=== PATIENT | male | born 1940 | race Caucasian/White ===

== ENCOUNTER 2022-05-06 12:38 | Outpatient (CLI) | payer MEDICARE, BC, SELFPAY | END 2022-05-06 12:39 | disposition home or self-care (01) | LOC: RAD 12:40 | PROVIDERS: PCP Internal Medicine; Visit Provider Internal Medicine | DX: I10 Essential (primary) hypertension (principal); I51.7 Cardiomegaly; I67.9 Cerebrovascular disease, unspecified | CPT/HCPCS: 93306 ==

== ENCOUNTER 2022-11-04 08:28 | Outpatient (CLI) | payer MEDICARE, BC, SELFPAY ==
[2022-11-04 15:27] LABS: Chloride* 106 mmol/L (96-114); Potassium* 4.7 mmol/L (3.6-5.1); Sodium* 137 mmol/L (135-149)
[2022-11-04 15:30] LABS: Blood Urea Nitrogen* 14 mg/dL (7-30); Carbon Dioxide* 24 mmol/L (20-32); Cholesterol* 199 mg/dL (90-199); Estimated Glomerular Filt Rate 75 ml/min; Glucose* 91 mg/dL (60-115)
[2022-11-04 15:31] LABS: Calcium* 9.3 mg/dL (8.4-10.6); HDL Cholesterol* 62 mg/dL (>=40); LDL Cholesterol Calculated 110 mg/dL (<100); Triglycerides* 133 mg/dL (40-149)
== END 2022-11-04 08:29 | disposition home or self-care (01) ==
PROVIDERS: PCP Internal Medicine; Visit Provider Internal Medicine
DX: Z00.00 Encounter for general adult medical examination without abnormal findings (principal); E03.9 Hypothyroidism, unspecified; I10 Essential (primary) hypertension; I25.10 Atherosclerotic heart disease of native coronary artery without angina pectoris; E53.8 Deficiency of other specified B group vitamins
CPT/HCPCS: 80048; 80061; 84443

== ENCOUNTER 2023-02-08 09:23 | Emergency (ER) | payer MEDICARE, BC, SELFPAY ==
[2023-02-08] VITALS (13 sets, daily range): BP systolic 121–181; BP diastolic 73–98; PULSE 58–66; RESP 16–18; TEMP 36.2; O2SAT 95–99; BMI 28.7
--- NOTE | 2023-02-08 09:34 | CRLHL7_ITS ---
For Patients: As a result of the Cures Act, medical imaging exams and procedure reports are released immediately into your electronic medical record. You may view this report before your referring provider. If you have questions, please contact your health care provider. INDICATION: Syncope. COMPARISON: None. TECHNIQUE: PA and lateral views of the chest. FINDINGS: The cardiomediastinal silhouette and pulmonary vasculature are within normal limits. The lungs are clear. No pleural effusion or pneumothorax is identified. No acute bone or joint abnormality is seen. IMPRESSION: No acute abnormality. Dictated by Oscar Garcia MD @ 02/08/2023 10:08:14 AM (Electronically Signed)
[2023-02-08 09:49] LABS: Basophils Absolute Auto 0.03 K/uL (0.00-0.30); Basophils Percent Auto 0.4 % (0.0-3.0); Eosinophils Percent Auto 12.8 % (0.0-7.0); Hematocrit 39.4 % (37.0-53.0); Hemoglobin* 13.1 gm/dL (13.5-17.5); Immature Granulocytes Abs Auto 0.01 K/uL (0.00-0.30); Immature Granulocytes Pct Auto 0.1 %; Lymphocytes Percent Auto 8.1 % (20-44); Mean Corpuscular HGB Conc 33 gm/dL (32-36); Mean Corpuscular Hemoglobin 36 pg (26-34); Mean Corpuscular Volume 108 fL (80-100); Monocytes Percent Auto 9.7 % (0.0-11.0); Neutrophils Percent Auto 68.9 % (42.0-72.0); Platelet Count* 259 K/uL (140-440); RDW Coefficient of Variation % 11.8 % (11.5-15.5); Red Blood Count 3.64 m/uL (4.30-5.90); White Blood Count* 8.27 K/uL (4.50-11.00)
[2023-02-08 09:55] LABS: Slide Review Reflex No; Troponin, Point-of-Care* 0.01 ng/ml (0.01-0.04)
--- NOTE | 2023-02-08 09:55 | ED.SYNCOPE ---
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 The symptoms lasted for approximately 2-3 minutes, improved once he laid down. [place] a similar episode today again when he was standing up. Although was not nearly as bad. He did not feel any feeling of the heart was racing, he was eating yesterday and drinking food when this occurred. Denies a history of numbness tingling weakness. But does tell me that he was hospitalized [facility] for what he describes as a mini-stroke in the past. 1.? Essential Hypertension. Blood pressures are checked once a week at home, running 122-135 systolic.? He has no concerns and no trouble on his atenolol and his benazepril. At his visit with me last year May through July 2020 he was having some dyspnea exertion and elevated blood pressure but did not tolerate long-acting nitrates, and he decided to decrease his beer intake and increased exercise, and his dyspnea exertion and blood pressure improved. His shortness of breath is better.? 2.? Hypothyroidism. He takes is daily levothyroxine without any problems.? He has no signs or symptoms of hyperthyroidism or hypothyroidism. 3.? Coronary artery disease. 4.? Statin intolerance. 5.? Dyspnea on exertion. He had a LAD stent placed 06/10.? He has a history of dyspnea on exertion with lifting in the past, and 05/2019 was evaluated with a negative exercise echocardiogram due to those symptoms.? He admits to fairly severe deconditioning at this point, sitting around at his home due to the pandemic, and does have shortness of breath when he goes up a flight of stairs, which is completely unchanged.? ? Please see my notes of 05/22/19, 05/27/20, and 07/08/20 that describes his past dyspnea on exertion.? There is no chest pain.? He is statin intolerant.? He did not tolerate Imdur last year 06/2020, and he increased his exercise, and reported things were better by the time of his 07/2020 visit with me. When he rides the recumbent bike at the [facility] for 20 minutes, there is no dyspnea on exertion.? He hasn't had to use any of the nitroglycerin SL. 6. Cerebrovascular disease. He was admitted to [facility], overnight from 04/09 to 04/10 for TIA symptoms and had an MRI showing nothing acute, but a small chronic right basal ganglia infarct.? He was placed on aspirin, Plavix, rosuvastatin (previous history of statin intolerance), and he stopped the rosuvastatin due to leg pains 2 weeks after I saw him last.? 7.? B12 deficiency. 8.? Macrocytosis without anemia In [place], he had macrocytosis without anemia(MCV 107) with B12 176, 04/16, s he was advised to start oral B12, which he is taking. PAST MEDICAL/SURGICAL HISTORY:? Please see problem list. FAMILY HISTORY:? Father of old age at 83.? Brother had diabetes and coronary artery disease and of multiple myeloma at 71.? SOCIAL HISTORY:? He was June 2018.? He is not sexually active.? He has 3 children and multiple grandchildren.? 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 He is a former smoker, quitting more than 30 years ago.? Alcohol use is a glass of 6 glasses of alcohol weekly.? Exercise is going to the [facility] 3x weekly, riding the recumbent bike for 30 minutes and some sit ups on a machine (M,W,F at the [facility] and some walking in his hallways).? MD complaint: felt faint and almost passed out Onset (ago): day(s) Prodromal symptoms: lightheaded Witnessed: Yes - by Bystander Context: at rest and standing up Injuries sustained associated with event: none Current symptoms: none History: history of CAD Treatments prior to arrival: none Related Data Home Medications Medication Instructions Recorded Confirmed aspirin 81 mg capsule 81 mg PO QDAY 04/15/22 11/08/22 cetirizine 10 mg tablet 10 mg PO QDAY PRN 04/15/22 11/08/22 diphenhydramine HCl 25 mg tablet 25 mg PO TID PRN 04/15/22 11/08/22 (Benadryl Allergy) mecobalamin (vitamin B12) 1,000 1,000 mcg PO QDAY 11/08/22 11/08/22 mcg chewable tablet Previous Rx's Medication Instructions Recorded atenolol 50 mg tablet 50 mg PO QDAY #90 tabs 11/08/22 benazepril 40 mg tablet 60 mg (1.5 x 40 mg) PO QDAY #135 11/08/22 tabs levothyroxine 100 mcg tablet 100 mcg PO ONCE #90 tabs 11/08/22 Allergies Allergy/AdvReac Type Severity Reaction Status Date / Time simvastatin [From Zocor] Allergy Intermediate Weakness Verified 11/08/22 14:52 Base Metals Allergy Intermediate rash Uncoded 11/08/22 14:52 Review of Systems Status of ROS: Reports: 10 or more systems reviewed and unremarkable except as noted in History and below [facility] Medical History (Updated 02/08/23 @ 13:28 by Noah Shaw MD) TIA (transient ischemic attack) ?G45.9 - Transient cerebral ischemic attack, unspecified (ICD-10) Surgical History (Updated 04/12/22 @ 14:19 by Rc Caldera) S/P cataract extraction and insertion of intraocular lens ?Z98.49 - Cataract extraction status, unspecified eye (ICD-10) ?Z96.1 - Presence of intraocular lens (ICD-10) History of tonsillectomy ?Z90.89 - Acquired absence of other organs (ICD-10) History of prostate biopsy ?Z98.890 - Other specified postprocedural states (ICD-10) History of appendectomy ?Z90.49 - Acquired absence of other specified parts of digestive tract (ICD-10) Social History (Updated 04/12/22 @ 14:20 by Rc Caldera) Narrative: health care directive on file- health care directive completed on 05/26/2020 reviewed and scanned on 05/27/2020 Smoking Status: Former smoker How often do you have a drink containing alcohol: 4 or more times a week AUDIT-C Alcohol total score: 4 Non-prescribed substance use: denies use Little interest or pleasure in doing things: not at all Feeling down, depressed, or hopeless: not at all Exam Narrative: Exam Narrative: I find him alert talkative in room 6, he appears to be in no distress, with normal vital signs. Pupils are equal round reactive to light, cranial nerves 3-12 are normal, TMs are normal, carotid upstrokes are equal bilaterally with no bruits, JVP is flat, there is no meningismus, he is able to whistle, alert oriented x3 with a GCS of 15/15. Chest is clear bilaterally with no wheezing crackles noted easy respirations no signs of respiratory distress heart sounds no clicks murmurs or gallops, S1-S2 are normal. Abdomen is soft and obese there is no guarding, no organomegaly, no tenderness to palpation, he moves all extremities independently and well. He is a right-hand dominant, fingers nose testing is normal, fine motor movements are normal, strength is equal bilaterally and symmetrical both proximal distal. Sensations normal. There is no edema of his lower extremities and negative Homans sign. There is no rashes. Const: Vital Signs, click to edit/add: Vital Signs - 24 hr 02/08/23 09:26 02/08/23 09:30 02/08/23 10:05 Temperature 97.2 F L Pulse Rate Pulse Rate [Right Pulse Oximeter] 61 61 Pulse Rate [orthos tatic lying Left P ulse Oximeter] 58 L Pulse Rate [orthos tatic sitting Left Pulse Oximeter] 60 Pulse Rate [orthos tatic standing Lef t Pulse Oximeter] 65 Respiratory Rate 18 18 Blood Pressure Blood Pressure [Ri ght Upper Arm] 135/90 H 157/84 H Blood Pressure [or thostatic lying Le ft Arm] 155/78 H Blood Pressure [or thostatic sitting Left Arm] 167/81 H Blood Pressure [or thostatic standing Left Arm] 121/73 Pulse Oximetry 99 99 Oxygen Delivery Me thod Room Air Room Air 02/08/23 10:30 02/08/23 10:52 02/08/23 11:00 Temperature Pulse Rate 60 60 Pulse Rate [Right Pulse Oximeter] 58 L Pulse Rate [orthos tatic lying Left P ulse Oximeter] Pulse Rate [orthos tatic sitting Left Pulse Oximeter] Pulse Rate [orthos tatic standing Lef t Pulse Oximeter] Respiratory Rate 16 Blood Pressure Blood Pressure [Ri ght Upper Arm] 169/83 H Blood Pressure [or thostatic lying Le ft Arm] Blood Pressure [or thostatic sitting Left Arm] Blood Pressure [or thostatic standing Left Arm] Pulse Oximetry 98 95 99 Oxygen Delivery Me thod Room Air Room Air Room Air 02/08/23 11:02 02/08/23 11:30 02/08/23 11:33 Temperature Pulse Rate 60 62 66 Pulse Rate [Right Pulse Oximeter] Pulse Rate [orthos tatic lying Left P ulse Oximeter] Pulse Rate [orthos tatic sitting Left Pulse Oximeter] Pulse Rate [orthos tatic standing Lef t Pulse Oximeter] Respiratory Rate Blood Pressure 176/85 H 181/91 H Blood Pressure [Ri ght Upper Arm] Blood Pressure [or thostatic lying Le ft Arm] Blood Pressure [or thostatic sitting Left Arm] Blood Pressure [or thostatic standing Left Arm] Pulse Oximetry 98 99 97 Oxygen Delivery Me thod Room Air 02/08/23 12:02 02/08/23 12:33 02/08/23 13:02 Temperature Pulse Rate Pulse Rate [Right Pulse Oximeter] Pulse Rate [orthos tatic lying Left P ulse Oximeter] Pulse Rate [orthos tatic sitting Left Pulse Oximeter] Pulse Rate [orthos tatic standing Lef t Pulse Oximeter] Respiratory Rate Blood Pressure 173/79 H 155/80 H 165/89 H Blood Pressure [Ri ght Upper Arm] Blood Pressure [or thostatic lying Le ft Arm] Blood Pressure [or thostatic sitting Left Arm] Blood Pressure [or thostatic standing Left Arm] Pulse Oximetry Oxygen Delivery Me thod 02/08/23 13:32 Temperature Pulse Rate Pulse Rate [Right Pulse Oximeter] Pulse Rate [orthos tatic lying Left P ulse Oximeter] Pulse Rate [orthos tatic sitting Left Pulse Oximeter] Pulse Rate [orthos tatic standing Lef t Pulse Oximeter] Respiratory Rate Blood Pressure 170/98 H Blood Pressure [Ri ght Upper Arm] Blood Pressure [or thostatic lying Le ft Arm] Blood Pressure [or thostatic sitting Left Arm] Blood Pressure [or thostatic standing Left Arm] Pulse Oximetry Oxygen Delivery Me thod Documenting provider has reviewed patient's vital signs: yes Course Course Hospital Course: Discussed with this patient is lab tests are negative, his ultrasounds of his legs and chest CT showed do not show pulmonary embolism, review of the previous echo was done, and this was done recently. I think it would be reasonable to discharge him at this point, there may be an element of low fluid intake, along with his hypertension as his pressures remained elevated here. He will continue take his medications as directed follow-up with primary care is appoint with his regular physician next week Tuesday. We will get a Holter monitor further quantify that he is not running a dysrhythmia. He will return with signs symptoms of worsening which we discussed. There was probably a small element of orthostatic hypotension with this, as his orthostatics did show this. Although he did not have a huge rise in his pulse. His blood pressure did drop however 30 points systolic. Vital Signs Vital signs: Initial Vital Signs Temperature 97.2 F L 02/08/23 09:26 Temperature Source Temporal Artery Scan 02/08/23 09:26 Pulse Rate 61 02/08/23 09:26 Respiratory Rate 18 02/08/23 09:26 Blood Pressure 135/90 H 02/08/23 09:26 Blood Pressure Mean 105 02/08/23 09:26 Blood Pressure Position Sitting 02/08/23 09:26 Pulse Oximetry 99 02/08/23 09:26 Oxygen Delivery Method Room Air 02/08/23 09:26 Vital Signs Temperature 97.2 F L 02/08/23 09:26 Pulse Rate 61 02/08/23 09:26 Respiratory Rate 18 02/08/23 09:26 Blood Pressure 135/90 H 02/08/23 09:26 Pulse Oximetry 99 02/08/23 09:26 Oxygen Delivery Method Room Air 02/08/23 09:26 Temperature 97.2 F L 02/08/23 09:26 Pulse Rate 66 02/08/23 11:33 Respiratory Rate 16 02/08/23 10:30 Blood Pressure 170/98 H 02/08/23 13:32 Pulse Oximetry 97 02/08/23 11:33 Oxygen Delivery Method Room Air 02/08/23 11:02 MDM - Syncope MDM Narrative Medical decision making narrative: Life-threatening differential diagnosis considered include: Cardiac arrhythmia, acute blood loss, and intracranial bleed. Other differential diagnosis include but are not limited to vasovagal syncope, orthostatic syncope, seizure, as well as other etiologies Medical Records Attestation: I reviewed the patient's medical records. Lab Data Attestation: I reviewed the patient's lab results. Labs: Lab Results 02/08/23 02/08/23 02/08/23 Range/Units 09:40 09:42 12:00 WBC 8.27 (4.50-11.00) K/uL RBC 3.64 L (4.30-5.90) m/uL Hgb 13.1 L (13.5-17.5) gm/dL Hct 39.4 (37.0-53.0) % MCV 108 H (80-100) fL MCH 36 H (26-34) pg MCHC 33 (32-36) gm/dL RDW Coeff of Dina 11.8 (11.5-15.5) % Plt Count 259 (140-440) K/uL Neut % (Auto) 68.9 (42.0-72.0) % Lymph % (Auto) 8.1 L (20-44) % [place] % (Auto) 9.7 (0.0-11.0) % Eos % (Auto) 12.8 H (0.0-7.0) % Baso % (Auto) 0.4 (0.0-3.0) % Neut # (Auto) 5.70 (1.7-7.0) K/uL Lymph # (Auto) 0.70 L (0.90-2.90) K/uL [place] # (Auto) 0.80 (0.00-0.90) K/UL Eos # (Auto) 1.10 H (0.00-0.50) K/uL Baso # (Auto) 0.03 (0.00-0.30) K/uL INR 1.01 (0.91-1.10) APTT 26 (23-33) Seconds D-Dimer Quant (PE/DVT) 1.99 H (0.00-0.50) ug/ml Sodium 134 L (135-149) mmol/L Potassium 4.2 (3.6-5.1) mmol/L Chloride 101 (96-114) mmol/L Carbon Dioxide 25 (20-32) mmol/L BUN 23 (7-30) mg/dL Creatinine 1.1 (0.5-1.5) mg/dL Estimated Creat Clear 52.54 Estimated GFR 67 ml/min Glucose 137 H (60-115) mg/dL Calcium 9.2 (8.4-10.6) mg/dL Ethyl Alcohol < 0.01 L (0.01-0.03) % SARS-CoV-2 (PCR) Negative SARS-CoV-2 (Negative) Influenza Type A (PCR) Negative PCR FLU A (Negative) Influenza Type B (PCR) Negative PCR FLU B (Negative) RSV (PCR) Negative PCR RSV (Negative) POC Troponin I 0.01 0.01 (0.01-0.04) ng/ml Imaging Data CT scan - chest: Attestation: I have reviewed the pertinent imaging results. My impression: Negative CT scan of the chest, negative chest x-ray, and negative bilateral ultrasounds of the legs by my review Radiologist's impression: atient: FAIZAN TEE Facility:?[facility] Patient ID:?[id number] Site Patient ID:?[id number]. Site :?[id number] Study:?US Extremity Bilateral VENOUS-02/08/2023 12:44:28 PM Ordering Physician:Tobias Zamora Final Report: INDICATION: Elevated D-dimer COMPARISON: none TECHNIQUE: A compression venous ultrasound exam was performed of both lower extremities using polanco scale imaging, color Doppler and spectral Doppler analysis. FINDINGS: Sonographic imaging of the lower extremities demonstrates normal compressibility and color Doppler venous blood flow within the common femoral, deep femoral, and proximal greater saphenous veins. Within the thighs the femoral veins are patent and compressible. At a lower level the popliteal and posterior tibial veins also show normal compressibility and color Doppler venous blood flow. IMPRESSION: Normal venous ultrasound exam. No evidence of deep vein thrombosis within either the left or right lower extremity. Dictated by Siddhartha Franco MD @ 02/08/2023 1:03:54 PM (Electronic Signature) Patient: FAIZAN TEE Facility:?[facility] Patient ID:?[id number] Site Patient ID:?[id number]. Site :?[id number] Study:?CT Chest Angio ISOVUE 370 PE STUDY-02/08/2023 11:30:53 AM Ordering Physician:Tobias Zamora Final Report: INDICATION: Syncope, elevated D-dimer. TECHNIQUE: CT chest PE was acquired with 95 cc Isovue 370 IV contrast. COMPARISON: Chest x-ray 02/08/2023. FINDINGS: Heart and vasculature: Contrast opacification of the pulmonary arterial tree is adequate. No sign of pulmonary embolism. Heart size is normal. Thoracic aorta and pulmonary artery are normal in caliber. Coronary artery calcifications and probable coronary artery stent are noted. Lungs and pleura: No suspicious nodules or infiltrates. There are minimal dependent opacities within the lung bases, likely atelectasis. Next Lymph nodes/mediastinum: No mediastinal, hilar, or axillary adenopathy. Chest wall: No masses. Upper abdomen: 5 centimeter cyst in the right hepatic lobe. No acute abnormality identified within the upper abdomen. Bones: Unremarkable for age. IMPRESSION: 1. No pulmonary arterial embolism identified. 2. No other acute abnormality. Please note that all CT scans at this facility use dose modulation, iterative reconstruction, and/or weight-based dosing when appropriate to reduce radiation dose to as low as reasonably achievable. Dictated by Oscar Garcia MD @ 02/08/2023 12:13:07 PM (Electronic Signature) ECG Data Attestation: I personally reviewed and interpreted this ECG as follows: ECG interpretation date: 02/08/23 Interpretation: EKG shows a mild sinus bradycardia with a ventricular rate of 58, no acute ST wave changes are noted. Discharge Plan Discharge Clinical Impression: Syncope Patient Disposition: Home w/ Parent or Adult Condition: Stable Instructions: Syncope (ED), Near Syncope (ED), Syncope in Older Adults (ED) Additional Instructions: We are going to send you home, your going to continue on medications, your going to follow up with your primary care within the next week or 2. I would recommend we do the Holter monitor, lots of fluids, rest, slow rise to the next position. If this recurs again, or you notice it with fast or slow heart rate, you need to come back and be seen. Activity Level: Light activity Discharge Diet: Regular Prescriptions: No Action aspirin 81 mg capsule 81 mg PO QDAY cetirizine 10 mg tablet 10 mg PO QDAY PRN diphenhydramine HCl [Benadryl Allergy] 25 mg tablet 25 mg PO TID PRN benazepril 40 mg tablet 60 mg PO QDAY Qty: 135 3RF Rx Instructions: Pt is to take one and a half tablets by mouth daily atenolol 50 mg tablet 50 mg PO QDAY Qty: 90 3RF levothyroxine 100 mcg tablet 100 mcg PO ONCE Qty: 90 3RF mecobalamin (vitamin B12) 1,000 mcg tablet,chewable 1,000 mcg PO QDAY Follow Up/Referrals: Alejandra Mclean MD [Primary Care Provider] - Stand Alone Forms: [employer] Info Instructions
[2023-02-08 10:02] LABS: Chloride* 101 mmol/L (96-114); Potassium* 4.2 mmol/L (3.6-5.1); Sodium* 134 mmol/L (135-149)
[2023-02-08 10:04] LABS: Creatinine* 1.1 mg/dL (0.5-1.5); Est. Creatinine Clearance* 52.54; Estimated Glomerular Filt Rate 67 ml/min
[2023-02-08 10:05] LABS: Blood Urea Nitrogen* 23 mg/dL (7-30); Carbon Dioxide* 25 mmol/L (20-32); Glucose* 137 mg/dL (60-115); INR 1.01 (0.91-1.10); Prothrombin Time 13.9 Seconds
[2023-02-08 10:06] LABS: Calcium* 9.2 mg/dL (8.4-10.6); Partial Thromboplastin Time* 26 Seconds (23-33)
[2023-02-08 10:08] LABS: D Dimer Quantitative* 1.99 ug/ml (0.00-0.50); Ethanol* < 0.01 % (0.01-0.03)
--- NOTE | 2023-02-08 10:19 | CRLHL7_ITS ---
For Patients: As a result of the Century Cures Act, medical imaging exams and procedure reports are released immediately into your electronic medical record. You may view this report before your referring provider. If you have questions, please contact your health care provider. INDICATION: Syncope, elevated D-dimer. TECHNIQUE: CT chest PE was acquired with 95 cc Isovue 370 IV contrast. COMPARISON: Chest x-ray 02/08/2023. FINDINGS: Heart and vasculature: Contrast opacification of the pulmonary arterial tree is adequate. No sign of pulmonary embolism. Heart size is normal. Thoracic aorta and pulmonary artery are normal in caliber. Coronary artery calcifications and probable coronary artery stent are noted. Lungs and pleura: No suspicious nodules or infiltrates. There are minimal dependent opacities within the lung bases, likely atelectasis. Next Lymph nodes/mediastinum: No mediastinal, hilar, or axillary adenopathy. Chest wall: No masses. Upper abdomen: 5 centimeter cyst in the right hepatic lobe. No acute abnormality identified within the upper abdomen. Bones: Unremarkable for age. IMPRESSION: 1. No pulmonary arterial embolism identified. 2. No other acute abnormality. Please note that all CT scans at this facility use dose modulation, iterative reconstruction, and/or weight-based dosing when appropriate to reduce radiation dose to as low as reasonably achievable. Dictated by Oscar Garcia MD @ 02/08/2023 12:13:07 PM (Electronically Signed)
[2023-02-08 10:38] LABS: PCR FLU A Negative PCR FLU A (Negative); PCR FLU B Negative PCR FLU B (Negative); PCR RSV Negative PCR RSV (Negative)
[2023-02-08 11:10] LABS: SARS PCR* Negative SARS-CoV-2 (Negative)
--- NOTE | 2023-02-08 11:42 | CRLHL7_ITS ---
For Patients: As a result of the Century Cures Act, medical imaging exams and procedure reports are released immediately into your electronic medical record. You may view this report before your referring provider. If you have questions, please contact your health care provider. INDICATION: Elevated D-dimer COMPARISON: none TECHNIQUE: A compression venous ultrasound exam was performed of both lower extremities using polanco scale imaging, color Doppler and spectral Doppler analysis. FINDINGS: Sonographic imaging of the lower extremities demonstrates normal compressibility and color Doppler venous blood flow within the common femoral, deep femoral, and proximal greater saphenous veins. Within the thighs the femoral veins are patent and compressible. At a lower level the popliteal and posterior tibial veins also show normal compressibility and color Doppler venous blood flow. IMPRESSION: Normal venous ultrasound exam. No evidence of deep vein thrombosis within either the left or right lower extremity. Dictated by Siddhartha Franco MD @ 02/08/2023 1:03:54 PM (Electronically Signed)
[2023-02-08 12:16] LABS: Troponin, Point-of-Care* 0.01 ng/ml (0.01-0.04)
[2023-02-09 16:32] LABS: NT Pro B Type NatriureticPept* 504 pg/mL
== END 2023-02-08 14:12 | disposition home or self-care (01) ==
PROVIDERS: Emergency Provider Family Medicine; PCP Internal Medicine
DX: R55 Syncope and collapse (principal); R79.1 Abnormal coagulation profile
CPT/HCPCS: 36415; 71046; 71260; 80048; 82077; 83880; 84484; 85025; 85379; 85610; 85730; 87631; 93005; 93225; 93226; 93970; 99284; 99285; Q9967

== ENCOUNTER 2023-11-22 08:25 | Outpatient (CLI) | payer MEDICARE, BC, SELFPAY | END 2023-11-22 08:26 | disposition home or self-care (01) | LOC: NFLDREF 11-30 12:45 | PROVIDERS: PCP Internal Medicine; Referring Provider Internal Medicine; Visit Provider Internal Medicine | DX: D75.89 Other specified diseases of blood and blood-forming organs (principal); I25.10 Atherosclerotic heart disease of native coronary artery without angina pectoris; E03.9 Hypothyroidism, unspecified; E53.8 Deficiency of other specified B group vitamins | CPT/HCPCS: 80048; 80061; 82607; 84443 ==

== ENCOUNTER 2024-06-15 07:35 | Outpatient (CLI) | payer MEDICARE, BC, SELFPAY ==
--- OUTSIDE RECORDS SUMMARY | 2024-06-17 07:48 | XMS_ITS | Encounter Summary ---
Author Organization [facility] Address [address] [place] [id number] Phone Care Team Providers Care Safety Person Name Role Phone Alejandra Mclean MD Primary Care Provider Encounter Details Date Type Department Care Team (Late st Contact Info) Description 06/16/2024 Orders Only Unspecified Department [place] Unknown, Provider Social History Tobacco Use Types Packs/Day Years Used Date Smoking Tobacco: Never Assessed Sex and Gender Information Value Date Recorded Sex Assigned at Not on file Gender Identity Not on file Sexual Orientation Not on file documented as of this encounter Plan of Treatment Not on file documented as of this encounter Procedures Procedure Name Priority Date/Time Associated Diagnosis Comments TELEMETRY STRIPS 06/16/2024 6:31 PM CDT documented in this encounter Results * TELEMETRY STRIPS (06/16/2024 6:31 PM CDT) Narrative 06/16/2024 6:31 PM CDT Ordered by an unspecified provider. Provider Unknown RAD ECHO documented in this encounter Visit Diagnoses Not on filedocumented in this encounter Care Teams Safety Person Relationship Specialty Start Date End Date Alejandra Mclean MD [address] [id number] PCP - General Internal Medicine 06/15/24 documented as of this encounter
--- OUTSIDE RECORDS SUMMARY | 2024-06-17 07:48 | XMS_ITS | Referral Summary ---
Author Organization [facility] Address [address] [place] [address] Phone Care Team Providers Care [place] Consultant Name Role Phone Alejandra Mclean MD Primary Care Provider Source Comments [employer] is fully rolled out on [email or web address]. Last update 02/28/09.[facility] Encounters Date Type Department Care Team Description 06/17/2024 Orders Only Unspecified Department [place] Unknown, Provider 06/16/2024 Orders Only Unspecified Department [place] Unknown, Provider 06/16/2024 Orders Only Unspecified Department [place] Unknown, Provider 06/16/2024 Orders Only Unspecified Department [place] Unknown, Provider 06/16/2024 Orders Only Unspecified Department [place] Unknown, Provider 06/15/2024 Orders Only [facility] Film Room [facility] Radiology Department [facility] [address] [place] [address] Provider, Outside Referral of patient (Primary Dx) 06/15/2024 11:06 AM CDT - Present Hospital Encounter [facility] Surgery/Trauma/Brigido ro [address] [place] [address] Desi Joel MD Payne, Rachel E, MD Closed fracture of multiple ribs of left side, initial encounter from Last 3 Months Allergies No known active allergies Medications * Be aware that medications may not be up to date as of this document. Always verify current medications with patient. Medication Sig Dispensed Refills Start Date End Date Status benazepril (LOTENSIN) 40 mg oral TABS Take 1.5 tablets (60 mg) by mouth daily. Suspended levothyroxine (SYNTHROID) 100 mcg oral tablet Take 1 tablet (100 mcg) by mouth daily before morning meal. Suspended atenolol (TENORMIN) 50 mg oral TABS Take 1 tablet (50 mg) by mouth daily. Suspended isosorbide mononitrate (IMDUR) 30 mg oral tablet 24 HR Take 1 tablet (30 mg) by mouth daily. Suspended Active Problems Problem Noted Date Diagnosed Date Closed fracture of multiple ribs of left side, initial encounter 06/15/2024 Social History Tobacco Use Types Packs/Day Years Used Date Smoking Tobacco: Never Assessed Sex and Gender Information Value Date Recorded Sex Assigned at Not on file Gender Identity Not on file Sexual Orientation Not on file Last Filed Vital Signs Vital Sign Reading Time Taken Comments Blood Pressure 160/87 06/17/2024 7:14 AM CDT let rn know Pulse 72 06/17/2024 6:00 AM CDT Temperature 37.1 ??C (98.7 ??F) 06/17/2024 7:14 AM CD T Respiratory Rate 20 06/17/2024 7:14 AM CDT Oxygen Saturation 93% 06/17/2024 7:14 AM CDT Inhaled Oxygen Concentration - - Weight - - Height - - Body Mass Index - - Plan of Treatment Not on file Procedures The patient is currently admitted. The information in this section might not be complete until the patient is discharged. Procedure Name Priority Date/Time Associated Diagnosis Comments TELEMETRY STRIPS 06/17/2024 1:52 AM CDT FOLATE SERUM Routine 06/16/2024 9:08 PM CDT VITAMIN B12 Routine 06/16/2024 9:08 PM CDT TELEMETRY STRIPS 06/16/2024 6:31 PM CDT TELEMETRY STRIPS 06/16/2024 8:52 AM CDT TELEMETRY STRIPS 06/16/2024 8:52 AM CDT PHOSPHORUS Routine 06/16/2024 6:52 AM CDT MAGNESIUM Routine 06/16/2024 6:52 AM CDT PANEL BASIC METABOLIC (BMP) Routine 06/16/2024 6:52 AM CDT TC LAB BLOOD DRAW BY VENIPUNCTURE Routine 06/16/2024 6:52 AM CDT TELEMETRY STRIPS 06/16/2024 12:2 2 AM CDT PC TROPONIN QUANTITATIVE Timed 06/15/2024 3:50 PM CDT XR SCAPULA LEFT AP & LAT Routine 06/15/2024 2:[address] SPINE LUMBAR NO IV CON Routine 06/15/2024 2:[address] SPINE THORACIC NO IV CON Routine 06/15/2024 2:52 PM CDT NERVE BLOCK Routine 06/15/2024 2:00 PM CDT TC LAB ER STAT URINALYSIS STAT 06/15/2024 1:12 PM CDT CK, TOTAL STAT 06/15/2024 12:28 PM CDT PROTHROMBIN (PT) & INR STAT 06/15/2024 12:28 PM CDT PC TROPONIN QUANTITATIVE STAT 06/15/2024 12:28 PM CDT PC LAB CBC W/DIFF & PLT STAT 06/15/2024 12:28 PM CDT PC ELECTROLYTES PANEL STAT 06/15/2024 12:28 PM CDT PC CARBON MONOXIDE,(CARBOXYHEMO GLOBIN);QUANTITATIVE Routine 06/15/2024 12:28 PM CDT TC LAB BLOOD DRAW BY VENIPUNCTURE Routine 06/15/2024 12:28 PM CDT ED US GUIDED NERVE BLOCK STAT 06/15/2024 12:01 PM CDT ED EKG (12-LEAD) Routine 06/15/2024 11:[address] OUTSIDE READ CHEST/ABD/PELV Routine 06/15/2024 11:[address] OUTSIDE READ SPINE CERVICAL/NECK Routine 06/15/2024 11:[address] OUTSIDE READ HEAD/FACIAL BONES Routine 06/15/2024 11:26 AM CDT from Last 3 Months Results * TELEMETRY STRIPS (06/17/2024 1:52 AM CDT) Only the most recent of5 resultswithin the time period is included. Narrative 06/17/2024 1:52 AM CDT Ordered by an unspecified provider. Provider Unknown RAD ECHO * FOLATE SERUM (06/16/2024 9:08 PM CDT) Folate 4.1 >=4.0 ng/mL [facility] Blood 06/16/2024 9:08 PM CDT 06/16/2024 9:22 PM CDT Zeina Arias MD LABORATORY Performing Organization Address City/[facility] Co de Phone Number [facility] [address] [address] * VITAMIN B12 (06/16/2024 9:08 PM CDT) B12 447 211 - 946 pg/mL [facility] Blood 06/16/2024 9:08 PM CDT 06/16/2024 9:22 PM CDT Zeina Arias MD LABORATORY [facility] [address] [address] * PHOSPHORUS (06/16/2024 6:52 AM CDT) Phosphorus 2.9 2.5 - 4.5 mg/dL [facility] Blood 06/16/2024 6:52 AM CDT 06/16/2024 7:25 AM CDT Desi Joel MD LABORATORY Performing Organization Address City/[facility]/ZIP Co de Phone Number [facility] [address] [address] * (ABNORMAL) PANEL BASIC METABOLIC (BMP) (06/16/2024 6:52 AM CDT) Sodium 135 135 - 148 mmol/L [facility] Potassium 4.4 3.5 - 5.3 mmol/L [facility] Chloride 104 92 - 108 mmol/L [facility] CO2 23 22 - 30 mmol/L [facility] AnGap 8 8 - 16 mmol/L [facility] Glucose 106(H) 70 - 100 mg/dL [facility] BUN 16 8 - 23 mg/dL [facility] Creatinine 1.02 0.70 - 1.25 mg/dL [facility] Calcium 8.6(L) 8.8 - 10.2 mg/dL [facility] eGFR (2020 CKD-EPI) 72 >=60 ml/min/1.7 3m2 [facility] Comment: The estimated glomerular filtration rate (eGFR) was calculated using the CKD-EPI 2020 creatinine equation, which does not include race as a factor. This equation is validated in individuals 18 years of age and older, and eGFR is normalized to a body surface area of 1.73m^2. Blood 06/16/2024 6:52 AM CDT 06/16/2024 7:25 AM CDT Desi Joel MD LABORATORY Performing Organization Address City/[facility]/ZIP Co de Phone Number [facility] [address] [address] * MAGNESIUM (06/16/2024 6:52 AM CDT) Magnesium 2.1 1.6 - 2.4 mg/dL [facility] Blood 06/16/2024 6:52 AM CDT 06/16/2024 7:25 AM CDT Desi Joel MD LABORATORY Performing Organization Address [facility] Co de Phone Number [facility] [address] [address] * (ABNORMAL) CBC WITH PLATELET (06/16/2024 6:52 AM CDT) WBC 7.85 4.00 - 10.00 k/cmm [facility] RBC 3.40(L) 4.60 - 6.00 m/cmm [facility] Hgb 12.2(L) 13.1 - 17.5 g/dL [facility] Hematocrit 36.6(L) 40.0 - 51.0 % [facility] MCV 107.6(H) 80.0 - 100.0 fL [facility] MCH 35.9(H) 25.0 - 32.0 pg [facility] MCHC 33.3 31.0 - 36.0 g/dL [facility] RDW 12.1 11.5 - 14.5 % [facility] Plt 172 150 - 400 k/cmm [facility] MPV 9.4 6.5 - 12.5 fL [facility] Blood 06/16/2024 6:52 AM CDT 06/16/2024 7:41 AM CDT Desi Joel MD LABORATORY Performing Organization Address [facility] Co de Phone Number [facility] [address] [address] * TROP 4H (06/15/2024 3:50 PM CDT) 4H Trop 7 <=35 ng/L [facility] 4H Delta na Not Significant [facility] Comment:Unable to calculate delta. Blood 06/15/2024 3:50 PM CDT 06/15/2024 3:54 PM CDT Desi Joel MD LABORATORY [facility] [address] [address] * XR SCAPULA LEFT AP + LAT (06/15/2024 2:56 PM CDT) Anatomical Region Laterality Modality Upper Arm Computed Radiogr aphy 06/15/2024 2:59 PM CDT Impressions 06/15/2024 3:05 PM CDT Impression: Posterior rib fractures. No visible scapular fracture Reading Radiologist: Siddhartha Hernández Narrative 06/15/2024 3:05 PM CDT EXAMINATION: XR SCAPULA LEFT AP + LAT 06/15/2024 2:57 PM Indication: ??left scapular fracture ??. Comparison: Previous CT same day Findings: The clavicle is intact. The AC joint width is normal. Posterior rib fractures better seen on the previous CT. The scapula itself shows degenerative changes of the glenohumeral joint with joint space narrowing but no apparent fracture. Procedure Note Siddhartha Hernández MD - 06/15/2024 EXAMINATION: XR SCAPULA LEFT AP + LAT 06/15/2024 2:57 PM Indication: left scapular fracture . Comparison: Previous CT same day Findings: The clavicle is intact. The AC joint width is normal. Posteriorrib fractures better seen on the previous CT. The scapula itself showsdegenerative changes of the glenohumeral joint with joint space narrowingbut no apparent fracture. IMPRESSION Impression: Posterior rib fractures. No visible scapular fracture Reading Radiologist: Siddhartha Hernández Desi Joel MD RAD XRAY * CT SPINE LUMBAR NO IV CON (06/15/2024 2:52 PM CDT) Anatomical Region Laterality Modality Lumbar Spine Computed Tomogra phy 06/15/2024 2:46 PM CDT Impressions 06/15/2024 11:06 PM CDT Impression: 1. No evidence for fracture/dislocation of the thoracic spine. Significant multilevel facet hypertrophy, most prominent at T10-11 with severe bilateral neural foraminal narrowing. Multiple left-sided rib fractures. 2. No evidence for fracture/dislocation of the lumbar spine. Multilevel lumbar spondylosis with multilevel severe facet hypertrophy, multilevel moderate spinal canal narrowing and multilevel bilateral moderate/severe neural foraminal stenoses. I have personally reviewed the image(s) and initial interpretation, and I agree with the findings as documented by the resident/fellow. Reading Radiologist: Dontae Gunn Reading Resident: Davie Chavarria 06/15/2024 11:06 PM CDT Exam: Thoracic and lumbar spine CT without contrast06/15/2024 2:49 PM Indication: 83 years Male trauma ??. Comparison: None. Technique: Using multidetector thin collimation helical acquisition technique, axial, coronal and sagittal reconstructed CT ??images were obtained through the thoracic and lumbar spine without intravenous contrast. Images were reviewed in bone, lung, and soft tissue windows. Dose: Total DLP = 1485.2 mGy.cm mGy*cm. ?? Findings: Thoracic spine: No fracture or dislocation of the thoracic vertebrae. Intact vertebral body alignment. No spinal canal or neural foraminal stenosis. The visualized prevertebral and paravertebral soft tissues are unremarkable. Significant multilevel facet hypertrophy throughout the thoracic spine, most prominent at T1-T2, T2-3, and T9-10 resulting in moderate bilateral neural foraminal narrowing. There is at least severe bilateral neural foraminal narrowing at T10-11. Posterior disc osteophyte complex at T8-9 and T10-11 resulting in mild spinal canal stenosis. Multiple acute and chronic left-sided rib fractures. Better described on same day CT CAP. Partially visualized large hepatic cyst within the right lobe. Small left pleural effusion. Lumbar spine: No fracture or dislocation of the lumbar vertebrae. Mild retrolisthesis of L2 on L3, L3 on L4, and L5 on S1. Grade 1 anterolisthesis of L4-5. There is multilevel disc height narrowing, most prominent at L1-2 and L5-S1. Findings on a level by level basis are as follows: T12-L1: Bilateral facet hypertrophy with no significant neural foraminal or spinal canal stenosis. L1-L2: Severe facet hypertrophy resulting in mild left neural foraminal narrowing and at least moderate right neural foraminal narrowing. Mild spinal canal narrowing. L2-3: Severe facet hypertrophy with a posterior disc osteophyte complex resulting in moderate spinal canal stenosis and moderate bilateral neural foraminal narrowing. L3-4: Severe facet hypertrophy resulting in severe left neural foraminal narrowing. Moderate right neural foraminal narrowing. Mild spinal canal narrowing. L4-5: Severe facet hypertrophy with a posterior disc osteophyte complex resulting in moderate spinal canal stenosis. Severe bilateral neural foraminal narrowing. L5-S1: Severe facet hypertrophy resulting in severe right neural foraminal stenosis. Moderate left neural foraminal narrowing. No significant spinal canal narrowing Procedure Note Dontae Gunn MD - 06/15/2024 Exam: Thoracic and lumbar spine CT without contrast06/15/2024 2:49 PM Indication: 83 years Male trauma . Comparison: None. Technique: Using multidetector thin collimation helical acquisitiontechnique, axial, coronal and sagittal reconstructed CT images wereobtained through the thoracic and lumbar spine without intravenouscontrast. Images were reviewed in bone, lung, and soft tissue windows. Dose: Total DLP = 1485.2 mGy.cm mGy*cm. Findings: Thoracic spine: No fracture or dislocation of the thoracic vertebrae.Intact vertebral body alignment. No spinal canal or neural foraminalstenosis. The visualized prevertebral and paravertebral soft tissues areunremarkable. Significant multilevel facet hypertrophy throughout thethoracic spine, most prominent at T1-T2, T2-3, and T9-10 resulting inmoderate bilateral neural foraminal narrowing. There is at least severebilateral neural foraminal narrowing at T10-11. Posterior disc osteophytecomplex at T8-9 and T10-11 resulting in mild spinal canal stenosis. Multiple acute and chronic left-sided rib fractures. Better described ons day CT CAP. Partially visualized large hepatic cyst within the rightlobe. Small left pleural effusion. Lumbar spine: No fracture or dislocation of the lumbar vertebrae. Mildretrolisthesis of L2 on L3, L3 on L4, and L5 on S1. Grade 1anterolisthesis of L4-5. There is multilevel disc height narrowing, mostprominent at L1-2 and L5-S1. Findings on a level by level basis are as follows: T12-L1: Bilateral facet hypertrophy with no significant neural foraminalor spinal canal stenosis. L1-L2: Severe facet hypertrophy resulting in mild left neural foraminalnarrowing and at least moderate right neural foraminal narrowing. Mildspinal canal narrowing. L2-3: Severe facet hypertrophy with a posterior disc osteophyte complexresulting in moderate spinal canal stenosis and moderate bilateral neuralforaminal narrowing. L3-4: Severe facet hypertrophy resulting in severe left neural foraminalnarrowing. Moderate right neural foraminal narrowing. Mild spinal canalnarrowing. L4-5: Severe facet hypertrophy with a posterior disc osteophyte complexresulting in moderate spinal canal stenosis. Severe bilateral neuralforaminal narrowing. L5-S1: Severe facet hypertrophy resulting in severe right neural foraminalstenosis. Moderate left neural foraminal narrowing. No significant spinalcanal narrowing IMPRESSION Impression: 1. No evidence for fracture/dislocation of the thoracic spine. Significantmultilevel facet hypertrophy, most prominent at T10-11 with severebilateral neural foraminal narrowing. Multiple left-sided rib fractures. 2. No evidence for fracture/dislocation of the lumbar spine. Multilevellumbar spondylosis with multilevel severe facet hypertrophy, multilevelmoderate spinal canal narrowing and multilevel bilateral moderate/severeneural foraminal stenoses. I have personally reviewed the image(s) and initial interpretation, and Iagree with the findings as documented by the resident/fellow. Reading Radiologist: Dontae Gunn Resident: Davie Chavarria Desi Joel MD RAD CT NEURO * CT SPINE THORACIC NO IV CON (06/15/2024 2:52 PM CDT) Anatomical Region Laterality Modality Thoracic Spine Computed Tomogra phy 06/15/2024 2:46 PM CDT Impressions 06/15/2024 11:06 PM CDT Impression: 1. No evidence for fracture/dislocation of the thoracic spine. Significant multilevel facet hypertrophy, most prominent at T10-11 with severe bilateral neural foraminal narrowing. Multiple left-sided rib fractures. 2. No evidence for fracture/dislocation of the lumbar spine. Multilevel lumbar spondylosis with multilevel severe facet hypertrophy, multilevel moderate spinal canal narrowing and multilevel bilateral moderate/severe neural foraminal stenoses. I have personally reviewed the image(s) and initial interpretation, and I agree with the findings as documented by the resident/fellow. Reading Radiologist: Dontae Gunn Resident: Davie Chavarria Narrative 06/15/2024 11:06 PM CDT Exam: Thoracic and lumbar spine CT without contrast06/15/2024 2:49 PM Indication: 83 years Male trauma ??. Comparison: None. Technique: Using multidetector thin collimation helical acquisition technique, axial, coronal and sagittal reconstructed CT ??images were obtained through the thoracic and lumbar spine without intravenous contrast. Images were reviewed in bone, lung, and soft tissue windows. Dose: Total DLP = 1485.2 mGy.cm mGy*cm. ?? Findings: Thoracic spine: No fracture or dislocation of the thoracic vertebrae. Intact vertebral body alignment. No spinal canal or neural foraminal stenosis. The visualized prevertebral and paravertebral soft tissues are unremarkable. Significant multilevel facet hypertrophy throughout the thoracic spine, most prominent at T1-T2, T2-3, and T9-10 resulting in moderate bilateral neural foraminal narrowing. There is at least severe bilateral neural foraminal narrowing at T10-11. Posterior disc osteophyte complex at T8-9 and T10-11 resulting in mild spinal canal stenosis. Multiple acute and chronic left-sided rib fractures. Better described on same day CT CAP. Partially visualized large hepatic cyst within the right lobe. Small left pleural effusion. Lumbar spine: No fracture or dislocation of the lumbar vertebrae. Mild retrolisthesis of L2 on L3, L3 on L4, and L5 on S1. Grade 1 anterolisthesis of L4-5. There is multilevel disc height narrowing, most prominent at L1-2 and L5-S1. Findings on a level by level basis are as follows: T12-L1: Bilateral facet hypertrophy with no significant neural foraminal or spinal canal stenosis. L1-L2: Severe facet hypertrophy resulting in mild left neural foraminal narrowing and at least moderate right neural foraminal narrowing. Mild spinal canal narrowing. L2-3: Severe facet hypertrophy with a posterior disc osteophyte complex resulting in moderate spinal canal stenosis and moderate bilateral neural foraminal narrowing. L3-4: Severe facet hypertrophy resulting in severe left neural foraminal narrowing. Moderate right neural foraminal narrowing. Mild spinal canal narrowing. L4-5: Severe facet hypertrophy with a posterior disc osteophyte complex resulting in moderate spinal canal stenosis. Severe bilateral neural foraminal narrowing. L5-S1: Severe facet hypertrophy resulting in severe right neural foraminal stenosis. Moderate left neural foraminal narrowing. No significant spinal canal narrowing Procedure Note Dontae Gunn MD - 06/15/2024 Exam: Thoracic and lumbar spine CT without contrast06/15/2024 2:49 PM Indication: 83 years Male trauma . Comparison: None. Technique: Using multidetector thin collimation helical acquisitiontechnique, axial, coronal and sagittal reconstructed CT images wereobtained through the thoracic and lumbar spine without intravenouscontrast. Images were reviewed in bone, lung, and soft tissue windows. Dose: Total DLP = 1485.2 mGy.cm mGy*cm. Findings: Thoracic spine: No fracture or dislocation of the thoracic vertebrae.Intact vertebral body alignment. No spinal canal or neural foraminalstenosis. The visualized prevertebral and paravertebral soft tissues areunremarkable. Significant multilevel facet hypertrophy throughout thethoracic spine, most prominent at T1-T2, T2-3, and T9-10 resulting inmoderate bilateral neural foraminal narrowing. There is at least severebilateral neural foraminal narrowing at T10-11. Posterior disc osteophytecomplex at T8-9 and T10-11 resulting in mild spinal canal stenosis. Multiple acute and chronic left-sided rib fractures. Better described onsame day CT CAP. Partially visualized large hepatic cyst within the rightlobe. Small left pleural effusion. Lumbar spine: No fracture or dislocation of the lumbar vertebrae. Mildretrolisthesis of L2 on L3, L3 on L4, and L5 on S1. Grade 1anterolisthesis of L4-5. There is multilevel disc height narrowing, mostprominent at L1-2 and L5-S1. Findings on a level by level basis are as follows: T12-L1: Bilateral facet hypertrophy with no significant neural foraminalor spinal canal stenosis. L1-L2: Severe facet hypertrophy resulting in mild left neural foraminalnarrowing and at least moderate right neural foraminal narrowing. Mildspinal canal narrowing. L2-3: Severe facet hypertrophy with a posterior disc osteophyte complexresulting in moderate spinal canal stenosis and moderate bilateral neuralforaminal narrowing. L3-4: Severe facet hypertrophy resulting in severe left neural foraminalnarrowing. Moderate right neural foraminal narrowing. Mild spinal canalnarrowing. L4-5: Severe facet hypertrophy with a posterior disc osteophyte complexresulting in moderate spinal canal stenosis. Severe bilateral neuralforaminal narrowing. L5-S1: Severe facet hypertrophy resulting in severe right neural foraminalstenosis. Moderate left neural foraminal narrowing. No significant spinalcanal narrowing IMPRESSION Impression: 1. No evidence for fracture/dislocation of the thoracic spine. Significantmultilevel facet hypertrophy, most prominent at T10-11 with severebilateral neural foraminal narrowing. Multiple left-sided rib fractures. 2. No evidence for fracture/dislocation of the lumbar spine. Multilevellumbar spondylosis with multilevel severe facet hypertrophy, multilevelmoderate spinal canal narrowing and multilevel bilateral moderate/severeneural foraminal stenoses. I have personally reviewed the image(s) and initial interpretation, and Iagree with the findings as documented by the resident/fellow. Reading Radiologist: Dontae Gunn Reading Resident: Davie Chavarria Desi Joel MD RAD CT NEURO * Nerve Block (06/15/2024 2:00 PM CDT) Narrative Desi Joel MD - 06/15/2024 2:00 PM CDT Faye Tong PA-C ? 06/15/2024 ??2:08 PM Nerve Block Performed by: Faye Tong PA-C Authorized by: Desi Joel MD ?? Consent: ??Consent obtained: ??Verbal and written ??Consent given by: ??Patient and guardian ??Risks, benefits, and alternatives were discussed: yes ?Risks discussed: ??Allergic reaction, bleeding, infection, intravenous injection, nerve damage, pain, swelling and unsuccessful block ??Alternatives discussed: ??No treatment, delayed treatment and alternative treatment [place] protocol: ??Procedure explained and questions answered to patient or proxy's satisfaction: yes ?Patient identity confirmed: ??Verbally with patient Indications: ??Indications: ??Pain relief Location: ??Body area: ??Trunk ??Laterality: ??Left Pre-procedure details: ??Skin preparation: ??Chlorhexidine ??Preparation: Patient was prepped and draped in usual sterile fashion ?? Skin anesthesia: ??Skin anesthesia method: ??None Procedure details: ??Block needle gauge: ??22 G ??Guidance: ultrasound ?Anesthesia technique comment: ??Erector spinae plane block ??Block anesthetic: Ropivicaine 0.5% 30cc. ??Steroid injected: ??None ??Additive injected: ??None ??Injection procedure: ??Anatomic landmarks identified, anatomic landmarks palpated, incremental injection, introduced needle and negative aspiration for blood ??Paresthesia: ??None Post-procedure details: ??Dressing: bandaid. ??Outcome: ??Pain relieved ??Procedure completion: ??Tolerated well, no immediate complications Desi Joel MD PROCEDURES * (ABNORMAL) URINALYSIS,TOTAL (06/15/2024 1:12 PM CDT) Pathologist [facility] Color ORANGE YELLOW [facility] Appearance CLOUDY(A) CLEAR [facility] Urine Glucose NEGATIVE NEGATIVE mg/dL [facility] Bili UA NEGATIVE NEGATIVE [facility] Ketones TRACE(A) NEGATIVE [facility] Specific [place] 1.018 1.003 - 1.030 [facility] Blood Ur LARGE(A) Neg-Trace [facility] PH Urine 6.5 5.0 - 7.0 [facility] Protein Ur 30(A) Neg-Trace [facility] Urobilinogen NORMAL NORMAL EU/dL [facility] Nitrite Ur NEGATIVE NEGATIVE [facility] Leuk Est TRACE Neg-Trace [facility] WBC Ur 0-5 0 - 5 perHPF [facility] RBC Ur >20(A) 0 - 3 perHPF [facility] Urinalysis Performed at: [facility] Urine 06/15/2024 1:12 PM CDT 06/15/2024 1:16 PM CDT Desi Joel MD LABORATORY [facility] [address] [address] * HS TROPONIN (06/15/2024 12:28 PM CDT) Pathologist [facility] HS Troponin I 6 <=35 ng/L [facility] Blood 06/15/2024 12:2 8 PM CDT 06/15/2024 12:31 PM CDT Narrative [facility] - 06/15/2024 12:57 PM CDT If ordering as an add-on lab, you must call the lab. Desi Joel MD LABORATORY Performing Organization Address [facility]/ZIP Co de Phone Number [facility] [address] [address] * (ABNORMAL) ED CHEMISTRY LABS(NA,K,CL,CO2,GLU,CREAT,CA-IONIZED,ANION GAP) (06/15/2024 12:28 PM CDT) Sodium 132(L) 135 - 148 mmol/L [facility] Chloride 103 92 - 108 mmol/L [facility] AnGap 9 8 - 16 mmol/L [facility] Glucose 96 70 - 100 mg/dL [facility] ICA, Actual 4.45 4.40 - 5.20 mg/dL [facility] ICA, pH Corrected 4.48 4.40 - 5.20 mg/dL [facility] Creatinine 1.03 0.70 - 1.25 mg/dL [facility] BICARB 21(L) 22 - 26 mEq/L [facility] eGFR (2020 CKD-EPI) 72 >=60 ml/min/1.7 3m2 [facility] Comment: The estimated glomerular filtration rate (eGFR) was calculated using the CKD-EPI 2020 creatinine equation, which does not include race as a factor. This equation is validated in individuals 18 years of age and older, and eGFR is normalized to a body surface area of 1.73m^2. Potassium 4.5 3.5 - 5.3 mmol/L [facility] Blood 06/15/2024 12:2 8 PM CDT 06/15/2024 12:37 PM CDT Desi Joel MD LABORATORY Performing Organization Address City/[facility]/ZIP Co de Phone Number [facility] [address] [address] * (ABNORMAL) CBC WITH PLTS/AUTO DIFF (06/15/2024 12:28 PM CDT) WBC 10.53(H) 4.00 - 10.00 k/cmm [facility] RBC 3.59(L) 4.60 - 6.00 m/cmm [facility] Hgb 13.2 13.1 - 17.5 g/dL [facility] Hematocrit 38.5(L) 40.0 - 51.0 % [facility] MCV 107.2(H) 80.0 - 100.0 fL [facility] MCH 36.8(H) 25.0 - 32.0 pg [facility] MCHC 34.3 31.0 - 36.0 g/dL [facility] RDW 11.9 11.5 - 14.5 % [facility] Plt 185 150 - 400 k/cmm [facility] MPV 9.3 6.5 - 12.5 fL [facility] Automated Abs Neutrophil 8.59(H) 1.70 - 6.50 k/cmm [facility] Comment:Preliminary ANC, Fin al Result to Follow Abs Immature Granulocyte 0.02 0.00 - 0.09 k/cmm [facility] Comment:The Immature Granulo cyte Absolute count contains metamyelocytes and myelocytes. Abs Neutrophil 8.59(H) 1.70 - 6.50 k/cmm [facility] Abs Lymphocyte 0.71(L) 0.80 - 4.00 k/cmm [facility] Abs Monocyte 1.08(H) 0.20 - 1.00 k/cmm [facility] Abs Eosinophil 0.07 0.00 - 0.60 k/cmm [facility] Abs Basophil 0.06 0.00 - 0.20 k/cmm [facility] Blood 06/15/2024 12:2 8 PM CDT 06/15/2024 12:44 PM CDT Desi Joel MD LABORATORY [facility] [address] [place] [id number] * PROTHROMBIN (PT) & INR (06/15/2024 12:28 PM CDT) PT 11.2 9.0 - 12.5 sec [facility] INR 1.0 0.8 - 1.1 [facility] Comment: Warfarin Therapeutic Range: Standard Intensity: 2.0 - 3.0 High Intensity: 2.5 - 3.5 Blood 06/15/2024 12:2 8 PM CDT 06/15/2024 12:44 PM CDT Desi Joel MD LABORATORY Performing Organization Address City/[facility] Co de Phone Number [facility] [address] [address] * CK, TOTAL (06/15/2024 12:28 PM CDT) CK 258 39 - 308 IU/L [facility] Blood 06/15/2024 12:2 8 PM CDT 06/15/2024 12:44 PM CDT Desi Joel MD LABORATORY Performing Organization Address [facility] Co de Phone Number [facility] [address] [address] * EXTRA TUBE - SST (06/15/2024 12:28 PM CDT) SST TUBE Stored [facility] Comment:SST tubes (Serum Sep arator) are stored in the lab for 3 days from the collection date. Blood 06/15/2024 12:2 8 PM CDT 06/15/2024 12:32 PM CDT Desi Joel MD LABORATORY Performing Organization Address [facility] Co de Phone Number [facility] [address] [address] * (ABNORMAL) CARBON MONOXIDE (CO) (06/15/2024 12:28 PM CDT) Carbon Monox 3(H) 0 - 2 % [facility] Comment:Normal range for smo kers: up to 13%. Blood 06/15/2024 12:2 8 PM CDT 06/15/2024 4:16 PM CDT Desi Joel MD LABORATORY Performing Organization Address City/[facility] Co de Phone Number [facility] [address] [address] * ED US GUIDED NERVE BLOCK (06/15/2024 12:01 PM CDT) Anatomical Region Laterality Modality Ultrasound Narrative 06/15/2024 1:59 PM CDT ED / Hyperbaric Ultrasound Guided Procedure Procedure: Nerve Block Indications: Pain, rib fractures Window: Body Location left ALFONSO, Longitudinal Findings: Transverse process identified with fluid appropriately collecting just superficial to the TP during injection Impression: Successful ultrasound guided procedure Desi Joel MD, 06/15/2024 1:58 PM Desi Joel MD RAD ED ULT * ED EKG (12-LEAD) (06/15/2024 11:59 AM CDT) 06/15/2024 11:5 9 AM CDT Impressions [facility] EKG ORDERS - 06/15/2024 11:59 AM CDT SINUS RHYTHM WITH FIRST DEGREE AV BLOCK ABNORMAL ECG No Previous ECGs Available. P-R Interval 212 ms QRS Interval 95 ms QT Interval 377 ms QTC Interval 400 ms P Friendship 64 QRS Friendship -7 T Wave Friendship 25 Narrative Procedure Note Desi Joel MD - 06/15/2024 IMPRESSION SINUS RHYTHM WITH FIRST DEGREE AV BLOCK ABNORMAL ECG No Previous ECGs Available. P-R Interval 212 ms QRS Interval 95 ms QT Interval 377 ms QTC Interval 400 ms P Friendship 64 QRS Friendship -7 T Wave Friendship 25 [facility] * CT OUTSIDE READ CHEST/ABD/PELV (06/15/2024 11:29 AM CDT) Anatomical Region Laterality Modality Chest, Pelvis, Abdomen Computed Tomography 06/15/2024 11:3 1 AM CDT Impressions 06/15/2024 2:35 PM CDT Impression: 1. Acute left fourth through ninth, possibly also 11th, rib fractures. The fourth through seventh ribs are fractured in more than one place and raise the possibility for flail chest physiology. 2. Possible small hemothorax. Mild atelectasis, less likely contusion, of the left lower lobe. 3. No acute sequela of trauma in the abdomen or pelvis. 4. Mildly atrophic kidneys. Intermediate density left renal cyst in the interpolar region measuring 2.3 cm. Recommend follow-up with nonemergent outpatient renal ultrasound when patient condition permits. 5. Bilateral common iliac artery ectasia. I have personally reviewed the image(s) and initial interpretation, and I agree with the findings as documented by the resident/fellow. Reading Radiologist: Epi Lorenzana Resident: Octavio Gilman 06/15/2024 2:35 PM CDT Indication: ??Patient transferred from [facility] due to Trauma. Dr. DESI JOEL requested an interpretation by me. Comparison: CT of the chest from 02/08/2023. Technique: ??CT scan of the chest/abdomen/pelvis done with IV contrast. Axial, coronal, and sagittal reconstructions reviewed in soft tissue and bone windows, per the local institution's scanning protocols, which may differ from the [facility] trauma protocols. Findings: Chest: Mediastinum: Atrophic thyroid gland. ??Unremarkable esophagus. ??Normal heart size. ??Small volume of pericardial fluid, possibly physiologic. ??Scattered coronary and thoracic aortic calcifications. ??LAD stent. Normal caliber of the thoracic and abdominal aorta. No acute vascular injury. ??No suspicious thoracic lymph nodes. Lungs, airway, and pleura: No pneumothorax. Dependent atelectasis in the lower lungs with potential superimposed atelectasis and/or consolidation in the posterior left lung base, although a tiny basilar component of hemothorax is difficult to exclude. 10 x 7 mm right middle lobe nodule has not convincingly changed as compared to 02/08/2023 (coronal image 63 of series 6). Abdomen/Pelvis: ?? Liver: No focal masses. Simple fluid density cyst in the right hepatic lobe measures 6.0 x 4.1 cm on axial image 74 series 4; this appears similar to perhaps minimally increased on size as compared to a CT from 02/08/2023. Gallbladder and biliary tree: No calcified gallstones. No intra- or extrahepatic biliary ductal dilation. Pancreas: Atrophic appearing. No focal mass on this noncontrast enhanced exam. Spleen: Unremarkable. Adrenals: Unremarkable. Kidneys, ureters and bladder: Atrophic appearance of the kidneys. Bilateral perinephric fat stranding, possibly senescent. Scattered bilateral presumed renal cysts, some of which are too small to definitively characterize; this includes bilateral exophytic cysts and probable parapelvic cysts. Additional bilateral renal cysts are too small to characterize. Intermediate density cyst in the interpolar region of the left kidney measures 1.9 x 2.3 cm. A small amount of contrast is excreted within the renal collecting systems. No hydronephrosis. Unremarkable bladder. Pelvis: Prostatomegaly. Bowel: The small and large bowel are normal in caliber without focal wall thickening. Scattered colonic diverticula without CT evidence of acute diverticulitis. The mild fat infiltration of the submucosa of the stomach. The appendix is not definitely seen. Vessels: No abdominal aortic aneurysm. Scattered atherosclerotic calcifications, which do not appear to affect the origins of the celiac axis or superior mesenteric artery. Dilated bilateral common iliac artery, measuring greater than 2 cm bilaterally. Lymph nodes: No enlarged lymph nodes. Peritoneum: No free air or free fluid. Bones and soft tissues: Bones: Acute left fourth through ninth rib fractures, involving the fourth through seventh ribs being fractured in more than one place. Additional old fractures of the posterior left 10th and 11th ribs and anterior left fifth rib; a superimposed acute fracture of the left 11th rib could be present. There is no definite scapula fracture there; there is mild angulation of the bilateral scapular body (for example on image 27 of series 4) without a definite fracture line. Degenerative changes of the spine, sacroiliac joints, and hips. Soft tissues: Mild bilateral gynecomastia. Procedure Note Epi Lorenzana, DO - 06/15/2024 Indication: Patient transferred from [facility] due to Trauma.Dr. DESI JOEL requested an interpretation by me. Comparison: CT of the chest from 02/08/2023. Technique: CT scan of the chest/abdomen/pelvis done with IV contrast.Axial, coronal, and sagittal reconstructions reviewed in soft tissue andbone windows, per the local institution's scanning protocols, which maydiffer from the [facility] trauma protocols. Findings: Chest: Mediastinum: Atrophic thyroid gland. Unremarkable esophagus. Normalheart size. Small volume of pericardial fluid, possibly physiologic.Scattered coronary and thoracic aortic calcifications. LAD stent. Normalcaliber of the thoracic and abdominal aorta. No acute vascular injury. Nosuspicious thoracic lymph nodes. Lungs, airway, and pleura: No pneumothorax. Dependent atelectasis in thelower lungs with potential superimposed atelectasis and/or consolidationin the posterior left lung base, although a tiny basilar component ofhemothorax is difficult to exclude. 10 x 7 mm right middle lobe nodule hasnot convincingly changed as compared to 02/08/2023 (coronal image 63 ofseries 6). Abdomen/Pelvis: Liver: No focal masses. Simple fluid density cyst in the right hepaticlobe measures 6.0 x 4.1 cm on axial image 74 series 4; this appearssimilar to perhaps minimally increased on size as compared to a CT from02/08/2023. Gallbladder and biliary tree: No calcified gallstones. No intra- orextrahepatic biliary ductal dilation. Pancreas: Atrophic appearing. No focal mass on this noncontrast enhancedexam. Spleen: Unremarkable. Adrenals: Unremarkable. Kidneys, ureters and bladder: Atrophic appearance of the kidneys.Bilateral perinephric fat stranding, possibly senescent. Scatteredbilateral presumed renal cysts, some of which are too small todefinitively characterize; this includes bilateral exophytic cysts andprobable parapelvic cysts. Additional bilateral renal cysts are too smallto characterize. Intermediate density cyst in the interpolar region of theleft kidney measures 1.9 x 2.3 cm. A small amount of contrast is excretedwithin the renal collecting systems. No hydronephrosis. Unremarkablebladder. Pelvis: Prostatomegaly. Bowel: The small and large bowel are normal in caliber without focal wallthickening. Scattered colonic diverticula without CT evidence of acutediverticulitis. The mild fat infiltration of the submucosa of the stomach.The appendix is not definitely seen. Vessels: No abdominal aortic aneurysm. Scattered atheroscleroticcalcifications, which do not appear to affect the origins of the celiacaxis or superior mesenteric artery. Dilated bilateral common iliac artery,measuring greater than 2 cm bilaterally. Lymph nodes: No enlarged lymph nodes. Peritoneum: No free air or free fluid. Bones and soft tissues: Bones: Acute left fourth through ninth rib fractures, involving the fourththrough seventh ribs being fractured in more than one place. Additionalold fractures of the posterior left 10th and 11th ribs and anterior leftfifth rib; a superimposed acute fracture of the left 11th rib could bepresent. There is no definite scapula fracture there; there is mildangulation of the bilateral scapular body (for example on image 27 ofseries 4) without a definite fracture line. Degenerative changes of the spine, sacroiliac joints, and hips. Soft tissues: Mild bilateral gynecomastia. IMPRESSION Impression: 1. Acute left fourth through ninth, possibly also 11th, rib fractures. Thefourth through seventh ribs are fractured in more than one place and raisethe possibility for flail chest physiology. 2. Possible small hemothorax. Mild atelectasis, less likely contusion, ofthe left lower lobe. 3. No acute sequela of trauma in the abdomen or pelvis. 4. Mildly atrophic kidneys. Intermediate density left renal cyst in theinterpolar region measuring 2.3 cm. Recommend follow-up with nonemergentoutpatient renal ultrasound when patient condition permits. 5. Bilateral common iliac artery ectasia. I have personally reviewed the image(s) and initial interpretation, and Iagree with the findings as documented by the resident/fellow. Reading Radiologist: Epi Lorenzana Resident: Octavio Gilman Desi Joel MD RAD CT BODY * CT OUTSIDE READ SPINE CERVICAL/NECK (06/15/2024 11:26 AM CDT) Anatomical Region Laterality Modality Cervical Spine Computed Tomogra phy 06/15/2024 11:4 5 AM CDT Impressions 06/15/2024 12:08 PM CDT Impression: ?? No acute fracture or dislocation of the cervical spine. Multilevel spondylosis and/or spondyloarthropathy results in at least moderate spinal canal narrowing at C5-6 and C6-7 and multilevel potentially high-grade neural foraminal narrowing. Reading Radiologist: Epi Lorenzana Narrative 06/15/2024 12:08 PM CDT Indication: ??Patient transferred from [facility] due to Trauma. Dr. DESI JOEL requested an interpretation by me. Technique: ??CT scan of the cervical spine done on 06/15/2024 without IV contrast. Axial, coronal, and sagittal reconstructions reviewed in soft tissue and bone windows, per the local institution's scanning protocols, which may differ from the [facility] trauma protocols. Findings: ??No suspected acute fracture, traumatic malalignment, or abnormal prevertebral soft tissue swelling. Multilevel disc space narrowing, intradiscal mineralization, vertebral body and facet joint ankylosis, and endplate spurring, uncovertebral spurring, and degenerative changes of the facet joints. Atlantodental spurring. Suspect at least moderate spinal canal narrowing at C5-6 and C6-7. Multilevel high-grade neural foraminal narrowing. Mild scattered calcific atherosclerosis. Procedure Note Epi Lorenzana, DO - 06/15/2024 Indication: Patient transferred from [facility] due to Trauma.Dr. DESI JOEL requested an interpretation by me. Technique: CT scan of the cervical spine done on 06/15/2024 without IVcontrast. Axial, coronal, and sagittal reconstructions reviewed in softtissue and bone windows, per the local institution's scanning protocols,which may differ from the [facility] trauma protocols. Findings: No suspected acute fracture, traumatic malalignment, orabnormal prevertebral soft tissue swelling. Multilevel disc spacenarrowing, intradiscal mineralization, vertebral body and facet jointankylosis, and endplate spurring, uncovertebral spurring, and degenerativechanges of the facet joints. Atlantodental spurring. Suspect at least moderate spinal canal narrowing at C5-6 and C6-7.Multilevel high-grade neural foraminal narrowing. Mild scattered calcific atherosclerosis. IMPRESSION Impression: No acute fracture or dislocation of the cervical spine. Multilevel spondylosis and/or spondyloarthropathy results in at leastmoderate spinal canal narrowing at C5-6 and C6-7 and multilevelpotentially high-grade neural foraminal narrowing. Reading Radiologist: Epi Lorenzana Desi Joel MD RAD CT NEURO * CT OUTSIDE READ HEAD/FACIAL BONES (06/15/2024 11:26 AM CDT) Anatomical Region Laterality Modality Skull Computed Tomogra phy 06/15/2024 11:5 8 AM CDT Impressions 06/15/2024 12:05 PM CDT Impression: ??No acute intracranial pathology. Da Traumatic Brain Injury Scale: Diffuse Injury 1 DA DIAGNOSTIC CATEGORIES OF ABNORMALITIES VISUALIZED ON CT SCANNING FOR TRAUMATIC BRAIN INJURY: Diffuse Injury 1: No visible intracranial pathology seen on CT scan. Diffuse Injury 2: Cisterns are present with shift 0-5 mm and/or lesion densities present. No high or mixed density lesion >25ml. May include bone fragments and foreign bodies. Diffuse Injury 3 (swelling): Cisterns compressed or absent with shift 0-5mm. No high or mixed density lesion > 25ml. ? Diffuse Injury 4 (shift): Shift > 5mm. No high or mixed density lesion > 25ml. Evacuated mass lesion: Any surgically evacuated lesion. ?? Non evacuated mass lesion: High or mixed-density lesion > 25ml. Not surgically evacuated. Reading Radiologist: Epi Lorenzana 06/15/2024 12:05 PM CDT Indication: ??Patient transferred from [facility] due to Trauma. Dr. DESI JOEL requested an interpretation by me. Technique: ??CT scan of the head done on 06/15/2024 without IV contrast. Axial, coronal, and sagittal reconstructions are reviewed in soft tissue and bone windows, per the local institution's scanning protocols, which may differ from the [facility] trauma protocols. Findings: No acute intracranial hemorrhage, mass effect, or abnormal extraaxial fluid collection. The parenchymal volume may be appropriate for age; the ventricles and sulci are proportional. No acute appearing loss of the polanco-white matter differentiation. Patchy foci of hypoattenuation in the cerebral white matter, including about the deep polanco nuclei. 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 No substantial external soft tissue swelling. The bones of the calvaria and skull base are without acute or suspicious abnormality. Partially visualized mild mucosal thickening of the maxillary sinuses; additional scattered mucosal thickening of the paranasal sinuses, including polypoid component in the left sphenoid locule. Wall thickening of the left maxillary sinus. The mastoid air cells appear clear. Mild chronic angulation of the distal septum and nasal bones. Calcific atherosclerosis of the carotid siphons. Changes of bilateral pseudophakia. Procedure Note Epi Lorenzana DO - 06/15/2024 Indication: Patient transferred from [facility] due to Trauma.Dr. DESI JOEL requested an interpretation by me. Technique: CT scan of the head done on 06/15/2024 without IV contrast.Axial, coronal, and sagittal reconstructions are reviewed in soft tissueand bone windows, per the local institution's scanning protocols, whichmay differ from the [facility] trauma protocols. Findings: No acute intracranial hemorrhage, mass effect, or abnormalextraaxial fluid collection. The parenchymal volume may be appropriate forage; the ventricles and sulci are proportional. No acute appearing loss ofthe polanco-white matter differentiation. Patchy foci of hypoattenuation inthe cerebral white matter, including about the deep polanco nuclei. Presumedchronic insult of the right anterior striatum with mild associated exvacuo dilation of the right lateral ventricle. No substantial external soft tissue swelling. The bones of the calvariaand skull base are without acute or suspicious abnormality. Partiallyvisualized mild mucosal thickening of the maxillary sinuses; additionalscattered mucosal thickening of the paranasal sinuses, including polypoidcomponent in the left sphenoid locule. Wall thickening of the leftmaxillary sinus. The mastoid air cells appear clear. Mild chronicangulation of the distal septum and nasal bones. Calcific atherosclerosisof the carotid siphons. Changes of bilateral pseudophakia. IMPRESSION Impression: No acute intracranial pathology. Da Traumatic Brain Injury Scale: Diffuse Injury 1 DA DIAGNOSTIC CATEGORIES OF ABNORMALITIES VISUALIZED ON CT SCANNINGFOR TRAUMATIC BRAIN INJURY: Diffuse Injury 1: No visible intracranial pathology seen on CT scan. Diffuse Injury 2: Cisterns are present with shift 0-5 mm and/or lesiondensities present. No high or mixed density lesion >25ml. May include bonefragments and foreign bodies. Diffuse Injury 3 (swelling): Cisterns compressed or absent with shift0-5mm. No high or mixed density lesion > 25ml. Diffuse Injury 4 (shift): Shift > 5mm. No high or mixed density lesion >25ml. Evacuated mass lesion: Any surgically evacuated lesion. Non evacuated mass lesion: High or mixed-density lesion > 25ml. Notsurgically evacuated. Reading Radiologist: Epi Lorenzana Desi Joel MD RAD CT [facility] from Last 3 Months Advance Directives For more information, please contact: [phone] * Full Code (Latest Code Status on File) Date Activated Date Inactivated Comments 06/15/2024 11:07 PM Question Answer Comments Does the Patient have prefer ences regarding life sustaining measures (these options only apply when the patient has a pulse): No Discussed Code Status With Whom? Not discussed Care Teams [employer] Consultant Relationship Specialty Start Date End Date Alejandra Mclean MD [address] [facility] [place] [id number] PCP - General Internal Medicine 06/15/24
--- OUTSIDE RECORDS SUMMARY | 2024-06-17 07:48 | XMS_ITS | Encounter Summary ---
Author Organization [facility] Address [address] [place] [address] Phone Care Team Providers Care Exhibit Carpenter Name Role Phone Alejandra Mclean MD Primary Care Provider Encounter Details Date Type Department Care Team (Late st Contact Info) Description 06/15/2024 Orders Only [facility] Film Room [facility] Radiology Department [facility] [address] [place] [id number] Provider, [place] [address] Referral of patient (Primary Dx) Social History Tobacco Use Types Packs/Day Years Used Date Smoking Tobacco: Never Assessed Sex and Gender Information Value Date Recorded Sex Assigned at Not on file Gender Identity Not on file Sexual Orientation Not on file documented as of this encounter Plan of Treatment Not on file documented as of this encounter Results * CT CHEST OUTSIDE FILMS (02/08/2023 11:21 AM CDT) Narrative User, [id number] - 06/15/2024 10:37 AM CDT Outside Film Only Outside Provider RAD OUTSIDE FILMS documented in this encounter Visit Diagnoses Diagnosis Referral of patient- Primary Referral of patient without examination or treatment documented in this encounter Care Teams Exhibit Carpenter Relationship Specialty Start Date End Date Alejandra Mclean MD [address] [place] [id number] PCP - General Internal Medicine 06/15/24 documented as of this encounter
--- OUTSIDE RECORDS SUMMARY | 2024-06-17 07:48 | XMS_ITS | Encounter Summary ---
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 on room air. Abdominal: Soft, non-distended. No tenderness to palpation. No guarding or rebound. No CVA tenderness. Musculoskeletal: Tenderness to palpation over left chest wall, Active ROM to RUE and bilateral LE intact. Passive ROM to LUE intact. Back: Atraumatic. No C/T/L midline TTP. No spinous process tenderness. No step-offs palpated. No contractures, deformities or cyanosis. Paraspinous tenderness to palpation of left thoracic and lumbar spine. Pelvis: Stable Neurological: Alert and oriented to person, place, and time. Answers all questions appropriately. PERRLA. CNII-XII intact. Pronator drift negative. Coordination intact. Motor and sensory function to bilateral upper and lower extremities intact. Face symmetric and without drooping. Speech clear. Psychiatric: Appropriate behavior and thought patterns. Procedures ALFONSO block (left) - see procedure note Consultations Trauma surgery Orthopaedic surgery ASSESSMENT AND PLAN MEDICAL DECISION MAKING Jennifer Shaikh is a 83 y.o. male with a history of HTN, TIA, vertigo and hypothyroidism who BIBA to the ED as transfer from OSH for evaluation of fall with multiple rib fractures. Initial ddx includes, but is not limited to fractures, flail chest, rhabdomyolysis, ICH, concussion, contusion, hypovolemia, hemorrhage, vasovagal, ACS, PE, arrhythmias, syncope, cardiogenic syncope,orthostatic hypotension, pneumothorax, among others. In the ED, the patient was afebrile and hemodynamically stable. Nontoxic appearing. Physical exam (as above). Workup included over reads of outside imaging, chemistry, cbc, troponin, PT/INR, urinalysis, CO level. On initial assessment, the patient noted that his pain was well-controlled if he was not moving, otherwise the pain was very intense with deep breaths or coughing. Orthopedics was consulted regardingleft scapular fracture noted on outside read of CT. X-ray of the left scapula was ordered and this was negative for fracture. Ortho is signing off. Trauma surgery was consulted and recommended additional imaging of CT lumbar and thoracic spine. They will plan to admit the patient as primary to intermediate care. No further recommendations at this time. In ultrasound-guided ALFONSO block was performedto alleviate pain from left- sided rib fractures and this was noted to have significant improvement in patient's pain following the procedure. He stated that he was able to take deeper breaths and move his left side of his body more without intense pain. He was given ibuprofen and tylenol and offered stronger pain medications if needed, declined at this time. Workup notable for CT Over read with left 4th through 9th rib fractures, possibly 11th. Additionally noted a possible small left-sided hemothorax. Also noted that the 4th through 7th ribs are fractured and more than [address] and raise concern for flail chest physiology. The patient is demonstrating no signs of flail chest at this time, no paradoxical movement he is well-perfused and there is no ecchymosis or shallow breathing noted. Breathing comfortably on room air. Urinalysis noted for hematuria. While patient was in the emergency department, urinary output becoming more clear and less bloody. The patient continues to deny urinary symptoms or flank pain. ED Course as of 06/16/24 1014 Fri Jun 15, 2024 1156 Paged trauma surgery 1158 Paged ortho 1205 Ortho has no recommendations at this time 1209 CT OUTSIDE READ HEAD Impression: ??No acute intracranial pathology. 1209 CT OUTSIDE READ SPINE CERVICAL Impression: No acute fracture or dislocation of the cervical spine. 1305 Sodium(!): 132 1306 HS Troponin I: 6 1509 Blood Ur(!): LARGE 1509 RBC Ur(!): >20 1509 CK: 258 1509 XR SCAPULA LEFT AP/LAT * Impression: Posterior rib fractures. No visible scapular fracture 1545 CT SPINE LUMBAR WITHOUT IV CONTRAST Prelim impression: No evidence for fracture/dislocation of the lumbar spine. Multilevel lumbar spondylosis with multilevel severe facet hypertrophy resulting in multilevel moderate spinal canal narrowing and severe neural foraminal narrowing. There is likely impingement of the right L5 nerve root. 1545 CT SPINE THORACIC WITHOUT IV CONTRAST Prelim impression: No evidence for fracture/dislocation of the thoracic spine. Significant multilevel facet hypertrophy, most prominent at T10-11 with severe bilateral neural foraminal narrowing. 1546 CT OUTSIDE READ CHEST/ABD/PELV Impression: 1. Acute left fourth through ninth, [...] left renal cyst in the interpolar region measuring2.3 cm. Recommend follow-up with nonemergent outpatient renal ultrasound when patient condition permits. 5. Bilateral common iliac artery ectasia. 1546 Pain significantly improved following ALFONSO block The patient remained in the emergency department through the end of my shift. Their care was signedout [id number] with the oncoming provider, Ronnie Giraldo MD Dx, DDx, Assessment and Plan was discussed with Attending Emergency Medicine Physician. Problems Addressed 1 acute or chronic illness or injury that poses a threat to life or bodily function Data considered External notes reviewed and summarized, Tests Ordered, Additional history obtained from Guardian(s), Independent interpretation of studies, and Consultation obtained Risk of patient management Prescription drug management, Decision regarding surgery or procedure, and Decision regarding hospitalization Final Clinical Impression Closed fracture of multiple ribs of left side, initial encounter Fall, initial encounter Traumatic brain injury, with unknown loss of consciousness status, initial encounter Hematuria, unspecified type Disposition and Plan Admit with trauma surgery as primary; patient has been signed out to admitting team Faye Tong PA-C, 06/15/2024 11:07 AM Physician Gatekeeper [employer] Program Dictation Disclaimer: Some notes are completed with voice-recognition dictation software. As a result, there may be errors in the script that have gone undetected. Errors are generally corrected in real time. Please contact me via [employer] staff message if you note any errors requiring clarification. * Tabitha Birmingham RN - 06/15/2024 10:18 AM CDT Report called from Ivelisse HUNTLEY at [place] [facility]. Patient fell on way to bathroom, around 2300 last night and lives alone. Does not recall the fall. Was able to finally call 911 this morning. On Right scapular fracture and 5 rib fractures on left side. Head/neck CT negative. NSR. Pain controlled after one dose of Dilaudid 0.5mg. Alert and oriented X4. Moves all extremities normally. [id number]. Blood noted in urine this morning. Also noted on urinalysis at [place] [facility]. 22g in left hand. Abrasion to left side of forehead. documented in this encounter Miscellaneous Notes * Nursing Assessment - Laura Miller RN - 06/16/2024 11:47 PM CDT Nursing Assessment Head to Toe Head to Toe Assessment Shift Summary Pt able to make needs known, c/o pain in ribs that has been managed with prns. Pt using call light appropriately. 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 Respiratory Assessment Within Defined Limits except for: Cough: Present Type: Nonproductive and congested Neurovascular Assessment Within Defined Limits except for: Neurovascular LUE Sensation: Sensation decreased Neurovascular RUE Sensation: Sensation decreased Neurovascular LLE Sensation: Sensation decreased Neurovascular RLE Sensation: Sensation decreased Edema Present: Yes Generalized: 1+ Gastrointestinal Within Defined Limits Genitourinary Within Defined Limits Musculoskeletal Assessment Within Defined Limits except for: Musculoskeletal Assessment: General Mobility: Generalized weakness and moderately impaired Integumentary Within Defined Limits Patient Lines/Drains/Airways Status Active LDAs Name Placement date Placement time Site Days Peripheral IV 06/16/24 20 gauge Left;Posterior Forearm 06/16/24 7373 -- less than 1 Psychosocial Within Defined Limits * Nursing Assessment - Clair Grissom RN - 06/16/2024 5:54 PM CDT Nursing Assessment Head to Toe Head to Toe Assessment Shift Summary Shift Summary Neurologic/Cognitive Within Defined Limits HEENT Within Defined Limits Cardiac Assessment Within Defined Limits except for: Tool Hardener - remote telemetry Respiratory Assessment Within Defined Limits except for: Breath Sounds Normal: Breath sounds normal: No Breath Sounds Assessment: Diminished AMI and LLL Cough: Present Frequency: Intermittent Type: Nonproductive Neurovascular Assessment Within Defined Limits except for: Neurovascular LUE Sensation: Sensation decreased Neurovascular RUE Sensation: Sensation decreased Neurovascular LLE Sensation: Chronic and sensation decreased Neurovascular RLE Sensation: Chronic and sensation decreased Gastrointestinal Within Defined Limits Genitourinary Within Defined Limits Musculoskeletal Assessment Within Defined Limits except for: Musculoskeletal Assessment: Joint Tenderness left - shoulder Range of Motion: LUE - mildly impaired Integumentary Assessment Within Defined Limits except for: Skin Assessment Integrity - see Avatar LDA documentation Patient Lines/Drains/Airways Status Active LDAs Name Placement date Placement time Site Days Peripheral IV 06/15/24 20 gauge Anterior;Right Forearm 06/15/24 1227 -- 1 Peripheral IV 06/15/24 22 gauge Anterior;Left Hand 06/15/24 1130 -- 1 Psychosocial Within Defined Limits * Utilization Management - Siddhartha Simon MD - 06/16/2024 4:16 PM CDT 83 yo man transferred after a fall - found to have 5 rib fractures and possible small hemothorax onthe left. positive LOC. It seems he was down for several hours. Trauma tertiary exam completed today. Palliative care consulted to discuss goals of care. Optimizing pain control. Surgery note mentions plan for PT and OT, but haven't seen pt yet. Medicare FFS. Will be here at least one more day. Continue inpatient status Siddhartha Simon MD, 06/16/2024 4:23 PM * Utilization Management - Nuris Kim RN - 06/16/2024 3:06 PM CDT 83 yo BIBA from OSH after fall. Down for 6-7 hours L sided rib fractures 4-9, possibly 11th - Possible small hemothorax - Scapula fracture LOCC-spine cleared CK WNL IVF PO pain Q2 neuro checks * Nursing Assessment - Clair Grissom RN - 06/16/2024 8:31 AM CDT Nursing Assessment Head to Toe Head to Toe Assessment Shift Summary Shift Summary Neurologic/Cognitive Within Defined Limits HEENT Within Defined Limits Cardiac Assessment Within Defined Limits except for: Tool Hardener - remote telemetry Respiratory Assessment Within Defined Limits except for: Breath Sounds Normal: Breath sounds normal: No Breath Sounds Assessment: Diminished AMI and LLL Cough: Present Frequency: Intermittent Type: Nonproductive Neurovascular Assessment Within Defined Limits except for: Neurovascular LUE Sensation: Sensation decreased Neurovascular RUE Sensation: Sensation decreased Neurovascular LLE Sensation: Chronic and sensation decreased Neurovascular RLE Sensation: Chronic and sensation decreased Gastrointestinal Within Defined Limits Genitourinary Within Defined Limits Musculoskeletal Assessment Within Defined Limits except for: Musculoskeletal Assessment: Joint Tenderness left - shoulder Range of Motion: LUE - mildly impaired Integumentary Assessment Within Defined Limits except for: Skin Assessment Integrity - see Avatar LDA documentation Patient Lines/Drains/Airways Status Active LDAs Name Placement date Placement time Site Days Peripheral IV 06/15/24 20 gauge Anterior;Right Forearm 06/15/24 1227 -- less than 1 Peripheral IV 06/15/24 22 gauge Anterior;Left Hand 06/15/24 1130 -- less than 1 Psychosocial Within Defined Limits * Nursing Assessment - Laura Miller RN - 06/16/2024 12:20 AM CDT Nursing Assessment Head to Toe Head to Toe Assessment Shift Summary Pt able to make needs known. Using call light appropriately. Laura Miller RN, 06/16/2024 5:06 AM Neurologic/Cognitive Within Defined Limits Frequent Neuro Assessments have been documented in the flowsheets HEENT Within Defined Limits Cardiac Within Defined Limits Tool Hardener - remote telemetry Respiratory Within defined limits Neurovascular Within Defined Limits Gastrointestinal Within Defined Limits Genitourinary Within Defined Limits Comments: Bedside urinal Musculoskeletal Assessment Within Defined Limits except for: Musculoskeletal Assessment: General Mobility: Generalized weakness and moderately impaired Range of Motion: LUE - mildly impaired Comments: LUE WBAT Integumentary Full Skin Assessment Not Completed Full Assessment Not Completed Reason - Patient Refused Patient Lines/Drains/Airways Status Active LDAs Name Placement date Placement time Site Days Peripheral IV 06/15/24 20 gauge Anterior;Right Forearm 06/15/24 1227 -- less than 1 Peripheral IV 06/15/24 22 gauge Anterior;Left Hand 06/15/24 1130 -- less than 1 Psychosocial Within Defined Limits * Utilization Management - Divya Zafar RN - 06/15/2024 3:39 PM CDT Admit order present- no Initial review completed. * ED Faculty Note - Amanda Joel MD - 06/15/2024 12:39 PM CDT Images from the original note were not included. ED Faculty Attestation and Note Jennifer Shaikh : 1940 Sex: male Patient Arrival Date and Time: 06/15/2024 11:06 AM FACULTY ATTESTATION I, Amanda Joel MD, personally saw the patient, performed critical or marie portions of the service, and discussed the care with the Advanced Practice Provider. HPI / PERTINENT EXAM Jennifer Shaikh presented to the emergency department for evaluation of left sided rib and scapula pain after fall. BIBA trauma tx from [place], Fell at 1130pm last night, 5 rib fx and L scapula, hit head LOC+ ct at [place] c-spine cleared. From indep living side of ID. On floor 6-7 hrs. 2mg morphine on transfer from [place]. Sats ok on RA VSS ex HTN sbp 208 before pain meds then sbp 168. Here in the ED, he notes left rib and scapula pain, denies other focal pain. He is not sure how he fell, thinks that he fell out of the bed but not entirely sure. Not on anticoagulation. The patient denies any other physical concerns at this time. Pertinent exam findings: BP 167/81 (Cuff Location: Right Arm, Patient Position: Lying Down) Pulse 73 Temp 36.8 ??C (98.3??F) (Oral) Resp 15 SpO2 94% Airway: Patent, protecting Breathing: Non-labored, symmetric chest rise Circulation: Skin warm. Radial pulses strong. Disability: GCS 15 (4 - Opens eyes spontaneously; 5 - Oriented, converses normally; 6 - Obeys commands) Exposure: Clothing removed. Pertinent secondary exam findings: TTP posterior left ribs and scapula. ED COURSE / MDM Current labs and images reviewed and interpreted: ED Course as of 06/15/24 1714 TueJun 15, [address] OUTSIDE READ HEAD No acute intracranial pathology. 1221 CT OUTSIDE READ SPINE CERVICAL No acute fracture or dislocation of the cervical spine. Multilevel spondylosis and/or spondyloarthropathy results in at least moderate spinal canal narrowing at C5-6 and C6-7 and multilevel potentially high-grade neural foraminal narrowing. 1225 ED EKG (12-LEAD) NSR with 1st degree AV block, without acute ST elevation or depression. No previous EKG available for comparison. 1238 Sodium(!): 132 1238 Glucose: 96 1238 Creatinine: 1.03 1247 Potassium: 4.5 1253 WBC(!): 10.53 1253 Hgb: 13.2 1253 Plt: 185 1258 HS Troponin I: 6 1319 CK: 258 1353 INR: 1.0 1353 PT: 11.2 1353 UA, Total(!): Color ORANGE Appearance CLOUDY(!) Urine Glucose NEGATIVE Bili UA NEGATIVE Ketones TRACE(!) Specific [place] 1.018 Blood Ur LARGE(!) PH Urine 6.5 Protein Ur 30(!) Urobilinogen NORMAL Nitrite Ur NEGATIVE Leuk Est TRACE WBC Ur 0-5 RBC Ur >20(!) Urinalysis Performed at: [facility] [address] CT OUTSIDE READ CHEST/ABD/PELV 1. Acute left fourth through ninth, possibly [...] permits. 5. Bilateral common iliac artery ectasia. Current EKG reviewed and interpreted: as above. Summary of patient's ED course: Trauma and Ortho consulted. Patient and son consented for ALFONSO block, which was performed for pain control. Discussed with trauma and they are okay with intermediate bed vs SICU given rib fractures. Intermediate order bed placed, admission pending inpatient room availability. In regard to his fall that he does not remember, EKG and hsTrop without acute findings. He denies any chest pain or shortness of breath, and low suspicion for PE or aortic pathology. The patient presented with a problem that is 1 acute or chronic illness or injury that poses a threat to life or bodily function. The patient's evaluation involved: ordering and review of 3+ test(s) (see separate area of note for details) and discussion of management or test interpretation with another health professional (see separate area of note for details). The patient's management involved decision regarding hospitalization or escalation of hospital level care. IMPRESSION / DISPOSITION 1. Closed fracture of multiple ribs of left side, initial encounter 2. Fall, initial encounter 3. Hematuria, unspecified type 4. Closed fracture of left scapula, unspecified part of scapula, initial encounter The patient's care was signed out to Dr. River at the end of my shift. Plan is admission. Amanda Joel MD Physician, Emergency Department 06/15/2024 12:39 documented in this encounter Plan of Treatment Pending Results Name Type Priority Associated Diagnoses Date /Time CBC WITH PLATELET Lab Routine 024 7:24 AM CDT PANEL BASIC METABOLIC (BMP) Lab Routine 06/17/2024 7:24 AM CDT MAGNESIUM Lab Routine 06/17/2024 7:2 4 AM CDT PHOSPHORUS Lab Routine 06/17/2024 7:2 4 AM CDT Scheduled Orders Name Type Priority Associated Diagnoses Orde r Schedule MRSA SURVEILLANCE SCREEN Microbiology Routine one time for 1 Occurrences starting 06/17/2024 until 06/17/2024 MRSA SURVEILLANCE SCREEN Microbiology Routine EVERY TUESDAY un til discontinued starting 06/19/2024 OXIMETRY-CONTINUOUS (NON-ICU) Resp Therapy Routine continuous until discontinued starting 06/15/2024 LUNG AIRWAY CLEARANCE EXPANSION PROTOCOL Resp Therapy Routine one time for 1 Occurrences starting 06/16/2024 until 06/16/2024 CBC WITH PLATELET Lab Routine AM draw for 3 Days starting 06/17/2024 until 06/19/2024 PANEL BASIC METABOLIC (BMP) Lab Routine AM draw for 3 Da ys starting 06/17/2024 until 06/19/2024 MAGNESIUM Lab Routine AM draw for 3 Days starting 06/17/2024 until 06/19/2024 PHOSPHORUS Lab Routine AM draw for 3 Days starting 06/17/2024 until 06/19/2024 Scheduled Referrals Name Type Priority Associated Diagnoses Orde r Schedule REFERRAL TO TRAUMATIC BRAIN INJURY Referral Routine Traumatic brain injury, with unknown loss of consciousness status, initial encounter (CMS) Ordered: 06/16/2024 documented as of this encounter Procedures The patient is currently admitted. The information in this section might not be complete until the patient is discharged. Procedure Name Priority Date/Time Associated Diagnosis Comments FOLATE SERUM Routine 06/16/2024 9:08 PM CDT VITAMIN B12 Routine 06/16/2024 9:08 PM CDT PHOSPHORUS Routine 06/16/2024 6:52 AM CDT PANEL BASIC METABOLIC (BMP) Routine 06/16/2024 6:52 AM CDT MAGNESIUM Routine 06/16/2024 6:52 AM CDT TC LAB BLOOD DRAW BY VENIPUNCTURE Routine 06/16/2024 6:52 AM CDT PC TROPONIN QUANTITATIVE Timed 06/15/2024 3:50 PM CDT XR SCAPULA LEFT AP & LAT Routine 06/15/2024 2:[address] SPINE LUMBAR NO IV CON Routine 06/15/2024 2:[address] SPINE THORACIC NO IV CON Routine 06/15/2024 2:52 PM CDT NERVE BLOCK Routine 06/15/2024 2:00 PM CDT TC LAB ER STAT URINALYSIS STAT 06/15/2024 1:12 PM CDT PC TROPONIN QUANTITATIVE STAT 06/15/2024 12:28 PM CDT PC ELECTROLYTES PANEL STAT 06/15/2024 12:28 PM CDT PC LAB CBC W/DIFF & PLT STAT 06/15/2024 12:28 PM CDT PROTHROMBIN (PT) & INR STAT 06/15/2024 12:28 PM CDT CK, TOTAL STAT 06/15/2024 12:28 PM CDT TC LAB BLOOD DRAW BY VENIPUNCTURE Routine 06/15/2024 12:28 PM CDT PC CARBON MONOXIDE,(CARBOXYHEMO GLOBIN);QUANTITATIVE Routine 06/15/2024 12:28 PM CDT ED US GUIDED NERVE BLOCK STAT 06/15/2024 12:01 PM CDT ED EKG (12-LEAD) Routine 06/15/2024 11:[address] OUTSIDE READ CHEST/ABD/PELV Routine 06/15/2024 11:[address] OUTSIDE READ SPINE CERVICAL/NECK Routine 06/15/2024 11:[address] OUTSIDE READ HEAD/FACIAL BONES Routine 06/15/2024 11:26 AM CDT documented in this encounter Results * FOLATE SERUM (06/16/2024 9:08 PM CDT) Folate 4.1 >=4.0 ng/mL [facility] Blood 06/16/2024 9:08 PM CDT 06/16/2024 9:22 PM CDT Zeina Arias MD LABORATORY [facility] [address] [address] * VITAMIN B12 (06/16/2024 9:08 PM CDT) B12 447 211 - 946 pg/mL [facility] Blood 06/16/2024 9:08 PM CDT 06/16/2024 9:22 PM CDT Zeina Arias MD LABORATORY Performing Organization Address [facility] Co de Phone Number [facility] [address] [address] * PHOSPHORUS (06/16/2024 6:52 AM CDT) Phosphorus 2.9 2.5 - 4.5 mg/dL [facility] Blood 06/16/2024 6:52 AM CDT 06/16/2024 7:25 AM CDT Amanda Joel MD LABORATORY Performing Organization Address [facility] Co de Phone Number [facility] [address] [address] * MAGNESIUM (06/16/2024 6:52 AM CDT) Pathologist [facility] Magnesium 2.1 1.6 - 2.4 mg/dL [facility] Blood 06/16/2024 6:52 AM CDT 06/16/2024 7:25 AM CDT Amanda Joel MD LABORATORY Performing Organization Address [facility] Co de Phone Number [facility] [address] [address] * (ABNORMAL) PANEL BASIC METABOLIC (BMP) (06/16/2024 6:52 AM CDT) Sodium 135 135 - 148 mmol/L [facility] Potassium 4.4 3.5 - 5.3 mmol/L [facility] Chloride 104 92 - 108 mmol/L [facility] CO2 23 22 - 30 mmol/L [facility] AnGap 8 8 - 16 mmol/L [facility] Glucose 106(H) 70 - 100 mg/dL [facility] BUN 16 8 - 23 mg/dL [facility] Creatinine 1.02 0.70 - 1.25 mg/dL [facility] Calcium 8.6(L) 8.8 - 10.2 mg/dL [facility] eGFR (2021 CKD-EPI) 72 >=60 ml/min/1.7 3m2 [facility] Comment: The estimated glomerular filtration rate (eGFR) was calculated using the CKD-EPI 2020 creatinine equation, which does not include race as a factor. This equation is validated in individuals 18 years of age and older, and eGFR is normalized to a body surface area of 1.73m^2. Blood 06/16/2024 6:52 AM CDT 06/16/2024 7:25 AM CDT Amanda Joel MD LABORATORY Performing Organization Address City/[facility] Co de Phone Number [facility] [address] [address] * (ABNORMAL) CBC WITH PLATELET (06/16/2024 6:52 AM CDT) WBC 7.85 4.00 - 10.00 k/cmm [facility] RBC 3.40(L) 4.60 - 6.00 m/cmm [facility] Hgb 12.2(L) 13.1 - 17.5 g/dL [facility] Hematocrit 36.6(L) 40.0 - 51.0 % [facility] MCV 107.6(H) 80.0 - 100.0 fL [facility] MCH 35.9(H) 25.0 - 32.0 pg [facility] MCHC 33.3 31.0 - 36.0 g/dL [facility] RDW 12.1 11.5 - 14.5 % [facility] Plt 172 150 - 400 k/cmm [facility] MPV 9.4 6.5 - 12.5 fL [facility] Blood 06/16/2024 6:52 AM CDT 06/16/2024 7:41 AM CDT Amanda Joel MD LABORATORY Performing Organization Address [facility] Co de Phone Number [facility] [address] [address] * TROP 4H (06/15/2024 3:50 PM CDT) 4H Trop 7 <=35 ng/L [facility] 4H Delta na Not Significant [facility] Comment:Unable to calculate delta. Blood 06/15/2024 3:50 PM CDT 06/15/2024 3:54 PM CDT Amanda Joel MD LABORATORY [facility] [address] [address] * XR SCAPULA LEFT AP + LAT [...] visible scapular fracture Reading Radiologist: Siddhartha Hernández Amanda Joel MD RAD XRAY * CT SPINE [...] Radiologist: Dontae Gunn Reading Resident: Davie Chavarria Amanda Joel MD RAD CT NEURO * CT [...] Radiologist: Dontae Gunn Reading Resident: Davie Chavarria Amanda Joel MD RAD CT NEURO * Nerve Block (06/15/2024 2:00 PM CDT) Narrative Amanda Joel MD - 06/15/2024 2:00 PM CDT Faye Tong PA-C ? 06/15/2024 ??2:08 PM Nerve Block Performed by: Faye Tong PA-C Authorized by: Amanda Joel MD ?? Consent: ??Consent obtained: ??Verbal and written ??Consent given by: ??Patient and guardian ??Risks, benefits, and alternatives were discussed: yes ?Risks discussed: ??Allergic reaction, bleeding, infection, intravenous injection, nerve damage, pain, swelling and unsuccessful block ??Alternatives discussed: ??No treatment, delayed treatment and alternative treatment [place] protocol: ??Procedure explained and questions answered to [...] ??Procedure completion: ??Tolerated well, no immediate complications Amanda Joel MD PROCEDURES * (ABNORMAL) URINALYSIS,TOTAL (06/15/2024 1:12 PM CDT) [facility] Color ORANGE YELLOW [facility] Appearance CLOUDY(A) CLEAR [facility] Urine Glucose NEGATIVE NEGATIVE mg/dL [facility] Bili UA NEGATIVE NEGATIVE [facility] Ketones TRACE(A) NEGATIVE [facility] Specific [place] 1.018 1.003 - 1.030 [facility] Blood Ur LARGE(A) Neg-Trace [facility] PH Urine 6.5 5.0 - 7.0 [facility] Protein Ur 30(A) Neg-Trace [facility] Urobilinogen NORMAL NORMAL EU/dL [facility] Nitrite Ur NEGATIVE NEGATIVE [facility] Leuk Est TRACE Neg-Trace [facility] WBC Ur 0-5 0 - 5 perHPF [facility] RBC Ur >20(A) 0 - 3 perHPF [facility] Urinalysis Performed at: [facility] Urine 06/15/2024 1:12 PM CDT 06/15/2024 1:16 PM CDT Amanda Joel MD LABORATORY [facility] [address] [address] * CK, TOTAL (06/15/2024 12:28 PM CDT) CK 258 39 - 308 IU/L [facility] Blood 06/15/2024 12:2 8 PM CDT 06/15/2024 12:44 PM CDT Amanda Joel MD LABORATORY Performing Organization Address City/[facility]/ZIP Co de Phone Number [facility] [address] [address] * PROTHROMBIN (PT) & INR (06/15/2024 12:28 PM CDT) Pathologist [facility] PT 11.2 9.0 - 12.5 sec [facility] INR 1.0 0.8 - 1.1 [facility] Comment: Warfarin Therapeutic Range: Standard Intensity: 2.0 - 3.0 High Intensity: 2.5 - 3.5 Blood 06/15/2024 12:2 8 PM CDT 06/15/2024 12:44 PM CDT Amanda Joel MD LABORATORY Performing Organization Address [facility]/ZIP Co de Phone Number [facility] [address] [address] * HS TROPONIN (06/15/2024 12:28 PM CDT) Pathologist [facility] HS Troponin I 6 <=35 ng/L [facility] Blood 06/15/2024 12:2 8 PM CDT 06/15/2024 12:31 PM CDT Narrative [facility] - 06/15/2024 12:57 PM CDT If ordering as an add-on lab, you must call the lab. Amanda Joel MD LABORATORY Performing Organization Address City/[facility]/ZIP Co de Phone Number [facility] [address] [address] * (ABNORMAL) CBC WITH PLTS/AUTO DIFF (06/15/2024 12:28 PM CDT) Pathologist [facility] WBC 10.53(H) 4.00 - 10.00 k/cmm [facility] RBC 3.59(L) 4.60 - 6.00 m/cmm [facility] Hgb 13.2 13.1 - 17.5 g/dL [facility] Hematocrit 38.5(L) 40.0 - 51.0 % [facility] MCV 107.2(H) 80.0 - 100.0 fL [facility] MCH 36.8(H) 25.0 - 32.0 pg [facility] MCHC 34.3 31.0 - 36.0 g/dL [facility] RDW 11.9 11.5 - 14.5 % [facility] Plt 185 150 - 400 k/cmm [facility] MPV 9.3 6.5 - 12.5 fL [facility] Automated Abs Neutrophil 8.59(H) 1.70 - 6.50 k/cmm [facility] Comment:Preliminary ANC, Fin al Result to Follow Abs Immature Granulocyte 0.02 0.00 - 0.09 k/cmm [facility] Comment:The Immature Granulo cyte Absolute count contains metamyelocytes and myelocytes. Abs Neutrophil 8.59(H) 1.70 - 6.50 k/cmm [facility] Abs Lymphocyte 0.71(L) 0.80 - 4.00 k/cmm [facility] Abs Monocyte 1.08(H) 0.20 - 1.00 k/cmm [facility] Abs Eosinophil 0.07 0.00 - 0.60 k/cmm [facility] Abs Basophil 0.06 0.00 - 0.20 k/cmm [facility] Blood 06/15/2024 12:2 8 PM CDT 06/15/2024 12:44 PM CDT Amanda Joel MD LABORATORY [facility] [address] [address] * (ABNORMAL) ED CHEMISTRY LABS(NA,K,CL,CO2,GLU,CREAT,CA-IONIZED,ANION GAP) (06/15/2024 12:28 PM CDT) Sodium 132(L) 135 - 148 mmol/L [facility] Chloride 103 92 - 108 mmol/L [facility] AnGap 9 8 - 16 mmol/L [facility] Glucose 96 70 - 100 mg/dL [facility] ICA, Actual 4.45 4.40 - 5.20 mg/dL [facility] ICA, pH Corrected 4.48 4.40 - 5.20 mg/dL [facility] Creatinine 1.03 0.70 - 1.25 mg/dL [facility] BICARB 21(L) 22 - 26 mEq/L [facility] eGFR (2020 CKD-EPI) 72 >=60 ml/min/1.7 3m2 [facility] Comment: The estimated glomerular filtration rate (eGFR) was calculated using the CKD-EPI 2020 creatinine equation, which does not include race as a factor. This equation is validated in individuals 18 years of age and older, and eGFR is normalized to a body surface area of 1.73m^2. Potassium 4.5 3.5 - 5.3 mmol/L [facility] Blood 06/15/2024 12:2 8 PM CDT 06/15/2024 12:37 PM CDT Amanda Joel MD LABORATORY Performing Organization Address City/[facility]/ZIP Co de Phone Number [facility] [address] [address] * (ABNORMAL) CARBON MONOXIDE (CO) (06/15/2024 12:28 PM CDT) Carbon Monox 3(H) 0 - 2 % [facility] Comment:Normal range for smo kers: up to 13%. Blood 06/15/2024 12:2 8 PM CDT 06/15/2024 4:16 PM CDT Amanda Joel MD LABORATORY Performing Organization Address City/[facility]/ZIP Co de Phone Number [facility] [address] [address] * EXTRA TUBE - SST (06/15/2024 12:28 PM CDT) SST TUBE Stored [facility] Comment:SST tubes (Serum Sep arator) are stored in the lab for 3 days from the collection date. Blood 06/15/2024 12:2 8 PM CDT 06/15/2024 12:32 PM CDT Amanda Joel MD LABORATORY [facility] [address] [place] [address] * ED US GUIDED NERVE BLOCK (06/15/2024 12:01 PM CDT) Anatomical Region Laterality Modality Ultrasound Narrative 06/15/2024 1:59 PM CDT ED / Hyperbaric Ultrasound Guided Procedure Procedure: Nerve Block Indications: Pain, rib fractures Window: Body Location left ALFONSO, Longitudinal Findings: Transverse process identified with fluid appropriately collecting just superficial to the TP during injection Impression: Successful ultrasound guided procedure Amanda Joel MD, 06/15/2024 1:58 PM Amanda Joel MD RAD ED ULT * ED EKG (12-LEAD) (06/15/2024 11:59 AM CDT) 06/15/2024 11:5 9 AM CDT Impressions [facility] CVIS EKG ORDERS - 06/15/2024 11:59 AM CDT SINUS RHYTHM WITH FIRST DEGREE AV BLOCK ABNORMAL ECG No Previous ECGs Available. P-R Interval 212 ms QRS Interval 95 ms QT Interval 377 ms QTC Interval 400 ms P [place] 64 QRS Orinda -7 T Wave [place] 25 Narrative Procedure Note Amnada Joel MD - 06/15/2024 IMPRESSION SINUS RHYTHM WITH FIRST DEGREE AV BLOCK ABNORMAL ECG No Previous ECGs Available. P-R Interval 212 ms QRS Interval 95 ms QT Interval 377 ms QTC Interval 400 ms P Or[place] 64 QRS [place] -7 T Wave [place] 25 Amanda Joel MD EKG [facility]IS EKG ORDERS * CT OUTSIDE READ CHEST/ABD/PELV [...] 2:35 PM CDT Indication: ??Patient transferred from [place] due to Trauma. Dr. AMANDA JOEL requested an interpretation by me. Comparison: CT of the chest from 02/08/2023. Technique: ??CT scan of the chest/abdomen/pelvis done with IV contrast. Axial, coronal, and sagittal reconstructions reviewed in soft tissue and bone windows, per the local institution's scanning protocols, which may differ from the [facility] trauma protocols. Findings: Chest: Mediastinum: Atrophic thyroid [...] DO - 06/15/2024 Indication: Patient transferred from [facility] due to Trauma.Dr. AMANDA JOEL requested an interpretation by me. Comparison: CT of the chest from 02/08/2023. Technique: CT scan of the chest/abdomen/pelvis done with IV contrast.Axial, coronal, and sagittal reconstructions reviewed in soft tissue andbone windows, per the local institution's scanning protocols, which maydiffer from the [facility] trauma protocols. Findings: Chest: Mediastinum: Atrophic thyroid [...] Reading Radiologist: Epi Lorenzana Resident: Octavio Gilman Amanda Joel MD RAD CT BODY * CT [...] 12:08 PM CDT Indication: ??Patient transferred from [facility] due to Trauma. Dr. AMANDA JOEL requested an interpretation by me. Technique: ??CT scan of the cervical spine done on 06/15/2024 without IV contrast. Axial, coronal, and sagittal reconstructions reviewed in soft tissue and bone windows, per the local institution's scanning protocols, which may differ from the [facility] trauma protocols. Findings: ??No suspected acute fracture, [...] DO - 06/15/2024 Indication: Patient transferred from [facility] due to Trauma.Dr. AMANDA JOEL requested an interpretation by me. Technique: CT scan of the cervical spine done on 06/15/2024 without IVcontrast. Axial, coronal, and sagittal reconstructions reviewed in softtissue and bone windows, per the local institution's scanning protocols,which may differ from the [facility] trauma protocols. Findings: No suspected acute fracture, [...] neural foraminal narrowing. Reading Radiologist: Epi Lorenzana Amanda Joel MD RAD CT NEURO * CT [...] 12:05 PM CDT Indication: ??Patient transferred from [facility] due to Trauma. Dr. AMANDA JOEL requested an interpretation by me. Technique: ??CT scan of the head done on 06/15/2024 without IV contrast. Axial, coronal, and sagittal reconstructions are reviewed in soft tissue and bone windows, per the local institution's scanning protocols, which may differ from the [facility] trauma protocols. Findings: No acute intracranial hemorrhage, [...] pseudophakia. Procedure Note Epi Lorenzana DO - 09/20/2024 Indication: Patient transferred from [facility] due to Trauma.Dr. AMANDA JOEL requested an interpretation by me. Technique: CT scan of the head done on 06/15/2024 without IV contrast.Axial, coronal, and sagittal reconstructions are reviewed in soft tissueand bone windows, per the local institution's scanning protocols, whichmay differ from the [facility] trauma protocols. Findings: No acute intracranial hemorrhage, [...] 25ml. Notsurgically evacuated. Reading Radiologist: Epi Lorenzana Amanda Joel MD RAD CT NEURO documented in this encounter Visit Diagnoses Diagnosis Closed fracture of multiple ribs of left side, initial encounter- Primary Closed fracture of multiple ribs of left side, initial encounter Fall, initial encounter Hematuria, unspecified type Closed fracture of left scapula, unspecified part of scapula, initial encounter Traumatic brain injury, with unknown loss of consciousness status, initial encounter ([facility]) documented in this encounter Admitting Diagnoses Diagnosis Closed fracture of multiple ribs of left side, initial encounter documented in this encounter Administered Medications Active Administered Medications - up to 3 most recent administrations Medication Order MAR Action Action Date Dose Rate Site acetaminophen (TYLENOL) tablet 975 mg 975 mg, Oral, TID, First dose (after last modification) on 06/16/24 at 1400, Until Discontinued Given 06/16/2024 8:19 PM CDT 975 mg Given 06/16/2024 2:20 PM CDT 975 mg albuterol-ipratropium (DUONEB) 2.5-0.5 mg/3 mL solution 3 mL 3 mL, Nebulization, Q4H PRN, Starting on 06/16/24 at 1845, Until Discontinued, Shortness of Breath Given 06/16/2024 7:01 PM CDT 3 mL cyclobenzaprine (FLEXERIL) tablet 5 mg 5 mg, Oral, TID, First dose on 06/16/24 at 0800, Until Discontinued Given 06/16/2024 8:18 PM CDT 5 mg Given 06/16/2024 2:20 PM CDT 5 mg Given 06/16/2024 7:41 AM CDT 5 mg GABApentin (NEURONTIN) capsule 100 mg 100 mg, Oral, TID, First dose on 06/16/24 at 0800, Until Discontinued Given 06/16/2024 8:19 PM CDT 100 mg Given 06/16/2024 2:20 PM CDT 100 mg Given 06/16/2024 7:41 AM CDT 100 mg HYDROmorphone PF (DILAUDID) 1 mg/mL injection 0.2 mg 0.2 mg, IV Push, Q4H PRN, Starting on 06/16/24 at 1845, Until Discontinued, Severe Pain (Use First), Specifically for rib pain that interferes with breathing Given 06/17/2024 12:13 AM CDT 0.2 mg Given 06/16/2024 8:19 PM CDT 0.2 mg levothyroxine (SYNTHROID) tablet 100 mcg 100 mcg, Oral, DAILY BEFORE AM MEAL, First dose on 06/16/24 at 0730, Until Discontinued Given 06/16/2024 8:20 AM CDT 100 mcg lidocaine (LIDODERM) 5% patch 2 patch 2 patch, Transdermal, Q24H, First dose (after last modification) on Tue06/16/24 at 1105, Until Discontinued Patch applied 06/16/2024 12:20 PM CDT 2 patches Other (comment) oxyCODONE (ROXICODONE) tablet 5-10 mg 5-10 mg, Oral, Q4H PRN, Starting on Tue06/15/24 at 2307, Until Discontinued, Moderate Pain (Use First) Given 06/17/2024 12:14 AM CDT 10 mg Given 06/16/2024 8:19 PM CDT 10 mg Given 06/16/2024 12:20 PM CDT 10 mg polyethylene glycol 3350 (MIRALAX;GLYCOLAX) packet 17 g 17 g, Oral, DAILY, First dose on Tue06/16/24 at 0800, Until Discontinued Given 06/16/2024 7:41 AM CDT 17 g sennosides (SENOKOT) tablet 17.2 mg 17.2 mg, Oral, BID, First dose (after last modification) on 06/16/24 at 2000, Until Discontinued Given 06/16/2024 8:19 PM CDT 17.2 mg VTE prophylaxis contraindicated Contraindication Reason: Other, Other Reason: Other (Specify in Comments), Does not apply, PROTOCOL, Starting on Tue06/15/24 at 2307, Until Discontinued Inactive Administered Medications - up to 3 most recent administrations Medication Order MAR Action Action Date Dose Rate Site acetaminophen (TYLENOL) tablet 650 mg 650 mg, Oral, Q4H, First dose on Tue06/15/24 at 2315, Until Discontinued Given 06/16/2024 7:41 AM CDT 650 mg Given 06/16/2024 4:12 AM CDT 650 mg acetaminophen (TYLENOL) tablet 975 mg 975 mg, Oral, Q6H, First dose on Tue06/15/24 at 1230, Until Discontinued Given 06/15/2024 2:22 PM CDT 975 mg ibuprofen (MOTRIN;ADVIL) tablet 800 mg 800 mg, Oral, ONE TIME, 1 dose, On Tue06/15/24 at 1155 Given 06/15/2024 12:03 PM CDT 800 mg lidocaine (LIDODERM) 5% patch 1 patch 1 patch, Transdermal, ONE TIME, 1 dose, On Tue06/15/24 at 1440 Patch applied 06/15/2024 3:42 PM CDT 1 patch Left Chest lidocaine (LIDODERM) 5% patch 1 patch 1 patch, Transdermal, Q24H, First dose on 06/16/24 at 0645, Until Discontinued Patch applied 06/16/2024 7:42 AM CDT 1 patch Other (comment) NaCl 0.9% infusion at 100 mL/hr, Intravenous, CONTINUOUS, Starting on Tue06/15/24 at 2310, Until 06/16/24 at 1829 New Bag 06/16/2024 9:48 AM CDT 100 mL/hr New Bag 06/15/2024 11:56 PM CDT 100 mL/hr sennosides (SENOKOT) tablet 8.6 mg 8.6 mg, Oral, BID, First dose on Tue06/15/24 at 2310, Until Discontinued Given 06/16/2024 7:41 AM CDT 8.6 mg documented in this encounter Active and Recently Administered Medications Times are shown in CDT. Scheduled Medication Order 06/15/2024 06/16/2024 06/17/2024 acetaminophen (TYLENOL) tablet 650 mg (CANCELED) 650 mg, Oral, Q4H, First dose on Tue06/15/24 at 2315, Until Discontinued 2318 (Not Given (removes Due time) - Provider: Laura Miller RN - Reason: Other (must enter a comment) - Comment: next dose at 0400) 0412 (Given - Provider: Laura Miller RN)0741 (Given - Provider: Clair Grissom RN) acetaminophen (TYLENOL) tablet 975 mg (CANCELED) 975 mg, Oral, Q6H, First dose on Tue06/15/24 at 1230, Until Discontinued 1422 (Given - Provider: Pete Rodriguez RN)1800 (Not Given (removes Due time) - Provider: Laura Miller RN - Reason: Other (must enter a comment) - Comment: prior to admission) acetaminophen (TYLENOL) tablet 975 mg 975 mg, Oral, TID, First dose (after last modification) on 06/16/24 at 1400, Until Discontinued 1420 (Given - Provider: Clair Grissom RN)2018 (Given - Provider: Laura Miller RN) 0800 (Due)1400 (Due)1999 (Due) cyclobenzaprine (FLEXERIL) tablet 5 mg 5 mg, Oral, TID, First dose on 06/16/24 at 0800, Until Discontinued 0741 (Given - Provider: Clair Grissom RN)1420 (Given - Provider: Clair Grissom RN)2018 (Given - Provider: Laura Miller RN) 0800 (Due)1400 (Due)1999 (Due) GABApentin (NEURONTIN) capsule 100 mg 100 mg, Oral, TID, First dose on 06/16/24 at 0800, Until Discontinued 0741 (Given - Provider: Clair Grissom RN)1420 (Given - Provider: Clair Grissom RN)2018 (Given - Provider: Laura Miller RN) 0800 (Due)1400 (Due)1999 (Due) ibuprofen (MOTRIN;ADVIL) tablet 800 mg (COMPLETED) 800 mg, Oral, ONE TIME, 1 dose, On Tue06/15/24 at 1155 1203 (Given - Provider: Pete Rodriguez RN) levothyroxine (SYNTHROID) tablet 100 mcg 100 mcg, Oral, DAILY BEFORE AM MEAL, First dose on 06/16/24 at 0730, Until Discontinued 0820 (Given - Provider: Clair Grissom RN) 0730 (Due) lidocaine (LIDODERM) 5% patch 1 patch (COMPLETED) 1 patch, Transdermal, ONE TIME, 1 dose, On Tue06/15/24 at 1440 1542 (Patch applied - Provider: María Buenrostro RN) 0345 (Patch removed - Provider: Laura Miller RN) lidocaine (LIDODERM) 5% patch 1 patch (CANCELED) 1 patch, Transdermal, Q24H, First dose on 06/16/24 at 0645, Until Discontinued 0742 (Patch applied - Provider: Clair Grissom RN - Comment: left shoulder)1111 (Patch removed - Provider: Clair Grissom RN - Comment: Time automatically adjusted from order being discontinued) lidocaine (LIDODERM) 5% patch 2 patch 2 patch, Transdermal, Q24H, First dose (after last modification) on Tue06/16/24 at 1105, Until Discontinued 1220 (Patch applied - Provider: Clair Grissom RN - Comment: left flank) 0014 (Patch removed - Provider: Laura Miller RN)1105 (Due) polyethylene glycol 3350 (MIRALAX;GLYCOLAX) packet 17 g 17 g, Oral, DAILY, First dose on Tue06/16/24 at 0800, Until Discontinued 0741 (Given - Provider: Clair Grissom RN) 0800 (Due) sennosides (SENOKOT) tablet 17.2 mg 17.2 mg, Oral, BID, First dose (after last modification) on Tue06/16/24 at 2000, Until Discontinued 2019 (Given - Provider: Laura Miller RN) 0800 (Due)2000 (Due) sennosides (SENOKOT) tablet 8.6 mg (CANCELED) 8.6 mg, Oral, BID, First dose on Tue06/15/24 at 2310, Until Discontinued 232 (Not Given (removes Due time) - Provider: Laura Miller RN - Reason: Patient refused) 0741 (Given - Provider: Clair Grissom RN) VTE Anti Xa Monitoring Does not apply, PROTOCOL, Starting on Tue06/15/24 at 2307, Until Discontinued VTE prophylaxis contraindicated(Linked Group 1) Contraindication Reason: Other, Other Reason: Other (Specify in Comments), Does not apply, PROTOCOL, Starting on Tue06/15/24 at 2307, Until Discontinued Continuous Medication Order 06/15/2024 06/16/2024 06/17/2024 NaCl 0.9% infusion (CANCELED) at 100 mL/hr, Intravenous, CONTINUOUS, Starting on Tue06/15/24 at 2310, Until Tue06/16/24 at 1829 2356 (New Bag - Provider: Laura Miller RN) 0948 (New Bag - Provider: Emilio eRyes RN) PRN Medication Order 06/15/2024 06/16/2024 06/17/2024 albuterol-ipratropium (DUONEB) 2.5-0.5 mg/3 mL solution 3 mL 3 mL, Nebulization, Q4H PRN, Starting on 06/16/24 at 1845, Until Discontinued, Shortness of Breath 190 (Given - Provider: Clair Grissom RN) HYDROmorphone PF (DILAUDID) 1 mg/mL injection 0.2 mg 0.2 mg, IV Push, Q4H PRN, Starting on 06/16/24 at 1845, Until Discontinued, Severe Pain (Use First), Specifically for rib pain that interferes with breathing 2018 (Given - Provider: Laura Miller RN) 12 (Given - Provider: Laura Miller RN) ondansetron (ZOFRAN) tablet 4 mg 4 mg, Oral, Q6H PRN, Starting on Tue06/15/24 at 2307, Until Discontinued, Nausea/Vomiting (Use First), Use if patient able to tolerate oral tablet oxyCODONE (ROXICODONE) tablet 5-10 mg 5-10 mg, Oral, Q4H PRN, Starting on Tue06/15/24 at 2307, Until Discontinued, Moderate Pain (Use First) 0413 (Given - Provider: Laura Miller RN)0820 (Given - Provider: Clair Grissom, YUKO)1220 (Given - Provider: Clair Grissom RN)2018 (Given - Provider: Laura Miller RN) 001 (Given - Provider: Laura Miller RN) Linked Groups Order Group 1: VTE prophylaxis contraindicatedJump to med Contraindication Reason: Other, Other Reason: Other (Specify in Comments), Does not apply, PROTOCOL, Starting on Tue06/15/24 at 2307, Until Discontinued And VTE - Prophylaxis Contraindication Communication (COMPLETED) Contraindication Reason: Other, Other Reason: Other (Specify in Comments) documented in this encounter Care Teams Film Cutter Relationship Specialty Start Date End Date Alejandra Mclean MD [address] [place] [address] PCP - General Internal Medicine 06/15/24 documented as of this encounter
--- OUTSIDE RECORDS SUMMARY | 2024-06-17 07:48 | XMS_ITS | Encounter Summary ---
Author Organization [facility] [place] Address [address] [place] [id number] Phone Care Team Providers Care Hims Clerk Name Role Phone Alejandra Mclean MD Primary [...] Date/Time Associated Diagnosis Comments TELEMETRY STRIPS 06/16/2024 8:52 AM CDT documented in this encounter Results * TELEMETRY STRIPS (06/16/2024 8:52 AM CDT) Narrative 06/16/2024 8:52 AM CDT Ordered by an unspecified provider. Provider Unknown RAD ECHO documented in this encounter Visit Diagnoses Not on filedocumented in this encounter Care Teams Hims Clerk Relationship Specialty Start Date End Date Alejandra Mclean MD [address] [phone] PCP - General Internal Medicine 06/15/24 documented as of this encounter
--- OUTSIDE RECORDS SUMMARY | 2024-06-17 07:48 | XMS_ITS | Encounter Summary ---
Author Organization [facility] Address [address] [place] [address] Phone Care Team Providers Care Painter And Decorator Apprentice Name Role Phone Alejandra Mclean MD Primary [...] on filedocumented in this encounter Care Teams Painter And Decorator Apprentice Relationship Specialty Start Date End Date Alejandra Mclean MD [address] [phone] PCP - General Internal Medicine 06/15/24 documented as of this encounter
--- OUTSIDE RECORDS SUMMARY | 2024-06-17 07:48 | XMS_ITS | Encounter Summary ---
Author Organization [facility] Address [address] [place] [address] Phone Care Team Providers Care Tool Worker Name Role Phone Alejandra Mclean MD Primary [...] Date/Time Associated Diagnosis Comments TELEMETRY STRIPS 06/16/2024 12:2 2 AM CDT documented in this encounter Results * TELEMETRY STRIPS (06/16/2024 12:22 AM CDT) Narrative 06/16/2024 12:22 AM CDT Ordered by an unspecified provider. Provider Unknown RAD ECHO documented in this encounter Visit Diagnoses Not on filedocumented in this encounter Care Teams Tool Worker Relationship Specialty Start Date End Date Alejandra Mclean MD [address] [phone] PCP - General Internal Medicine 06/15/24 documented as of this encounter
--- OUTSIDE RECORDS SUMMARY | 2024-06-17 07:48 | XMS_ITS | Encounter Summary ---
Author Organization [facility] Address [address] [place] [address] Phone Care Team Providers Care Java Lead Architect Name Role Phone Alejandra Mclean MD Primary Care Provider Encounter Details Date Type Department Care Team (Late st Contact Info) Description 06/17/2024 Orders Only Unspecified Department [place] [...] Comments TELEMETRY STRIPS 06/17/2024 1:52 AM CDT documented in this encounter Results * TELEMETRY STRIPS (06/17/2024 1:52 AM CDT) Narrative 06/17/2024 1:52 AM CDT Ordered by an unspecified provider. Provider Unknown RAD ECHO documented in this encounter Visit Diagnoses Not on filedocumented in this encounter Care Teams Java Lead Architect Relationship Specialty Start Date End Date Alejandra Mclean MD [address] [phone] PCP - General Internal Medicine 06/15/24 documented as of this encounter
--- OUTSIDE RECORDS SUMMARY | 2024-06-17 07:48 | XMS_ITS | Clinical Summary ---
Author Organization [facility] Address [address] [place] [address] Phone Care Team Providers Care Social Science Professor Name Role Phone Alejandra Mclean MD Primary Care Provider [phone] Source Comments [employer] is fully rolled out on [employer]. Last update 02/28/09.[facility] Allergies No known active allergies Medications * [...] ribs of left side, initial encounter 06/15/2024 Encounters Date Type Department Care Team Description 06/17/2024 Orders Only Unspecified Department [place] Unknown, Provider 06/16/2024 Orders Only Unspecified Department [place] Unknown, Provider 06/16/2024 Orders Only Unspecified Department [place] Unknown, Provider 06/16/2024 Orders Only Unspecified Department [place] Unknown, Provider 06/16/2024 Orders Only Unspecified Department [place] Unknown, Provider 06/15/2024 11:06 AM CDT - Present Hospital Encounter [facility] [address] [place] [address] Desi Joel MD Payne, Rachel E, MD Closed fracture of multiple ribs of left side, initial encounter 06/15/2024 Orders Only [facility] Radiology Department [facility] [address] [place] [address] [place] [address] Provider, Outside Referral of patient (Primary Dx) from Last 3 Months Social History Tobacco Use Types Packs/Day Years [...] Mass Index - - Plan of Treatment Health Maintenance Due Date Last Done Comments Dental Oral Exam 1939 Dental Prophylaxis 1939 Dental X-Ray: Bitewings 1939 Periodontal Maintenance 1953 Medicare Annual Wellness 1957 PREVENTATIVE VISIT 1957 HEALTH MAINTENANCE PROTOCOL 1958 Imm: Zoster (1 of 2) 1989 Osteoporosis Screening (Dexa Scan) 2004 Imm: Pneumonia greater than 65 years (2 of 2 - PCV) 08/12/2009 08/12/2008 Imm: DTaP/Tdap (2 - Td or Tdap) 06/05/2015 05/08/2015 Imm: COVID-19 ( season) 2024 11/01/2023, 03/10/2023, 07/09/2022, Additional history exists Imm: Flu (#1) 05/27/2024 07/19/2023, 06/26, 07/20/2021, Additional history exists Imm: HPV Aged Out No longer eligi ble based on patient's age to complete this topic Imm: HepA Aged Out No longer eligi ble based on patient's age to complete this topic Imm: HepB Aged Out No longer eligi ble based on patient's age to complete this topic Imm: Hib Aged Out No longer eligi ble based on patient's age to complete this topic Imm: Meningitis Aged Out No longer el igible based on patient's age to complete this topic Procedures The patient is currently admitted. The [...] 9:08 PM CDT) Folate 4.1 >=4.0 ng/mL [facility] Blood 06/16/2024 9:08 PM CDT 06/16/2024 9:22 PM CDT Zeina Arias MD LABORATORY [facility] [address] [address] * VITAMIN B12 (06/16/2024 9:08 PM CDT) Pathologist [facility] B12 447 211 - 946 pg/mL [facility] Blood 06/16/2024 9:08 PM CDT 06/16/2024 9:22 PM CDT Zeina Arias MD LABORATORY Performing Organization Address City/[facility]/ZIP Co de Phone Number [facility] [address] [address] * PHOSPHORUS (06/16/2024 6:52 AM CDT) Pathologist [facility] Phosphorus 2.9 2.5 - 4.5 mg/dL [facility] Blood 06/16/2024 6:52 AM CDT 06/16/2024 7:25 AM CDT Desi Joel MD LABORATORY [facility] [address] [address] * (ABNORMAL) PANEL BASIC METABOLIC (BMP) (06/16/2024 6:52 AM CDT) Pathologist [facility] Sodium 135 135 - 148 mmol/L [facility] Potassium 4.4 3.5 - 5.3 mmol/L [facility] Chloride 104 92 - 108 mmol/L [facility] CO2 23 22 - 30 mmol/L [facility] AnGap 8 8 - 16 mmol/L [facility] Glucose 106(H) 70 - 100 mg/dL [facility] BUN 16 8 - 23 mg/dL [facility] Creatinine 1.02 0.70 - 1.25 mg/dL [facility] Calcium 8.6(L) 8.8 - 10.2 mg/dL [facility] eGFR (2020 CKD-EPI) 72 >=60 ml/min/1.7 3m2 [facility] Comment: The estimated glomerular filtration rate (eGFR) was calculated using the CKD-EPI 2020 creatinine equation, which does not include race as a factor. This equation is validated in individuals 18 years of age and older, and eGFR is normalized to a body surface area of 1.73m^2. Blood 06/16/2024 6:52 AM CDT 06/16/2024 7:25 AM CDT Desi Joel MD LABORATORY [facility] [place] [id number] * MAGNESIUM (06/16/2024 6:52 AM CDT) [facility] Magnesium 2.1 1.6 - 2.4 mg/dL [facility] Blood 06/16/2024 6:52 AM CDT 06/16/2024 7:25 AM CDT Desi Joel MD LABORATORY [facility] [address] [address] * (ABNORMAL) CBC WITH PLATELET (06/16/2024 6:52 AM CDT) [facility] WBC 7.85 4.00 - 10.00 k/cmm [facility] RBC 3.40(L) 4.60 - 6.00 m/cmm [facility] Hgb 12.2(L) 13.1 - 17.5 g/dL [facility] Hematocrit 36.6(L) 40.0 - 51.0 % [facility] MCV 107.6(H) 80.0 - 100.0 fL [facility] MCH 35.9(H) 25.0 - 32.0 pg [facility] MCHC 33.3 31.0 - 36.0 g/dL [facility] RDW 12.1 11.5 - 14.5 % [facility] Plt 172 150 - 400 k/cmm [facility] MPV 9.4 6.5 - 12.5 fL [facility] Blood 06/16/2024 6:52 AM CDT 06/16/2024 7:41 AM CDT Desi Joel MD LABORATORY Performing Organization Address [facility]/ZIP Co de Phone Number [facility] [address] [address] * TROP 4H (06/15/2024 3:50 PM CDT) 4H Trop 7 <=35 ng/L [facility] 4H Delta na Not Significant [facility] Comment:Unable to calculate delta. Blood 06/15/2024 3:50 PM CDT 06/15/2024 3:54 PM CDT Desi Joel MD LABORATORY Performing Organization Address [facility] Co de Phone Number [facility] [address] [address] * XR SCAPULA LEFT AP + LAT (06/15/2024 2:56 PM CDT) Anatomical Region Laterality Modality Upper Arm Computed Radiogr aphy 06/15/2024 2:59 PM CDT Impressions 06/15/2024 3:05 PM CDT Impression: Posterior rib fractures. No visible scapular fracture Reading Radiologist: Siddhartha Hernández 06/15/2024 3:05 PM CDT EXAMINATION: XR SCAPULA [...] ??No treatment, delayed treatment and alternative treatment [place] protocol: ??Procedure explained and questions answered to [...] * (ABNORMAL) URINALYSIS,TOTAL (06/15/2024 1:12 PM CDT) Color ORANGE YELLOW [facility] Appearance CLOUDY(A) CLEAR [facility] Urine Glucose NEGATIVE NEGATIVE mg/dL [facility] Bili UA NEGATIVE NEGATIVE [facility] Ketones TRACE(A) NEGATIVE [facility] Specific [place] 1.018 1.003 - 1.030 [facility] Blood Ur LARGE(A) Neg-Trace [facility] PH Urine 6.5 5.0 - 7.0 [facility] Protein Ur 30(A) Neg-Trace [facility] Urobilinogen NORMAL NORMAL EU/dL [facility] Nitrite Ur NEGATIVE NEGATIVE [facility] Leuk Est TRACE Neg-Trace [facility] WBC Ur 0-5 0 - 5 perHPF [facility] RBC Ur >20(A) 0 - 3 perHPF [facility] Urinalysis Performed at: [facility] Urine 06/15/2024 1:12 PM CDT 06/15/2024 1:16 PM CDT Desi Joel MD LABORATORY Performing Organization Address [facility]/ZIP Co de Phone Number [facility] [address] [address] * HS TROPONIN (06/15/2024 12:28 PM CDT) HS Troponin I 6 <=35 ng/L [facility] Blood 06/15/2024 12:2 8 PM CDT 06/15/2024 12:31 PM CDT Narrative [facility] - 06/15/2024 12:57 PM CDT If ordering as an add-on lab, you must call the lab. Desi Joel MD LABORATORY Performing Organization Address City/[facility]/ZIP Co de Phone Number [facility] [address] [address] * (ABNORMAL) ED CHEMISTRY LABS(NA,K,CL,CO2,GLU,CREAT,CA-IONIZED,ANION GAP) (06/15/2024 12:28 PM CDT) Sodium 132(L) 135 - 148 mmol/L [facility] Chloride 103 92 - 108 mmol/L [facility] AnGap 9 8 - 16 mmol/L [facility] Glucose 96 70 - 100 mg/dL [facility] ICA, Actual 4.45 4.40 - 5.20 mg/dL [facility] ICA, pH Corrected 4.48 4.40 - 5.20 mg/dL [facility] Creatinine 1.03 0.70 - 1.25 mg/dL [facility] BICARB 21(L) 22 - 26 mEq/L [facility] eGFR (2020 CKD-EPI) 72 >=60 ml/min/1.7 3m2 [facility] Comment: The estimated glomerular filtration rate (eGFR) was calculated using the CKD-EPI 2020 creatinine equation, which does not include race as a factor. This equation is validated in individuals 18 years of age and older, and eGFR is normalized to a body surface area of 1.73m^2. Potassium 4.5 3.5 - 5.3 mmol/L [facility] Blood 06/15/2024 12:2 8 PM CDT 06/15/2024 12:37 PM CDT Desi Joel MD LABORATORY [facility] [address] [address] * (ABNORMAL) CBC WITH PLTS/AUTO DIFF (06/15/2024 12:28 PM CDT) WBC 10.53(H) 4.00 - 10.00 k/cmm [facility] RBC 3.59(L) 4.60 - 6.00 m/cmm [facility] Hgb 13.2 13.1 - 17.5 g/dL [facility] Hematocrit 38.5(L) 40.0 - 51.0 % [facility] MCV 107.2(H) 80.0 - 100.0 fL [facility] MCH 36.8(H) 25.0 - 32.0 pg [facility] MCHC 34.3 31.0 - 36.0 g/dL [facility] RDW 11.9 11.5 - 14.5 % [facility] Plt 185 150 - 400 k/cmm [facility] MPV 9.3 6.5 - 12.5 fL [facility] Automated Abs Neutrophil 8.59(H) 1.70 - 6.50 k/cmm [facility] Comment:Preliminary ANC, Fin al Result to Follow Abs Immature Granulocyte 0.02 0.00 - 0.09 k/cmm [facility] Comment:The Immature Granulo cyte Absolute count contains metamyelocytes and myelocytes. Abs Neutrophil 8.59(H) 1.70 - 6.50 k/cmm [facility] Abs Lymphocyte 0.71(L) 0.80 - 4.00 k/cmm [facility] Abs Monocyte 1.08(H) 0.20 - 1.00 k/cmm [facility] Abs Eosinophil 0.07 0.00 - 0.60 k/cmm [facility] Abs Basophil 0.06 0.00 - 0.20 k/cmm [facility] Blood 06/15/2024 12:2 8 PM CDT 06/15/2024 12:44 PM CDT Desi Joel MD LABORATORY Performing Organization Address [facility] Co de Phone Number [facility] [address] [phone] * PROTHROMBIN (PT) & INR (06/15/2024 12:28 PM CDT) PT 11.2 9.0 - 12.5 sec [facility] INR 1.0 0.8 - 1.1 [facility] Comment: Warfarin Therapeutic Range: Standard Intensity: 2.0 - 3.0 High Intensity: 2.5 - 3.5 Blood 06/15/2024 12:2 8 PM CDT 06/15/2024 12:44 PM CDT Desi Joel MD LABORATORY Performing Organization Address City/[facility]/ZIP Co de Phone Number [facility] [address] [address] * CK, TOTAL (06/15/2024 12:28 PM CDT) CK 258 39 - 308 IU/L [facility] Blood 06/15/2024 12:2 8 PM CDT 06/15/2024 12:44 PM CDT Desi Joel MD LABORATORY Performing Organization Address City/State/[facility] Co de Phone Number [facility] [address] [address] * EXTRA TUBE - SST (06/15/2024 12:28 PM CDT) SST TUBE Stored [facility] Comment:SST tubes (Serum Sep arator) are stored in the lab for 3 days from the collection date. Blood 06/15/2024 12:2 8 PM CDT 06/15/2024 12:32 PM CDT Desi Joel MD LABORATORY Performing Organization Address [facility] Co de Phone Number [address] [address] * (ABNORMAL) CARBON MONOXIDE (CO) (06/15/2024 12:28 PM CDT) Carbon Monox 3(H) 0 - 2 % [facility] Comment:Normal range for smo kers: up to 13%. Blood 06/15/2024 12:2 8 PM CDT 06/15/2024 4:16 PM CDT Desi Joel MD LABORATORY Performing Organization Address [facility] Co de Phone Number [address] [address] * ED US GUIDED NERVE BLOCK (06/15/2024 [...] CDT) 06/15/2024 11:5 9 AM CDT Impressions [facility] EKG ORDERS - 06/15/2024 11:59 AM CDT SINUS RHYTHM WITH FIRST DEGREE AV BLOCK ABNORMAL ECG No Previous ECGs Available. P-R Interval 212 ms QRS Interval 95 ms QT Interval 377 ms QTC Interval 400 ms P [place] 64 QRS [place] -7 T Wave [place] 25 Narrative Procedure Note Desi Joel MD - 06/15/2024 IMPRESSION SINUS RHYTHM WITH FIRST DEGREE AV BLOCK ABNORMAL ECG No Previous ECGs Available. P-R Interval 212 ms QRS Interval 95 ms QT Interval 377 ms QTC Interval 400 ms P [place] 64 QRS [place] -7 T Wave [place] 25 Desi Joel MD EKG [facility] EKG ORDERS * CT OUTSIDE READ [...] Reading Radiologist: Epi Lorenzana Resident: Octavio Gilman Narrative 06/15/2024 2:35 PM CDT Indication: ??Patient transferred from [place] [facility] due to Trauma. Dr. DESI JOEL requested an interpretation by me. Comparison: CT of the chest from 02/08/2023. Technique: ??CT scan of the chest/abdomen/pelvis done with IV contrast. Axial, coronal, and sagittal reconstructions reviewed in soft tissue and bone windows, per the local institution's scanning protocols, which may differ from the [facility] trauma protocols. Findings: Chest: Mediastinum: Atrophic thyroid [...] DO - 06/15/2024 Indication: Patient transferred from [facility] due to Trauma.Dr. DESI JOEL requested an interpretation by me. Comparison: CT of the chest from 02/08/2023. Technique: CT scan of the chest/abdomen/pelvis done with IV contrast.Axial, coronal, and sagittal reconstructions reviewed in soft tissue andbone windows, per the local institution's scanning protocols, which maydiffer from the [facility] trauma protocols. Findings: Chest: Mediastinum: Atrophic thyroid [...] neural foraminal narrowing. Reading Radiologist: Epi Lorenzana 06/15/2024 12:08 PM CDT Indication: ??Patient transferred from [facility] due to Trauma. Dr. DESI JOEL requested an interpretation by me. Technique: ??CT scan of the cervical spine done on 06/15/2024 without IV contrast. Axial, coronal, and sagittal reconstructions reviewed in soft tissue and bone windows, per the local institution's scanning protocols, which may differ from the [facility] trauma protocols. Findings: ??No suspected acute fracture, [...] scattered calcific atherosclerosis. Procedure Note Epi Lorenzana, - 06/15/2024 Indication: Patient transferred from [facility] due to Trauma.Dr. DESI JOEL requested an interpretation by me. Technique: CT scan of the cervical spine done on 06/15/2024 without IVcontrast. Axial, coronal, and sagittal reconstructions reviewed in softtissue and bone windows, per the local institution's scanning protocols,which may differ from the [facility] trauma protocols. Findings: No suspected acute fracture, [...] Not surgically evacuated. Reading Radiologist: Epi Lorenzana Narrative 06/15/2024 12:05 PM CDT Indication: ??Patient transferred from [facility] due to Trauma. Dr. DESI JOEL requested an interpretation by me. Technique: ??CT scan of the head done on 06/15/2024 without IV contrast. Axial, coronal, and sagittal reconstructions are reviewed in soft tissue and bone windows, per the local institution's scanning protocols, which may differ from the [facility] trauma protocols. Findings: No acute intracranial hemorrhage, [...] Changes of bilateral pseudophakia. Procedure Note Epi Lorenzana, DO - 06/15/2024 Indication: Patient transferred from [facility] due to Trauma.Dr. DESI JOEL requested an interpretation by me. Technique: CT scan of the head done on 06/15/2024 without IV contrast.Axial, coronal, and sagittal reconstructions are reviewed in soft tissueand bone windows, per the local institution's scanning protocols, whichmay differ from the [facility] trauma protocols. Findings: No acute intracranial hemorrhage, [...] Advance Directives For more information, please contact: [phone] * Full Code (Latest Code Status on File) Date Activated Date Inactivated Comments 06/15/2024 11:07 PM Question Answer Comments Does the Patient have prefer ences regarding life sustaining measures (these options only apply when the patient has a pulse): No Discussed Code Status With Whom? Not discussed Care Teams Social Science Professor Relationship Specialty Start Date End Date Alejandra Mclean MD [address] [place] [address] PCP - General Internal Medicine 06/15/24
== END 2024-06-15 07:36 | disposition home or self-care (01) ==
LOC: AMB 06-17 07:46
PROVIDERS: PCP Internal Medicine; Visit Provider Internal Medicine
DX: S29.9XXA Unspecified injury of thorax, initial encounter (principal); W01.0XXA Fall on same level from slipping, tripping and stumbling without subsequent striking against object, initial encounter; Y92.038 Other place in apartment as the place of occurrence of the external cause
CPT/HCPCS: A0425; A0427

== ENCOUNTER 2024-06-15 08:08 | Emergency (ER) | payer MEDICARE, BC, SELFPAY ==
[2024-06-15] VITALS (10 sets, daily range): BP systolic 169–196; BP diastolic 94–114; PULSE 75–81; RESP 12–18; TEMP 36.6; O2SAT 94–97; BMI 30.1
--- NOTE | 2024-06-15 08:10 | CRLHL7_ITS ---
For Patients: As a result of the Cures Act, medical imaging exams and procedure reports are released immediately into your electronic medical record. You may view this report before your referring provider. If you have questions, please contact your health care provider. INDICATION: Injury COMPARISON: None TECHNIQUE: CT examination of the cervical spine is performed without contrast using spiral technique. Thin axial, sagittal and coronal reconstructions were made. Please note that all CT scans at this facility use dose modulation, iterative reconstruction, and/or weight-based dosing when appropriate to reduce radiation dose to as low as reasonably achievable. FINDINGS: : There is straightening which is probably due to muscle spasm, positioning or due to an immobilization device. There is no garrett malalignment. Bone mineral density is decreased. There are moderate to severe degenerative changes diffusely. There is no visible acute fracture, dislocation or destructive process. Atherosclerotic vascular calcifications are noted. IMPRESSION: Straightening. Demineralization. Severe degenerative change. No visible acute fracture, dislocation or destructive process. Please note that all CT scans at this facility use dose modulation, iterative reconstruction, and/or weight-based dosing when appropriate to reduce radiation dose to as low as reasonably achievable. Dictated by Navi Blanc MD @ 06/15/2024 8:38:11 AM (Electronically Signed)
--- NOTE | 2024-06-15 08:10 | CRLHL7_ITS ---
For Patients: As a result of the Century Cures Act, medical imaging exams and procedure reports are released immediately into your electronic medical record. You may view this report before your referring provider. If you have questions, please contact your health care provider. INDICATION: Injury COMPARISON: None TECHNIQUE: CT examination of the head was performed as axial sections without intravenous contrast. Images were obtained from the vertex of the skull through the skull base. Please note that all CT scans at this facility use dose modulation, iterative reconstruction, and/or weight-based dosing when appropriate to reduce radiation dose to as low as reasonably achievable. FINDINGS: The brain shows no sign of mass lesion, mass effect, hemorrhage, or edema. Nonacute appearing bilateral subcortical lacunar infarcts are noted There are involutional changes. There is moderate cortical atrophy and there is moderate white matter disease. There is no hydrocephalus. The visualized portions of the orbits are normal in appearance. The osseous structures are normal in appearance with no sign of abnormality in the skull base or calvarium. IMPRESSION: Involutional changes. Nonacute appearing bilateral subcortical lacunar infarcts. No acute intracranial posttraumatic findings. Please note that all CT scans at this facility use dose modulation, iterative reconstruction, and/or weight-based dosing when appropriate to reduce radiation dose to as low as reasonably achievable. Dictated by Navi Blanc MD @ 06/15/2024 8:35:06 AM (Electronically Signed)
--- NOTE | 2024-06-15 08:10 | CRLHL7_ITS ---
For Patients: As a result of the Century Cures Act, medical imaging exams and procedure reports are released immediately into your electronic medical record. You may view this report before your referring provider. If you have questions, please contact your health care provider. INDICATION: Trauma COMPARISON: A chest CT dated February 09, 2020 TECHNIQUE: CT examination of the chest, abdomen and pelvis was performed following the uneventful intravenous administration of 108 cc of Isovue 370. Thin section axial images were obtained from the thoracic inlet through the pubic symphysis. Oral contrast was not administered. Sagittal and coronal reformatted imaging was performed. TECHNICAL NOTE: Due to an IV leak, not all of the contrast entered the patient`s body. There is very little contrast enhancement on this study Please note that all CT scans at this facility use dose modulation, iterative reconstruction, and/or weight-based dosing when appropriate to reduce radiation dose to as low as reasonably achievable. FINDINGS: CHEST: The heart size is normal. There is no mediastinal or hilar adenopathy or mass. There are atherosclerotic vascular calcifications. No pericardial effusion. No indication of mediastinal vascular injury. Right basilar opacities probably due to atelectasis and scarring. No right effusion. No pneumothorax. ABDOMEN AND PELVIS: Left basilar opacities probably a combination of atelectasis and contusion as many of these opacities are adjacent to rib fractures. There is no pneumothorax. Trace left pleural fluid. LIVER/BILIARY SYSTEM:Hepatic cyst. Liver otherwise unremarkable. Gallbladder normal.No intra or extrahepatic biliary ductal dilation. No posttraumatic findings ADRENALS: Normal KIDNEYS, URETERS and BLADDER:Probably benign bilateral renal lesions. Parapelvic sinus lymphatic cyst. No renal injury. No hydronephrosis or hydroureter. The bladder is distended. The prostate is significantly enlarged SPLEEN:No evidence of injury PANCREAS: Appears normal. RETROPERITONEUM and MESENTERY: There is no mass, adenopathy or aortic aneurysm. Atherosclerotic vascular calcification GASTROINTESTINAL SYSTEM: There is no evidence of diverticulitis, colitis, mechanical obstruction, or appendicitis. The small bowel as visualized appears normal.Fecal retention. Diverticulosis. PELVIS: No mass, adenopathy or free fluid. OSSEOUS STRUCTURES and ABDOMINAL WALL: There is no fracture identified involving the pelvis, thoracic spine, lumbar spine or sternum. There is a minimally comminuted but not displaced left scapular fracture. There are multiple left rib fractures. Most of these are posteromedial, specifically the 4th, 6, 7th, 8th and 9th ribs. These appear to be acutely fractured with minimal displacement. Some of the lower ribs show fractures though they are not felt to be acute. OTHER: No free fluid or free air. IMPRESSION: 1. CHEST: No evidence of mediastinal vascular injury. Left basilar opacity probably combination of atelectasis and contusion associated with left rib fractures. Very small left effusion. No pneumothorax. 2. ABDOMEN AND PELVIS: No solid organ injury. Incidental nonacute nontraumatic findings as discussed in the body of the report. Please review the comments 3. OSSEOUS STRUCTURES: There is a minimally comminuted but nondisplaced fracture of the left scapular blade. Acute fractures of the posteromedial aspect of the left 4th, 6th, 7th, 8th and 9th ribs. There are also posterior and anterolateral left rib fractures of the lower ribs below the 9th rib though these are felt to be nonacute. No spine or pelvic fracture identified Please note that all CT scans at this facility use dose modulation, iterative reconstruction, and/or weight-based dosing when appropriate to reduce radiation dose to as low as reasonably achievable. Dictated by Navi Blanc MD @ 06/15/2024 8:52:49 AM (Electronically Signed)
--- NOTE | 2024-06-15 08:15 | ED.GENADULT ---
HPI - General Adult General Chief complaint: Fall/Minor Trauma Stated complaint: Fall Time Seen by Provider: 06/15/24 08:09 Source: patient and EMS Mode of arrival: EMS Limitations: no limitations History of Present Illness HPI narrative: 83 year old male with a history of hypertension, hypothyroidism, coronary artery disease, history of CVA presenting today after a fall. TTA was called. Patient states that is 10 hours ago he was at home last night and he fell getting out of his chair. Unclear what he hit going down but patient woke up at some point in time on the ground. Likely there was a loss of consciousness. He was able to crawl to the phone this morning and call EMS. The patient has been most of the night on the floor. States that he was not able to get up secondary to chest pain. Patient states that he has been feeling fine recently. He denies any recent illness. Patient does live independently in assisted living. Patient is complaining of headache, left-sided chest and abdominal pain. Per EMS, when they found him, there was garrett blood on his pants. EMS was not able to find a bleeding source. Patient is not on any blood thinners. patient does state that he noticed a lot of blood in his urine this morning, he states that this is not been an issue for him prior to today. He takes Imdur, atenolol, levothyroxine and benazepril. He received 4 mg of morphine and 50 mcg of fentanyl in the ambulance. Related Data Home Medications ?Medication ?Instructions ?Recorded ?Confirmed aspirin 81 mg capsule 81 mg PO QDAY 04/15/22 02/13/24 cetirizine 10 mg tablet 10 mg PO QDAY PRN 04/15/22 02/13/24 mecobalamin (vitamin B12) 1,000 1,000 mcg PO QDAY PRN 02/14/23 02/13/24 mcg chewable tablet ibuprofen 200 mg tablet (Advil) 400 mg PO QAM PRN 12/19/23 02/13/24 Previous Rx's ?Medication ?Instructions ?Recorded atenolol 50 mg tablet 50 mg PO QDAY #90 tabs 11/24/23 benazepril 40 mg tablet 60 mg (1.5 x 40 mg) PO QDAY #135 11/24/23 tabs levothyroxine 100 mcg tablet 100 mcg PO QDAY #90 tabs 11/24/23 isosorbide mononitrate 30 mg 30 mg PO QHS #90 tabs 02/13/24 tablet,extended release 24 hr Allergies Allergy/AdvReac Type Severity Reaction Status Date / Time simvastatin [From Zocor] Allergy Intermediate Weakness Verified 02/13/24 08:23 Base Metals Allergy Intermediate rash Uncoded 02/13/24 08:23 Review of Systems Status of ROS: Reports: 10 or more systems reviewed and unremarkable except as noted in History and below [facility] Medical History History of TIA (transient ischemic attack) ?Z86.73 - Personal history of transient ischemic attack (TIA), and cerebral infarction without residual deficits (ICD-10) Surgical History S/P cataract extraction and insertion of intraocular lens ?Z98.49 - Cataract extraction status, unspecified eye (ICD-10) ?Z96.1 - Presence of intraocular lens (ICD-10) History of tonsillectomy ?Z90.89 - Acquired absence of other organs (ICD-10) History of prostate biopsy ?Z98.890 - Other specified postprocedural states (ICD-10) History of appendectomy ?Z90.49 - Acquired absence of other specified parts of digestive tract (ICD-10) Social History Narrative: health care directive on file- health care directive completed on 05/26/2020 reviewed and scanned on 05/27/2020 Smoking Status: Former smoker How often do you have a drink containing alcohol: 4 or more times a week AUDIT-C Alcohol total score: 4 Non-prescribed substance use: denies use Little interest or pleasure in doing things: not at all Feeling down, depressed, or hopeless: not at all Exam Narrative: Exam Narrative: Well-nourished well-developed patient in no acute distress. Alert and oriented x3. Answers questions appropriately. Mood and affect are appropriate. Thoughts are goal oriented and rational. No tangential or magical thinking noted. Patient speaks in full sentences without needing to catch His breath. GCS is 15. Patient is speaking and breathing without difficulty. There is no obvious significant bleeding noted. HEENT: Normocephalic. Pupils are equally round reactive to light. Extraocular muscles are intact. Conjunctivae are moist without any icterus noted. Moist mucous membranes. Posterior pharynx is normal. No trauma noted to the inside of the mouth. Neck is soft without any lymphadenopathy or thyromegaly. No masses are appreciated. Patient has fresh ecchymosis over the left forehead. Cardiovascular: Heart is regular rate and rhythm S1 and S2 are present without any murmurs. Lungs: Clear to auscultation bilaterally no wheezes rhonchi or rales are appreciated. taking deep breaths is very painful and causes pain over the left anterolateral lower chest. Patient has acute tenderness to palpation in the area. Abdomen: Soft and Mildly distended. Patient has tenderness in the epigastric and left upper quadrant. Hypoactive bowel sounds. Extremities: Bilateral lower extremities are without edema. Normal DP and PT pulses. Skin: Well perfused without any obvious rashes. Back: Normal appearance. Patient has no tenderness to palpation at the cervical, thoracic or lumbar spine. Patient has limited range of motion at the neck with flexion, extension, side way bending and rotation because any movement causes him chest pain. : Normal external male genitalia. There is no blood visualized on his underwear or genitalia. There is no tenderness at the penis or testicles. No blood noted at the perineum or around the rectum. Strength is 5/5 of the upper and lower extremities. Cranial nerves 3-12 are grossly normal. There is no nystagmus either horizontally or vertically. Course Course ED Course: I met the patient and EMS in the ambulance [facility]. Repeat examination was done in the hallway and patient was sent directly to CT, IV started. Head CT did not show any acute pathology. Cervical spine CT did not show any acute pathology. Chest and abdomen CT showed fractures of the 4th, 6th, 7th, 8th, 9th ribs and fracture of the scapular blade. Lactate elevated at above 4. IV fluids started. Other labs pending at this time. I talked to ER physician at [facility] who accept the patient for transfer at this time. Vital Signs Vital signs: Initial Vital Signs Pulse Oximetry 97 06/15/24 08:30 Vital Signs Pulse Oximetry 97 06/15/24 08:30 Temperature 97.9 F 06/15/24 10:32 Pulse Rate 81 06/15/24 10:32 Respiratory Rate 14 06/15/24 10:32 Blood Pressure 188/114 H 06/15/24 10:32 Pulse Oximetry 96 06/15/24 10:02 Oxygen Delivery Method Room Air 06/15/24 08:58 Medications Administered Medications: Discontinued Medications Generic Name Dose Route Start Last Admin Trade Name Freq PRN Reason Stop Dose Admin Hydromorphone HCl 0.5 mg 06/15/24 09:09 06/15/24 09:19 Hydromorphone 0.5 Mg/0.5 Ml Inj IVP 0.5 mg Q2H PRN Administration Sodium Chloride 1,000 mls @ 1,000 mls/hr 06/15/24 09:00 06/15/24 09:55 0.9 % Sodium Chloride 1000 Ml IV 06/15/24 09:59 Infused .Q1H AMILCAR Infusion Medical Decision Making MDM Narrative Medical decision making narrative: 83-year-old male status post fall with multiple rib fractures and scapular blade fracture. Patient will be transferred to [facility] for further care. Medical Records Medical records reviewed: Yes I reviewed the patient's medical records Lab Data Lab results reviewed: Yes I reviewed the patient's lab results Labs: Lab Results 06/15/24 06/15/24 06/15/24 Range/Units 08:11 08:30 09:15 WBC 11.32 H (4.50-11.00) K/uL RBC 3.56 L (4.30-5.90) m/uL Hgb 12.7 L (13.5-17.5) gm/dL Hct 38.1 (37.0-53.0) % MCV 107 H (80-100) fL MCH 36 H (26-34) pg MCHC 33 (32-36) gm/dL RDW Coeff of Dina 11.6 (11.5-15.5) % Plt Count 189 (140-440) K/uL Neut % (Auto) 84.6 H (42.0-72.0) % Lymph % (Auto) 4.8 L (20-44) % [place] % (Auto) 9.3 (0.0-11.0) % Eos % (Auto) 0.7 (0.0-7.0) % Baso % (Auto) 0.4 (0.0-3.0) % Neut # (Auto) 9.60 H (1.7-7.0) K/uL Lymph # (Auto) 0.50 L (0.90-2.90) K/uL [place] # (Auto) 1.10 H (0.00-0.90) K/UL Eos # (Auto) 0.10 (0.00-0.50) K/uL Baso # (Auto) 0.00 (0.00-0.30) K/uL Abs Immat Gran (auto) 0.00 (0.00-0.30) K/uL Imm/Tot Granulo (auto) 0.2 % Sodium 131 L (135-149) mmol/L Potassium 4.3 (3.6-5.1) mmol/L Chloride 100 (96-114) mmol/L Carbon Dioxide 19 L (20-32) mmol/L Anion Gap 12 (7-15) mEq/L BUN 13 (7-30) mg/dL Creatinine 0.9 (0.5-1.5) mg/dL Estimated GFR 84 ml/min Glucose 102 (60-115) mg/dL Lactate 4.1 H* (0.5-1.9) mmol/L Calcium 9.1 (8.4-10.6) mg/dL Total Bilirubin 0.8 (0.1-1.5) mg/dL Direct Bilirubin 0.4 (0.0-0.5) mg/dL AST 35 (12-35) U/L ALT 18 (4-50) U/L Alkaline Phosphatase 104 (40-150) U/L Total Creatine Kinase 233 H (54-186) U/L C-Reactive Protein < 0.5 L (0.5-1.0) mg/dL Total Protein 7.1 (6.0-8.3) g/dL Albumin 4.0 (3.3-5.0) g/dL Urine Color Red A (Yellow) Urine Appearance Turbid A (Clear) Urine pH 6.0 (5.0-8.5) Ur Specific Butler 1.020 (1.000-1.030) Urine Protein 2+ A (Negative) Urine Glucose (UA) Negative (Negative) Urine Ketones 1+ A (Negative) Urine Blood 3+ A (Negative) Urine Nitrite Negative (Negative) Urine Bilirubin 1+ A (Negative) Urine Urobilinogen 2.0 A (0.2-1.0) Ur Leukocyte Esterase Negative (Negative) Urine RBC >100 A (0-2) Urine WBC 5-10 A (0-5) Ur Squamous Epith Cells Few (None-Few) Urine Bacteria Moderate A (None) Salicylates < 1.0 L (1.0-10) mg/dL Urine Opiates Screen (Negative) Ur Oxycodone Screen (Negative) Urine Methadone Screen (Negative) Acetaminophen < 10.0 L (10.0-30.0) ug/mL Ur Barbiturates Screen (Negative) U Tricyclic Antidepress (Negative) Ur Phencyclidine Scrn (Negative) Ur Amphetamines Screen (Negative) U Methamphetamines Scrn (Negative) U Benzodiazepines Scrn (Negative) Urine Cocaine Screen (Negative) U Marijuana (THC) Screen (Negative) Ur Drug Screen Comment Ethyl Alcohol 0.03 (0.01-0.03) % POC Troponin I 0.01 (0.01-0.04) ng/ml 06/15/24 Range/Units 09:20 WBC (4.50-11.00) K/uL RBC (4.30-5.90) m/uL Hgb (13.5-17.5) gm/dL Hct (37.0-53.0) % MCV (80-100) fL MCH (26-34) pg MCHC (32-36) gm/dL RDW Coeff of Dina (11.5-15.5) % Plt Count (140-440) K/uL Neut % (Auto) (42.0-72.0) % Lymph % (Auto) (20-44) % [place] % (Auto) (0.0-11.0) % Eos % (Auto) (0.0-7.0) % Baso % (Auto) (0.0-3.0) % Neut # (Auto) (1.7-7.0) K/uL Lymph # (Auto) (0.90-2.90) K/uL [place] # (Auto) (0.00-0.90) K/UL Eos # (Auto) (0.00-0.50) K/uL Baso # (Auto) (0.00-0.30) K/uL Abs Immat Gran (auto) (0.00-0.30) K/uL Imm/Tot Granulo (auto) % Sodium (135-149) mmol/L Potassium (3.6-5.1) mmol/L Chloride (96-114) mmol/L Carbon Dioxide (20-32) mmol/L Anion Gap (7-15) mEq/L BUN (7-30) mg/dL Creatinine (0.5-1.5) mg/dL Estimated GFR ml/min Glucose (60-115) mg/dL Lactate (0.5-1.9) mmol/L Calcium (8.4-10.6) mg/dL Total Bilirubin (0.1-1.5) mg/dL Direct Bilirubin (0.0-0.5) mg/dL AST (12-35) U/L ALT (4-50) U/L Alkaline Phosphatase (40-150) U/L Total Creatine Kinase (54-186) U/L C-Reactive Protein (0.5-1.0) mg/dL Total Protein (6.0-8.3) g/dL Albumin (3.3-5.0) g/dL Urine Color (Yellow) Urine Appearance (Clear) Urine pH (5.0-8.5) Ur Specific Butler (1.000-1.030) Urine Protein (Negative) Urine Glucose (UA) (Negative) Urine Ketones (Negative) Urine Blood (Negative) Urine Nitrite (Negative) Urine Bilirubin (Negative) Urine Urobilinogen (0.2-1.0) Ur Leukocyte Esterase (Negative) Urine RBC (0-2) Urine WBC (0-5) Ur Squamous Epith Cells (None-Few) Urine Bacteria (None) Salicylates (1.0-10) mg/dL Urine Opiates Screen Negative (Negative) Ur Oxycodone Screen Negative (Negative) Urine Methadone Screen Negative (Negative) Acetaminophen (10.0-30.0) ug/mL Ur Barbiturates Screen Negative (Negative) U Tricyclic Antidepress Negative (Negative) Ur Phencyclidine Scrn Negative (Negative) Ur Amphetamines Screen Negative (Negative) U Methamphetamines Scrn Negative (Negative) U Benzodiazepines Scrn Negative (Negative) Urine Cocaine Screen Negative (Negative) U Marijuana (THC) Screen Negative (Negative) Ur Drug Screen Comment See Note Ethyl Alcohol (0.01-0.03) % POC Troponin I (0.01-0.04) ng/ml Imaging Data CT scan - head: Attestation: I have reviewed the pertinent imaging results. Radiologist's impression: CT examination of the head was performed as axial sections without intravenous contrast. Images were obtained from the vertex of the skull through the skull base. Please note that all CT scans at this facility use dose modulation, iterative reconstruction, and/or weight-based dosing when appropriate to reduce radiation dose to as low as reasonably achievable. FINDINGS: The brain shows no sign of mass lesion, mass effect, hemorrhage, or edema. Nonacute appearing bilateral subcortical lacunar infarcts are noted There are involutional changes. There is moderate cortical atrophy and there is moderate white matter disease. There is no hydrocephalus. The visualized portions of the orbits are normal in appearance. The osseous structures are normal in appearance with no sign of abnormality in the skull base or calvarium. IMPRESSION: Involutional changes. Nonacute appearing bilateral subcortical lacunar infarcts. No acute intracranial posttraumatic findings. CT cervical spine: Attestation: I have reviewed the pertinent imaging results. Radiologist's impression: TECHNIQUE: CT examination of the cervical spine is performed without contrast using spiral technique. Thin axial, sagittal and coronal reconstructions were made. Please note that all CT scans at this facility use dose modulation, iterative reconstruction, and/or weight-based dosing when appropriate to reduce radiation dose to as low as reasonably achievable. FINDINGS: : There is straightening which is probably due to muscle spasm, positioning or due to an immobilization device. There is no garrett malalignment. Bone mineral density is decreased. There are moderate to severe degenerative changes diffusely. There is no visible acute fracture, dislocation or destructive process. Atherosclerotic vascular calcifications are noted. IMPRESSION: Straightening. Demineralization. Severe degenerative change. No visible acute fracture, dislocation or destructive process. CT Chest/Ab/Pelvis: Attestation: I have reviewed the pertinent imaging results. Radiologist's impression: CT examination of the chest, abdomen and pelvis was performed following the uneventful intravenous administration of 108 cc of Isovue 370. Thin section axial images were obtained from the thoracic inlet through the pubic symphysis. Oral contrast was not administered. Sagittal and coronal reformatted imaging was performed. TECHNICAL NOTE: Due to an IV leak, not all of the contrast entered the patient`s body. There is very little contrast enhancement on this study Please note that all CT scans at this facility use dose modulation, iterative reconstruction, and/or weight-based dosing when appropriate to reduce radiation dose to as low as reasonably achievable. FINDINGS: CHEST: The heart size is normal. There is no mediastinal or hilar adenopathy or mass. There are atherosclerotic vascular calcifications. No pericardial effusion. No indication of mediastinal vascular injury. Right basilar opacities probably due to atelectasis and scarring. No right effusion. No pneumothorax. ABDOMEN AND PELVIS: Left basilar opacities probably a combination of atelectasis and contusion as many of these opacities are adjacent to rib fractures. There is no pneumothorax. Trace left pleural fluid. LIVER/BILIARY SYSTEM:Hepatic cyst. Liver otherwise unremarkable. Gallbladder normal.No intra or extrahepatic biliary ductal dilation. No posttraumatic findings ADRENALS: Normal KIDNEYS, URETERS and BLADDER:Probably benign bilateral renal lesions. Parapelvic sinus lymphatic cyst. No renal injury. No hydronephrosis or hydroureter. The bladder is distended. The prostate is significantly enlarged SPLEEN:No evidence of injury PANCREAS: Appears normal. RETROPERITONEUM and MESENTERY: There is no mass, adenopathy or aortic aneurysm. Atherosclerotic vascular calcification GASTROINTESTINAL SYSTEM: There is no evidence of diverticulitis, colitis, mechanical obstruction, or appendicitis. The small bowel as visualized appears normal.Fecal retention. Diverticulosis. PELVIS: No mass, adenopathy or free fluid. OSSEOUS STRUCTURES and ABDOMINAL WALL: There is no fracture identified involving the pelvis, thoracic spine, lumbar spine or sternum. There is a minimally comminuted but not displaced left scapular fracture. There are multiple left rib fractures. Most of these are posteromedial, specifically the 4th, 6, 7th, 8th and 9th ribs. These appear to be acutely fractured with minimal displacement. Some of the lower ribs show fractures though they are not felt to be acute. OTHER: No free fluid or free air. IMPRESSION: 1. CHEST: No evidence of mediastinal vascular injury. Left basilar opacity probably combination of atelectasis and contusion associated with left rib fractures. Very small left effusion. No pneumothorax. 2. ABDOMEN AND PELVIS: No solid organ injury. Incidental nonacute nontraumatic findings as discussed in the body of the report. Please review the comments 3. OSSEOUS STRUCTURES: There is a minimally comminuted but nondisplaced fracture of the left scapular blade. Acute fractures of the posteromedial aspect of the left 4th, 6th, 7th, 8th and 9th ribs. There are also posterior and anterolateral left rib fractures of the lower ribs below the 9th rib though these are felt to be nonacute. No spine or pelvic fracture identified. ECG Data Attestation: I personally reviewed and interpreted this ECG as follows: Discharge Plan Discharge Clinical Impression: Fall, Multiple fractures of ribs, Closed fracture of blade of left scapula Patient Disposition: Xfer Other Discharge Location: [facility] Condition: Stable Prescriptions: No Action aspirin 81 mg capsule 81 mg PO QDAY cetirizine 10 mg tablet 10 mg PO QDAY PRN mecobalamin (vitamin B12) 1,000 mcg tablet,chewable 1,000 mcg PO QDAY PRN ibuprofen [Advil] 200 mg tablet 400 mg PO QAM PRN isosorbide mononitrate 30 mg tablet extended release 24 hr 30 mg PO QHS Qty: 90 3RF levothyroxine 100 mcg tablet 100 mcg PO QDAY Qty: 90 3RF benazepril 40 mg tablet 60 mg PO QDAY Qty: 135 3RF Rx Instructions: Pt is to take one and a half tablets by mouth daily atenolol 50 mg tablet 50 mg PO QDAY Qty: 90 3RF Stand Alone Forms: [facility] Info Instructions
--- NOTE | 2024-06-15 08:28 | ED.NURSE ---
Patient met by MD and RN in [facility]. Straight to CT scanner.
[2024-06-15 08:41] LABS: Basophils Percent Auto 0.4 % (0.0-3.0); Eosinophils Percent Auto 0.7 % (0.0-7.0); Hematocrit 38.1 % (37.0-53.0); Hemoglobin* 12.7 gm/dL (13.5-17.5); Immature Granulocytes Pct Auto 0.2 %; Lymphocytes Percent Auto 4.8 % (20-44); Mean Corpuscular HGB Conc 33 gm/dL (32-36); Mean Corpuscular Hemoglobin 36 pg (26-34); Mean Corpuscular Volume 107 fL (80-100); Monocytes Percent Auto 9.3 % (0.0-11.0); Neutrophils Percent Auto 84.6 % (42.0-72.0); Platelet Count* 189 K/uL (140-440); RDW Coefficient of Variation % 11.6 % (11.5-15.5); Red Blood Count 3.56 m/uL (4.30-5.90); White Blood Count* 11.32 K/uL (4.50-11.00)
[2024-06-15 08:43] LABS: Lactate* 4.1 mmol/L (0.5-1.9)
[2024-06-15 08:45] LABS: Slide Review Reflex No
[2024-06-15 08:52] LABS: Troponin, Point-of-Care* 0.01 ng/ml (0.01-0.04)
[2024-06-15] MEDS: 0.9 % SODIUM CHLORIDE 1000 ml 1,000 ML IV (08:55)
[2024-06-15 08:58] LABS: Chloride* 100 mmol/L (96-114); Potassium* 4.3 mmol/L (3.6-5.1); Sodium* 131 mmol/L (135-149)
[2024-06-15 09:00] LABS: Alanine Aminotransferase* 18 U/L (4-50); Alkaline Phosphatase* 104 U/L (40-150); Aspartate Amino Transferase* 35 U/L (12-35); Bilirubin Direct* 0.4 mg/dL (0.0-0.5); Bilirubin Total* 0.8 mg/dL (0.1-1.5); Creatine Kinase* 233 U/L (54-186); Total Protein* 7.1 g/dL (6.0-8.3)
[2024-06-15 09:01] LABS: Creatinine* 0.9 mg/dL (0.5-1.5); Estimated Glomerular Filt Rate 84 ml/min
[2024-06-15 09:02] LABS: Anion Gap 12 mEq/L (7-15); Blood Urea Nitrogen* 13 mg/dL (7-30); Calcium* 9.1 mg/dL (8.4-10.6); Carbon Dioxide* 19 mmol/L (20-32); Ethanol* 0.03 % (0.01-0.03); Glucose* 102 mg/dL (60-115)
[2024-06-15 09:15] LABS: Acetaminophen* < 10.0 ug/mL (10.0-30.0); C Reactive Protein* < 0.5 mg/dL (0.5-1.0); Salicylate* < 1.0 mg/dL (1.0-10)
[2024-06-15] MEDS: HYDROmorphone 0.5 mg/0.5 ml inj IVP (09:19)
[2024-06-15 09:30] LABS: Appearance Urine Turbid (Clear); Bilirubin Urine 1+ (Negative); Blood Urine 3+ (Negative); Color Urine Red (Yellow); Glucose Urine Negative (Negative); Ketones Urine 1+ (Negative); Leukocyte Esterase Urine Negative (Negative); Nitrite Urine Negative (Negative); Protein Urine 2+ (Negative)
[2024-06-15 09:41] LABS: Amphetamine Screen Urine Negative (Negative); Barbiturate Screen Urine Negative (Negative); Benzodiazepines Screen Urine Negative (Negative); Cannabinoid Screen Urine Negative (Negative); Cocaine Screen Urine Negative (Negative); Methadone Screen Urine Negative (Negative); Methamphetamines Screen Urine Negative (Negative); Opiate Screen Urine Negative (Negative); Oxycodone Screen Urine Negative (Negative); Phencyclidine Screen Urine Negative (Negative); Tricyclic Antidepressant Urine Negative (Negative)
[2024-06-15 09:59] LABS: Bacteria Urine Moderate; RBC Urine >100 (0-2); Squamous Epithelial Cell Urine Few (None-Few)
== END 2024-06-15 10:20 | disposition other institution (70) ==
PROVIDERS: Emergency Provider Family Medicine; PCP Internal Medicine
DX: S42.102A Fracture of unspecified part of scapula, left shoulder, initial encounter for closed fracture (principal); S22.42XA Multiple fractures of ribs, left side, initial encounter for closed fracture; W18.30XA Fall on same level, unspecified, initial encounter; R31.9 Hematuria, unspecified; R10.9 Unspecified abdominal pain; Z02.83 Encounter for blood-alcohol and blood-drug test; R51.9 Headache, unspecified; R07.9 Chest pain, unspecified; Z79.899 Other long term (current) drug therapy
CPT/HCPCS: 36415; 70450; 71260; 72125; 74177; 80048; 80076; 80143; 80179; 80306; 81001; 82077; 82550; 83605; 84484; 85025; 86140; 87086; 93005; 94761; 96374; 99284; 99285; 99291; G0390; J1170; J7030; Q9967

== ENCOUNTER 2024-06-15 10:00 | Outpatient (CLI) | payer MEDICARE, BC, SELFPAY | END 2024-06-15 10:01 | disposition home or self-care (01) | LOC: AMB 06-17 07:59 | PROVIDERS: PCP Internal Medicine; Visit Provider Family Medicine | DX: S22.49XA Multiple fractures of ribs, unspecified side, initial encounter for closed fracture (principal); S42.192A Fracture of other part of scapula, left shoulder, initial encounter for closed fracture | CPT/HCPCS: A0425; A0427 ==

== ENCOUNTER 2024-07-22 09:45 | Outpatient (CLI) | payer MEDICARE, BC, SELFPAY ==
--- OUTSIDE RECORDS SUMMARY | 2024-07-25 20:26 | XMS_ITS | Encounter Summary ---
Author Organization [facility] Address [address] [place] [phone] Phone Care Team Providers Care Currency Machine Operator Name Role Phone Alejandra Mclean MD [...] on filedocumented in this encounter Care Teams Currency Machine Operator Relationship Specialty Start Date End Date Alejandra Mclean MD [address] [place] [address] PCP - General Internal Medicine 06/15/24 documented as of this encounter
--- OUTSIDE RECORDS SUMMARY | 2024-07-25 20:26 | XMS_ITS | Encounter Summary ---
Author Organization [facility] Address [address] [place] [address] Phone Care Team Providers Care Assistant Oceanographer Name Role Phone Alejandra Mclean MD Primary [...] on filedocumented in this encounter Care Teams Assistant Oceanographer Relationship Specialty Start Date End Date Alejandra Mclean MD [address] [address] PCP - General Internal Medicine 06/15/24 documented as of this encounter
--- OUTSIDE RECORDS SUMMARY | 2024-07-25 20:26 | XMS_ITS | Clinical Summary ---
Author Organization [facility] [place] [address] Phone Care Team Providers Care Seed Cone Picker Name Role Phone Alejandra Mclean MD Primary Care Provider Source Comments [employer] is fully rolled out on [employer]. Last update 02/28/09.[facility] Allergies No known active allergies Medications * [...] [facility] [address] [address] Orlin Luo, [facility] Appointment 06/18/2024 Orders Only Unspecified Department [place] [...] - 06/19/2024 5:12 PM CDT Hospital Encounter [facility] Surgery/Trauma/Brigido ro [address] [place], [place] [address] Amanda Joel MD Payne, Rachel E, MD Richmond, Steven D, Closed fracture of multiple ribs of left side, initial encounter Discharge Disposition: Discharged/transd to SNF with Medicare certification 06/15/2024 Orders Only [facility] Film Room [facility] Radiology Department [facility] [address] [place], [place] [address] Provider, Outside Referral of patient (Primary Dx) [...] 06/19/2024 10:00 AM CDT Plan of Treatment Health Maintenance Due Date Last Done Comments Dental Oral Exam 1940 Dental Prophylaxis 1940 Dental X-Ray: Bitewings 1939 Periodontal Maintenance 1953 Medicare Annual Wellness 1957 PREVENTATIVE VISIT 1957 HEALTH MAINTENANCE PROTOCOL 1958 Imm: Zoster (1 of 2) 1989 Osteoporosis Screening (Dexa Scan) 2004 Imm: Pneumonia greater than 65 years (2 of 2 - PCV) 08/12/2009 08/12/2008 Imm: COVID-19 ( season) 2024 11/01/2023, 03/10/2023, 07/09/2022, Additional history exists Imm: Flu (#1) 05/27/2024 07/19/2023, 06/26, 07/20/2021, Additional history exists Imm: DTaP/Tdap (2 - Td or Tdap) 05/08/2025 05/08/2015 Imm: HPV Aged Out No longer eligi [...] included. Phosphorus 2.8 2.5 - 4.5 mg/dL [facility] Blood 06/19/2024 6:19 AM CDT 06/19/2024 7:27 AM CDT Zeina Arias MD LABORATORY Performing Organization Address [facility] Co de Phone Number [facility] [address] [address] * (ABNORMAL) PANEL BASIC METABOLIC (BMP) (06/19/2024 6:19 AM CDT) Only the most recent of4 resultswithin the time period is included. Sodium 132(L) 135 - 148 mmol/L [facility] Potassium 4.6 3.5 - 5.3 mmol/L [facility] Chloride 101 92 - 108 mmol/L [facility] CO2 20(L) 22 - 30 mmol/L [facility] Glucose 94 70 - 100 mg/dL [facility] BUN 17 8 - 23 mg/dL [facility] Creatinine 0.92 0.70 - 1.25 mg/dL [facility] Calcium 9.0 8.8 - 10.2 mg/dL [facility] AnGap 11 8 - 16 mmol/L [facility] eGFR (2020 CKD-EPI) 82 >=60 ml/min/1.7 3m2 [facility] Comment: The estimated glomerular filtration rate (eGFR) was calculated using the CKD-EPI 2020 creatinine equation, which does not include race as a factor. This equation is validated in individuals 18 years of age and older, and eGFR is normalized to a body surface area of 1.73m^2. Blood 06/19/2024 6:19 AM CDT 06/19/2024 7:27 AM CDT Zeina Arias MD LABORATORY Performing Organization Address [facility]/ZIP Co de Phone Number [facility] [address] [address] * MAGNESIUM (06/19/2024 6:19 AM CDT) Only the most recent of4 resultswithin the time period is included. Magnesium 2.0 1.6 - 2.4 mg/dL [facility] Blood 06/19/2024 6:19 AM CDT 06/19/2024 7:27 AM CDT Zeina Arias MD LABORATORY Performing Organization Address City/[facility] Co de Phone Number [facility] [address] [address] * (ABNORMAL) CBC WITH PLATELET (06/19/2024 6:19 AM CDT) Only the most recent of4 resultswithin the time period is included. WBC 9.14 4.00 - 10.00 k/cmm [facility] RBC 3.36(L) 4.60 - 6.00 m/cmm [facility] Hgb 12.5(L) 13.1 - 17.5 g/dL [facility] Hematocrit 37.5(L) 40.0 - 51.0 % [facility] MCV 111.6(H) 80.0 - 100.0 fL [facility] MCH 37.2(H) 25.0 - 32.0 pg [facility] MCHC 33.3 31.0 - 36.0 g/dL [facility] RDW 12.2 11.5 - 14.5 % [facility] Plt 151 150 - 400 k/cmm [facility] MPV 10.4 6.5 - 12.5 fL [facility] Blood 06/19/2024 6:19 AM CDT 06/19/2024 7:27 AM CDT Zeina Arias MD LABORATORY Performing Organization Address City/[facility] Co de Phone Number [facility] [address] [address] * TELEMETRY STRIPS (06/18/2024 8:34 AM CDT) [...] 9:08 PM CDT) Folate 4.1 >=4.0 ng/mL [facility] Blood 06/16/2024 9:08 PM CDT 06/16/2024 9:22 PM CDT Zeina Arias MD LABORATORY [facility] [address] [address] * VITAMIN B12 (06/16/2024 9:08 PM CDT) B12 447 211 - 946 pg/mL [facility] Blood 06/16/2024 9:08 PM CDT 06/16/2024 9:22 PM CDT Zeina Arias MD LABORATORY Performing Organization Address City/[facility]/ZIP Co de Phone Number [facility] [address] [address] * TROP 4H (06/15/2024 3:50 PM CDT) 4H Trop 7 <=35 ng/L [facility] 4H Delta na Not Significant [facility] Comment:Unable to calculate delta. Blood 06/15/2024 3:50 PM CDT 06/15/2024 3:54 PM CDT Amanda Joel MD LABORATORY Performing Organization Address [facility] Co de Phone Number [facility] [address] [address] * XR SCAPULA LEFT AP + LAT [...] ??No treatment, delayed treatment and alternative treatment [place] protocol: ??Procedure explained and questions answered to [...] (06/15/2024 1:12 PM CDT) Color ORANGE YELLOW [facility] Appearance CLOUDY(A) CLEAR [facility] Urine Glucose NEGATIVE NEGATIVE mg/dL [facility] Bili UA NEGATIVE NEGATIVE [facility] Ketones TRACE(A) NEGATIVE [facility] Specific [place] 1.018 1.003 - 1.030 [facility] Blood Ur LARGE(A) Neg-Trace [facility] PH Urine 6.5 5.0 - 7.0 [facility] Protein Ur 30(A) Neg-Trace [facility] Urobilinogen NORMAL NORMAL EU/dL [facility] Nitrite Ur NEGATIVE NEGATIVE [facility] Leuk Est TRACE Neg-Trace [facility] WBC Ur 0-5 0 - 5 perHPF [facility] RBC Ur >20(A) 0 - 3 perHPF [facility] Urinalysis Performed at: [facility] Urine 06/15/2024 1:12 PM CDT 06/15/2024 1:16 PM CDT Amanda Joel MD LABORATORY Performing Organization Address City/[facility]/ZIP Co de Phone Number [facility] [address] [address] * HS TROPONIN (06/15/2024 12:28 PM CDT) Pathologist [facility] HS Troponin I 6 <=35 ng/L [facility] Blood 06/15/2024 12:2 8 PM CDT 06/15/2024 12:31 PM CDT Narrative [facility] - 06/15/2024 12:57 PM CDT If ordering as an add-on lab, you must call the lab. Amanda Joel MD LABORATORY Performing Organization Address [facility] Co de Phone Number [facility] [address] [address] * (ABNORMAL) ED CHEMISTRY LABS(NA,K,CL,CO2,GLU,CREAT,CA-IONIZED,ANION GAP) (06/15/2024 12:28 PM CDT) Sodium 132(L) 135 - 148 mmol/L [facility] Chloride 103 92 - 108 mmol/L [facility] AnGap 9 8 - 16 mmol/L [facility] Glucose 96 70 - 100 mg/dL [facility] ICA, Actual 4.45 4.40 - 5.20 mg/dL [facility] ICA, pH Corrected 4.48 4.40 - 5.20 mg/dL [facility] Creatinine 1.03 0.70 - 1.25 mg/dL [facility] BICARB 21(L) 22 - 26 mEq/L [facility] eGFR (2020 CKD-EPI) 72 >=60 ml/min/1.7 3m2 [facility] Comment: The estimated glomerular filtration rate (eGFR) was calculated using the CKD-EPI 2020 creatinine equation, which does not include race as a factor. This equation is validated in individuals 18 years of age and older, and eGFR is normalized to a body surface area of 1.73m^2. Potassium 4.5 3.5 - 5.3 mmol/L [facility] Blood 06/15/2024 12:2 8 PM CDT 06/15/2024 12:37 PM CDT Amanda Jeol MD LABORATORY [facility] [address] [place] [address] * (ABNORMAL) CBC WITH PLTS/AUTO DIFF (06/15/2024 12:28 PM CDT) WBC 10.53(H) 4.00 - 10.00 k/cmm [facility] RBC 3.59(L) 4.60 - 6.00 m/cmm [facility] Hgb 13.2 13.1 - 17.5 g/dL [facility] Hematocrit 38.5(L) 40.0 - 51.0 % [facility] MCV 107.2(H) 80.0 - 100.0 fL [facility] MCH 36.8(H) 25.0 - 32.0 pg [facility] MCHC 34.3 31.0 - 36.0 g/dL [facility] RDW 11.9 11.5 - 14.5 % [facility] Plt 185 150 - 400 k/cmm [facility] MPV 9.3 6.5 - 12.5 fL [facility] Automated Abs Neutrophil 8.59(H) 1.70 - 6.50 k/cmm [facility] Comment:Preliminary ANC, Fin al Result to Follow Abs Immature Granulocyte 0.02 0.00 - 0.09 k/cmm [facility] Comment:The Immature Granulo cyte Absolute count contains metamyelocytes and myelocytes. Abs Neutrophil 8.59(H) 1.70 - 6.50 k/cmm [facility] Abs Lymphocyte 0.71(L) 0.80 - 4.00 k/cmm [facility] Abs Monocyte 1.08(H) 0.20 - 1.00 k/cmm [facility] Abs Eosinophil 0.07 0.00 - 0.60 k/cmm [facility] Abs Basophil 0.06 0.00 - 0.20 k/cmm [facility] Blood 06/15/2024 12:2 8 PM CDT 06/15/2024 12:44 PM CDT Amanda Joel MD LABORATORY Performing Organization Address City/[facility] Co de Phone Number [address] [address] * PROTHROMBIN (PT) & INR (06/15/2024 12:28 PM CDT) PT 11.2 9.0 - 12.5 sec [facility] INR 1.0 0.8 - 1.1 [facility] Comment: Warfarin Therapeutic Range: Standard Intensity: 2.0 - 3.0 High Intensity: 2.5 - 3.5 Blood 06/15/2024 12:2 8 PM CDT 06/15/2024 12:44 PM CDT Amanda Joel MD LABORATORY Performing Organization Address [facility] Co de Phone Number [address] [address] * CK, TOTAL (06/15/2024 12:28 PM CDT) CK 258 39 - 308 IU/L [facility] Blood 06/15/2024 12:2 8 PM CDT 06/15/2024 12:44 PM CDT Amanda Joel MD LABORATORY Performing Organization Address [facility] Co de Phone Number [address] [address] * EXTRA TUBE - SST (06/15/2024 12:28 PM CDT) SST TUBE Stored [facility] Comment:SST tubes (Serum Sep arator) are stored in the lab for 3 days from the collection date. Blood 06/15/2024 12:2 8 PM CDT 06/15/2024 12:32 PM CDT Amanda Joel MD LABORATORY [facility] [address] [address] * (ABNORMAL) CARBON MONOXIDE (CO) (06/15/2024 12:28 PM CDT) Carbon Monox 3(H) 0 - 2 % [facility] Comment:Normal range for smo kers: up to 13%. Blood 06/15/2024 12:2 8 PM CDT 06/15/2024 4:16 PM CDT Amanda Joel MD LABORATORY Performing Organization Address City/[facility] Co de Phone Number [facility] [address] [address] * ED US GUIDED NERVE BLOCK (06/15/2024 [...] CDT) 06/15/2024 11:5 9 AM CDT Impressions [facility] CVIS EKG ORDERS - 06/15/2024 11:59 AM CDT SINUS RHYTHM WITH FIRST DEGREE AV BLOCK ABNORMAL ECG No Previous ECGs Available. P-R Interval 212 ms QRS Interval 95 ms QT Interval 377 ms QTC Interval 400 ms P Bartow 64 QRS Bartow -7 T Wave Bartow 25 Narrative Procedure Note Amanda Joel MD - 06/15/2024 IMPRESSION SINUS RHYTHM WITH FIRST DEGREE AV BLOCK ABNORMAL ECG No Previous ECGs Available. P-R Interval 212 ms QRS Interval 95 ms QT Interval 377 ms QTC Interval 400 ms P Bartow 64 QRS Bartow -7 T Wave Bartow 25 Amanda Joel MD EKG [facility] CVIS EKG ORDERS * CT OUTSIDE READ [...] 2:35 PM CDT Indication: ??Patient transferred from [place] [facility] due to Trauma. Dr. AMANDA JOEL requested an interpretation by me. Comparison: CT of the chest from 02/08/2023. Technique: ??CT scan of the chest/abdomen/pelvis done with IV contrast. Axial, coronal, and sagittal reconstructions reviewed in soft tissue and bone windows, per the local institution's scanning protocols, which may differ from the [facility] trauma protocols. Findings: Chest: Mediastinum: Atrophic thyroid [...] DO - 06/15/2024 Indication: Patient transferred from [facility] due to Trauma.Dr. AMANDA JOEL requested an interpretation by me. Comparison: CT of the chest from 02/08/2023. Technique: CT scan of the chest/abdomen/pelvis done with IV contrast.Axial, coronal, and sagittal reconstructions reviewed in soft tissue andbone windows, per the local institution's scanning protocols, which maydiffer from the [facility] trauma protocols. Findings: Chest: Mediastinum: Atrophic thyroid [...] 12:08 PM CDT Indication: ??Patient transferred from [facility] due to Trauma. Dr. AMANDA JOEL requested an interpretation by me. Technique: ??CT scan of the cervical spine done on 06/15/2024 without IV contrast. Axial, coronal, and sagittal reconstructions reviewed in soft tissue and bone windows, per the local institution's scanning protocols, which may differ from the [facility] trauma protocols. Findings: ??No suspected acute fracture, [...] Lorenzana, - 06/15/2024 Indication: Patient transferred from [facility] due to Trauma.Dr. AMANDA JOEL requested an interpretation by me. Technique: CT scan of the cervical spine done on 06/15/2024 without IVcontrast. Axial, coronal, and sagittal reconstructions reviewed in softtissue and bone windows, per the local institution's scanning protocols,which may differ from the [facility] trauma protocols. Findings: No suspected acute fracture, [...] 12:05 PM CDT Indication: ??Patient transferred from [facility] due to Trauma. Dr. AMANDA JOEL requested an interpretation by me. Technique: ??CT scan of the head done on 06/15/2024 without IV contrast. Axial, coronal, and sagittal reconstructions are reviewed in soft tissue and bone windows, per the local institution's scanning protocols, which may differ from the [facility] trauma protocols. Findings: No acute intracranial hemorrhage, [...] DO - 06/15/2024 Indication: Patient transferred from [facility] due to Trauma.Dr. AMANDA JOEL requested an interpretation by me. Technique: CT scan of the head done on 06/15/2024 without IV contrast.Axial, coronal, and sagittal reconstructions are reviewed in soft tissueand bone windows, per the local institution's scanning protocols, whichmay differ from the [facility] trauma protocols. Findings: No acute intracranial hemorrhage, [...] Advance Directives For more information, please contact: [phone] * Full Code (Latest Code Status on [...] Status With Whom? Not discussed Care Teams Seed Cone Picker Relationship Specialty Start Date End Date Alejandra Mclean MD [address] [facility] [place] [address] PCP - General Internal Medicine 06/15/24
--- OUTSIDE RECORDS SUMMARY | 2024-07-25 20:26 | XMS_ITS | Encounter Summary ---
Author Organization [facility] Address [address] [place] [address] Phone Care Team Providers Care Button And Buckle Maker Name Role Phone Alejandra Mclean MD Primary [...] on filedocumented in this encounter Care Teams Button And Buckle Maker Relationship Specialty Start Date End Date Alejandra Mclean MD [address] [address] PCP - General Internal Medicine 06/15/24 documented as of this encounter
--- OUTSIDE RECORDS SUMMARY | 2024-07-25 20:26 | XMS_ITS | Encounter Summary ---
Author Organization [facility] Address [address] [place] [phone] Phone Care Team Providers Care Sql Manager Name Role Phone Alejandra Mclean MD [...] on filedocumented in this encounter Care Teams Sql Manager Relationship Specialty Start Date End Date Alejandra Mclean MD [address] [address] PCP - General Internal Medicine 06/15/24 documented as of this encounter
--- OUTSIDE RECORDS SUMMARY | 2024-07-25 20:26 | XMS_ITS | Encounter Summary ---
Author Organization [facility] Address [address] [place] [address] Phone Care Team Providers Care Continuous Drier Helper Name Role Phone Alejandra Mclean MD Primary Care Provider Reason for Visit * Reason Onset Date Comments Appointment 06/28/2024 Encounter Details Date Type Department Care Team (Late st Contact Info) Description 06/28/2024 Telephone [facility] [address] [id number] Orlin Luo, [facility] [address] [place] [address] Appointment Social History Tobacco Use [...] to be scheduled with Gen Surg Trauma JENNIFER. Orlin Luo, PSC, 06/28/2024 1:52 PM Israel Moyer [facility] Clerical Pool .Patient: Jennifer Shaikh : 1940 Called to schedule an appointment with provider: any available provider discharge states JENNIFER Reason for Visit: Hospital Discharge follow up on rib fractures Video Capable (MyChart Account, High Speed Internet, or Smart Phone/Device or CAM/GONZALO): No Patient Provider Preferences: Any available provider. Date/Time Preferred: Any day and time. Phone number for return call: Daja [phone] marketing coordinator at [facility] currently patient is currently in the TCU there Why are you unable to schedule? Hospital discharge instructions state to schedule with JENNIFER, no JENNIFER templates available. Please review and schedule follow up Thank you documented in this encounter Plan of Treatment Not on file documented as of this encounter Visit Diagnoses Not on filedocumented in this encounter Care Teams Continuous Drier Helper Relationship Specialty Start Date End Date Alejandra Mclean MD [address] [place] [address] PCP - General Internal Medicine 06/15/24 documented as of this encounter
--- OUTSIDE RECORDS SUMMARY | 2024-07-25 20:26 | XMS_ITS | Encounter Summary ---
Author Organization [facility] Address [address] [place] [address] Phone Care Team Providers Care Performance Makeup Artist Name Role Phone Alejandra Mclean MD Primary [...] on filedocumented in this encounter Care Teams Performance Makeup Artist Relationship Specialty Start Date End Date Alejandra Mclean MD [address] [address] PCP - General Internal Medicine 06/15/24 documented as of this encounter
--- OUTSIDE RECORDS SUMMARY | 2024-07-25 20:26 | XMS_ITS | Encounter Summary ---
Author Organization [facility] Address [address] [place] [phone] Phone Care Team Providers Care Personnel Records Clerk Name Role Phone Alejandra Mclean MD Primary Care Provider [phone] Encounter Details Date Type Department Care Team [...] on filedocumented in this encounter Care Teams Personnel Records Clerk Relationship Specialty Start Date End Date Alejandra Mclean MD [address] [place] [address] PCP - General Internal Medicine 06/15/24 documented as of this encounter
--- OUTSIDE RECORDS SUMMARY | 2024-07-25 20:26 | XMS_ITS | Encounter Summary ---
Author Organization [facility] Address [address] [place] [id number] Phone Care Team Providers Care Tilt Wall Supervisor Name Role Phone Alejandra Mcelan MD Primary Care Provider [phone] Encounter Details Date Type Department Care Team [...] on filedocumented in this encounter Care Teams Tilt Wall Supervisor Relationship Specialty Start Date End Date Alejandra Mclean MD [address] [place] [id number] PCP - General Internal Medicine 06/15/24 documented as of this encounter
--- OUTSIDE RECORDS SUMMARY | 2024-07-25 20:26 | XMS_ITS | Encounter Summary ---
Author Organization [facility] Address [address] [place] [address] Phone Care Team Providers Care Rigging Foreman Name Role Phone Alejandra Mclean MD Primary Care Provider Reason for Referral * Consult/Test/Treat (Routine) - New Request Specialty Diagnoses / Procedures Referred By Contac t Referred To Contact Physical Therapy / PHYSICAL THERAPY Diagnoses Closed fracture of multiple ribs of left side, initial encounter Bri Carpenter APRN, CNP [address] [address] PATIENT CHOICE Referral ID Status Reason Start Date Expiration Date V isits Requested Visits Authorized [id number] New Request 06/19/2024 06/20/2025 1 1 * Consult/Test/Treat (Routine) - New Request Specialty Diagnoses / Procedures Referred By Contac t Referred To Contact Diagnoses Closed fracture of multiple ribs of left side, initial encounter Bri Carpenter APRN, CNP [address] [address] PATIENT CHOICE Referral ID Status Reason Start Date Expiration Date V isits Requested Visits Authorized [id number] New Request 06/19/2024 06/20/2025 1 1 * Consult/Test/Treat (Routine) - Closed Specialty Diagnoses / Procedures Referred By Contac t Referred To Contact Traumatic Brain Injury Diagnoses Traumatic brain injury, with unknown loss of consciousness status, initial encounter ([facility]) Zeina Arias MD [address] [place] [address] Csc Tbi [address] [address] Referral ID Status Reason Start Date Expiration Date Visits Re quested Visits Authorized [id number] Closed 06/16/2024 06/16/2025 1 1 Reason for Visit * Reason Comments Rib Injury * Auth/Cert (Routine) Specialty Diagnoses / Procedures Referred By Mohsen t Referred To Contact SURGERY Diagnoses Fall, initial encounter Closed fracture of multiple ribs of left side, initial encounter Closed fracture of left scapula, unspecified part of scapula, initial encounter Hematuria, unspecified type Desi Joel MD [address] [place] [address] [address] [place] [address] R4.500 [place] [address] Referral ID Status Reason Start Date Expiration Date Visits Re quested Visits Authorized [id number] 1 1 Encounter Details Date Type Department Care Team (Latest Contact Info) Description 06/15/2024 11:06 AM CDT - 06/19/2024 5:12 PM CDT Hospital Encounter [facility] Surgery/Trauma/Brigido ro 2 [address] [facility] [address] [place], [place] [id number] Desi Joel MD [address] [place] [id number] Zeina Arias MD [address] [place] [address] [phone] Nito Lentz DO 701 [facility] [address] [place] [address] Closed fracture of multiple ribs [...] None Final discharge destination: IP (acute) rehab ([facility]) R: The patient understood the AVS. P: [...] % Wt Change from Adm: 0 % [place] Body Wt (IBW) Male (kg): 73 kg [...] ROM 2/2 pain, otherwise WNL Psych: WNL Cost Control Supervisor Needed: no PLANNED DISCHARGE ORDERS: Suture/Christiano: None [...] of plan of care? Yes Okay for Retirement Facility standing orders? Question Response Notes OK for Retirement Facility house standing orders? Yes CODE STATUS Full Code Question Response Notes Does the Patient have preferences regarding life sustaining measures (these options only apply whenthe patient has a pulse) No Discussed Code Status With Whom? Not discussed SCHEDULE APPOINTMENT Order Notes PLEASE CALL the Patient Access Center at [phone] to schedule the following appointment(s) Question Response Notes Specify time frame 1-2 Weeks Reason for Visit? follow up on rib fractures Provider Type? JENNIFER Clinic Location? [facility] Specialty: Surgery Discharge Diagnosis [...] CDT Preadmission Screening Submitter InformationPerson Being ReferredMedical InformationADL'Bellevue Women's HospitalSubmitResults Results Thank you for submitting a referral [...] help, contact the Senior LinkAge Line at [phone] or click to contact us. Print this page You have successfully submitted the preadmission screening (PAS) to the Senior LinkAge Line on: Created On 06/19/2024 11:01 AM Your confirmation number is: [id number] Results Level of Care: Based on the information you provided, it appears this person meets level of care for purposes of [place] payment. OBRA: It appears this person does not need an OBRA Level II assessment. Submitter Information Form Type PAS Submitter First and Last Name Fabiola Turcios Direct Email [email or web address] [email or web address] Agency [facility] Service Type [facility] [address] [place] [address] Zip [place] [address] Is your Agency outside [place]? Person Being Admitted to Nursing Facility Legal first name Jennifer Last name Hawa Date of 1940 Age 83 Gender Male Marital Status W= Race A = B = Black or N = or Alaskan [place] P = [place] or W = White U = Unable to Determine Ethnicity Not / Currently living with: 04 Living in Congregate Setting Planned living with 04 Living in Congregate Setting Housing Type Own bedroom with shared living space, including assisted living (04) Mailing Address [facility] [address] [place] [address] [facility] Medical Information Reason for nursing facility admission: [...] not listed check the box Provider Name [facility] Type Nursing Facility [address] [address] [facility] Zip Code [address] Anticipated Admit Date 06/19/2024 Anticipated length of [...] time () of patient departure: 05/30/2024@1600 Destination: [address]Radhames Leiva Type of ride: wheelchair Transportation vendor of ride (choose one below):* [employer]) [phone] [facility] #[id number] If this ride needs to be rescheduled [...] Clinical Coordinators will be informed via a Ingeniatrics page. PCS form was completed in Progress Notes and is ready to be signed and routed to vendor by requestor(for stretcher rides only). Fabiola Turcios, 06/19/2024 10:44 AM Patient name: Jennifer Shaikh Date of : 1940 Patient Admitting diagnosis: Patient Active Problem List Diagnosis Closed fracture of multiple ribs of left side, initial encounter Attending provider: Nito Lentz DO Insurance: MEDICARE Secondary insurance: [employer] [place] [employer] (COST PLAN) Height: Height: 177.8 cm [...] Selected Services Address Phone Fax Patient Preferred [facility] Selected Retirement [address] [facility] [address] [facility] Pending - Request Sent N/A [address] [facility] [address] -- Internal Comment last updated by Fabiola Turcios 06/19/2024 1022 Will jave bed on 06/20 . LVM for admissions..Fabiola Turcios, 06/19/2024 8:08 AM [facility] Pending - Request Sent N/A [address] [facility] [phone] Internal Comment last updated by Fabiola Turcios 06/19/2024 0811 LVM for admissionss.Fabiola Turcios, 06/19/2024 8:11 AM [facility] Pending - Request Sent N/A [address] [facility] [address] -- Internal Comment last updated by Fabiola Turcios 06/19/2024 0814 LVM for admissions .Fabiola Turcios, 06/19/2024 8:13 AM [facility] Pending - Request Sent N/A 8[address] [facility] [address] -- Internal Comment last updated by Fabiola Turcios 06/19/2024 0815 LVM for admissions .Fabiola Turcios, 06/19/2024 8:15 AM [facility] Pending - Request Sent N/A [address] [address] [phone] -- Internal Comment last updated by Fabiola Turcios 06/19/2024 0807 LVM for admissions .Fabiola Turcios, 06/19/2024 8:07 AM [facility] Pending - Request Sent N/A [address] [facility] [address] [phone] -- [facility] Pending - Request Sent N/A 9[address] [facility] [address] [phone] -- Internal Comment last updated by Fabiola Turcios 06/19/2024 0818 LVM for admissions .Turcios, Fabiola Brunson, 06/19/2024 8:18 AM [facility] Declined N/A 815 [facility] [address] -- Internal Comment last updated by Fabiola Turcios 06/19/2024 1015 Bed available We .Fabiola Turcios, 06/19/2024 10:15 AM [facility] Declined Bed not available N/A [address] [place] [address] [phone] Home Medical Care No active coordination exists for this encounter. * Bryant Steiner RN - 06/18/2024 11:06 PM CDT TRANSFER IN NOTE D: Patient transferred in to [facility] from [facility] at 2345. Patient condition on [...] lives alone in an apartment in a jail community in [place], [place]. He walks with a walker, history [...] but does not want to be on intermediate designer life support. His son is his [facility] and they have had many discussions about what would be acceptable and he believes the people providing his medical care should be involved in helping with recommendations about his intermediate designer prognosis. Supportive Care: Patient seems capable of [...] 06/18/2024 4:00 PM Palliative Medicine Staff, on Ingeniatrics Associated attestation - Geovani Grullon MD - [...] would like referrals sent to places around [place] and [place] where his children live. Choice(s) given to patient/family. Destinations updated. Preferred place(s) marked with a star. Patient/family aware we can't guarantee placement in their preferred place, this is up to facility, insurance coverage and bed availability. Spoke with nurse at [phone] from the [facility]. She confirmed patient doewsn't currently receive anyservices. He is completely independent. Furthermore, they are NOT a SNF and will not be able to provide RN/PT/OT services. Patient would have to go to SNF. Continued Care and Services - Admitted Since 06/15/2024 Destination Service Provider Request Status Selected Services Address Phone Fax Patient Preferred [facility] Pending - Request Sent N/A [address] [facility] [address] [phone] -- [facility] Pending - Request Sent N/A 815 [facility] [address] [phone] -- [facility] Pending - Request Sent N/A [address] [place] [phone] [facility] Pending - Request Sent N/A [address] [facility] [phone] [facility] Pending - Request Sent N/A [address] [facility] [phone] [facility] Pending - Request Sent N/A [address] [place] [facility] [address] -- [place] [facility] Pending - Request Sent N/A 8[address] [facility] [address] [phone] -- [facility] Pending - Request Sent N/A [address] [address] -- [facility] Pending - Request Sent N/A [address] [facility] [address] [phone] -- [facility] Pending - Request Sent N/A 9[address] [facility] [address] [phone] -- Home Medical Care No active coordination [...] placement after discharge. Currently lives in a [facility], they are unable to provide the cares [...] Patient seen with staff: Bri Dawson S, STUDENT DEVELOPMENT DEAN, ELECTRONIC SCALE ASSEMBLER AND TESTER, 06/18/2024 2:29 PM Discharge Milestones: Diet Tolerated?: Yes Mobility Level Appropriate for Discharge?: Yes - ML planned discharge Pain Controlled?: Yes - On oral discharge regimen Associated attestation - Zeina Arias MD - 06/19/2024 9:01 AM CDT FACULTY WITH JENNIFER: I saw and evaluated the patient yesterday. I discussed with the team and agree with the findings and plan documented in the JENNIFER's note. Any revisions by me are documented. Zeina Arias MD, 06/19/2024 9:01 AM Attending Physician General/Trauma Surgery Surgical Critical Care * Darien Helton - 06/18/2024 11:29 AM CDTSummary: Care Coordination Assessment Problem: Discharge Planning Goal: Discharge planning for a safe and timely discharge Outcome: In progress Goal: Patient/Family Goals for Discharge Outcome: In progress Care Coordination Assessment Expected DC Date: 06/20/2024 Social Information Cost Control Supervisor Used: None needed Decision Maker at Admission: [...] Yes Risks for Readmission: Other (see comment) client success manager will continue to follow until DC SUMMARY Patient lives in [facility] but receives no services Is patient OK with Post Acute placement? No, he would like to go back to [facility] Patient says his/her PCP is: [facility]jandra [facility]clean MD [facility] notification sent via Care Everywhere * Venecia [...] male D: Jennifer Shaikh was admitted to [facility] from ED at 2310 for Closed fracture [...] History of Present Injury Event: BIBA from [employer]. Patient had a fall last night, found [...] NPO until final reads on radiography Consult PRESS LEADER and keep strict NPO if PRESS LEADER consult not indicated at this time Aspiration [...] No treatment, delayed treatment and alternative treatment [place] protocol: Procedure explained and questions answered to [...] contact pharmacist on service at [facility] [facility]) [phone]. If no response within needed timeframe, please contact central pharmacy via phone at [phone]. Planned discharge medications are: Medication List Medications [...] food. Start taking on: June 20, 2024 BLANKET WEAVER medication lidocaine 5% patch Commonly known as: [...] son was sitting on a chair nearby. Core Assembly Supervisor greeted the men, introduced herself, and offered music. Patient welcomed Core Assembly Supervisor. Core Assembly Supervisor sat on a chair facing Patient with her guitar on her lap. Patient began to cry. Core Assembly Supervisor sat quietly as Patient struggled to speak and Patient's son spoke softly to Patient. Patient's son then explained to Core Assembly Supervisor that the last time someone came with a guitar was the day Patient's andthey sang her favorite hymns. Core Assembly Supervisor asked Patient if he would like music today and Patient said yes. Core Assembly Supervisor played upbeat patient-preferred music. Patient and Patient's son sang along with Core Assembly Supervisor and harmonized. Patient continued to be tearful throughout the session. Patient's son, Patient and Core Assembly Supervisor chatted between songs. After a time, Core Assembly Supervisor ended the session and Patient's son thanked Core Assembly Supervisor for visiting after reminiscing about growing up in his parents' house and making music together as a family. Core Assembly Supervisor offered to stop by again if Patient is around when Core Assembly Supervisor returns to the hospital on Tuesday. Patient and his son thanked Core Assembly Supervisor. Goals Addressed: Opportunity for Emotional Expression, Opportunity for Creative Self-Expression, Emotional Support, and Caregiver Support Plan: Core Assembly Supervisor will continue to offer music therapy to Patient when possible. iRvka Turpin, 06/18/2024 5:16 PM * Saroj William, [...] Difficulty in Walking R 26.2 PRECAUTIONS Falls Cost Control Supervisor Used: None needed ACTIVITY Up with Assist [...] practice with log rolling for rib pain. BLANKET WEAVER Appropriate: Yes Participated in goal setting and treatment planning: Patient Agrees with goals and treatment plan: Patient - Yes. Saroj William, PT 06/18/2024 Pager: Ingeniatrics PT Department * Jackie Burden, OTR/L - [...] Rehab Potential: good ASSESSMENT: Pt admitted from [facility] for GLF when getting up from chair in the middle of the night. Typically he is mod I with 4ww for all ADLs. Can have increased asst (paid) at his [facility], just needs to set it up. [...] mgmt/ADL: 20 minutes Therapist: RUPERTO Zaman/Jennifer Pager: Ingeniatrics Occupational Therapy Department * Geovani Grullon MD [...] remember the fall itself) in his home ([facility] in [place], [place]). Evaluation was notable for multiple left [...] team Support Spiritual support- will ask our Nutritional Services Host to visit patient next week as his [...] MD, 06/16/2024 3:02 PM Palliative Medicine Available [employer]rec Advance Care Planning Primary Care: Alejandra Mclean [...] remember the fall itself) in his home ([facility] in [place], [place]). Evaluation was notable for multiple left [...] shared that he has been living in [place], [place] since 2019. He lives in an [facility] but is very independent. He gets one meal per day provided in the cafeteria but otherwise does most of his own ADLs. He is still active in his sabianism and enjoys meeting with friends (having coffee at the local bakery). He also enjoys his family and watching sports (football and the Twins). He also enjoys reading (mystery). He is not as active as he used to be but still enjoys going to his family's cabin near [place], [place]. I asked their understanding of his [...] their hobbies, activities and interests, spirituality or worship, personal experience with end of life, and personal hopes, worries. Thisbackground is essential in understanding what is most important and how that can change throughout the course of a serious illness. This summary is an attempt to highlight that background. Social History Social History Narrative Jennifer's in 2018. 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 They have three children and multipel grandchildren (and greatgrandchildren). He is a Spiritual person and is Sikhism. He also sang in a men's choir [...] López MD - 06/15/2024 2:02 PM CDT [facility] CONS[facility] - HISTORY AND PHYSICAL DATE OF CONSULT: 06/15/2024 14:02 REQUESTING PROVIDER: Desi Joel MD - [facility] Staff. CC: left shoulder pain/chest wall pain DATE OF INJURY: 06/14 HISTORY OF PRESENT ILLNESS: Jennifer Shaikh is a 83 y.o. RHD male who presents as a transfer from [facility] for trauma evaluation. He is accompanied by his son. He reports that he does not remember what happened, but was getting up from his chair late last night to go to the bathroom when he fell, woke up on the floor. He had pain in his left chest and shoulder. He presented to [facility] for evaluation and was found to have multiple rib fractures, concern for left sided scapula fracture. Per patient, he does not have any pain in the shoulder at this time, pain localized to left ribcage. Denies any numbness/tingling. He lives alone in an apartment [place] community. He walks with a walker at [...] Narrative Not on file Lives alone in jail community, denies tobacco use, daily cocktail at [...] in real time. Please contact me via [employer] staff message if you note any errors requiring clarification. * Pete Rodriguez RN - 06/15/2024 11:09 AM CDT BIBA trauma tx from [facility], Fell at 1130pm last night, 5 rib fx and L scapula, hit head LOC+ ctat [facility] c-spine cleared. From [facility] living side of [place]. On floor 6-7 hrs. 2mg morphine on transfer from [employer]. Sats ok on RA VSS ex HTN [...] history of similar symptoms. He was taken [facility] where they obtained head and cervical spine [...] note, patients legal guardian and power of immigration attorney is his son who is at the bedside. Son states patient is mentating at his baseline. Additional information per roofing machine tender: KARYN trauma tx from [facility], Fell at 1130pm last night, 5rib fx and L scapula, hit head LOC+ ct at [facility] c-spine cleared. [place] [facility] [place].On floor 6-7 hrs. 2mg morphine on transfer from [employer]. Sats ok on RA VSS ex HTN [...] of my shift. Their care was signedout [id number] with the oncoming provider, Ronnie Giraldo MD [...] Faye Tong PA-C, 06/15/2024 11:07 AM Physician Yield Improvement Engineer Post-Grad Trainee Program Dictation Disclaimer: Some notes are completed with voice-recognition dictation software. As a result, there may be errors in the script that have gone undetected. Errors are generally corrected in real time. Please contact me via [employer] staff message if you note any errors requiring clarification. * Tabitha Birmingham RN - 06/15/2024 10:18 AM CDT Report called from Ivelisse HUNTLEY at [employer] ED. Patient fell on way to bathroom, around 2300 last night and lives alone. Does not recall the fall. Was able to finally call 911 this morning. On Right scapular fracture and 5 rib fractures on left side. Head/neck CT negative. NSR. Pain controlled after one dose of Dilaudid 0.5mg. Alert and oriented X4. Moves all extremities normally. [id number]. Blood noted in urine this morning. Also noted on urinalysis at [employer] ED. 22g in left hand. Abrasion to [...] clinical condition or if new questions arise. Geovani Grullon MD Palliative Medicine * Discharge non-MD/non-JENNIFER Summaries - Darien Helton - 06/19/2024 11:57 AM CDT Summary: DC to ML/SNF/TCU Images from the original note were not included. Care Coordination Discharge Note Expected DC Date: 06/20/2024 Expected DC Time: 4 pm Final Discharge Destination: Selected Continued Care - Admitted Since 06/15/2024 Destination Coordination complete. Service Provider Selected Services Address Phone Fax Patient Preferred [facility] [address] [facility] [address] [phone] Summary: Patient has been accepted to continue rehabing at the aforementioned post acute facility Patient michele board with plan. Core Assembly Supervisor also confirmed with son via phone call. He is on board. WC ride has been ordered. TOGGLE PRESS FOLDER AND FEEDER (Gre Instructor Yield Improvement Engineer) will schedule. Check [id number] for confirmation. Medical team is aware. They will work writing DC orders. CC faxed DC orders to SNF Medical team is aware any controlled substances must be printed and signed to be sent in physical form to the TCU. PLEASE MAKE SURE RX IS COMPLETE. MAKE SURE QUANTITY IS ADDED. Also, PSC/ROOFING LABORER/RN will fax it to TCU julienne (this is required so in case of pain during transport, pain control can be addressed) Bedside nurse: please confirm this is done. A [employer] thread has been started. CC will continue to follow until DC. Please use [employer] [facility] for any further questions. * Nursing Assessment [...] afternoon. Continue POC.Verbal report given to Megan @1540 [facility] TCU ride is set up for 1600 [...] IV 06/16/24 20 gauge Left;Posterior Forearm 06/16/24 9053 -- 2 Psychosocial Within Defined Limits Comments: [...] Defined Limits Cardiac Within Defined Limits Tool And Fixture Repairer - remote telemetry Respiratory Assessment Within Defined [...] Assessment Within Defined Limits except for: Tool And Fixture Repairer - remote telemetry Respiratory Assessment Within Defined [...] Assessment Within Defined Limits except for: Tool And Fixture Repairer - remote telemetry Respiratory Assessment Within Defined [...] Defined Limits Cardiac Within Defined Limits Tool And Fixture Repairer - remote telemetry Respiratory Assessment Within Defined [...] Assessment Within Defined Limits except for: Tool And Fixture Repairer - remote telemetry Respiratory Assessment Within Defined [...] 1:51 PM CDT TRAUMA TERTIARY EXAM - CAMP DISHWASHER First Exam Jennifer Shaikh : 1940 Sex: [...] left sided scapula fracture. [facility] [facility] imaging done without any evidence of scapular [...] while hospitalized Wound care plans(s): Not applicable Suture/Temple: None Antibiotics: Not indicated Drains Present: None [...] past year: Have you had an eye machine icer first thing in the morning to steady [...] life limiting illness Consulted palliative care. Consult PRESS LEADER for: PRESS LEADER consult not indicated at this time Mental [...] on guard, watchful, or easily startled? no [place] numb or detached from others, activities, or your surroundings? no Interventions Completed: Patient declines Trauma Psych Consult Yomi Jay APRN, ELECTRONIC SCALE ASSEMBLER AND TESTER 06/16/2024 13:51 [facility] Department of Surgery Pager: via telemGigwell Associated attestation - Zeina Arias MD - 06/18/2024 6:48 AM CDT FACULTY WITH JENNIFER: I saw and evaluated the patient 06/16/2024. I discussed with the team and agree with the findings and plan documented in the JENNIFER's note. Any revisions by me are documented. Zeina Arias MD, 06/18/2024 6:48 AM Attending Physician General/Trauma Surgery Surgical Critical Care * Nursing Assessment - Clair Grissom RN - 06/16/2024 8:31 AM CDT Nursing Assessment Head to Toe Head to Toe Assessment Shift Summary Shift Summary Neurologic/Cognitive Within Defined Limits HEENT Within Defined Limits Cardiac Assessment Within Defined Limits except for: Tool And Fixture Repairer - remote telemetry Respiratory Assessment Within Defined [...] Defined Limits Cardiac Within Defined Limits Tool And Fixture Repairer - remote telemetry Respiratory Within defined limits [...] pain after fall. BIBA trauma tx from [facility], Fell at 1130pm last night, 5 rib fx and L scapula, hit head LOC+ ct at [facility] c-spine cleared. From [facility] living side [facility]. On floor 6-7 hrs. 2mg morphine on transfer from [employer]. Sats ok on RA VSS ex HTN [...] NEGATIVE Bili UA NEGATIVE Ketones TRACE(!) Specific Nellis 1.018 Blood Ur LARGE(!) PH Urine 6.5 Protein Ur 30(!) Urobilinogen NORMAL Nitrite Ur NEGATIVE Leuk Est TRACE WBC Ur 0-5 RBC Ur >20(!) Urinalysis Performed at: [facility] [address] OUTSIDE READ CHEST/ABD/PELV 1. Acute [...] documented in this encounter Plan of Treatment Scheduled Referrals Name Type Priority Associated Diagnoses Orde r Schedule REFERRAL TO TRAUMATIC BRAIN INJURY Referral Routine Traumatic brain injury, with unknown loss of consciousness status, initial encounter ([facility]) Ordered: 06/16/2024 REFERRAL TO OCCUPATIONAL THERAPY Referral [...] CDT) Phosphorus 2.8 2.5 - 4.5 mg/dL [facility] Blood 06/19/2024 6:19 AM CDT 06/19/2024 7:27 AM CDT Zeina Arias MD LABORATORY Performing Organization Address [facility] Co de Phone Number [facility] [address] [address] * MAGNESIUM (06/19/2024 6:19 AM CDT) Magnesium 2.0 1.6 - 2.4 mg/dL [facility] Blood 06/19/2024 6:19 AM CDT 06/19/2024 7:27 AM CDT Zeina Arias MD LABORATORY Performing Organization Address [facility] Co de Phone Number [address] [address] * (ABNORMAL) PANEL BASIC METABOLIC (BMP) (06/19/2024 6:19 AM CDT) Sodium 132(L) 135 - 148 mmol/L [facility] Potassium 4.6 3.5 - 5.3 mmol/L [facility] Chloride 101 92 - 108 mmol/L [facility] CO2 20(L) 22 - 30 mmol/L [facility] Glucose 94 70 - 100 mg/dL [facility] BUN 17 8 - 23 mg/dL [facility] Creatinine 0.92 0.70 - 1.25 mg/dL [facility] Calcium 9.0 8.8 - 10.2 mg/dL [facility] AnGap 11 8 - 16 mmol/L [facility] eGFR (2020 CKD-EPI) 82 >=60 ml/min/1.7 3m2 [facility] Comment: The estimated glomerular filtration [...] Zeina Arias MD LABORATORY Performing Organization Address [facility] Co de Phone Number [facility] [address] [address] * (ABNORMAL) CBC WITH PLATELET (06/19/2024 6:19 AM CDT) WBC 9.14 4.00 - 10.00 k/cmm [facility] RBC 3.36(L) 4.60 - 6.00 m/cmm [facility] Hgb 12.5(L) 13.1 - 17.5 g/dL [facility] Hematocrit 37.5(L) 40.0 - 51.0 % [facility] MCV 111.6(H) 80.0 - 100.0 fL [facility] MCH 37.2(H) 25.0 - 32.0 pg [facility] MCHC 33.3 31.0 - 36.0 g/dL [facility] RDW 12.2 11.5 - 14.5 % [facility] Plt 151 150 - 400 k/cmm [facility] MPV 10.4 6.5 - 12.5 fL [facility] Blood 06/19/2024 6:19 AM CDT 06/19/2024 7:27 AM CDT Zeina Arias MD LABORATORY [facility] [address] [address] * XR CHEST 1 VIEW AP OR [...] CDT) Phosphorus 3.3 2.5 - 4.5 mg/dL [facility] Blood 06/18/2024 5:14 AM CDT 06/18/2024 5:47 AM CDT Zeina Arias MD LABORATORY Performing Organization Address [facility] Co de Phone Number [facility] [address] [address] * MAGNESIUM (06/18/2024 5:14 AM CDT) Magnesium 2.0 1.6 - 2.4 mg/dL [facility] Blood 06/18/2024 5:14 AM CDT 06/18/2024 5:47 AM CDT Zeina Arias MD LABORATORY Performing Organization Address [facility] Co de Phone Number [facility] [address] [address] * (ABNORMAL) PANEL BASIC METABOLIC (BMP) (06/18/2024 5:14 AM CDT) Sodium 136 135 - 148 mmol/L [facility] Potassium 4.8 3.5 - 5.3 mmol/L [facility] Chloride 104 92 - 108 mmol/L [facility] CO2 24 22 - 30 mmol/L [facility] Glucose 106(H) 70 - 100 mg/dL [facility] BUN 19 8 - 23 mg/dL [facility] Creatinine 1.15 0.70 - 1.25 mg/dL [facility] Calcium 8.7(L) 8.8 - 10.2 mg/dL [facility] AnGap 8 8 - 16 mmol/L [facility] eGFR (2020 CKD-EPI) 63 >=60 ml/min/1.7 3m2 [facility] Comment: The estimated glomerular filtration rate (eGFR) was calculated using the CKD-EPI 2020 creatinine equation, which does not include race as a factor. This equation is validated in individuals 18 years of age and older, and eGFR is normalized to a body surface area of 1.73m^2. Blood 06/18/2024 5:14 AM CDT 06/18/2024 5:47 AM CDT Zeina Arias MD LABORATORY [facility] [address] [address] * (ABNORMAL) CBC WITH PLATELET (06/18/2024 5:14 AM CDT) WBC 8.80 4.00 - 10.00 k/cmm [facility] RBC 3.13(L) 4.60 - 6.00 m/cmm [facility] Hgb 11.4(L) 13.1 - 17.5 g/dL [facility] Hematocrit 34.8(L) 40.0 - 51.0 % [facility] MCV 111.2(H) 80.0 - 100.0 fL [facility] MCH 36.4(H) 25.0 - 32.0 pg [facility] MCHC 32.8 31.0 - 36.0 g/dL [facility] RDW 12.5 11.5 - 14.5 % [facility] Plt 172 150 - 400 k/cmm [facility] MPV 9.4 6.5 - 12.5 fL [facility] Blood 06/18/2024 5:14 AM CDT 06/18/2024 5:47 AM CDT Zeina Arias MD LABORATORY Performing Organization Address [facility] Co de Phone Number [facility] [address] [address] * PHOSPHORUS (06/17/2024 7:24 AM CDT) Phosphorus 2.9 2.5 - 4.5 mg/dL [facility] Blood 06/17/2024 7:24 AM CDT 06/17/2024 7:34 AM CDT Zeina Arias MD LABORATORY Performing Organization Address [facility] de Phone Number [facility] [address] [address] * MAGNESIUM (06/17/2024 7:24 AM CDT) Magnesium 2.0 1.6 - 2.4 mg/dL [facility] Blood 06/17/2024 7:24 AM CDT 06/17/2024 7:34 AM CDT Zeina Arias MD LABORATORY Performing Organization Address [facility] de Phone Number [facility] [address] [address] * (ABNORMAL) PANEL BASIC METABOLIC (BMP) (06/17/2024 7:24 AM CDT) Sodium 136 135 - 148 mmol/L [facility] Potassium 4.4 3.5 - 5.3 mmol/L [facility] Chloride 106 92 - 108 mmol/L [facility] CO2 22 22 - 30 mmol/L [facility] AnGap 8 8 - 16 mmol/L [facility] Glucose 112(H) 70 - 100 mg/dL [facility] BUN 16 8 - 23 mg/dL [facility] Creatinine 1.08 0.70 - 1.25 mg/dL [facility] Calcium 8.9 8.8 - 10.2 mg/dL [facility] eGFR (2020 CKD-EPI) 68 >=60 ml/min/1.7 3m2 [facility] Comment: The estimated glomerular filtration rate (eGFR) was calculated using the CKD-EPI 2020 creatinine equation, which does not include race as a factor. This equation is validated in individuals 18 years of age and older, and eGFR is normalized to a body surface area of 1.73m^2. Blood 06/17/2024 7:24 AM CDT 06/17/2024 7:34 AM CDT Zeina Arias MD LABORATORY [facility] [address] [address] * (ABNORMAL) CBC WITH PLATELET (06/17/2024 7:24 AM CDT) WBC 11.01(H) 4.00 - 10.00 k/cmm [facility] RBC 3.33(L) 4.60 - 6.00 m/cmm [facility] Hgb 12.3(L) 13.1 - 17.5 g/dL [facility] Hematocrit 36.6(L) 40.0 - 51.0 % [facility] MCV 109.9(H) 80.0 - 100.0 fL [facility] MCH 36.9(H) 25.0 - 32.0 pg [facility] MCHC 33.6 31.0 - 36.0 g/dL [facility] RDW 12.3 11.5 - 14.5 % [facility] Plt 158 150 - 400 k/cmm [facility] MPV 9.3 6.5 - 12.5 fL [facility] Blood 06/17/2024 7:24 AM CDT 06/17/2024 7:34 AM CDT Zeina Arias MD LABORATORY [facility] [address] [address] * FOLATE SERUM (06/16/2024 9:08 PM CDT) Folate 4.1 >=4.0 ng/mL [facility] Blood 06/16/2024 9:08 PM CDT 06/16/2024 9:22 PM CDT Zeina Arias MD LABORATORY Performing Organization Address [facility] Co de Phone Number [facility] [address] [address] * VITAMIN B12 (06/16/2024 9:08 PM CDT) B12 [phone] - 946 pg/mL [facility] Blood 06/16/2024 9:08 PM CDT 06/16/2024 9:22 PM CDT Zeina Arias MD LABORATORY Performing Organization Address [facility] Co de Phone Number [address] [address] * PHOSPHORUS (06/16/2024 6:52 AM CDT) Phosphorus 2.9 2.5 - 4.5 mg/dL [facility] Blood 06/16/2024 6:52 AM CDT 06/16/2024 7:25 AM CDT Desi Joel MD LABORATORY Performing Organization Address [facility] Co de Phone Number [address] [address] * MAGNESIUM (06/16/2024 6:52 AM CDT) Magnesium 2.1 1.6 - 2.4 mg/dL [facility] Blood 06/16/2024 6:52 AM CDT 06/16/2024 7:25 AM CDT Desi Joel MD LABORATORY Performing Organization Address [facility]/ZIP Co de Phone Number [facility] [address] [address] * (ABNORMAL) PANEL BASIC METABOLIC (BMP) (06/16/2024 6:52 AM CDT) Sodium 135 135 - 148 mmol/L [facility] Potassium 4.4 3.5 - 5.3 mmol/L [facility] Chloride 104 92 - 108 mmol/L [facility] CO2 23 22 - 30 mmol/L [facility] AnGap 8 8 - 16 mmol/L [facility] Glucose 106(H) 70 - 100 mg/dL [facility] BUN 16 8 - 23 mg/dL [facility] Creatinine 1.02 0.70 - 1.25 mg/dL [facility] Calcium 8.6(L) 8.8 - 10.2 mg/dL [facility] eGFR (2020 CKD-EPI) 72 >=60 ml/min/1.7 3m2 [facility] Comment: The estimated glomerular filtration rate (eGFR) was calculated using the CKD-EPI 2020 creatinine equation, which does not include race as a factor. This equation is validated in individuals 18 years of age and older, and eGFR is normalized to a body surface area of 1.73m^2. Blood 06/16/2024 6:52 AM CDT 06/16/2024 7:25 AM CDT Desi Joel MD LABORATORY [facility] [address] [address] * (ABNORMAL) CBC WITH PLATELET (06/16/2024 6:52 AM CDT) WBC 7.85 4.00 - 10.00 k/cmm [facility] RBC 3.40(L) 4.60 - 6.00 m/cmm [facility] Hgb 12.2(L) 13.1 - 17.5 g/dL [facility] Hematocrit 36.6(L) 40.0 - 51.0 % [facility] MCV 107.6(H) 80.0 - 100.0 fL [facility] MCH 35.9(H) 25.0 - 32.0 pg [facility] MCHC 33.3 31.0 - 36.0 g/dL [facility] RDW 12.1 11.5 - 14.5 % [facility] Plt 172 150 - 400 k/cmm [facility] MPV 9.4 6.5 - 12.5 fL [facility] Blood 06/16/2024 6:52 AM CDT 06/16/2024 7:41 AM CDT Desi Joel MD LABORATORY Performing Organization Address [facility]/ZIP Co de Phone Number [facility] [address] [address] * TROP 4H (06/15/2024 3:50 PM CDT) 4H Trop 7 <=35 ng/L [facility] 4H Delta na Not Significant [facility] Comment:Unable to calculate delta. Blood 06/15/2024 3:50 PM CDT 06/15/2024 3:54 PM CDT Desi Joel MD LABORATORY Performing Organization Address [facility] Co de Phone Number [facility] [address] [address] * XR SCAPULA LEFT AP + LAT [...] ??No treatment, delayed treatment and alternative treatment [place] protocol: ??Procedure explained and questions answered to [...] (06/15/2024 1:12 PM CDT) Color ORANGE YELLOW [facility] Appearance CLOUDY(A) CLEAR [facility] Urine Glucose NEGATIVE NEGATIVE mg/dL [facility] Bili UA NEGATIVE NEGATIVE [facility] Ketones TRACE(A) NEGATIVE [facility] Specific Nellis 1.018 1.003 - 1.030 [facility] Blood Ur LARGE(A) Neg-Trace [facility] PH Urine 6.5 5.0 - 7.0 [facility] Protein Ur 30(A) Neg-Trace [facility] Urobilinogen NORMAL NORMAL EU/dL [facility] Nitrite Ur NEGATIVE NEGATIVE [facility] Leuk Est TRACE Neg-Trace [facility] WBC Ur 0-5 0 - 5 perHPF [facility] RBC Ur >20(A) 0 - 3 perHPF [facility] Urinalysis Performed at: [facility] Urine 06/15/2024 1:12 PM CDT 06/15/2024 1:16 PM CDT Desi Joel MD LABORATORY Performing Organization Address [facility]/ZIP Co de Phone Number [facility] [address] [address] * CK, TOTAL (06/15/2024 12:28 PM CDT) Pathologist [facility] [place] CK [phone] - 308 IU/L [facility] Blood 06/15/2024 12:2 8 PM CDT 06/15/2024 12:44 PM CDT Desi Joel MD LABORATORY Performing Organization Address [facility] Co de Phone Number [facility] [address] [address] * PROTHROMBIN (PT) & INR (06/15/2024 12:28 PM CDT) Pathologist [facility] [place] PT 11.2 9.0 - 12.5 sec [facility] INR 1.0 0.8 - 1.1 [facility] Comment: Warfarin Therapeutic Range: Standard Intensity: 2.0 - 3.0 High Intensity: 2.5 - 3.5 Blood 06/15/2024 12:2 8 PM CDT 06/15/2024 12:44 PM CDT Desi Joel MD LABORATORY Performing Organization Address [facility] Co de Phone Number [facility] [address] [address] * HS TROPONIN (06/15/2024 12:28 PM CDT) Pathologist [facility] [place] HS Troponin I 6 <=35 ng/L [facility] Blood 06/15/2024 12:2 8 PM CDT 06/15/2024 12:31 PM CDT Narrative [facility] - 06/15/2024 12:57 PM CDT If ordering as an add-on lab, you must call the lab. Desi Joel MD LABORATORY [facility] [address] [place] [phone] * (ABNORMAL) CBC WITH PLTS/AUTO DIFF (06/15/2024 12:28 PM CDT) WBC 10.53(H) 4.00 - 10.00 k/cmm [facility] RBC 3.59(L) 4.60 - 6.00 m/cmm [facility] Hgb 13.2 13.1 - 17.5 g/dL [facility] Hematocrit 38.5(L) 40.0 - 51.0 % [facility] MCV 107.2(H) 80.0 - 100.0 fL [facility] MCH 36.8(H) 25.0 - 32.0 pg [facility] MCHC 34.3 31.0 - 36.0 g/dL [facility] RDW 11.9 11.5 - 14.5 % [facility] Plt 185 150 - 400 k/cmm [facility] MPV 9.3 6.5 - 12.5 fL [facility] Automated Abs Neutrophil 8.59(H) 1.70 - 6.50 k/cmm [facility] Comment:Preliminary ANC, Fin al Result to Follow Abs Immature Granulocyte 0.02 0.00 - 0.09 k/cmm [facility] Comment:The Immature Granulo cyte Absolute count contains metamyelocytes and myelocytes. Abs Neutrophil 8.59(H) 1.70 - 6.50 k/cmm [facility] Abs Lymphocyte 0.71(L) 0.80 - 4.00 k/cmm [facility] Abs Monocyte 1.08(H) 0.20 - 1.00 k/cmm [facility] Abs Eosinophil 0.07 0.00 - 0.60 k/cmm [facility] Abs Basophil 0.06 0.00 - 0.20 k/cmm [facility] Blood 06/15/2024 12:2 8 PM CDT 06/15/2024 12:44 PM CDT Desi Joel MD LABORATORY Performing Organization Address [facility] Co de Phone Number [facility] [address] [address] * (ABNORMAL) ED CHEMISTRY LABS(NA,K,CL,CO2,GLU,CREAT,CA-IONIZED,ANION GAP) (06/15/2024 12:28 PM CDT) Sodium 132(L) 135 - 148 mmol/L [facility] Chloride 103 92 - 108 mmol/L [facility] AnGap 9 8 - 16 mmol/L [facility] Glucose 96 70 - 100 mg/dL [facility] ICA, Actual 4.45 4.40 - 5.20 mg/dL [facility] ICA, pH Corrected 4.48 4.40 - 5.20 mg/dL [facility] Creatinine 1.03 0.70 - 1.25 mg/dL [facility] BICARB 21(L) 22 - 26 mEq/L [facility] eGFR (2020 CKD-EPI) 72 >=60 ml/min/1.7 3m2 [facility] Comment: The estimated glomerular filtration rate (eGFR) was calculated using the CKD-EPI 2020 creatinine equation, which does not include race as a factor. This equation is validated in individuals 18 years of age and older, and eGFR is normalized to a body surface area of 1.73m^2. Potassium 4.5 3.5 - 5.3 mmol/L [facility] Blood 06/15/2024 12:2 8 PM CDT 06/15/2024 12:37 PM CDT Desi Joel MD LABORATORY Performing Organization Address [facility]/ZIP Co de Phone Number [facility] [address] [address] * (ABNORMAL) CARBON MONOXIDE (CO) (06/15/2024 12:28 PM CDT) Carbon Monox 3(H) 0 - 2 % [facility] Comment:Normal range for smo kers: up to 13%. Blood 06/15/2024 12:2 8 PM CDT 06/15/2024 4:16 PM CDT Desi Joel MD LABORATORY Performing Organization Address [facility]/ZIP Co de Phone Number [facility] [address] [id number] * EXTRA TUBE - SST (06/15/2024 12:28 PM CDT) SST TUBE Stored [facility] Comment:SST tubes (Serum Sep arator) are stored in the lab for 3 days from the collection date. Blood 06/15/2024 12:2 8 PM CDT 06/15/2024 12:32 PM CDT Desi Joel MD LABORATORY Performing Organization Address [facility] Co de Phone Number [facility] [address] [phone] * ED US GUIDED NERVE BLOCK (06/15/2024 [...] CDT) 06/15/2024 11:5 9 AM CDT Impressions [facility] CVIS EKG ORDERS - 06/15/2024 11:59 AM CDT SINUS RHYTHM WITH FIRST DEGREE AV BLOCK ABNORMAL ECG No Previous ECGs Available. P-R Interval 212 ms QRS Interval 95 ms QT Interval 377 ms QTC Interval 400 ms P [place] 64 QRS [place] -7 T Wave [place] 25 Narrative Procedure Note Desi Joel MD - 06/15/2024 IMPRESSION SINUS RHYTHM WITH FIRST DEGREE AV BLOCK ABNORMAL ECG No Previous ECGs Available. P-R Interval 212 ms QRS Interval 95 ms QT Interval 377 ms QTC Interval 400 ms P [place] 64 QRS [place] -7 T Wave [place] 25 Desi Joel MD EKG [facility] CVIS EKG ORDERS * CT OUTSIDE [...] 2:35 PM CDT Indication: ??Patient transferred from [employer] [facility] due to Trauma. Dr. DESI JOEL requested an interpretation by me. Comparison: CT of the chest from 02/08/2023. Technique: ??CT scan of the chest/abdomen/pelvis done with IV contrast. Axial, coronal, and sagittal reconstructions reviewed in soft tissue and bone windows, per the local institution's scanning protocols, which may differ from the [facility] [place] trauma protocols. Findings: Chest: Mediastinum: Atrophic [...] DO - 06/15/2024 Indication: Patient transferred from [facility] due to Trauma.Dr. DESI JOEL requested an interpretation by me. Comparison: CT of the chest from 02/08/2023. Technique: CT scan of the chest/abdomen/pelvis done with IV contrast.Axial, coronal, and sagittal reconstructions reviewed in soft tissue andbone windows, per the local institution's scanning protocols, which maydiffer from the [facility] [place] trauma protocols. Findings: Chest: Mediastinum: Atrophic [...] Radiologist: Epi Lorenzana Reading Resident: Octavio Gilman Desi Joel MD RAD [...] 12:08 PM CDT Indication: ??Patient transferred from [facility] due to Trauma. Dr. DESI JOEL requested an interpretation by me. Technique: ??CT scan of the cervical spine done on 06/15/2024 without IV contrast. Axial, coronal, and sagittal reconstructions reviewed in soft tissue and bone windows, per the local institution's scanning protocols, which may differ from the [facility] [place] trauma protocols. Findings: ??No suspected acute [...] Lorenzana, - 06/15/2024 Indication: Patient transferred from [facility] due to Trauma.Dr. DESI JOEL requested an interpretation by me. Technique: CT scan of the cervical spine done on 06/15/2024 without IVcontrast. Axial, coronal, and sagittal reconstructions reviewed in softtissue and bone windows, per the local institution's scanning protocols,which may differ from the [facility] [place] trauma protocols. Findings: No suspected acute [...] 12:05 PM CDT Indication: ??Patient transferred from [facility] due to Trauma. Dr. DESI JOEL requested an interpretation by me. Technique: ??CT scan of the head done on 06/15/2024 without IV contrast. Axial, coronal, and sagittal reconstructions are reviewed in soft tissue and bone windows, per the local institution's scanning protocols, which may differ from the [facility] [place] trauma protocols. Findings: No acute intracranial [...] DO - 06/15/2024 Indication: Patient transferred from [facility] due to Trauma.Dr. DESI JOEL requested an interpretation by me. Technique: CT scan of the head done on 06/15/2024 without IV contrast.Axial, coronal, and sagittal reconstructions are reviewed in soft tissueand bone windows, per the local institution's scanning protocols, whichmay differ from the [facility] [place] trauma protocols. Findings: No acute intracranial [...] unknown loss of consciousness status, initial encounter ([facility]) documented in this encounter Admitting Diagnoses Diagnosis [...] Given 06/18/2024 7:38 PM CDT 5 mg PA MED REC REVIEW BY PHARMACY Discharge Date: [...] Tue06/16/24 at 0800, Until Discontinued Given 06/19/2024 2:22 PM CDT 100 mg Given 06/19/2024 8:44 AM CDT 100 mg Given 06/18/2024 7:37 PM CDT 100 mg HYDROmorphone PF (DILAUDID) 1 mg/mL injection 0.2 mg 0.2 mg, IV Push, Q4H PRN, Starting on 06/16/24 at 1845, Until Tue06/18/24 at 0818, Severe [...] 20 mg, Oral, DAILY, First dose on Tue06/18/24 at 1530, Until Discontinued Given 06/19/2024 8:44 AM CDT 20 mg Given 06/18/2024 7:38 PM CDT 20 mg NaCl 0.9% infusion at 100 mL/hr, Intravenous, CONTINUOUS, Starting on Tue06/15/24 at 2310, Until Tue06/16/24 at 1829 New Bag 06/16/2024 9:48 AM [...] Tue06/16/24 at 0800, Until Discontinued Given 06/19/2024 8:44 [...] Kizzy Go RN)142 (Given - Provider: Kizzy oG RN)1937 (Given - Provider: Evelyn Amos RN) 0844 (Given - Provider: Sierra Ferrer RN)1421 (Given - Provider: Zoila Dias, YUKO) acetylcysteine inhalation (MUCOMYST) 20% inhalation solution 800 mg, Nebulization, BID, First dose on Tue06/19/24 at 0800, Until Discontinued 905 (Given - Provid er: Sp Gabriel RT) cyclobenzaprine (FLEXERIL) tablet 5 mg 5 mg, Oral, TID, First dose on Tue06/16/24 at 0800, Until Discontinued 075 (Given - Provider: Clair Grissom RN)141 (Given - Provider: Clair Grissom RN)2004 (Given - Provider: Laura Miller RN) 0846 (Given - Provider: iKzzy Go RN)142 (Given - Provider: Kizzy Go RN)1937 (Given - Provider: Evelyn Amos RN) 0851 (Given - Provider: Sierra Ferrer RN)1421 (Given - Provider: Zoila Dias, YUKO) DC MED REC REVIEW BY PHARMACY(Linked Group 1) Discharge Date: 06/19/2024, Discharge Location: Subacute Rehab, Anticipated Discharge Time: Now, Discharge Medication Orders: DC Med Orders Final, Does not apply, PROTOCOL, Starting on Tue06/19/24 at 1149, Until Tue06/19/24 at 2011 docusate sodium (COLACE) 100 mg/10 mL liquid 100 mg(Linked Group 2) 100 mg, Feeding Tube, BID, First dose on Tue06/19/24 at 0800, Until Discontinued 843 (See Alternativ e - Provider: Sierra Ferrer RN) docusate sodium (COLACE) capsule 100 mg(Linked Group 2) 100 mg, Oral, BID, First dose on Tue06/19/24 at 0800, Until Discontinued 0844 (Given - Provid er: Sierra Ferrer RN) enoxaparin (LOVENOX) 30 mg/0.3 mL injection 30 mg 30 mg, Subcutaneous, Q12H, First dose on Tue06/19/24 at 1130, Until Discontinued 1421 (Given - Provid er: Zoila Dias, YUKO) GABApentin (NEURONTIN) capsule 100 mg 100 mg, Oral, TID, First dose on Tue06/16/24 at 0800, Until Discontinued 0758 (Given - Provider: Clair Grissom RN)1418 (Given - Provider: Clair Grissom RN)2004 (Given - Provider: Laura Miller RN) 0846 (Given - Provider: Kizzy Go RN)142 (Given - Provider: Kizzy Go RN)193 (Given - Provider: Evelyn Amos RN) 0844 (Given - Provider: Sierra Ferrer RN)142 (Given - Provider: Zoila Dias, YUKO) levothyroxine (SYNTHROID) tablet 100 mcg 100 mcg, Oral, DAILY BEFORE AM MEAL, First dose on Tue06/16/24 at 0730, Until Discontinued 0758 (Given - Provider: Clair Grissom RN) 0627 [...] 001 (Patch removed - Provider: Laura Miller RN)08 (Patch applied - Provider: Clair Grissom RN - Comment: left back and left flank)2007 (Patch removed - Provider: Laura Miller RN) 0848 (Patch applied - Provider: Kizzy Go RN - Comment: L ribs)194 (Patch removed - Provider: Evelyn Amos RN) 0843 (Patch applied - Provider: Sierra Ferrer RN - Comment: left ri fratures)1712 (Due: Patch removed - Provider: BHARAT SER, EPIC - Comment: Time automatically adjusted from order being discontinued) lisinopril (PRINIVIL;ZESTRIL) tablet 20 mg 20 mg, Oral, DAILY, First dose on Tue06/18/24 at 1530, Until Discontinued 193 (Given - Provider: Evelyn Amos, YUKO) 0844 (Given - Provider: Sierra Ferrer, YUKO) polyethylene glycol 3350 (MIRALAX;GLYCOLAX) packet 17 g 17 g, Oral, DAILY, First dose on 06/16/24 at 0800, Until Discontinued 075 (Given - Provider: Clair Grissom RN) 0850 (Given - Provider: Kizzy Go, YUKO) 0844 (Given - Provider: Sierra Ferrer, YUKO) sennosides (SENOKOT) tablet 17.2 mg 17.2 mg, Oral, BID, First dose (after last modification) on Tue06/16/24 at 2000, Until Discontinued 075 (Given - Provider: Clair Grissom, YUKO)2004 (Given - Provider: Laura Miller, YUKO) 0847 (Given - Provider: Kizzy Go, YUKO)193 (Given - Provider: Evelyn Amos, YUKO) 0844 (Given - Provider: Sierra eFrrer, YUKO) VTE Anti Xa Monitoring Does not [...] with breathing 0013 (Given - Provider: Laura Miller, RN)2015 (Given - Provider: Laura Miller RN) [...] Laura Miller RN)0758 (Given - Provider: Clair Grissom, YUKO)1418 (Given - Provider: Clair Grissom RN)2015 (Given - Provider: Laura Miller RN) 132 (Given - Provider: Laura Miller RN)194 (Given [...] Discontinued documented in this encounter Care Teams Rigging Foreman Relationship Specialty Start Date End Date Alejandra Mclean MD [address] [place] [address] PCP - General Internal Medicine 06/15/24 documented as of this encounter
--- OUTSIDE RECORDS SUMMARY | 2024-07-25 20:26 | XMS_ITS | Encounter Summary ---
Author Organization [facility] [place] Address [address] [place] [id number] Phone Care Team Providers Care Tax Consultant Name Role Phone Alejandra Mclean MD Primary Care Provider [phone] Encounter Details Date Type Department Care Team [...] on filedocumented in this encounter Care Teams Tax Consultant Relationship Specialty Start Date End Date Alejandra Mclean MD [address] [place] [id number] PCP - General Internal Medicine 06/15/24 documented as of this encounter
--- OUTSIDE RECORDS SUMMARY | 2024-07-25 20:26 | XMS_ITS | Referral Summary ---
Author Organization [facility] Address [address] [place] [address] Phone Care Team Providers Care Mechanical Planner Name Role Phone Alejandra Mclean MD Primary Care Provider Source Comments [facility] is fully rolled out on [employer]. Last update 02/28/09.[facility] Encounters Date Type Department Care Team Description 06/28/2024 Telephone [facility] [address] [address] Orlin Luo, [facility] Appointment 06/15/2024 11:06 AM CDT - 06/19/2024 5:12 PM CDT Hospital Encounter [facility] Surgery/Trauma/Brigido ro [address] [place] [address] Amanda Joel MD Payne, Rachel E, MD [...] Department [place] Unknown, Provider 06/15/2024 Orders Only [facility] Film Room [facility] Radiology Department [facility] [address] [place] [address] Provider, Outside Referral of patient (Primary Dx) [...] 06/19/2024 10:00 AM CDT Plan of Treatment Not on file Procedures Procedure Name Priority Date/Time Associated Diagnosis [...] included. Phosphorus 2.8 2.5 - 4.5 mg/dL [facility] Blood 06/19/2024 6:19 AM CDT 06/19/2024 7:27 AM CDT Zeina Arias MD LABORATORY [facility] [address] [address] * (ABNORMAL) PANEL BASIC METABOLIC (BMP) (06/19/2024 6:19 AM CDT) Only the most recent of4 resultswithin the time period is included. Sodium 132(L) 135 - 148 mmol/L [facility] Potassium 4.6 3.5 - 5.3 mmol/L [facility] Chloride 101 92 - 108 mmol/L [facility] CO2 20(L) 22 - 30 mmol/L [facility] Glucose 94 70 - 100 mg/dL [facility] BUN 17 8 - 23 mg/dL [facility] Creatinine 0.92 0.70 - 1.25 mg/dL [facility] Calcium 9.0 8.8 - 10.2 mg/dL [facility] AnGap 11 8 - 16 mmol/L [facility] eGFR (2020 CKD-EPI) 82 >=60 ml/min/1.7 3m2 [facility] Comment: The estimated [...] Zeina Arias MD LABORATORY Performing Organization Address City/[facility]/ZIP Co de Phone Number [facility] [address] [address] * MAGNESIUM (06/19/2024 6:19 AM CDT) Only the most recent of4 resultswithin the time period is included. Magnesium 2.0 1.6 - 2.4 mg/dL [facility] Blood 06/19/2024 6:19 AM CDT 06/19/2024 7:27 AM CDT Zeina Arias MD LABORATORY Performing Organization Address [facility] de Phone Number [facility] [address] [address] * (ABNORMAL) CBC WITH PLATELET (06/19/2024 6:19 AM CDT) Only the most recent of4 resultswithin the time period is included. WBC 9.14 4.00 - 10.00 k/cmm [facility] RBC 3.36(L) 4.60 - 6.00 m/cmm [facility] Hgb 12.5(L) 13.1 - 17.5 g/dL [facility] Hematocrit 37.5(L) 40.0 - 51.0 % [facility] MCV 111.6(H) 80.0 - 100.0 fL [facility] MCH 37.2(H) 25.0 - 32.0 pg [facility] MCHC 33.3 31.0 - 36.0 g/dL [facility] RDW 12.2 11.5 - 14.5 % [facility] Plt 151 150 - 400 k/cmm [facility] MPV 10.4 6.5 - 12.5 fL [facility] Blood 06/19/2024 6:19 AM CDT 06/19/2024 7:27 AM CDT Zeina Arias MD LABORATORY [facility] [address] [place] [id number] * TELEMETRY STRIPS (06/18/2024 8:34 AM CDT) [...] 9:08 PM CDT) Folate 4.1 >=4.0 ng/mL [facility] Blood 06/16/2024 9:08 PM CDT 06/16/2024 9:22 PM CDT Zeina Arias MD LABORATORY Performing Organization Address City/[facility]/ZIP Co de Phone Number [facility] [address] [address] * VITAMIN B12 (06/16/2024 9:08 PM CDT) B12 447 211 - 946 pg/mL [facility] Blood 06/16/2024 9:08 PM CDT 06/16/2024 9:22 PM CDT Zeina Arias MD LABORATORY Performing Organization Address City/[facility]/ZIP Co de Phone Number [facility] [address] [address] * TROP 4H (06/15/2024 3:50 PM CDT) 4H Trop 7 <=35 ng/L [facility] 4H Delta na Not Significant [facility] Comment:Unable to calculate delta. Blood 06/15/2024 3:50 PM CDT 06/15/2024 3:54 PM CDT Amanda Joel MD LABORATORY Performing Organization Address [facility]/ZIP Co de Phone Number [facility] [address] [address] * XR SCAPULA LEFT AP + LAT [...] Radiologist: Dontae Gunn Reading Resident: Davie Chavarria Narrative 06/15/2024 11:06 PM [...] ??No treatment, delayed treatment and alternative treatment Diana protocol: ??Procedure explained and questions answered to [...] (06/15/2024 1:12 PM CDT) Color ORANGE YELLOW [facility] Appearance CLOUDY(A) CLEAR [facility] Urine Glucose NEGATIVE NEGATIVE mg/dL [facility] Bili UA NEGATIVE NEGATIVE [facility] Ketones TRACE(A) NEGATIVE [facility] Specific [place] 1.018 1.003 - 1.030 [facility] Blood Ur LARGE(A) Neg-Trace [facility] PH Urine 6.5 5.0 - 7.0 [facility] Protein Ur 30(A) Neg-Trace [facility] Urobilinogen NORMAL NORMAL EU/dL [facility] Nitrite Ur NEGATIVE NEGATIVE [facility] Leuk Est TRACE Neg-Trace [facility] WBC Ur 0-5 0 - 5 perHPF [facility] RBC Ur >20(A) 0 - 3 perHPF [facility] Urinalysis Performed at: [facility] Urine 06/15/2024 1:12 PM CDT 06/15/2024 1:16 PM CDT Amanda Joel MD LABORATORY Performing Organization Address City/[facility]/ZIP Co de Phone Number [facility] [address] [address] * HS TROPONIN (06/15/2024 12:28 PM CDT) HS Troponin I 6 <=35 ng/L [facility] Blood 06/15/2024 12:2 8 PM CDT 06/15/2024 12:31 PM CDT Narrative [facility] - 06/15/2024 12:57 PM CDT If ordering as an add-on lab, you must call the lab. Amanda Joel MD LABORATORY [facility] [address] [address] * (ABNORMAL) ED CHEMISTRY LABS(NA,K,CL,CO2,GLU,CREAT,CA-IONIZED,ANION GAP) (06/15/2024 12:28 PM CDT) Sodium 132(L) 135 - 148 mmol/L [facility] Chloride 103 92 - 108 mmol/L [facility] AnGap 9 8 - 16 mmol/L [facility] Glucose 96 70 - 100 mg/dL [facility] ICA, Actual 4.45 4.40 - 5.20 mg/dL [facility] ICA, pH Corrected 4.48 4.40 - 5.20 mg/dL [facility] Creatinine 1.03 0.70 - 1.25 mg/dL [facility] BICARB 21(L) 22 - 26 mEq/L [facility] eGFR (2020 CKD-EPI) 72 >=60 ml/min/1.7 3m2 [facility] Comment: The estimated glomerular filtration rate (eGFR) was calculated using the CKD-EPI 2020 creatinine equation, which does not include race as a factor. This equation is validated in individuals 18 years of age and older, and eGFR is normalized to a body surface area of 1.73m^2. Potassium 4.5 3.5 - 5.3 mmol/L [facility] Blood 06/15/2024 12:2 8 PM CDT 06/15/2024 12:37 PM CDT Amanda Joel MD LABORATORY [facility] [address] [address] * (ABNORMAL) CBC WITH PLTS/AUTO DIFF (06/15/2024 12:28 PM CDT) WBC 10.53(H) 4.00 - 10.00 k/cmm [facility] RBC 3.59(L) 4.60 - 6.00 m/cmm [facility] Hgb 13.2 13.1 - 17.5 g/dL [facility] Hematocrit 38.5(L) 40.0 - 51.0 % [facility] MCV 107.2(H) 80.0 - 100.0 fL [facility] MCH 36.8(H) 25.0 - 32.0 pg [facility] MCHC 34.3 31.0 - 36.0 g/dL [facility] RDW 11.9 11.5 - 14.5 % [facility] Plt 185 150 - 400 k/cmm [facility] MPV 9.3 6.5 - 12.5 fL [facility] Automated Abs Neutrophil 8.59(H) 1.70 - 6.50 k/cmm [facility] Comment:Preliminary ANC, Fin al Result to Follow Abs Immature Granulocyte 0.02 0.00 - 0.09 k/cmm [facility] Comment:The Immature Granulo cyte Absolute count contains metamyelocytes and myelocytes. Abs Neutrophil 8.59(H) 1.70 - 6.50 k/cmm [facility] Abs Lymphocyte 0.71(L) 0.80 - 4.00 k/cmm [facility] Abs Monocyte 1.08(H) 0.20 - 1.00 k/cmm [facility] Abs Eosinophil 0.07 0.00 - 0.60 k/cmm [facility] Abs Basophil 0.06 0.00 - 0.20 k/cmm [facility] Blood 06/15/2024 12:2 8 PM CDT 06/15/2024 12:44 PM CDT Amanda Joel MD LABORATORY Performing Organization Address City/[facility]/ZIP Co de Phone Number [address] [address] * PROTHROMBIN (PT) & INR (06/15/2024 12:28 PM CDT) PT 11.2 9.0 - 12.5 sec [facility] INR 1.0 0.8 - 1.1 [facility] Comment: Warfarin Therapeutic Range: Standard Intensity: 2.0 - 3.0 High Intensity: 2.5 - 3.5 Blood 06/15/2024 12:2 8 PM CDT 06/15/2024 12:44 PM CDT Amanda Joel MD LABORATORY [facility] [address] [address] * CK, TOTAL (06/15/2024 12:28 PM CDT) CK 258 39 - 308 IU/L [facility] Blood 06/15/2024 12:2 8 PM CDT 06/15/2024 12:44 PM CDT Amanda Joel MD LABORATORY Performing Organization Address [facility] Co de Phone Number [facility] [address] [address] * EXTRA TUBE - SST (06/15/2024 12:28 PM CDT) SST TUBE Stored [facility] Comment:SST tubes (Serum Sep arator) are stored in the lab for 3 days from the collection date. Blood 06/15/2024 12:2 8 PM CDT 06/15/2024 12:32 PM CDT Amanda Joel MD LABORATORY Performing Organization Address [facility] Co de Phone Number [facility] [address] [address] * (ABNORMAL) CARBON MONOXIDE (CO) (06/15/2024 12:28 PM CDT) Carbon Monox 3(H) 0 - 2 % [facility] Comment:Normal range for smo kers: up to 13%. Blood 06/15/2024 12:2 8 PM CDT 06/15/2024 4:16 PM CDT Amanda Joel MD LABORATORY Performing Organization Address [facility] Co de Phone Number [facility] [address] [address] * ED US GUIDED NERVE BLOCK (06/15/2024 [...] CDT) 06/15/2024 11:5 9 AM CDT Impressions [facility] CVIS EKG ORDERS - 06/15/2024 11:59 AM CDT SINUS RHYTHM WITH FIRST DEGREE AV BLOCK ABNORMAL ECG No Previous ECGs Available. P-R Interval 212 ms QRS Interval 95 ms QT Interval 377 ms QTC Interval 400 ms P [place] 64 QRS [place] -7 T Wave [place] 25 Narrative Procedure Note Amanda Joel MD - 06/15/2024 IMPRESSION SINUS RHYTHM WITH FIRST DEGREE AV BLOCK ABNORMAL ECG No Previous ECGs Available. P-R Interval 212 ms QRS Interval 95 ms QT Interval 377 ms QTC Interval 400 ms P [place] 64 QRS [place] -7 T Wave [place] 25 Amanda Joel MD EKG [facility] CVIS EKG ORDERS * [...] 2:35 PM CDT Indication: ??Patient transferred from [place] [facility] due to Trauma. Dr. AMANDA JOEL requested an interpretation by me. Comparison: CT of the chest from 02/08/2023. Technique: ??CT scan of the chest/abdomen/pelvis done with IV contrast. Axial, coronal, and sagittal reconstructions reviewed in soft tissue and bone windows, per the local institution's scanning protocols, which may differ from the [facility] trauma protocols. Findings: Chest: [...] DO - 06/15/2024 Indication: Patient transferred from [facility] due to Trauma.Dr. AMANDA JOEL requested an interpretation by me. Comparison: CT of the chest from 02/08/2023. Technique: CT scan of the chest/abdomen/pelvis done with IV contrast.Axial, coronal, and sagittal reconstructions reviewed in soft tissue andbone windows, per the local institution's scanning protocols, which maydiffer from the [facility] trauma protocols. Findings: Chest: [...] Radiologist: Epi Lorenzana Resident: Octavio Gilman Amanda oJel MD RAD CT BODY * CT OUTSIDE [...] 12:08 PM CDT Indication: ??Patient transferred from [facility] due to Trauma. Dr. AMANDA JOEL requested an interpretation by me. Technique: ??CT scan of the cervical spine done on 06/15/2024 without IV contrast. Axial, coronal, and sagittal reconstructions reviewed in soft tissue and bone windows, per the local institution's scanning protocols, which may differ from the [facility] trauma protocols. Findings: ??No [...] DO - 06/15/2024 Indication: Patient transferred from [facility] due to Trauma.Dr. AMANDA JOEL requested an interpretation by me. Technique: CT scan of the cervical spine done on 06/15/2024 without IVcontrast. Axial, coronal, and sagittal reconstructions reviewed in softtissue and bone windows, per the local institution's scanning protocols,which may differ from the [facility] trauma protocols. Findings: No [...] 12:05 PM CDT Indication: ??Patient transferred from [facility] due to Trauma. Dr. AMANDA JOEL requested an interpretation by me. Technique: ??CT scan of the head done on 06/15/2024 without IV contrast. Axial, coronal, and sagittal reconstructions are reviewed in soft tissue and bone windows, per the local institution's scanning protocols, which may differ from the [facility] trauma protocols. Findings: No [...] Lorenzana, - 06/15/2024 Indication: Patient transferred from [facility] due to Trauma.Dr. AMANDA JOEL requested an interpretation by me. Technique: CT scan of the head done on 06/15/2024 without IV contrast.Axial, coronal, and sagittal reconstructions are reviewed in soft tissueand bone windows, per the local institution's scanning protocols, whichmay differ from the [facility] trauma protocols. Findings: No [...] Advance Directives For more information, please contact: [phone] * Full Code (Latest Code Status on [...] Status With Whom? Not discussed Care Teams Mechanical Planner Relationship Specialty Start Date End Date Alejandra Mclean MD [address] [place] [id number] PCP - General Internal Medicine 06/15/24
--- OUTSIDE RECORDS SUMMARY | 2024-07-25 20:26 | XMS_ITS | Encounter Summary ---
Author Organization [facility] [place]Note 2] Address [address] [facility] [place] [address] Phone Care Team Providers Care Court Abstractor Name Role Phone Alejandra Mclean MD Primary Care Provider Encounter Details Date Type Department Care Team (Late st Contact Info) Description 06/15/2024 Orders Only [facility] Radiology Department [facility] [address] [place] [id number] Provider, [place] [address] Referral of patient (Primary Dx) Social History [...] FILMS (02/08/2023 11:21 AM CDT) Narrative User, [id number] - 06/15/2024 10:37 AM CDT Outside Film Only Outside Provider RAD OUTSIDE FILMS documented in this encounter Visit Diagnoses Diagnosis Referral of patient- Primary Referral of patient without examination or treatment documented in this encounter Care Teams Court Abstractor Relationship Specialty Start Date End Date [facility]jandra Mclean [facility] [address] [facility] [place] [id number] PCP - General Internal Medicine 06/15/24 documented as of this encounter
--- OUTSIDE RECORDS SUMMARY | 2024-07-25 20:26 | XMS_ITS | Encounter Summary ---
Author Organization [facility] Address [address] [place] [id number] Phone Care Team Providers Care Line Installer Repairer Name Role Phone Alejandra Mclena MD Primary Care Provider Encounter Details Date [...] on filedocumented in this encounter Care Teams Line Installer Repairer Relationship Specialty Start Date End Date Alejandra Mclean MD [address] [place] [id number] PCP - General Internal Medicine 06/15/24 documented as of this encounter
== END 2024-07-22 09:46 | disposition home or self-care (01) ==
LOC: AMB 07-25 20:24
PROVIDERS: PCP Internal Medicine; Visit Provider Emergency Medicine Emergency Medical Services
DX: R55 Syncope and collapse (principal)
CPT/HCPCS: A0425; A0427

== ENCOUNTER 2024-07-22 10:07 | Emergency (ER) | payer MEDICARE, BC, SELFPAY ==
[2024-07-22] VITALS (12 sets, daily range): BP systolic 120–157; BP diastolic 64–107; PULSE 56–76; RESP 12–18; TEMP 36; O2SAT 98–100; BMI 30.1
--- NOTE | 2024-07-22 11:06 | ED.SYNCOPE ---
HPI - Syncope General Time Seen by Provider: 11:06 Date Seen: 07/22/24 Chief Complaint: Syncope/Fainted Stated Complaint: Dizziness Time Seen by Provider: 07/22/24 11:05 Source: patient, EMS and RN notes reviewed Mode of arrival: EMS Limitations: no limitations History of Present Illness HPI narrative: This 83-year-old male is brought in by ambulance from [facility] where he had a reported syncopal event. He was late for [facility] this morning, over slept. He believes he took his pills but did not eat breakfast. He remembers getting to [facility], putting his name tag gone in sitting in back. They were standing up to get communion and he started to feel lightheaded. He reportedly slumped over and passed out. There are other [facility] members next to him who did get him laid down, he came to in about 30 seconds. He is foggy on the events afterwards, does not really remember the ambulance being there, states he does not remember the ambulance ride over. He has had a heart attack with stent placement before, did have chest pain with that but did not feel anything like that this morning. He has had episodes of syncope in the past. He reports that he was diagnosed with a potential TIA when he was in [place], he was out eating with his son and [id number]. He just suddenly slumped over. 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 EMS did get a blood glucose of 134. MD complaint: loss of consciousness and felt faint -: second(s) Prodromal symptoms: lightheaded Related Data Home Medications ?Medication ?Instructions ?Recorded ?Confirmed aspirin 81 mg capsule 81 mg PO QDAY 04/15/22 07/22/24 cetirizine 10 mg tablet 10 mg PO QDAY PRN 04/15/22 07/22/24 mecobalamin (vitamin B12) 1,000 1,000 mcg PO QDAY PRN 02/14/23 07/22/24 mcg chewable tablet ibuprofen 200 mg tablet (Advil) 400 mg PO QAM PRN 12/19/23 07/22/24 gabapentin 100 mg capsule 100 mg PO QDAY 07/12/24 07/22/24 Previous Rx's ?Medication ?Instructions ?Recorded atenolol 50 mg tablet 50 mg PO QDAY #90 tabs 11/24/23 benazepril 40 mg tablet 60 mg (1.5 x 40 mg) PO QDAY #135 11/24/23 tabs levothyroxine 100 mcg tablet 100 mcg PO QDAY #90 tabs 11/24/23 isosorbide mononitrate 30 mg 30 mg PO QHS #90 tabs 02/13/24 tablet,extended release 24 hr Allergies Allergy/AdvReac Type Severity Reaction Status Date / Time simvastatin (From Zocor) Allergy Intermediate Weakness Verified 07/22/24 10:14 contact metal agent AdvReac Mild rash Verified 07/22/24 10:14 Review of Systems Status of ROS: Reports: 6 or more systems reviewed and unremarkable except as noted in History and below [facility] Medical History History of TIA (transient ischemic attack) ?Z86.73 - Personal history of transient ischemic attack (TIA), and cerebral infarction without residual deficits (ICD-10) Surgical History S/P cataract extraction and insertion of intraocular lens ?Z98.49 - Cataract extraction status, unspecified eye (ICD-10) ?Z96.1 - Presence of intraocular lens (ICD-10) History of tonsillectomy ?Z90.89 - Acquired absence of other organs (ICD-10) History of prostate biopsy ?Z98.890 - Other specified postprocedural states (ICD-10) History of appendectomy ?Z90.49 - Acquired absence of other specified parts of digestive tract (ICD-10) Social History Narrative: health care directive on file- health care directive completed on 05/26/2020 reviewed and scanned on 05/27/2020 Smoking Status: Former smoker How often do you have a drink containing alcohol: 4 or more times a week AUDIT-C Alcohol total score: 4 Non-prescribed substance use: denies use Little interest or pleasure in doing things: not at all Feeling down, depressed, or hopeless: not at all Exam Const: Vital Signs, click to edit/add: Vital Signs - 24 hr 07/22/24 10:14 07/22/24 10:30 07/22/24 11:02 Temperature 96.8 F L Pulse Rate 60 Pulse Rate [Pulse Oximeter] 59 L Respiratory Rate 18 18 Blood Pressure 125/69 Blood Pressure [Le ft Upper Arm] 128/72 Pulse Oximetry 99 99 98 Oxygen Delivery Me thod Room Air 07/22/24 11:32 07/22/24 12:32 07/22/24 13:06 Temperature Pulse Rate 61 56 L 71 Pulse Rate [Pulse Oximeter] Respiratory Rate 12 18 12 Blood Pressure 129/64 142/74 H Blood Pressure [Le ft Upper Arm] Pulse Oximetry 98 100 98 Oxygen Delivery Me thod 07/22/24 13:32 07/22/24 14:05 07/22/24 14:32 Temperature Pulse Rate 70 67 68 Pulse Rate [Pulse Oximeter] Respiratory Rate 14 12 18 Blood Pressure 157/81 H 141/70 H 155/88 H Blood Pressure [Le ft Upper Arm] Pulse Oximetry 99 99 99 Oxygen Delivery Me thod 07/22/24 15:02 Temperature Pulse Rate 76 Pulse Rate [Pulse Oximeter] Respiratory Rate 12 Blood Pressure 139/107 H Blood Pressure [Le ft Upper Arm] Pulse Oximetry 98 Oxygen Delivery Me thod This 83-year-old male is currently alert, interactive, no apparent distress. Breathing easy on room air, oriented, very pleasant. His speech is normal. Pupils are equal round reactive, sclera clear, symmetrical facial function. Neck supple, no adenopathy, no jugular venous distension. Lungs are clear, good air entry, no wheezing crackles. CV regular rate and rhythm, no murmur, normal S1-S2, no S3-S4. Abdomen is soft, nontender, nondistended, no organomegaly. Strength is 5 5 and symmetric, no focal neurologic deficits, no tremors noted. Documenting provider has reviewed patient's vital signs: yes Course Course ED Course: This patient did have syncope, there is a history of TIA with abnormalities on MRI in 2021. He has also had a history of coronary artery disease. He has no pain at this time. He has also had recent trauma with multiple rib fractures from a fall reported the. Differential is broad including neurologic disease including stroke or atypical seizure, coronary artery disease including arrhythmia and ischemic disease, even the potential for thromboembolic disease. Infectious etiology with atypical presentation could also be possible with his recent chest trauma. He is currently hemodynamically stable, will get orthostatic blood pressures on him to see if there could be a component of orthostatic hypotension. This may be difficult to exactly pinpoint given his history of prior events. Will do full complement of labs, start with head CT in portable chest x-ray. May need to continue to chest CT imaging. Reevaluation(s) Time of Reevaluation #1: 12:15 Reevaluation #1: Patient's D-dimer has come back elevated at 1.06. We will proceed with chest CT PE protocol. Time of Reevaluation #2: 14:36 Reevaluation #2: Patient is feeling fine per his report. Did review that his blood pressure did drop with standing, pulse response may be blocked by the atenolol he is on but would say that he is probably mildly orthostatic. He did not eat breakfast this morning. He understands that we do need a follow-up troponin. His follow-up EKG is reassuring. We have reviewed that his head CT showing no new stroke or bleed. His chest CT PE protocol is not showing any pulmonary embolism. If the follow-up troponin is normal, will ambulate patient and see how he does, see if he feels safe to discharge to home. No arrhythmia or hypoxia has been noted mom monitoring here. Vital Signs Vital signs: Initial Vital Signs Temperature 96.8 F L 07/22/24 10:14 Temperature Source Temporal Artery Scan 07/22/24 10:14 Pulse Rate 59 L 07/22/24 10:14 Pulse Rhythm Regular 07/22/24 10:14 Respiratory Rate 18 07/22/24 10:14 Blood Pressure 128/72 07/22/24 10:14 Blood Pressure Mean 90 07/22/24 10:14 Blood Pressure Position Semi-Fowlers 07/22/24 10:14 Pulse Oximetry 99 07/22/24 10:14 Oxygen Delivery Method Room Air 07/22/24 10:14 Vital Signs Temperature 96.8 F L 07/22/24 10:14 Pulse Rate 59 L 07/22/24 10:14 Respiratory Rate 18 07/22/24 10:14 Blood Pressure 128/72 07/22/24 10:14 Pulse Oximetry 99 07/22/24 10:14 Oxygen Delivery Method Room Air 07/22/24 10:14 Temperature 96.8 F L 07/22/24 10:14 Pulse Rate 76 07/22/24 15:02 Respiratory Rate 12 07/22/24 15:02 Blood Pressure 139/107 H 07/22/24 15:02 Pulse Oximetry 98 07/22/24 15:02 Oxygen Delivery Method Room Air 07/22/24 10:14 MDM - Syncope Lab Data Attestation: I reviewed the patient's lab results. Labs: Lab Results 07/22/24 07/22/24 Range/Units 11:38 14:51 WBC 8.79 (4.50-11.00) K/uL RBC 3.32 L (4.30-5.90) m/uL Hgb 11.8 L (13.5-17.5) gm/dL Hct 35.8 L (37.0-53.0) % MCV 108 H (80-100) fL MCH 36 H (26-34) pg MCHC 33 (32-36) gm/dL RDW Coeff of Dina 12.2 (11.5-15.5) % Plt Count 234 (140-440) K/uL Neut % (Auto) 76.9 H (42.0-72.0) % Lymph % (Auto) 10.5 L (20-44) % [place] % (Auto) 6.8 (0.0-11.0) % Eos % (Auto) 4.9 (0.0-7.0) % Baso % (Auto) 0.7 (0.0-3.0) % Neut # (Auto) 6.80 (1.7-7.0) K/uL Lymph # (Auto) 0.90 (0.90-2.90) K/uL [place] # (Auto) 0.60 (0.00-0.90) K/UL Eos # (Auto) 0.43 (0.00-0.50) K/uL Baso # (Auto) 0.06 (0.00-0.30) K/uL Abs Immat Gran (auto) 0.02 (0.00-0.30) K/uL Imm/Tot Granulo (auto) 0.2 % D-Dimer Quant (PE/DVT) 1.06 H (0.00-0.50) ug/ml VBG pH 7.318 L (7.32-7.43) VBG pCO2 44 (40-50) mmHG VBG pO2 < 30.1 (25-47) mmHG VBG HCO3 23 (21-28) mmol/L Sodium 132 L (135-149) mmol/L Potassium 5.0 (3.6-5.1) mmol/L Chloride 103 (96-114) mmol/L Carbon Dioxide 21 (20-32) mmol/L Anion Gap 8 (7-15) mEq/L BUN 24 (7-30) mg/dL Creatinine 1.0 (0.5-1.5) mg/dL Estimated Creat Clear 56.78 Estimated GFR 74 ml/min Glucose 107 (60-115) mg/dL Lactate 1.1 (0.5-1.9) mmol/L Calcium 9.5 (8.4-10.6) mg/dL Total Bilirubin 0.8 (0.1-1.5) mg/dL AST 33 (12-35) U/L ALT 24 (4-50) U/L Alkaline Phosphatase 153 H (40-150) U/L Troponin I < 0.01 L < 0.01 L (0.01-0.04) ng/mL C-Reactive Protein < 0.5 L (0.5-1.0) mg/dL NT-Pro-B Natriuret Pep 628 pg/mL Total Protein 7.6 (6.0-8.3) g/dL Albumin 4.2 (3.3-5.0) g/dL Procalcitonin 0.25 (<0.50) ng/mL Imaging Data CT scan - head: Attestation: I have reviewed the pertinent imaging results. Radiologist's impression: Patient: FAIZAN TEE Facility:?[facility] Patient ID:?[id number] Site Patient ID:?[id number]. Site :?[id number] Study:?CT-Head w/o-07/22/2024 12:08:14 PM Ordering Physician:Mansoor Luu Final Report: INDICATION: Syncope TECHNIQUE: Noncontrast axial CT of the head is submitted. Compared to prior study from June 15, 2024. FINDINGS: Mild cerebral atrophy. 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 The remainder of the ventricles, sulci and gyri are of normal size, shape and contour for age and degree of atrophy. Midline structures are centrally located. No convincing evidence of suspicious intra- or extra-axial fluid collections. Gzci-fp-[id number] patchy regions of decreased attenuation within the periventricular and subcortical white matter of both cerebral hemispheres. IMPRESSION: 1. No radiographic evidence of acute intracranial abnormalities. 2. Mild cerebral atrophy. 3. 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 4. Mild to moderate supratentorial white matter changes that are non-specific, but statistically most likely related to chronic small vessel ischemic disease. Please note that all CT scans at this facility use dose modulation, iterative reconstruction, and/or weight-based dosing when appropriate to reduce radiation dose to as low as reasonably achievable. Dictated by Tej Mishra MD @ 07/22/2024 12:19:43 PM (Electronic Signature) Chest x-ray: Attestation: I have reviewed the pertinent imaging results. Radiologist's impression: Patient: FAIZAN TEE Facility:?[facility] Patient ID:?[id number] Site Patient ID:?[id number]. Site :?[id number] Study:?XRay-Chest 1 view-07/22/2024 12:12:23 PM Ordering Physician:Mansoor Luu Final Report: INDICATION: Syncope. Recent history of trauma with multiple left-sided rib fractures (4th, 6th, 7th, 8th, and 9th ribs and left scapula fracture). Follow-up. TECHNIQUE: Single view chest. COMPARISON: Correlation is made with a CT of the chest abdomen and pelvis June 15, 2024. FINDINGS: Clear lungs. No pneumothorax. Normal heart size. Nondisplaced left rib fractures. Nonvisualization of a subtle nondisplaced left scapular blade fracture described on the prior CT. Degenerative change of the shoulders. IMPRESSION: No acute cardiopulmonary process identified. No pneumothorax. Dictated by Desmond Chan MD @ 07/22/2024 12:52:05 PM (Electronic Signature) CT scan - chest: Attestation: I have reviewed the pertinent imaging results. Radiologist's impression: Patient: FAIZAN TEE Facility:?[facility] Patient ID:?[id number] Site Patient ID:?[id number]. Site :?[id number] Study:?CT-Chest Angio W/ 95CC ISOVUE-370 PE PROTOCOL-07/22/2024 1:01:37 PM Ordering Physician:Mansoor Luu Final Report: INDICATION: Elevated D-Dimer, syncope, recent rib fxs. TECHNIQUE: CT chest PE was acquired with 95 cc Isovue 370 IV contrast. COMPARISON: February 08, 2023. FINDINGS: Heart and vasculature: Contrast opacification of the pulmonary arterial tree is adequate. No sign of pulmonary embolism. Heart size is normal. Thoracic aorta and pulmonary artery are normal in caliber.Calcific atherosclerosis of the coronary arteries. Lungs and pleura: Mild bibasilar ground-glass opacities and reticular opacities likely related to atelectasis and/or scarring. No suspicious nodules or consolidations. No pleural effusions, pleural thickening, or pneumothorax. Lymph nodes/mediastinum: No mediastinal, hilar, or axillary adenopathy. Chest wall: No masses. Upper abdomen: No acute or significant findings. Probable cyst versus hemangioma at the right hepatic lobe. Bones: Multiple known left sided subacute rib fractures. IMPRESSION: 1. No pulmonary embolism identified. 2. No acute cardiopulmonary process identified. 3. Multiple subacute left-sided rib fractures. Please note that all CT scans at this facility use dose modulation, iterative reconstruction, and/or weight-based dosing when appropriate to reduce radiation dose to as low as reasonably achievable. Dictated by Destinee Hampton MD @ 07/22/2024 2:24:05 PM (Electronic Signature) ECG Data Attestation: I personally reviewed and interpreted this ECG as follows: (Sinus bradycardia with first-degree AV block, 56 beats per minute. No ischemia, no infarct, QT corrected 397 milliseconds.) ECG interpretation date: 07/22/24 ECG interpretation time: 11:29 Prior ECG tracings: available for review Interpretation: Sinus rhythm with first-degree AV block, 64 beats per minute. No acute ischemic change or infarct noted. Critical Care Time Critical Care Time Critical Care Time: No Discharge Plan Discharge Clinical Impression: Orthostatic hypotension Syncope Qualifiers: Syncope type: unspecified Qualified Code(s): R55 - Syncope and collapse Patient Disposition: Home, Self-Care Condition: Stable Instructions: Syncope in Older Adults (ED) Additional Instructions: Please see your primary care provider within the next week for re-evaluation, have orthostatic blood pressure values rechecked. As we reviewed here, your blood pressure did drop with standing but the atenolol you are on likely blocks your pulse from rising to compensate for the lower blood pressure with standing. You need to take position changes slowly, recommend eating breakfast and drinking adequate fluids in the morning before you go out as well as throughout the day. If you have recurrent episodes of syncope in the interim, do recommend re-evaluation in the ER. Activity Level: Activity as Tolerated Prescriptions: No Action aspirin 81 mg capsule 81 mg PO QDAY cetirizine 10 mg tablet 10 mg PO QDAY PRN mecobalamin (vitamin B12) 1,000 mcg tablet,chewable 1,000 mcg PO QDAY PRN ibuprofen [Advil] 200 mg tablet 400 mg PO QAM PRN isosorbide mononitrate 30 mg tablet extended release 24 hr 30 mg PO QHS Qty: 90 3RF gabapentin 100 mg capsule 100 mg PO QDAY levothyroxine 100 mcg tablet 100 mcg PO QDAY Qty: 90 3RF benazepril 40 mg tablet 60 mg PO QDAY Qty: 135 3RF Rx Instructions: Pt is to take one and a half tablets by mouth daily atenolol 50 mg tablet 50 mg PO QDAY Qty: 90 3RF Follow Up/Referrals: Alejandra Mclean MD [Primary Care Provider] - Stand Alone Forms: [employer] Info Instructions
--- NOTE | 2024-07-22 11:19 | CRLHL7_ITS ---
For Patients: As a result of the Century Cures Act, medical imaging exams and procedure reports are released immediately into your electronic medical record. You may view this report before your referring provider. If you have questions, please contact your health care provider. INDICATION: Syncope TECHNIQUE: Noncontrast axial CT of the head is submitted. Compared to prior study from June 15, 2024. FINDINGS: Mild cerebral atrophy. 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 The remainder of the ventricles, sulci and gyri are of normal size, shape and contour for age and degree of atrophy. Midline structures are centrally located. No convincing evidence of suspicious intra- or extra-axial fluid collections. [id number] patchy regions of decreased attenuation within the periventricular and subcortical white matter of both cerebral hemispheres. IMPRESSION: 1. No radiographic evidence of acute intracranial abnormalities. 2. Mild cerebral atrophy. 3. 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 4. Mild to moderate supratentorial white matter changes that are non-specific, but statistically most likely related to chronic small vessel ischemic disease. Please note that all CT scans at this facility use dose modulation, iterative reconstruction, and/or weight-based dosing when appropriate to reduce radiation dose to as low as reasonably achievable. Dictated by Tej Mishra MD @ 07/22/2024 12:19:43 PM (Electronically Signed)
--- NOTE | 2024-07-22 11:19 | CRLHL7_ITS ---
For Patients: As a result of the Cures Act, medical imaging exams and procedure reports are released immediately into your electronic medical record. You may view this report before your referring provider. If you have questions, please contact your health care provider. INDICATION: Syncope. Recent history of trauma with multiple left-sided rib fractures (4th, 6th, 7th, 8th, and 9th ribs and left scapula fracture). Follow-up. TECHNIQUE: Single view chest. COMPARISON: Correlation is made with a CT of the chest abdomen and pelvis June 15, 2024. FINDINGS: Clear lungs. No pneumothorax. Normal heart size. Nondisplaced left rib fractures. Nonvisualization of a subtle nondisplaced left scapular blade fracture described on the prior CT. Degenerative change of the shoulders. IMPRESSION: No acute cardiopulmonary process identified. No pneumothorax. Dictated by Desmond Chan MD @ 07/22/2024 12:52:05 PM (Electronically Signed)
--- OUTSIDE RECORDS SUMMARY | 2024-07-22 11:28 | XMS_ITS | Clinical Summary ---
Author Organization [employer] [place] [address] Phone Care Team Providers Care Probate Lawyer Name Role Phone Alejandra Mclean MD Primary Care Provider Source Comments Audigence is fully rolled out on [employer]. Last update 02/28/09.[employer] Allergies No known active allergies Medications * Be aware that medications may not be up to date as of this document. Always verify current medications with patient. Medication Sig Dispensed Refills Start Date End Date Status acetaminophen (TYLENOL) 325 mg oral tablet Take 3 tablets (975 mg) by mouth 3 times daily. 06/19/2024 Active GABApentin (NEURONTIN) 100 mg oral capsule Take 1 capsule (100 mg) by mouth 3 times daily. 06/19/2024 Active levothyroxine (SYNTHROID) 100 mcg oral tablet Administer in the morning on an empty stomach, at least 30 minutes before food. 06/20/2024 Active lidocaine (LIDODERM) 5% externally patch Apply for 12 hours then remove for 12 hours 06/20/2024 Active lisinopril (PRINIVIL;ZESTRIL ) 20 mg oral TABS Take 1 tablet (20 mg) by mouth daily. 06/20/2024 Active polyethylene glycol 3350 (MIRALAX;GLYCOLAX ) 17 g oral packet Take 17 g by mouth daily.Take 1 capful to 17 gm gatito mixed with full glass of water every day as directed. 06/20/2024 Active sennosides (SENOKOT) 17.2 mg oral TABS Take 1 tablet (17.2 mg) by mouth twice daily. 06/19/2024 Active cyclobenzaprine (FLEXERIL) 5 mg oral TABS Take 1 tablet (5 mg) by mouth 3 times daily for 7 days. 06/19/2024 06/26/2024 docusate sodium 100 MG oral capsuleIndication s:Constipation Take 100 mg by mouth twice daily for 7 days. Indications: Constipation 06/19/2024 06/26/2024 oxyCODONE (ROXICODONE) 5 mg oral tablet Take 1 tablet (5 mg) by mouth every 4 hours as needed for Pain. 20 tablet 06/19/2024 06/26/2024 Active Problems Problem Noted Date Diagnosed Date Closed fracture of multiple ribs of left side, initial encounter 06/15/2024 Encounters Date Type Department Care Team Description 06/28/2024 Telephone [facility] [address] [address] Orlin Luo, [facility] Appointment 06/18/2024 Orders Only Unspecified Department [place] Unknown, Provider 06/18/2024 Orders Only Unspecified Department [place] Unknown, Provider 06/17/2024 Orders Only Unspecified Department [place] Unknown, Provider 06/17/2024 Orders Only Unspecified Department [place] Unknown, Provider 06/17/2024 Orders Only Unspecified Department [place] Unknown, Provider 06/16/2024 Orders Only Unspecified Department [place] Unknown, Provider 06/16/2024 Orders Only Unspecified Department [place] Unknown, Provider 06/16/2024 Orders Only Unspecified Department [place] Unknown, Provider 06/16/2024 Orders Only Unspecified Department [place] Unknown, Provider 06/15/2024 11:06 AM CDT - 06/19/2024 5:12 PM CDT Hospital Encounter [facility] Surgery/Trauma/Brigido ro [address] [place], [place] [address] Amanda Joel MD Payne, Rachel E, MD Richmond, Steven D, Closed fracture of multiple ribs of left side, initial encounter Discharge Disposition: Discharged/transd to SNF with Medicare certification 06/15/2024 Orders Only [facility] Film Room [facility] Radiology Department [facility] [address] [place], [place] [id number] Provider, Outside Referral of patient (Primary Dx) from Last 3 Months Social History Tobacco Use Types Packs/Day Years Used Date Smoking Tobacco: Never Assessed Sex and Gender Information Value Date Recorded Sex Assigned at Not on file Gender Identity Not on file Sexual Orientation Not on file Last Filed Vital Signs Vital Sign Reading Time Taken Comments Blood Pressure 176/88 06/19/2024 11:24 AM CDT Pulse 74 06/19/2024 11:24 AM CDT Temperature 36.7 ??C (98 ??F) 06/19/2024 11: 24 AM CDT Respiratory Rate 20 06/19/2024 11:2 4 AM CDT Oxygen Saturation 99% 06/19/2024 11: 24 AM CDT Inhaled Oxygen Concentration - - Weight 100.4 kg (221 lb 5.5 oz) 024 10:00 AM CDT Height 177.8 cm (5' 10) 06/19/2024 10: 00 AM CDT Body Mass Index 31.76 06/19/2024 10:00 AM CDT Plan of Treatment Upcoming Encounters Date Type Department Care Team (Late st Contact Info) Description 2024 11:30 AM CDT Office Visit [facility] [address] [address] [place], Gen Surg Trauma [address] [place] [id number] Scheduled Discharge Disposition: Discharged to home or self care Health Maintenance Due Date Last Done Comments [...] patient's age to complete this topic Procedures Procedure Name Priority Date/Time Associated Diagnosis Comments PHOSPHORUS Routine 06/19/2024 6:19 AM CDT MAGNESIUM Routine 06/19/2024 6:19 AM CDT PANEL BASIC METABOLIC (BMP) Routine 06/19/2024 6:19 AM CDT TC LAB BLOOD DRAW BY VENIPUNCTURE Routine 06/19/2024 6:19 AM CDT TELEMETRY STRIPS 06/18/2024 8:34 AM CDT XR CHEST 1 VIEW AP OR PA* Routine 06/18/2024 6:21 AM CDT PHOSPHORUS Routine 06/18/2024 5:14 AM CDT MAGNESIUM Routine 06/18/2024 5:14 AM CDT PANEL BASIC METABOLIC (BMP) Routine 06/18/2024 5:14 AM CDT TC LAB BLOOD DRAW BY VENIPUNCTURE Routine 06/18/2024 5:14 AM CDT TELEMETRY STRIPS 06/18/2024 12:5 8 AM CDT TELEMETRY STRIPS 06/17/2024 4:38 PM CDT TELEMETRY STRIPS 06/17/2024 8:25 AM CDT PHOSPHORUS Routine 06/17/2024 7:24 AM CDT MAGNESIUM Routine 06/17/2024 7:24 AM CDT PANEL BASIC METABOLIC (BMP) Routine 06/17/2024 7:24 AM CDT TC LAB BLOOD DRAW BY VENIPUNCTURE Routine 06/17/2024 7:24 AM CDT TELEMETRY STRIPS 06/17/2024 1:52 AM CDT FOLATE [...] BY VENIPUNCTURE Routine 06/16/2024 6:52 AM CDT LUNG AIRWAY CLEARANCE EXPANSION PROTOCOL Routine 06/16/2024 6:43 AM CDT TELEMETRY STRIPS 06/16/2024 12:2 2 [...] CDT from Last 3 Months Results * PHOSPHORUS (06/19/2024 6:19 AM CDT) Only the most recent of4 resultswithin the time period is included. Phosphorus 2.8 2.5 - 4.5 mg/dL [facility] Blood 06/19/2024 6:19 AM CDT 06/19/2024 7:27 AM CDT Zeina Arias MD LABORATORY Performing Organization Address [facility] Co de Phone Number [facility] [address] [address] * (ABNORMAL) PANEL BASIC METABOLIC (BMP) (06/19/2024 6:19 AM CDT) Only the most recent of4 resultswithin the time period is included. Sodium 132(L) 135 - 148 mmol/L [facility] Potassium 4.6 3.5 - 5.3 mmol/L [facility] Chloride 101 92 - 108 mmol/L [facility] CO2 20(L) 22 - 30 mmol/L [facility] Glucose 94 70 - 100 mg/dL [facility] BUN 17 8 - 23 mg/dL [facility] Creatinine 0.92 0.70 - 1.25 mg/dL [facility] Calcium 9.0 8.8 - 10.2 mg/dL [facility] AnGap 11 8 - 16 mmol/L [facility] eGFR (2020 CKD-EPI) 82 >=60 ml/min/1.7 3m2 [facility] Comment: The estimated glomerular filtration rate (eGFR) was calculated using the CKD-EPI 2020 creatinine equation, which does not include race as a factor. This equation is validated in individuals 18 years of age and older, and eGFR is normalized to a body surface area of 1.73m^2. Blood 06/19/2024 6:19 AM CDT 06/19/2024 7:27 AM CDT Zeina Arias MD LABORATORY Performing Organization Address [facility]/ZIP Co de Phone Number [facility] [address] [address] * MAGNESIUM (06/19/2024 6:19 AM CDT) Only the most recent of4 resultswithin the time period is included. Magnesium 2.0 1.6 - 2.4 mg/dL [facility] Blood 06/19/2024 6:19 AM CDT 06/19/2024 7:27 AM CDT Zeina Arias MD LABORATORY Performing Organization Address [facility] Co de Phone Number [facility] [address] [address] * (ABNORMAL) CBC WITH PLATELET (06/19/2024 6:19 AM CDT) Only the most recent of4 resultswithin the time period is included. WBC 9.14 4.00 - 10.00 k/cmm [facility] RBC 3.36(L) 4.60 - 6.00 m/cmm [facility] Hgb 12.5(L) 13.1 - 17.5 g/dL [facility] Hematocrit 37.5(L) 40.0 - 51.0 % [facility] MCV 111.6(H) 80.0 - 100.0 fL [facility] MCH 37.2(H) 25.0 - 32.0 pg [facility] MCHC 33.3 31.0 - 36.0 g/dL [facility] RDW 12.2 11.5 - 14.5 % [facility] Plt 151 150 - 400 k/cmm [facility] MPV 10.4 6.5 - 12.5 fL [facility] Blood 06/19/2024 6:19 AM CDT 06/19/2024 7:27 AM CDT Zeina Arias MD LABORATORY Performing Organization Address [facility] Co de Phone Number [facility] [address] [address] * TELEMETRY STRIPS (06/18/2024 8:34 AM CDT) Only the most recent of9 resultswithin the time period is included. Narrative 06/18/2024 8:34 AM CDT Ordered by an unspecified provider. Provider Unknown RAD ECHO * XR CHEST 1 VIEW AP OR PA* (06/18/2024 6:21 AM CDT) Anatomical Region Laterality Modality Chest Computed Radiogr aphy 06/18/2024 6:35 AM CDT Impressions 06/18/2024 7:23 AM CDT Impression: Left basilar/retrocardiac opacities, likely atelectasis. Possible trace left pleural effusion. I have personally reviewed the image(s) and initial interpretation, and I agree with the findings as documented by the resident/fellow. Reading Radiologist: Quentin oLpez Reading Resident: Coby Banerjee Narrative 06/18/2024 7:23 AM CDT Technique: XR CHEST 1 VIEW AP OR PA* Indication: Possible L hemothorax on prior imaging ?? Comparison: CT chest abdomen and pelvis 06/15/2024 Findings: Normal cardiomediastinal silhouette. No pneumothorax. Mild hazy left basilar opacities with dense retrocardiac opacification. Known rib fractures are better appreciated on prior CT Procedure Note Quentin Lopez MD - 06/18/2024 Technique: XR CHEST 1 VIEW AP OR PA* Indication: Possible L hemothorax on prior imaging Comparison: CT chest abdomen and pelvis 06/15/2024 Findings: Normal cardiomediastinal silhouette. No pneumothorax. Mild hazyleft basilar opacities with dense retrocardiac opacification. Known ribfractures are better appreciated on prior CT IMPRESSION Impression: Left basilar/retrocardiac opacities, likely atelectasis. Possible traceleft pleural effusion. I have personally reviewed the image(s) and initial interpretation, and Iagree with the findings as documented by the resident/fellow. Reading Radiologist: Quentin Lopez Reading Resident: Coby Banerjee Zeina Arias MD RAD XRAY * FOLATE SERUM (06/16/2024 9:08 PM CDT) Folate 4.1 >=4.0 ng/mL [facility] Blood 06/16/2024 9:08 PM CDT 06/16/2024 9:22 PM CDT Zeina Arias MD LABORATORY Performing Organization Address [facility] Co de Phone Number [facility] [address] [address] * VITAMIN B12 (06/16/2024 9:08 PM CDT) B12 [phone] - 946 pg/mL [facility] Blood 06/16/2024 9:08 PM CDT 06/16/2024 9:22 PM CDT Zeina Arias MD LABORATORY Performing Organization Address [facility] Co de Phone Number [facility] [address] [address] * TROP 4H (06/15/2024 3:50 PM CDT) 4H Trop 7 <=35 ng/L [facility] 4H Delta na Not Significant [facility] Comment:Unable to calculate delta. Blood 06/15/2024 3:50 PM CDT 06/15/2024 3:54 PM CDT Amanda Joel MD LABORATORY Performing Organization Address [facility] Co de Phone Number [facility] [address] [address] * XR SCAPULA LEFT AP + LAT [...] Reading Radiologist: Dontae Gunn Resident: Davie Chavarria 06/15/2024 11:06 PM CDT [...] Reading Radiologist: Dontae Gunn Resident: Davie Chavarria Amanda Joel MD RAD [...] ??No treatment, delayed treatment and alternative treatment [place] protocol: ??Procedure explained and questions answered to [...] (06/15/2024 1:12 PM CDT) Color ORANGE YELLOW [facility] Appearance CLOUDY(A) CLEAR [facility] Urine Glucose NEGATIVE NEGATIVE mg/dL [facility] Bili UA NEGATIVE NEGATIVE [facility] Ketones TRACE(A) NEGATIVE [facility] Specific [place] 1.018 1.003 - 1.030 [facility] Blood Ur LARGE(A) Neg-Trace [facility] PH Urine 6.5 5.0 - 7.0 [facility] Protein Ur 30(A) Neg-Trace [facility] Urobilinogen NORMAL NORMAL EU/dL [facility] Nitrite Ur NEGATIVE NEGATIVE [facility] Leuk Est TRACE Neg-Trace [facility] WBC Ur 0-5 0 - 5 perHPF [facility] RBC Ur >20(A) 0 - 3 perHPF [facility] Urinalysis Performed at: [facility] Urine 06/15/2024 1:12 PM CDT 06/15/2024 1:16 PM CDT Amanda Joel MD LABORATORY Performing Organization Address [facility]/ZIP Co de Phone Number [facility] [address] [address] * HS TROPONIN (06/15/2024 12:28 PM CDT) Pathologist [facility] HS Troponin I 6 <=35 ng/L [facility] Blood 06/15/2024 12:2 8 PM CDT 06/15/2024 12:31 PM CDT Narrative [facility] - 06/15/2024 12:57 PM CDT If ordering as an add-on lab, you must call the lab. Amanda Joel MD LABORATORY Performing Organization Address [facility]/ZIP Co de Phone Number [facility] [address] [address] * (ABNORMAL) ED CHEMISTRY LABS(NA,K,CL,CO2,GLU,CREAT,CA-IONIZED,ANION GAP) (06/15/2024 12:28 PM CDT) Pathologist [facility] Sodium 132(L) 135 - 148 mmol/L [facility] Chloride 103 92 - 108 mmol/L [facility] AnGap 9 8 - 16 mmol/L [facility] Glucose 96 70 - 100 mg/dL [facility] ICA, Actual 4.45 4.40 - 5.20 mg/dL [facility] ICA, pH Corrected 4.48 4.40 - 5.20 mg/dL [facility] Creatinine 1.03 0.70 - 1.25 mg/dL [facility] BICARB 21(L) 22 - 26 mEq/L [facility] eGFR (2020 CKD-EPI) 72 >=60 ml/min/1.7 3m2 [facility] Comment: The estimated glomerular filtration rate (eGFR) was calculated using the CKD-EPI 2020 creatinine equation, which does not include race as a factor. This equation is validated in individuals 18 years of age and older, and eGFR is normalized to a body surface area of 1.73m^2. Potassium 4.5 3.5 - 5.3 mmol/L [facility] Blood 06/15/2024 12:2 8 PM CDT 06/15/2024 12:37 PM CDT Amanda Joel MD LABORATORY [facility] [address] [address] * (ABNORMAL) CBC WITH PLTS/AUTO DIFF (06/15/2024 12:28 PM CDT) WBC 10.53(H) 4.00 - 10.00 k/cmm [facility] RBC 3.59(L) 4.60 - 6.00 m/cmm [facility] Hgb 13.2 13.1 - 17.5 g/dL [facility] Hematocrit 38.5(L) 40.0 - 51.0 % [facility] MCV 107.2(H) 80.0 - 100.0 fL [facility] MCH 36.8(H) 25.0 - 32.0 pg [facility] MCHC 34.3 31.0 - 36.0 g/dL [facility] RDW 11.9 11.5 - 14.5 % [facility] Plt 185 150 - 400 k/cmm [facility] MPV 9.3 6.5 - 12.5 fL [facility] Automated Abs Neutrophil 8.59(H) 1.70 - 6.50 k/cmm [facility] Comment:Preliminary ANC, Fin al Result to Follow Abs Immature Granulocyte 0.02 0.00 - 0.09 k/cmm [facility] Comment:The Immature Granulo cyte Absolute count contains metamyelocytes and myelocytes. Abs Neutrophil 8.59(H) 1.70 - 6.50 k/cmm [facility] Abs Lymphocyte 0.71(L) 0.80 - 4.00 k/cmm [facility] Abs Monocyte 1.08(H) 0.20 - 1.00 k/cmm [facility] Abs Eosinophil 0.07 0.00 - 0.60 k/cmm [facility] Abs Basophil 0.06 0.00 - 0.20 k/cmm [facility] Blood 06/15/2024 12:2 8 PM CDT 06/15/2024 12:44 PM CDT Amanda Joel MD LABORATORY Performing Organization Address City/[facility]/ZIP Co de Phone Number [address] [address] * PROTHROMBIN (PT) & INR (06/15/2024 12:28 PM CDT) PT 11.2 9.0 - 12.5 sec [facility] INR 1.0 0.8 - 1.1 [facility] Comment: Warfarin Therapeutic Range: Standard Intensity: 2.0 - 3.0 High Intensity: 2.5 - 3.5 Blood 06/15/2024 12:2 8 PM CDT 06/15/2024 12:44 PM CDT Amanda Joel MD LABORATORY Performing Organization Address City/[facility]/ZIP Co de Phone Number [address] [address] * CK, TOTAL (06/15/2024 12:28 PM CDT) CK 258 39 - 308 IU/L [facility] Blood 06/15/2024 12:2 8 PM CDT 06/15/2024 12:44 PM CDT Amanda Joel MD LABORATORY [address] [address] * EXTRA TUBE - SST (06/15/2024 12:28 PM CDT) SST TUBE Stored [facility] Comment:SST tubes (Serum Sep arator) are stored in the lab for 3 days from the collection date. Blood 06/15/2024 12:2 8 PM CDT 06/15/2024 12:32 PM CDT Amanda Joel MD LABORATORY Performing Organization Address [facility] Co de Phone Number [address] [address] * (ABNORMAL) CARBON MONOXIDE (CO) (06/15/2024 12:28 PM CDT) Carbon Monox 3(H) 0 - 2 % [facility] Comment:Normal range for smo kers: up to 13%. Blood 06/15/2024 12:2 8 PM CDT 06/15/2024 4:16 PM CDT Amanda Joel MD LABORATORY Performing Organization Address [facility] Co de Phone Number [address] [address] * ED US GUIDED NERVE BLOCK (06/15/2024 [...] CDT) 06/15/2024 11:5 9 AM CDT Impressions [facility] CVIS EKG ORDERS - 06/15/2024 11:59 AM CDT SINUS RHYTHM WITH FIRST DEGREE AV BLOCK ABNORMAL ECG No Previous ECGs Available. P-R Interval 212 ms QRS Interval 95 ms QT Interval 377 ms QTC Interval 400 ms P [place] 64 QRS [place] -7 T Wave [place] 25 Narrative Procedure Note Amanda Joel MD - 06/15/2024 IMPRESSION SINUS RHYTHM WITH FIRST DEGREE AV BLOCK ABNORMAL ECG No Previous ECGs Available. P-R Interval 212 ms QRS Interval 95 ms QT Interval 377 ms QTC Interval 400 ms P [place] 64 QRS [place] -7 T Wave [place] 25 Amanda Joel MD EKG [facility] CVIS EKG ORDERS * CT OUTSIDE READ [...] 2:35 PM CDT Indication: ??Patient transferred from [place] [facility] due to Trauma. Dr. AMANDA JOEL requested an interpretation by me. Comparison: CT of the chest from 02/08/2023. Technique: ??CT scan of the chest/abdomen/pelvis done with IV contrast. Axial, coronal, and sagittal reconstructions reviewed in soft tissue and bone windows, per the local institution's scanning protocols, which may differ from the [facility] trauma protocols. Findings: Chest: Mediastinum: Atrophic thyroid [...] DO - 06/15/2024 Indication: Patient transferred from [facility] due to Trauma.Dr. AMANDA JOEL requested an interpretation by me. Comparison: CT of the chest from 02/08/2023. Technique: CT scan of the chest/abdomen/pelvis done with IV contrast.Axial, coronal, and sagittal reconstructions reviewed in soft tissue andbone windows, per the local institution's scanning protocols, which maydiffer from the [facility] trauma protocols. Findings: Chest: Mediastinum: Atrophic thyroid [...] 12:08 PM CDT Indication: ??Patient transferred from [facility] due to Trauma. Dr. AMANDA JOEL requested an interpretation by me. Technique: ??CT scan of the cervical spine done on 06/15/2024 without IV contrast. Axial, coronal, and sagittal reconstructions reviewed in soft tissue and bone windows, per the local institution's scanning protocols, which may differ from the [facility] trauma protocols. Findings: ??No suspected acute fracture, [...] Lorenzana, - 06/15/2024 Indication: Patient transferred from [facility] due to Trauma.Dr. AMANDA JOEL requested an interpretation by me. Technique: CT scan of the cervical spine done on 06/15/2024 without IVcontrast. Axial, coronal, and sagittal reconstructions reviewed in softtissue and bone windows, per the local institution's scanning protocols,which may differ from the [facility] trauma protocols. Findings: No suspected acute fracture, [...] 12:05 PM CDT Indication: ??Patient transferred from [facility] due to Trauma. Dr. AMANDA JOEL requested an interpretation by me. Technique: ??CT scan of the head done on 06/15/2024 without IV contrast. Axial, coronal, and sagittal reconstructions are reviewed in soft tissue and bone windows, per the local institution's scanning protocols, which may differ from the [facility] trauma protocols. Findings: No acute intracranial hemorrhage, [...] DO - 06/15/2024 Indication: Patient transferred from [facility] due to Trauma.Dr. AMANDA JOEL requested an interpretation by me. Technique: CT scan of the head done on 06/15/2024 without IV contrast.Axial, coronal, and sagittal reconstructions are reviewed in soft tissueand bone windows, per the local institution's scanning protocols, whichmay differ from the [facility] trauma protocols. Findings: No acute intracranial hemorrhage, [...] Lorenzana Amanda Joel MD RAD CT NEURO from Last 3 Months Advance Directives For more information, please contact: [phone] * Full Code (Latest Code Status on File) Date Activated Date Inactivated Comments 06/19/2024 1:44 PM Question Answer Comments Does the Patient have prefer ences regarding life sustaining measures (these options only apply when the patient has a pulse): No Discussed Code Status With Whom? Not discussed * Full Code Date Activated Date Inactivated Comments 06/15/2024 11:07 PM 06/19/2024 1:44 PM Question Answer Comments Does the Patient have prefer ences regarding life sustaining measures (these options only apply when the patient has a pulse): No Discussed Code Status With Whom? Not discussed Care Teams Probate Lawyer Relationship Specialty Start Date End Date Alejandra Mclean MD [address] [place] [address] PCP - General Internal Medicine 06/15/24
--- OUTSIDE RECORDS SUMMARY | 2024-07-22 11:28 | XMS_ITS | Encounter Summary ---
Author Organization [facility] Address [address] [place] [id number] Phone Care Team Providers Care Drivers License Examiner Name Role Phone Alejandra Mclean MD Primary Care Provider Encounter Details Date Type Department Care Team (Late st Contact Info) Description 06/18/2024 Orders Only Unspecified Department [place] Unknown, Provider Social History Tobacco Use Types Packs/Day Years Used Date Smoking Tobacco: Never Assessed Sex and Gender Information Value Date Recorded Sex Assigned at Not on file Gender Identity Not on file Sexual Orientation Not on file documented as of this encounter Plan of Treatment Upcoming Encounters Date Type Department Care Team (Late st Contact Info) Description 2024 11:30 AM CDT [facility] [address] [address] Gerry, Gen Surg Trauma [address] [place] [address] Scheduled Discharge Disposition: Discharged to home or self care documented as of this encounter Procedures Procedure Name Priority Date/Time Associated Diagnosis Comments TELEMETRY STRIPS 06/18/2024 12:5 8 AM CDT documented in this encounter Results * TELEMETRY STRIPS (06/18/2024 12:58 AM CDT) Narrative 06/18/2024 12:58 AM CDT Ordered by an unspecified provider. Provider Unknown RAD ECHO documented in this encounter Visit Diagnoses Not on filedocumented in this encounter Care Teams Drivers License Examiner Relationship Specialty Start Date End Date Alejandra Mclean MD [address] [place] [address] PCP - General Internal Medicine 06/15/24 documented as of this encounter
--- OUTSIDE RECORDS SUMMARY | 2024-07-22 11:28 | XMS_ITS | Encounter Summary ---
Author Organization [facility] Address [address] [place] [phone] Phone Care Team Providers Care Mail List Librarian Name Role Phone Alejandra Mclean MD Primary Care Provider Encounter Details Date Type Department Care Team (Late st Contact Info) Description 06/15/2024 Orders Only [facility] [place] [facility] Radiology Department [facility] [address] [place] [id number] Provider, [place] [address] Referral of patient (Primary Dx) Social History [...] [facility] [address] [address] Gerry, Gen Surg Trauma [address] [place] [phone] Scheduled Discharge Disposition: Discharged to home or self care documented as of this encounter Results * CT CHEST OUTSIDE FILMS (02/08/2023 11:21 AM CDT) Jose [id number] - 06/15/2024 10:37 AM CDT Outside Film Only Outside Provider RAD OUTSIDE FILMS documented in this encounter Visit Diagnoses Diagnosis Referral of patient- Primary Referral of patient without examination or treatment documented in this encounter Care Teams Mail List Librarian Relationship Specialty Start Date End Date Alejandra Mclean MD [address] [place] [address] PCP - General Internal Medicine 06/15/24 documented as of this encounter
--- OUTSIDE RECORDS SUMMARY | 2024-07-22 11:28 | XMS_ITS | Encounter Summary ---
Author Organization [facility] Address [address] [place] [address] Phone Care Team Providers Care Montessori Toddler Teacher Name Role Phone Alejandra Mclean MD Primary Care Provider Reason for Referral * Consult/Test/Treat (Routine) - New Request Specialty Diagnoses / Procedures Referred By Contac t Referred To Contact Physical Therapy / PHYSICAL THERAPY Diagnoses Closed fracture of multiple ribs of left side, initial encounter Bri Carpenter APRN, CNP [address] [address] PATIENT CHOICE Referral ID Status Reason Start Date Expiration Date V isits Requested Visits Authorized [id number] New Request 06/19/2024 06/20/2025 1 1 * Consult/Test/Treat (Routine) - New Request Specialty Diagnoses / Procedures Referred By Contac t Referred To Contact Diagnoses Closed fracture of multiple ribs of left side, initial encounter Bri Carpenter APRN, CNP [address] [address] PATIENT CHOICE Referral ID Status Reason Start Date Expiration Date V isits Requested Visits Authorized [id number] New Request 06/19/2024 06/20/2025 1 1 * Consult/Test/Treat (Routine) - Closed Specialty Diagnoses / Procedures Referred By Contac t Referred To Contact Traumatic Brain Injury Diagnoses Traumatic brain injury, with unknown loss of consciousness status, initial encounter ([facility]) Zeina Arias MD [address] [place] [address] Csc Tbi [address] [address] Referral ID Status Reason Start Date Expiration Date Visits Re quested Visits Authorized [id number] Closed 06/16/2024 06/16/2025 1 1 Reason for Visit * Reason Comments Rib Injury * Auth/Cert (Routine) Specialty Diagnoses / Procedures Referred By Mohsen t Referred To Contact SURGERY Diagnoses Fall, initial encounter Closed fracture of multiple ribs of left side, initial encounter Closed fracture of left scapula, unspecified part of scapula, initial encounter Hematuria, unspecified type Desi Joel MD [address] [place] [address] [address] [place] [address] [address] [place] [address] Referral ID Status Reason Start Date Expiration Date Visits Re quested Visits Authorized [id number] 1 1 Encounter Details Date Type Department Care Team (Latest Contact Info) Description 06/15/2024 11:06 AM CDT - 06/19/2024 5:12 PM CDT Hospital En[place] [facility] [place]Brigido ro 2 [facility] [address] [place] [id number] Desi Joel MD [address] [place] [id number] Zeina Arias MD [address] [place] [id number] Nito Lentz DO 701 [facility] [address] [place] [address] Closed fracture of multiple ribs of left side, initial encounter Discharge Disposition: Discharged/transd to SNF with Medicare certification Social History Tobacco Use Types Packs/Day Years [...] Mass Index 31.76 06/19/2024 10:00 AM CDT documented in this encounter Discharge Summaries * Cherelle Lao RN - 06/19/2024 4:34 PM CDT DISCHARGE NOTE D: Patient has been discharged. A: (As documented in the Discharge Planning Flowsheet) Discharge Instructions (AVS): AVS given (in packet to facility) Discharge clothing/valuables: has adequate clothing;valuables and property returned to patient/caregiver Discharge medications: no prescriptions Home equipment status: no equipment needed Home equipment/supplies recommended: None Final discharge destination: IP (acute) rehab ([facility]) R: The patient understood the AVS. P: Support patient if they call back with questions. * Tameka Bravo MD - 06/19/2024 2:43 PM CDT TRAUMA DISCHARGE SUMMARY - PGY 1 Jennifer Shaikh : 1940 Sex: male Date of Admission: 06/15/2024 Date of Discharge: 06/19/2024 Disposition: post-acute rehab Primary care physician: Alejandra Mclean MD Attending Staff: Zeina Arias MD Significant physician provider(s): Tameka López MD; Geovani Grullon MD No Known Drug Allergies ADMISSION DIAGNOSIS: Ground level fall DISCHARGE DIAGNOSIS (include any new and/or incidental findings): Principal Problem: Closed fracture of multiple ribs of left side, initial encounter Possible small hemothorax on the LLL LLL atelectasis. TBI with LOC <1 hr Resolved Problems: * No resolved hospital problems. * Incidental Findings: Bilateral common iliac artery ectasia. Mildly atrophic kidneys. Intermediate density left renal cyst in the interpolar region measuring 2.3 cm. Lumbar spondylosis with multilevel severe facet hypertrophy Multilevel facet hypertrophy, most prominent at T10-11 with severe bilateral neural foraminal narrowing. Operations/Procedures: None HOSPITAL COURSE: Jennifer Shaikh is a 83 y.o.male with no past medical history on file who was admitted on 06/15/2024 after a fall. He presented to OSH for evaluation and was found to have multiple rib fractures, concern for left sided scapula fracture. Orthopedic surgery consulted but no interventionnecessary. Tertiary exam negative for any acute findings. No surgical intervention indicated and patient is medically stable for discharge, therapies recommended ML placement. Malnutrition Weight: 100.4 kg (221 lb 5.5 oz) Wt Change from Previous: 0 Kg Wt Change from Admit: 0 Kg % Wt Change from Adm: 0 % Kittrell Body Wt (IBW) Male (kg): 73 kg PENDING TESTS RESULTS: none PHYSICAL EXAMINATION: BP (!) 176/88 (Cuff Location: Right Arm) Pulse 74 Temp 36.7 ??C (98 ??F) (Oral) Resp 20 Ht 1.778 m (5' 10) Wt 100.4 kg (221 lb 5.5 oz) SpO2 99% BMI 31.76 kg/m?? Estimated body mass index is 31.76 kg/m?? as calculated from the following: Height as of this encounter: 1.778 m (5' 10). Weight as of this encounter: 100.4 kg (221 lb 5.5 oz). General: Resting comfortably in bed, eating lunch, no acute distress Neuro: alert and oriented x 4 Cardiovascular: Regular rate, extremities warm and well perfused Respiratory: Breathing comfortably on room air. Equal chest rise. Not using accessory muscles, chest pain to associated rib fx with movement and repositioning Abdomen: Soft, nontender, and nondistended Extremities: Bilateral lower extremities equal range of motion MSK: some limitation to BUE ROM 2/2 pain, otherwise WNL Psych: WNL Photogrammetric Stereo Compiler Needed: no PLANNED DISCHARGE ORDERS: Suture/Christiano: None Wound Care Plan: Not applicable Drains Present: None Lines: None Activity Limitations: as tolerated Anticoagulation Plan: normal activity RECOMMENDATIONS AND FOLLOWUP: General: Surgery: schedule an appointment in 1-2 weeks for follow up on your rib fractures -- Multimodal pain control, minimize narcotic use -- Incentive spirometer 10x an hour -- Encourage coughing, can splint with a pillow if needed -- Encourage out of bed as much as possible -- Ambulate as least 4x every day Primary Care Physician: Follow up for a renal US for 2.3 cm L renal mass, hematuria Referrals: None READMISSION PLANNED WITHIN 30 DAYS OF DISCHARGE? No Consultants: Orthopaedics: no need to follow up with orthopaedics DISCHARGE ORDERS Referral to Traumatic Brain Injury (TBI) Referral to Occupational Therapy Referral to Physical Therapy Vital Signs - Per Facility protocol Order Notes Obtain vital signs daily for seven days, then weekly for four weeks, then monthly thereafter unless directed otherwise. A Provider has reviewed and approved of plan of care Question Response Notes A Provider has reviewed and approved of plan of care? Yes Okay for Prison Facility standing orders? Question Response Notes OK for Prison Facility house standing orders? Yes CODE STATUS Full Code Question Response Notes Does the Patient have preferences regarding life sustaining measures (these options only apply whenthe patient has a pulse) No Discussed Code Status With Whom? Not discussed SCHEDULE APPOINTMENT Order Notes PLEASE CALL the Patient Access Center at [phone] to schedule the following appointment(s) Question Response Notes Specify time frame 1-2 Weeks Reason for Visit? follow up on rib fractures Provider Type? GERRY Clinic Location? [facility] [place] Specialty: Surgery Discharge Diagnosis Question Response Notes Patient aware of diagnosis? yes Weight - Per Facility Protocol Order Notes Obtain weekly weights for four weeks, then monthly thereafter unless directed otherwise Discharge condition Question Response Notes Discharge condition? Stabilized Rehab Potential Question Response Notes Rehab potential? Good Is the patient free of Communicable Disease? Question Response Notes Is the patient free from communicable disease Yes Discharge Potential Question Response Notes Discharge potential? Length of Stay 30-90 days Admission H&P Question Response Notes Is admission H&P valid? yes Discharge Summary Enclosed Question Response Notes Discharge summary enclosed? Yes Why you were at the hospital: Order Notes You were in the hospital due to falling and breaking your ribs. When should I be concerned? Order Notes It is normal to have: pain due to your broken ribs Special activity instructions Order Notes -- Multimodal pain control, minimize narcotic use -- Incentive spirometer 10x an hour -- Encourage coughing, can splint with a pillow if needed -- Encourage out of bed as much as possible -- Ambulate as least 4x every day Up with assistance activity level. Order Notes -- Remember to have someone near by or with you when you are walking, showering or bathing. -- Slowly return to your usual level of activity. -- Rest is an important part of healing. Save your energy by spreading out activities that make youtired. Regular diet Order Notes -- Eat a wide variety of foods, including fruits and vegetables, dairy, grains and meats. Taper pain medicine Order Notes Suggestions for tapering your pain medicine: -- As your pain decreases, you can go for longer times between doses. Or, take one pill instead of two. -- Take the medicine at the time of the day when you most often feel pain. This may be: when you wake up in the morning, before you start certain activities, or when you are ready for bed. Medication List START taking these medications acetaminophen 325 mg tablet Commonly known as: TYLENOL Take 3 tablets (975 mg) by mouth 3 times daily. cyclobenzaprine 5 mg Tabs Commonly known as: FLEXERIL Take 1 tablet (5 mg) by mouth 3 times daily for 7 days. DSS 100 MG Capsule Take 100 mg by mouth twice daily for 7 days. Indications: Constipation GABApentin 100 mg capsule Commonly known as: NEURONTIN Take 1 capsule (100 mg) by mouth 3 times daily. lidocaine 5% patch Commonly known as: LIDODERM Apply for 12 hours then remove for 12 hours Start taking on: June 20, 2024 lisinopril 20 mg Tabs Commonly known as: PRINIVIL;ZESTRIL Take 1 tablet (20 mg) by mouth daily. Start taking on: June 20, 2024 oxyCODONE 5 mg tablet Commonly known as: ROXICODONE Take 1 tablet (5 mg) by mouth every 4 hours as needed for Pain. polyethylene glycol 3350 17 g Packet Commonly known as: MIRALAX;GLYCOLAX Take 17 g by mouth daily.Take 1 capful to 17 gm robert mixed with full glass of water every day as directed. Start taking on: June 20, 2024 sennosides 17.2 mg Tabs Commonly known as: SENOKOT Take 1 tablet (17.2 mg) by mouth twice daily. CHANGE how you take these medications levothyroxine 100 mcg tablet Commonly known as: SYNTHROID Administer in the morning on an empty stomach, at least 30 minutes before food. Start taking on: June 20, 2024 What changed: how much to take how to take this when to take this additional instructions STOP taking these medications atenolol 50 mg Tabs Commonly known as: TENORMIN benazepril 40 mg Tabs Commonly known as: LOTENSIN isosorbide mononitrate 30 mg Tablet 24 hr Commonly known as: IMDUR Where to Get Your Medications You can get these medications from any pharmacy Bring a paper prescription for each of these medications oxyCODONE 5 mg tablet Information about where to get these medications is not yet available Ask your nurse or doctor about these medications acetaminophen 325 mg tablet cyclobenzaprine 5 mg Tabs DSS 100 MG Capsule GABApentin 100 mg capsule levothyroxine 100 mcg tablet lidocaine 5% patch lisinopril 20 mg Tabs polyethylene glycol 3350 17 g Packet sennosides 17.2 mg Tabs Discussed diagnosis and treatment plan with the patient. Patient verbalized understanding of condition and treatment plan. Tameka Bravo MD 06/19/2024 14:43 Associated attestation - Zeina Arias MD - 06/28/2024 7:21 AM CDT FACULTY WITH RESIDENT: I saw and evaluated the patient on the date of the resident's note. I discussed with the team and agree with the findings and plan documented in the resident's note. Any revisions by me are documented. Zeina Arias MD, 06/28/2024 7:21 AM Attending Physician General/Trauma Surgery Surgical Critical Care documented in this encounter Medications at Time of Discharge Medication Sig Dispensed Refills Start Date End Date acetaminophen (TYLENOL) 325 mg oral tablet Take 3 tablets (975 mg) by mouth 3 times daily. 06/19/2024 GABApentin (NEURONTIN) 100 mg oral capsule Take 1 capsule (100 mg) by mouth 3 times daily. 06/19/2024 levothyroxine (SYNTHROID) 100 mcg oral tablet Administer in the morning on an empty stomach, at least 30 minutes before food. 06/20/2024 lidocaine (LIDODERM) 5% externally patch Apply for 12 hours then remove for 12 hours 06/20/2024 lisinopril (PRINIVIL;ZESTRIL) 20 mg oral TABS Take 1 tablet (20 mg) by mouth daily. 06/20/2024 polyethylene glycol 3350 (MIRALAX;GLYCOLAX) 17 g oral packet Take 17 g by mouth daily.Take 1 capful to 17 gm robert mixed with full glass of water every day as directed. 06/20/2024 sennosides (SENOKOT) 17.2 mg oral TABS Take 1 tablet (17.2 mg) by mouth twice daily. 06/19/2024 cyclobenzaprine (FLEXERIL) 5 mg oral TABS Take 1 tablet (5 mg) by mouth 3 times daily for 7 days. 06/19/2024 06/26/2024 docusate sodium 100 MG oral capsuleIndications:Co nstipation Take 100 mg by mouth twice daily for 7 days. Indications: Constipation 06/19/2024 06/26/2024 oxyCODONE (ROXICODONE) 5 mg oral tablet Take 1 tablet (5 mg) by mouth every 4 hours as needed for Pain. 20 tablet 06/19/2024 06/26/2024 documented as of this encounter Progress Notes * TurciosFabiola Y - 06/19/2024 11:10 AM CDT Preadmission Screening Submitter InformationPerson Being ReferredMedical InformationADL'[facility] FacilitySubmitResults Results Thank you for submitting a referral to the Senior LinkAge Line. The [facility] Line will follow-up within one business day of receiving the referral. Click Print this page below to print or save a copy for your records. Please note, the final results will be determined by the Senior [facility]Age Line or lead agency and provided to the nursing facility. If you have questions about this referral or need help, contact the [facility] Line at [phone] or click to contact us. Print this page You have successfully submitted the preadmission screening (PAS) to the Senior [facility]Age Line on: Created On 06/19/2024 11:01 AM Your confirmation number is: [id number] Results Level of Care: Based on the information you provided, it appears this person meets level of care for purposes of [place] payment. OBRA: It appears this person does not need an OBRA Level II assessment. Submitter Information Form Type PAS Submitter First and Last Name Fabiola Turcios Direct Email [email or web address] [facility] Service Type [facility] [address] [place] [address] [place] Code [address] Is your Agency outside [place]? Person Being Admitted to Nursing Facility Legal first name Jennifer Last name Hawa Date of 1940 Age 83 Gender Male Marital Status W= Race A = B = Black or N = or [place] P = [place] or W = White U = Unable to Determine Ethnicity Not / Currently living with: 04 Living in Congregate Setting Planned living with 04 Living in Congregate Setting Housing Type Own bedroom with shared living space, including assisted living (04) Mailing Address [facility] [address] [place] [address] [facility] Medical Information Reason for nursing facility admission: Therapy services Physician signing nursing facility admission order Dr. Lentz Primary diagnosis: Closed fracture of multiple ribs of left side, initial encounter Is the primary diagnosis neuromuscular? No Does the person have a current diagnosis of a developmental disability or related condition(s)? No Has this person ever been considered to have a developmental disability or related condition? No Are there cognitive or behavioral signs that would lead someone to suspect the presence of developmental disabilities or related condition? No Does the person have a current diagnosis of a mental illness? No Has the person had any of the following? A mental illness as the primary diagnosis for hospitalization or nursing facility placement within the past two years Suicidal ideation, hallucinations, or delusions within the past six months A civil commitment for mental illness in his/her lifetime No Does the person have a diagnosis or symptoms of mental illness that has significantly interfered with functioning in life activities or caused the person significant distress within the past six months? No Has the person needed supportive services or interventions due to mental illness to maintain functioning within the past two years? No Does the person have a Brain Injury (BI) diagnosis? No ADL's Dressing 02 Needs some help from another person to put clothes on Grooming 01 Needs and gets supervision or reminding for grooming activities Bathing 03 Needs and gets help getting in and out of the tub Eating 00 Can eat without help of any kind Bed Mobility 02 Always needs and gets help to sit up Transferring 02 Needs one other person to help Walking 01 Can walk with help of a cane, walker, crutch or push wheelchair Behavior 00 Behavior requires no intervention Toileting 01 need some help to get to and on the toilet, or needs intermittent supervision Toileting supervision Toileting supervisionNoToileting supervisionYes Special treatments 02 Other treatments Clinical monitoring 02 At least one every 8 hours Orientation 00 Oriented Self-preservation 00 Independent Hearing 01 Hearing difficulty at level of conversation Visual 01 Has difficulty seeing at level of print Falls 03 Yes - Resulted in a fracture in the last 12 months Admitting Nursing Facility Do you know which nursing facility the person will admit to? Do you know which nursing facility the person will admit to?NoDo you know which nursing facility the person will admit to?Yes If your provider is not listed check the box Provider Name [facility] Type Nursing Facility [address] [address] [facility] Zip Code [address] Anticipated Admit Date 06/19/2024 Anticipated length of stay 30-60 days Submit I, as the submitter of this form, confirm that I have provided the most accurate information . We informed the person and/or their guardian about the Senior LinkAge Line and preadmission screenin The person gave consent for Senior LinkAge Line (or [facility] [place] if under age 60) follow-up. Did not ask * Fabiola Turcios - 06/19/2024 10:44 AM CDT Transportation set for patient as follows: Date and time () of patient departure: 05/30/2024@1600 Destination: [address] Type of ride: wheelchair Transportation vendor of ride (choose one below):* [employer]) [phone] [facility] #[id number] If this ride needs to be rescheduled or cancelled, inpatient staff should call this vendor directlyto reschedule or cancel, and document this in the chart. If the ride is cancelled, please also cancel the order in the chart. Nurses will receive a phone call if the ride is arriving in 120 minutes or less. Social Workers and Clinical Coordinators will be informed via a [employer] page. PCS form was completed in Progress Notes and is ready to be signed and routed to vendor by requestor(for stretcher rides only). Fabiola Turcios, 06/19/2024 10:44 AM Patient name: Jennifer Shaikh Date of : 1940 Patient Admitting diagnosis: Patient Active Problem List Diagnosis Closed fracture of multiple ribs of left side, initial encounter Attending provider: Nito Lentz DO Insurance: MEDICARE Secondary insurance: [employer] [place] [employer] (COST PLAN) Height: Height: 177.8 cm (5' 10) Weight: Weight: 100.4 kg (221 lb 5.5 oz) * Darien Helton - 06/19/2024 8:49 AM CDTSummary: Post Acute Referrals Images from the original note were not included. Post Acute Referrals Referrals to post acute placement have been sent. Updates about referral status can be seen below .This note will continue to be updated by the case management team. Addendum history can be seen below. Continued Care and Services - Admitted Since 06/15/2024 Destination Coordination complete. Service Provider Request Status Selected Services Address Phone Fax Patient Preferred [facility] Selected Prison [phone] [facility] [address] [facility] Pending - Request Sent N/A 091 [facility] [address] -- Internal Comment last updated by Fabiola Turcios 06/19/2024 1022 Will jave bed on 06/20 . LVM for admissions..Fabiola Turcios, 06/19/2024 8:08 AM [facility] Pending - Request Sent N/A [id number] [facility] [id number] Internal Comment last updated by Fabiola Turcios 06/19/2024 0811 LVM for admissionss.Fabiola Turcios, 06/19/2024 8:11 AM [facility] Pending - Request Sent N/A [address] [facility] [address] -- Internal Comment last updated by Fabiola Turcios 06/19/2024 0814 LVM for admissions .Fabiola Turcios, 06/19/2024 8:13 AM [facility] Pending - Request Sent N/A 8100 [facility] [address] -- Internal Comment last updated by Fabiola Turcios 06/19/2024 0815 LVM for admissions .Fabiola Turcios, 06/19/2024 8:15 AM [facility] Pending - Request Sent N/A [address] [address] [phone] -- Internal Comment last updated by Fabiola Turcios 06/19/2024 0807 LVM for admissions .Fabiola Turcios, 06/19/2024 8:07 AM [facility] Pending - Request Sent N/A [address] [facility] [address] [phone] -- [facility] Pending - Request Sent N/A 9889 [facility] [address] [phone] -- Internal Comment last updated by Fabiola Turcios 06/19/2024 0818 LVM for admissions .Turcios, Fabiola Brunson, 06/19/2024 8:18 AM [facility] Declined N/A 815 [facility] [address] -- Internal Comment last updated by Fabiola Turcios 06/19/2024 1015 Bed available We .Fabiola Turcios, 06/19/2024 10:15 AM [facility] Declined Bed not available N/A 3410?[address] [place] [address] [phone] Home Medical Care No active coordination exists for this encounter. * Bryant Steiner RN - 06/18/2024 11:06 PM CDT TRANSFER IN NOTE D: Patient transferred in to [facility] from [facility] at 2345. Patient condition on arrival: Stable. A: Settled patient in to new room: oriented to room, VS done, and assessment done. Property sheet checked in by: RN. Transfer orders released.. R: Tolerated move well, denies pain P: Commence with cares per Care Plan and orders. Bryant Steiner RN, 06/18/2024 11:08 PM * Tosin Teixeira MS - 06/18/2024 4:00 PM CDT Palliative Care Progress Note Jennifer Shaikh : 1940 Sex: male Assessment Mr. Shaikh is an 83 year old male who presented after a fall in his home. He was found to have multiple left side rib fractures and possible small hemothorax. CT head and c-spine were negative for acute traumatic injuries. Palliative care consulted for goals of care conversations and support to patient and family. Mr. Shaikh lives alone in an apartment in a shelter community in [place], [place]. He walks with a walker, history of chronic bilateral hip pain. He also had a TIA about 3 years ago, but denies any residual functional deficits. He takes care of himself at baseline, drives, and does his own ADLs. Known Injuries: - Left 4th-9th rib fractures with multiple fractures on ribs 4-7 (possible flail chest). - Possible small hemothorax on L - LLL atelectasis - Possible L scapula fx (non-op per ortho) Recommendations: Symptoms: Pain from rib fractures, management per primary team. Goals/ACP: Restorative. Conversation with patient and son Roman (his POA/HCA) today about next steps.Plan to discharge to post-acute care/rehab as soon as possible. Reviewed treatment preferences and any limitations. 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 Supportive Care: Patient seems capable of making his own medical decisions at this time, son and daughter both very supportive. If he is unable to communicate, he expressed that his son would make any decisions on his behalf. No critical decisions for family at this time, as patient's goals are clearly restorative. Subjective: Met with Mr. Shaikh in his room this afternoon, son Roman at bedside. Patient is alert and oriented, inno acute distress, pleasant. States that his ribs are still very tender and the pain is worst when he coughs, repositions, takes deep breaths, and laughes. Has told his son to stop making any jokes. Patient states he was able to get up and walk down the [place] a few times today, son confirms that heis much more steady, seems less drowsy from pain medications. Patient and son both ready for more information about plans for discharge, agreeable to some time in rehab so Mr. Shaikh can get the care he needs to return to functional baseline. Symptom-Focused ROS: Endorses chest pain with movement, inspiration, cough ROS otherwise negative Current Medications: Reviewed. Symptom related medications - -Scheduled: Tylenol, Flexeril, Gabapentin, Lidoderm patch -PRN: Oxycodone, Dilaudid PERTINENT PHYSICAL EXAMINATION: General: Sitting comfortably in bed, no acute distress Neuro: alert and oriented x 4 Cardiovascular: Extremities well perfused Respiratory: Breathing comfortably on room air, equal chest rise, no use of accessory muscles Abdomen: Nondistended Extremities: Moves extremities equally Psych: WNL, no focal deficits I have reviewed the following labs and imaging: PANEL BASIC METABOLIC (BMP) (06/18/2024 05:14) CBC WITH PLATELET (06/18/2024 05:14) XR CHEST 1 VIEW AP OR PA* (06/18/2024 06:21) XR SCAPULA LEFT AP + LAT (06/15/2024 14:56) Tosin Teixeira MS, 06/18/2024 4:00 PM Palliative Medicine Staff, on [employer] Associated attestation - Geovani Grullon MD - 06/18/2024 4:33 PM CDT FACULTY NOTE Pt seen and examined with Medical Student; agree with all documentation/findings, including history, physical exam, and/or medical decision making. I personally performed/re-performed the physical exam and medical decision making activities of the E/M service being billed. Medium Complexity (MDM): [x] Patient has 1+ chronic illnesses with exacerbation or side effect of treatment OR 1+ undiagnosed new problem with uncertain prognosis, OR 1+ acute illness w/systemic symptoms, OR 1+ acute complicated injury --AND-- Complexity of Data (Need 1) [] I discussed plan of care and/or test interpretations with the medical, case management, therapy and/or nursing team [x] I interpreted tests someone else ordered (reviewing labs/imaging) [x] I reviewed external notes, internal or external tests, AND took further history from family or facility --OR-- Morbidity (Need 1): [] Patient has Social Determinants of Health that significantly impact their treatment plan [] Medication management recommendations ACP Time (in addition to separately billed codes): minutes Geovani Grullon MD, 06/18/2024 4:33 PM Palliative Medicine, on [employer] * Darien Helton - 06/18/2024 2:37 PM CDTSummary: Post Acute Referrals Images from the original note were not included. Post Acute Referrals Referrals to post acute placement have been sent. Updates about referral status can be seen below .This note will continue to be updated by the case management team. Addendum history can be seen below. CC spoke with patient's son. Son was with patient in room. They are ok DC plan and would like referrals sent to places around [place] and [place] where his children live. Choice(s) given to patient/family. Destinations updated. Preferred place(s) marked with a star. Patient/family aware we can't guarantee placement in their preferred place, this is up to facility, insurance coverage and bed availability. Spoke with nurse at [phone] from the [facility]. She confirmed patient doewsn't currently receive anyservices. He is completely independent. Furthermore, they are NOT a SNF and will not be able to provide RN/PT/OT services. Patient would have to go to SNF. Continued Care and Services - Admitted Since 06/15/2024 Destination Service Provider Request Status Selected Services Address Phone Fax Patient Preferred [facility] Pending - Request Sent N/A [address] [facility] [address] [phone] -- [facility] Pending - Request Sent N/A [address] [facility] [address] [phone] -- [facility] Pending - Request Sent N/A [address] [place] [address] [phone] [facility] Pending - Request Sent N/A [address] [facility] [phone] [facility] Pending - Request Sent N/A [address] [facility] [phone] [facility] Pending - Request Sent N/A [address] [place] [facility] [address] -- [facility] Pending - Request Sent N/A [address] [facility] [address] [phone] -- [facility] Pending - Request Sent N/A [address] [address] -- [facility] Pending - Request Sent N/A [address] [facility] [address] [phone] -- [facility] Pending - Request Sent N/A [address] [facility] [address] [phone] -- Home [facility] No active coordination exists for this encounter. * Bri Carpenter APRN, JOJO - 06/18/2024 2:29 PM CDT BLUE SURGERY TRAUMA PROGRESS NOTE Jennifer Shaikh : 1940 Sex: male ASSESSMENT: Jennifer Shaikh is a 83 y.o.male with no past medical history on file. Admitted on 06/15/2024 after a fall. The patient does not remember what happened, but was getting up from his chair to go to the bathroom during the night when he fell, woke up in the morning on the floor. On waking up he had pain in his left chest and shoulder. He presented to OSH for evaluation and was found to havemultiple rib fractures, concern for left sided scapula fracture. Orthopedic surgery consulted but no intervention necessary.Tertiary exam negative for any acute findings. Therapies ordered and patient will need a ML placement after discharge. Currently lives in a [facility], they are unable to provide the cares he needs. Family is open to ML placement>> referrals are being sent today>>>he is medically ready for discharge KNOWN INJURIES: - Left 4th-9th rib fractures with multiple fractures on ribs 4-7 (possible flail chest). - Possible small hemothorax on L - LLL atelectasis - Possible L scapula fx (non-op per ortho) PLAN: 24hr: - Work with PT/OT today - Has remained on room air, endorsing some increased pain upon waking this morning Neuro/Pain: Scheduled: Tylenol, Flexeril, Gabapentin, Lidoderm patch PRN: Oxycodone, Dilaudid CV: History of CAD s/p KASSIDY, hypertension Cardiac monitoring Monitor blood pressures PRN Hydralazine ordered Resp: Ground level fall resulting in left 4th-9th rib fractures with multiple fractures on ribs 4-7(possible flail chest), possible small hemothorax on L, LLL atelectasis Supplemental oxygen as needed LACE IS use Encourage upright and ambulation as able GI: Diet: Regular Bowel regimen: Miralax daily and senna BID Zofran PRN Renal/Lytes: With normal limits. Daily BMP Replete electrolytes as needed Hemo: With normal limits. Daily CBC Replace Hgb if <7 Endo: With normal limits Continue to monitor blood glucoses ID: Afebrile. No indication for antibiotics at this time Wound Care: N/A Activity: Up with assist DVT prophylaxis: Mechanical: SCDs Will initiate chemical DVT ppx today, no contraindications noted PT/OT: Ordered Dispo: Pending pain control and recommendations from therapies. SUBJECTIVE: reports mild pain at rest, feels comfortable if he is not moving, severe pain with movement, repositioning or coughing. Agreeable to rehab after discharge, has no other complaints PHYSICAL EXAM: Vital Signs: Temp Av.4 ??C (97.6 ??F) Min: 36 ??C (96.8 ??F) Max: 36.7 ??C (98.1 ??F) Pulse Av.2 Min: 69 Max: 82 Resp Av.6 Min: 13 Max: 19 BP Min: 116/66 Max: 156/83 SpO2 Av.8 % Min: 93 % Max: 98 % General: Resting comfortably in bed, no acute distress Neuro: alert and oriented x 4 Cardiovascular: Regular rate, extremities warm and well perfused Respiratory: Breathing comfortably on room air. Equal chest rise. Not using accessory muscles, chest pain to associated rib fx with movement and repositioning Abdomen: Soft, nontender, and nondistended Extremities: Bilateral lower extremities equal range of motion MSK: some limitation to BUE ROM 2/2 pain, otherwise WNL Psych: WNL LABS: Lab Results Component Value Date/Time WBC 8.80 06/18/2024 0514 RBC 3.13 (L) 06/18/2024 0514 HGB 11.4 (L) 06/18/2024 0514 HCT 34.8 (L) 06/18/2024 0514 PLT 172 06/18/2024 05 MCV 111.2 (H) 06/18/2024 05 MCH 36.4 (H) 06/18/2024 05 MCHC 32.8 06/18/2024 0514 RDW 12.5 06/18/2024 05 MPV 9.4 06/18/2024 0514 NEUTNO 8.59 (H) 06/15/2024 1228 LYMPHAB 0.71 (L) 06/15/2024 1228 MONOABSNO 1.08 (H) 06/15/2024 1228 EOSNUMB 0.07 06/15/2024 1228 BASO 0.06 06/15/2024 1228 Lab Results Component Value Date/Time NA 136 06/18/2024 0514 K 4.8 06/18/2024 0514 CHLORIDE 104 06/18/2024 0514 CO2 24 06/18/2024 0514 GLU 106 (H) 06/18/2024 0514 UN 19 06/18/2024 0514 CR 1.15 06/18/2024 0514 CA 8.7 (L) 06/18/2024 0514 RADIOLOGY: No new imaging today. Labs: reviewed Patient seen with staff: Bri Dawson S, IMMIGRATION SERVICES OFFICER, [employer], 06/18/2024 2:29 PM Discharge Milestones: Diet Tolerated?: Yes Mobility Level Appropriate for Discharge?: Yes - ML planned discharge Pain Controlled?: Yes - On oral discharge regimen Associated attestation - Zeina Arias MD - 06/19/2024 9:01 AM CDT FACULTY WITH GERRY: I saw and evaluated the patient yesterday. I discussed with the team and agree with the findings and plan documented in the GERRY's note. Any revisions by me are documented. Zeina Arias MD, 06/19/2024 9:01 AM Attending Physician General/Trauma Surgery Surgical Critical Care * Darien Helton - 06/18/2024 11:29 AM CDTSummary: Care Coordination Assessment Problem: Discharge Planning Goal: Discharge planning for a safe and timely discharge Outcome: In progress Goal: Patient/Family Goals for Discharge Outcome: In progress Care Coordination Assessment Expected DC Date: 06/20/2024 Social Information Photogrammetric Stereo Compiler Used: None needed Decision Maker at Admission: Self Living Situation: Assisted living (see comment) (Lives in [place] but receives no services, he is in the independent section) Patient Identified Support System: 2 kids that live nearby Services Receiving: None Complex Medical Needs: Other (see comment) (TBD by therapies) Transportation Used for Discharge: Family vs WC ride Safety Concerns: None Behavioral Health Concerns: None Patient Family Goals Patient's Discharge Goal: Home Family's Discharge Goal: n.a Plan/Interventions Expected Discharge Disposition: Home or Self Care Was Patient Choice Provided?: Yes Who was Choice Provided to?: Patient Patient Information Verification Verified demographic information, including SSN, Next of Kin, and Guardianship: Yes Verified PCP: Yes If post-acute placement is needed, have vaccination status needs been addressed?: Yes Risks for Readmission: Other (see comment) 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 No, he would like to go back to [facility] Patient says his/her PCP is: Alejandra Mclean MD [facility] notification sent via Care Everywhere * Venecia Floyd RT - 06/17/2024 3:50 PM CDT Respiratory Therapy LACE (Lung and Airway Clearance and Expansion) Protocol Assessment The patient is currently diagnosed or at risk for developing: Atelectasis I have evaluated this patient, and my recommended therapeutic regimen is: Incentive Spirometry Q1 hour W/A (Self-directed) Instruction has been provided. Pt reached about 1500 ml on IS. Pt was instructed to repeat 5-10 time every hour while awake. Will continue to monitor and assess. Venecia Floyd RT, 06/17/2024 4:05 PM * Robert Epstein MD - 06/17/2024 10:39 AM CDT BLUE SURGERY TRAUMA PROGRESS NOTE Jennifer Shaikh : 1940 Sex: male ASSESSMENT: Jennifer Shaikh is a 83 y.o.male KNOWN INJURIES: - Left 4th-9th rib fractures with multiple fractures on ribs 4-7 (possible flail chest). - Possible small hemothorax on L - LLL atelectasis - Possible L scapula fx (non-op per ortho) PLAN: 24hr: - Work with PT/OT today - Has remained on room air, endorsing some increased pain upon waking this morning - CXR ordered for AM Neuro/Pain: Scheduled: Tylenol, Flexeril, Gabapentin, Lidoderm patch PRN: Oxycodone, Dilaudid CV: History of CAD s/p KASSIDY, hypertension Cardiac monitoring Monitor blood pressures PRN Hydralazine ordered Resp: Ground level fall resulting in left 4th-9th rib fractures with multiple fractures on ribs 4-7(possible flail chest), possible small hemothorax on L, LLL atelectasis Supplemental oxygen as needed LACE IS use Encourage upright and ambulation as able GI: Diet: Regular Bowel regimen: Miralax daily and senna BID Zofran PRN Renal/Lytes: With normal limits. Daily BMP Replete electrolytes as needed Hemo: With normal limits. Daily CBC Replace Hgb if <7 Endo: With normal limits Continue to monitor blood glucoses ID: Afebrile. No indication for antibiotics at this time Wound Care: N/A Activity: Up with assist DVT prophylaxis: Mechanical: SCDs PT/OT: Ordered Dispo: Pending pain control and recommendations from therapies. SUBJECTIVE: Endorses more pain upon waking this morning, tolerable. Has been eating and drinking appropriately. PHYSICAL EXAM: Vital Signs: Temp Av.9 ??C (98.4 ??F) Min: 36.2 ??C (97.2 ??F) Max: 37.4 ??C (99.4 ??F) Pulse Av.9 Min: 66 Max: 80 Resp Av Min: 12 Max: 20 BP Min: 128/81 Max: 160/87 SpO2 Av.8 % Min: 92 % Max: 96 % General: Resting comfortably in chair, no acute distress Cardiovascular: Regular rate, extremities warm and well perfused Respiratory: Breathing comfortably on room air. Equal chest rise. Not using accessory muscles Abdomen: Soft, nontender, and nondistended Extremities: Bilateral lower extremities equal range of motion LABS: Lab Results Component Value Date/Time WBC 11.01 (H) 06/17/2024 0724 RBC 3.33 (L) 06/17/2024 0724 HGB 12.3 (L) 06/17/2024 0724 HCT 36.6 (L) 06/17/2024 0724 PLT 158 06/17/2024 0724 MCV 109.9 (H) 06/17/2024 0724 MCH 36.9 (H) 06/17/2024 0724 MCHC 33.6 06/17/2024 0724 RDW 12.3 06/17/2024 0724 MPV 9.3 06/17/2024 0724 NEUTNO 8.59 (H) 06/15/2024 1228 LYMPHAB 0.71 (L) 06/15/2024 1228 MONOABSNO 1.08 (H) 06/15/2024 1228 EOSNUMB 0.07 06/15/2024 1228 BASO 0.06 06/15/2024 1228 Lab Results Component Value Date/Time NA 136 06/17/2024 0724 K 4.4 06/17/2024 0724 CHLORIDE 106 06/17/2024 0724 CO2 22 06/17/2024 0724 GLU 112 (H) 06/17/2024 0724 UN 16 06/17/2024 0724 CR 1.08 06/17/2024 0724 CA 8.9 06/17/2024 0724 RADIOLOGY: No new imaging today. Kate Polanco MD, 06/17/2024 10:39 AM General surgery resident, PGY-2 Blue Surgery Service Surgery Discharge Milestones (Inpatient Primary Team only): FACULTY NOTE I saw and evaluated the patient on the date of the residents note. I discussed and agree with the resident???s findings and plan outlined in the note above. Any revisions by me are documented. Robert Epstein MD, 06/17/2024 10:16 PM * Laura Miller RN - 06/15/2024 11:20 PM CDT NURSING ADMISSION NOTE Jennifer Shaikh : 1940 SEX: male D: Jennifer Shaikh was admitted to [facility] from ED at 2310 for Closed fracture [...] History of Present Injury Event: BIBA from [place]. Patient had a fall last night, found [...] Temp: 36.8 ??C (98.3 ??F) (06/15/24 1116) Stefano Coma Scale: Motor 6=Obeys commands Verbal 5=Oriented [...] NPO until final reads on radiography Consult SENIOR TRAINING AND DEVELOPMENT REP and keep strict NPO if SENIOR TRAINING AND DEVELOPMENT REP consult not indicated at this time Aspiration [...] Tong PA-C Authorized by: Desi Joel MD Consent: Consent obtained: Verbal and written Consent given by: Patient and guardian Risks, benefits, and alternatives were discussed: yes Risks discussed: Allergic reaction, bleeding, infection, intravenous injection, nerve damage, pain,swelling and unsuccessful block Alternatives discussed: No treatment, delayed treatment and alternative treatment [place] protocol: Procedure explained and questions answered to [...] PA-C, 06/15/2024 2:04 PM Associated attestation - Desi Joel MD - 06/15/2024 2:25 PM CDT I was present for the entire procedure. Desi Joel MD, 06/15/2024 2:25 PM documented in this encounter Consult Notes * Christie Dimas PharmD - 06/19/2024 12:15 PM CDTAssociated Order(s): DISCHARGE MED REC FINAL REVIEW BY PHARMACY PHARMACY DISCHARGE NOTE Jennifer Shaikh : 1940 Sex: male Pharmacy service was consulted for review of patient's discharge medications. Assessment: Pertinent points to note: -- Discontinued atenolol, benazepril, and Imdur I have reviewed the patient's medications for discharge and have discussed the necessary changes with the provider. Changes have been made and medication list updated and complete. Please page with any questions. Christie Dimas PharmD 06/19/2024 12:15 For questions regarding this note, please contact pharmacist on service at [facility] ([facility]) [phone]. If no response within needed timeframe, please contact central pharmacy via phone at [phone]. Planned discharge medications are: Medication List Medications Indications acetaminophen 325 mg tablet Commonly known as: TYLENOL Take 3 tablets (975 mg) by mouth 3 times daily. New cyclobenzaprine 5 mg Tabs Commonly known as: FLEXERIL Take 1 tablet (5 mg) by mouth 3 times daily for 7 days. New DSS 100 MG Capsule Take 100 mg by mouth twice daily for 7 days. Indications: Constipation Indications: Constipation New GABApentin 100 mg capsule Commonly known as: NEURONTIN Take 1 capsule (100 mg) by mouth 3 times daily. New levothyroxine 100 mcg tablet Commonly known as: SYNTHROID Administer in the morning on an empty stomach, at least 30 minutes before food. Start taking on: June 20, 2024 DIRECTOR CASE MANAGEMENT medication lidocaine 5% patch Commonly known as: LIDODERM Apply for 12 hours then remove for 12 hours Start taking on: June 20, 2024 New lisinopril 20 mg Tabs Commonly known as: PRINIVIL;ZESTRIL Take 1 tablet (20 mg) by mouth daily. Start taking on: June 20, 2024 New. Change from benazepril oxyCODONE 5 mg tablet Commonly known as: ROXICODONE Take 1-2 tablets (5-10 mg) by mouth every 6 hours as needed for Pain. New polyethylene glycol 3350 17 g Packet Commonly known as: MIRALAX;GLYCOLAX Take 17 g by mouth daily.Take 1 capful to 17 gm robert mixed with full glass of water every day as directed. Start taking on: June 20, 2024 New sennosides 17.2 mg Tabs Commonly known as: SENOKOT Take 1 tablet (17.2 mg) by mouth twice daily. New * Rivka Turpin - 06/18/2024 5:16 PM CDTAssociated Order(s): CONSULT TO MUSIC THERAPY MUSIC THERAPY VISIT SUMMARY Jennifer Shaikh : 1940 Sex: male LOS: 3 days Provider: LESLEY Long Date of Session: 06/18/24 Time of Session: 4:50-5:10 p.m. Reason for Visit: Referral and Assessment Summary of Visit: Patient was reclined in his hospital room bed eating dinner. Patient's son was sitting on a chair nearby. Commercial Decorator greeted the men, introduced herself, and offered music. Patient welcomed Commercial Decorator. Commercial Decorator sat on a chair facing Patient with her guitar on her lap. Patient began to cry. Commercial Decorator sat quietly as Patient struggled to speak and Patient's son spoke softly to Patient. Patient's son then explained to Commercial Decorator that the last time someone came with a guitar was the day Patient's andthey sang her favorite hymns. Commercial Decorator asked Patient if he would like music today and Patient said yes. Commercial Decorator played upbeat patient-preferred music. Patient and Patient's son sang along with Commercial Decorator and harmonized. Patient continued to be tearful throughout the session. Patient's son, Patient and Commercial Decorator chatted between songs. After a time, Commercial Decorator ended the session and Patient's son thanked Commercial Decorator for visiting after reminiscing about growing up in his parents' house and making music together as a family. Commercial Decorator offered to stop by again if Patient is around when Commercial Decorator returns to the hospital on Tuesday. Patient and his son thanked Commercial Decorator. Goals Addressed: Opportunity for Emotional Expression, Opportunity for Creative Self-Expression, Emotional Support, and Caregiver Support Plan: Commercial Decorator will continue to offer music therapy to Patient when possible. Rivka Turpin, 06/18/2024 5:16 PM * Saroj William, PT - 06/18/2024 11:39 AM CDT Images from the original note were not included. PHYSICAL THERAPY INPATIENT ACUTE EVALUATION Jennifer Shaikh was seen 06/18/2024 for a Physical Therapy Evaluation. PT Discharge Recommendations Discharge Recommendations: Post-acute placement recommended. (vs. home in 1-3 visits) Sub-Acute Rehab facility Barriers to discharge to home/community: If discharging to home, would need: Post discharge follow-up: PT at post-acute placement Equipment Status: Patient will provide own equipment PT Equipment Recommended: Four wheeled walker PM&R Recommended: DIAGNOSIS Patient Active Problem List Diagnosis Closed fracture of multiple ribs of left side, initial encounter PT Treatment Diagnosis: Difficulty in Walking R 26.2 PRECAUTIONS Falls Photogrammetric Stereo Compiler Used: None needed ACTIVITY Up with Assist Physical Therapy Orders: Orders Placed This Encounter Procedures PT EVALUATION AND TREATMENT Standing Status: Standing Number of Occurrences: 1 Order Specific Question: Reasons for eval? Answer: As Per Dx Order Specific Question: OK for out of bed activity? (Update Activity Order) Answer: Yes HISTORY Pertinent History: See MD H&P Note Medical History No past medical history on file. SOCIAL HISTORY Lives in an independent living apartment that can receive attached services a miky eubanks. He currently had not been receiving any previous services. Used a 4ww for mobility in the hallways and out of the apartment, but no device when ambulating to the bathroom Has a couple of children nearby that can assist more as well. SUBJECTIVE Patient's Stated Goals: To return home, have his lunch and return to bed Pain: Mild when coughing (left sided rib pain) Mental Status: Alert and Cooperative Follows Direction: Yes, 3 step OBJECTIVE Initial patient presentation upon PT arrival: Sitting Skin: Intact Braces/Splints: None Lines: Peripheral IV Telemetry Restraints/Fall Management: None Vital Signs: Vital Signs 06/18/2024 0449 06/18/2024 0800 06/18/2024 0834 BP: 131/82 -- 156/83 Patient Position for BP: Lying Down Lying Down Lying Down Pulse: 69 82 -- SpO2: 96 % 95 % -- Room Air- slight desaturation following ambulation to 87%, rebounds within 1 minute on RA > 90% Sensation: LE: Light touch: Within Normal Limits: Yes Motor: ROM/Strength: Right Left Lower Extremity: Range of Motion Grossly WNL Strength Hip Flexion: 5/5 Knee Extension: 5/5 Dorsiflexion: 5/5 Lower Extremity: Range of Motion Grossly WNL Strength Hip Flexion: 5/5 Knee Extension: 5/5 Dorsiflexion: 5/5 Transfers & Bed Mobility: Sit to Stand: Supervision, Set-Up or Standby Prompting Stand to Sit: Supervision, Set-Up or Standby Prompting Gait Evaluation: Distance: 15 meters x 1 with Fww 50m x 1 with 4ww- SBA/CGA Assistance (Level): Supervison,Set up or Standby Prompting- Patient requires standby supervision, cueing or coaxing to walk, or patient walks only short distances independently with or without a device (household exception). Gait Deviations: LE tremulous upon first standing bilateral flexed knees and forward flexed truncalposture L LE ER occasional catch on the floor, close to hitting wheel of walker Stairs: Number of Stairs: NT Balance: Sitting: Unsupported: Independent Standing: Fair Education/Other: Discussion of importance of OOB activity while in the hospital if he wants to return home Positioning: Needing increased assistance to go sit to supine d/c pain of ribs Interdisciplinary Communication: OT: handoff RN: Cleared Treatment rendered: Gait training;Transfer training;Positioning Total treatment time: 35 minutes ASSESSMENT Jennifer Shaikh is a 83 y.o. male presents following a fall at home, down likely for about 6 hours with +LOC before he was able to get himself up again. L sided rib fx's, questionable L scapular fx. Hedemonstrates initial instability with STS movement, requires the use of an walker for stability. Certainly shows better ambulation with the 4ww, however this does begin to get away from him as he fatigues. No overt LOB, but signs of instability and SOB. Increased assistance required for sit > supine tx d/t rib pain. May benefit from post acute rehab vs. Home in 1-3 days pending his progress inPT. Encouraged him to continue mobilizing. Patient will benefit from continued skilled PT services to progress towards goals. See Care Plan for goals. PLAN Patient will be seen 2-4x/wk until goals are met or patient is discharged. Next visit the plan is to work on Advancing gait distances, STS reps, supine <> sit practice with log rolling for rib pain. DIRECTOR CASE MANAGEMENT Appropriate: Yes Participated in goal setting and treatment planning: Patient Agrees with goals and treatment plan: Patient - Yes. Saroj William, PT 06/18/2024 Pager: [facility] PT Department * Jackie Burden, OTR/L - 06/18/2024 10:48 AM CDT OCCUPATIONAL THERAPY ACUTE INITIAL EVALUATION Jennifer Shaikh 06/18/2024 OT Discharge Recommendations Discharge Recommendations: Safety risk for discharge to home today. Vs. ML pending progress. Barriers to discharge to home/community: Additional assessment/treatment needed;High falls risk Post Discharge Follow-up: Home OT to address: (*) Equipment Recommended: None - Pt has all equipment needed OT In-patient follow-up / recommended referrals: Continue skilled OT services to achieve the goals on the plan of care / maximize safety and independence with ADL's / IADL's: - Recommended Frequency: Daily - Anticipated Duration of OT services: 1-2 more sessions Patient Name: Jennifer Shaikh : 1940 Age: 83 y.o. Hospital Admit date: 06/15/2024 Today's Date: 06/18/2024 Occupational Profile Medical History relevant to OT referral: Primary Diagnosis: Principal Problem: Closed fracture of multiple ribs of left side, initial encounter Resolved Problems: * No resolved hospital problems. * Treatment Diagnosis: Need for assessment of motor function related to ADL's / IADL's to ensure safeDC planning. Restrictions/Precautions: Activity Level: Up with Assist General Precautions: High falls risk Hospital Course: see MD notes Past Medical History No past medical history on file. Living Situation/Social History: Information obtained From: patient Help Available at home: yes, but not 24 hour Patient is living in a/an : senior apartment (independent living apt, can pay for increased services) Stairs Required to enter the home: none Stairs required once inside the home: none - elevator available Bathroom set up: walk in shower Vocation Status: retired Transportation: at baseline patient: pt drives (short distances) Mobility equipment currently available/used: four wheeled walker with seat ADL Equipment currently available/used: tub / shower chair;grab bars;lift chair (normally sleeps inregular bed, but could sleep in recliner if needed) Prior Level of Function: ADLs/IADLs: Received assistance from staff at residence Assistance with:: cleaning;meal preparation (gets one meal per day in dining coley, otherwise prepares own meals. does own shopping) Functional Mobility: Modified independent using AD (comments) Evaluation Subjective: Pain: Pain Rating With Activity (Numeric): 4/10 Location: rib fx Participation Significantly Limited?: No Action Taken: Repositioned patient with reported relief;Patient states no intervention needed, painis tolerable Patient Appearance: Lines- Peripheral IV(s) Monitoring/Devices- Telemetry Vitals: VSS O2 sats low-mid 90s on RA with activity Upper Extremity Function: Bilateral UE ROM, strength, coordination, and sensation are WFL for basic self-cares. Activities of Daily Living: Eating: Modified independence Eating Comments: seated in chair Grooming: Supervision/Stand by assist Grooming Comments: stnading at sink Toileting: Supervision/Stand by assist Toileting Comments: on regular toilet; may need asst for pericares after BM Lower Body Dressing: Supervision/Stand by assist Lower Body Dressing Comments: extra effort, able to reach down to doff/don socks Functional Mobility: Supine to/from Sit: Modified independence (HOB elevated - has recliner chair at home he can sleep in if needed) Sit to/from Stand : Supervision/Stand by assist Sit to/from Stand - Method: From standard seat height;w/ Assistive device (FWW) Bed to/from Chair: Supervision/Stand by assist Toilet Transfer: Supervision/Stand by assist Toilet Transfer- Method: Grab bar Bed to Bathroom: Supervision/Stand by assist Bed to Bathroom- Method: Front wheeled walker Functional Mobility in Room- Task Done: ambulated household distance in hallway Functional Mobility in Room: Minimal assist (75% patient effort) (CGA) Functional Mobility in Room- Method: Front wheeled walker (slowed, stooped posture - likely 2/2 pain) Activity Tolerance/Endurance: Patient tolerates sitting at edge of bed sitting in chair standing at bedside standing at sink without SOB. Pt able to complete functional mobility within room and hallway environment with FWW and CGA Cognition: Mental Status: Alert;Oriented x 3;Cooperative;Follows 3 step directions Delirium assessment: Confusion Assessment Method (CAM) Delirium prevention / intervention appears indicated? No. Insight: Pt demonstrates insight into current condition and related safety considerations - Yes Problem solving: Pt able to complete basic functional problem solving - Yes Visual Perception: Pt reports visual changes - No Additional Treatment / Education Provided: Education / training was provided to patient regarding : - Activities of daily living (ADL's): Energy conservation - Safety during ADL's / IADL's: Requires min verbal cues for safety - Functional mobility / transfer training: Walker safety and sit<->stand - role of OT, dc recs Interdisciplinary Communication: RN: sara for OT PT: pt status/handoff Barriers to Learning: none identified Rehab Potential: good ASSESSMENT: Pt admitted from [facility] for GLF when getting up from chair in the middle of the night. Typically he is mod I with 4ww for all ADLs. Can have increased asst (paid) at his [facility], just needs to set it up. He also has a DIL that lives near by and is retired and can asst with tasks if needed. Today he is below baseline. He may be able to DC directly home with home therapy and increased asst forIADLs in 1-2 sessions. Will follow up next date and update recs as appropriate. (See box at the top of note for additional information) Impairments: This patient demonstrates impairments in the following: Functional mobility Endurance / activity intolerance Performance Deficits / Activity Limitations: The impairments listed above affect the patient's ability to safely and independently engage in the following occupations : Activities of Daily Living (ADL's) including: Toileting and/or toilet hygiene, Bathing / showering,and Functional mobility All Instrumental Activities of Daily Living (IADLS's) (i.e. meal prep, money management, community mobility, shopping, etc.) Patient's Stated Goals: what ever you guys recommend PLAN: See box at top of note for additional information. See care plan for OT goals (if indicated). Participated in goal setting and treatment planning: Patient Agrees with goals and treatment plan: Patient - Yes Plan For Next OT Session: --ADLs: Toileting strategies and Energy conservation --Functional Mobility/Transfers: Walker safety --Energy Conservation Total treatment time: 40 minutes OT interventions and time spent on each: Eval: 20 minutes Self care/Home mgmt/ADL: 20 minutes Therapist: RUPERTO Zaman/Jennifer Pager: [facility] Occupational Therapy Department * Geovani Grullon MD - 06/16/2024 3:02 [...] remember the fall itself) in his home ([facility] in [place], [place]). Evaluation was notable for multiple left [...] team Support Spiritual support- will ask our Manager Work to visit patient next week as his [...] MD, 06/16/2024 3:02 PM Palliative Medicine Available [employer] Advance Care Planning Primary Care: Alejandra Mclean [...] remember the fall itself) in his home ([facility] in [place], [place]). Evaluation was notable for multiple left sided rib fractures (possibly flail morphology) and possible small hemothorax. CT head and c-spine as well as A/P were negative for acute traumatic injuries. I met with Jennifer and his son and daughter as well as MADINA and his daughter's fiance. I asked Jenniferto tell me about life prior to being in the hospital and he shared that he has been living in [place], [place] since 2019. He lives in an [facility] but is very independent. He gets one meal per day provided in the cafeteria but otherwise does most of his own ADLs. He is still active in his yazidi and enjoys meeting with friends (having coffee at the local bakery). He also enjoys his family and watching sports (football and the Twins). He also enjoys reading (mystery). He is not as active as he used to be but still enjoys going to his family's cabin near [place], [place]. I asked their understanding of his [...] their hobbies, activities and interests, spirituality or latter-day, personal experience with end of life, and personal hopes, worries. Thisbackground is essential in understanding what is most important and how that can change throughout the course of a serious illness. This summary is an attempt to highlight that background. Social History Social History Narrative Jennifer's in 2018. 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 They have three children and multipel grandchildren (and greatgrandchildren). He is a Spiritual person and is Confucianist. He also sang in a men's choir [...] (in addition to separately billed codes): minutes * Tameka López MD - 06/15/2024 2:02 PM CDT [facility] ORTHOPAEDIC SURGERY CONSULT - HISTORY AND PHYSICAL DATE OF CONSULT: 06/15/2024 14:02 REQUESTING PROVIDER: Desi Joel MD - [facility] [facility]. CC: left shoulder pain/chest wall pain DATE OF INJURY: 06/14 HISTORY OF PRESENT ILLNESS: Jennifer Shaikh is a 83 y.o. RHD male who presents as a transfer from [facility] ([facility] for trauma evaluation. He is accompanied by his son. He reports that he does not remember what happened, but was getting up from his chair late last night to go to the bathroom when he fell, woke up on the floor. He had pain in his left chest and shoulder. He presented to [facility] for evaluation and was found to have multiple rib fractures, concern for left sided scapula fracture. Per patient, he does not have any pain in the shoulder at this time, pain localized to left ribcage. Denies any numbness/tingling. He lives alone in an apartment in a shelter community. He walks with a walker at baseline, history of chronic bilateral hip pain. He also had a TIA about 3 years ago, but denies any residual functional deficits. He takes care of himself at baseline, drives, and does his own ADLs. Denies numbness, tingling, or weakness to the affected extremities. Denies fevers, chills, nausea, vomiting, diarrhea, constipation. Does endorse some chest pain and pain with deep inspiration. PAST MEDICAL HISTORY: No past medical history on file. Patient denies any personal history of bleeding disorders, clotting disorders, or adverse reactionsto anesthesia. PAST SURGICAL HISTORY: No past surgical history on file. MEDICATIONS: None Current Facility-Administered Medications Medication Route Frequency acetaminophen (TYLENOL) tablet 975 mg Oral q6h No current outpatient medications on file. ALLERGIES: Patient has no known drug allergies. SOCIAL HISTORY: Occupational History Not on file Tobacco Use Smoking status: Not on file Smokeless tobacco: Not on file Substance and Sexual Activity Alcohol use: Not on file Drug use: Not on file Sexual activity: Not on file Social History Narrative Not on file Lives alone in shelter community, denies tobacco use, daily cocktail at night, ambulates with walker FAMILY HISTORY: No family history on file. Patient denies known family history of bleeding, clotting, or anesthesia related complications. REVIEW OF SYSTEMS: Otherwise a 10-point reviews of systems was negative except as noted above in the HPI. PHYSICAL EXAM: Vitals: 06/15/24 1116 06/15/24 1117 06/15/24 1233 BP: 182/93 191/98 Cuff Location: Right Arm Right Arm Patient Position: Lying Down Lying Down Pulse: 74 72 70 Resp: 17 17 Temp: 36.8 ??C (98.3 ??F) TempSrc: Oral Oral SpO2: 95% 95% 97% General: Awake, alert, appropriate, following commands, NAD. Neuro: extra ocular movements grossly intact. Skin: No rashes, skin color normal. HEENT: Normal. Lungs: Breathing comfortably and nonlabored, no wheezes or stridor noted. Heart/Cardiovascular: Regular pulse, no peripheral cyanosis. Right Upper Extremity: No gross deformity, skin intact. No significant tenderness to palpation overclavicle, AC joint, shoulder, arm, elbow, forearm, wrist. Normal ROM shoulder, elbow, wrist withoutpain. Motor intact distally with finger flexion/extension/intrinsics/EPL, OK sign 5/5 strength. SILT ax/m/r/u nerve distributions. Radial pulse palpable, 2+. Left Upper Extremity: No gross deformity, skin intact. No significant tenderness to palpation over clavicle, AC joint, shoulder, arm, elbow, forearm, wrist. Normal ROM elbow, wrist without pain. Painwith shoulder ROM in the chest wall. Nontender over scapula. Motor intact distally with finger flexi on/extension/intrinsics/EPL, OK sign 5/5 strength. SILT ax/m/r/u nerve distributions. Radial pulse palpable, 2+. Right Lower Extremity: No gross deformity, skin intact. No significant tenderness to palpation overthigh, knee, leg, ankle/foot. No pain with ROM hip/knee/ankle. Motor intact distally TA/GSC/EHL/FHLwith 5/5 strength. SILT sp/dp/tibial/saph/sural nerves. DP/PT pulses palpable, 2+, toes warm and well perfused. Left Lower Extremity: No gross deformity, skin intact. No significant tenderness to palpation over thigh, knee, leg, ankle/foot. No pain with ROM hip/knee/ankle. Motor intact distally TA/GSC/EHL/FHL with 5/5 strength. SILT sp/dp/tibial/saph/sural nerves. DP/PT pulses palpable, 2+, toes warm and well perfused. LABS: Lab Results Component Value Date/Time WBC 10.53 (H) 06/15/2024 1228 HGB 13.2 06/15/2024 1228 PLT 185 06/15/2024 1228 CR 1.03 06/15/2024 1228 INR 1.0 06/15/2024 1228 IMAGING: CT CAP from OSH reviewed demonstrating no obvious fracture to left scapula, some evidence of degenerative wear. IMPRESSION: Jennifer Shaikh is a 83 y.o. male status-post GLF on 06/14 with multiple left sided rib fractures and concern for left nondisplaced scapula fracture on OSH CT read. Upon review of his imaging, no obvious fracture apparent in the left scapula. Exam reassuring. Dedicated scapula films ordered by the ED.No role for further orthopedic intervention. Patient can be WBAT on LUE without restrictions. No need for orthopedic follow up. Orthopedics team to sign off. Assessment and Plan discussed with Dr. López, ortho staff. Layne Salinas MD PGY3 Orthopedic Surgery FACULTY NOTE I saw and evaluated the patient on the date of the resident's note. I discussed with the resident and agree with the resident???s findings and plan documented in the resident???s note from above. Anyrevisions by me are documented. Tameka López MD, 06/18/2024 11:45 AM documented in this encounter ED Notes * [...] in real time. Please contact me via [employer] staff message if you note any errors requiring clarification. * Pete Rodriguez RN - 06/15/2024 11:09 AM CDT BIBA trauma tx from [place], Fell at 1130pm last night, 5 rib fx and L scapula, hit head LOC+ ctat [place] c-spine cleared. From [facility] living side of [place]. On floor 6-7 hrs. 2mg morphine on transfer from [place]. Sats ok on RA VSS ex HTN [...] history of similar symptoms. He was taken [facility] where they obtained head and [...] note, patients legal guardian and power of state attorney is his son who is at the bedside. Son states patient is mentating at his baseline. Additional information per senior product integrity engineer: KARYN trauma tx from [place], Fell at 1130pm last night, 5rib fx and L scapula, hit head LOC+ ct at [facility] c-spine cleared. [facility] of [place].On floor 6-7 hrs. 2mg morphine on transfer from [facility]. Sats ok on RA VSS ex HTN [...] of my shift. Their care was signedout [id number] with the oncoming provider, Ronnie Giraldo MD [...] Faye Tong PA-C, 06/15/2024 11:07 AM Physician Center Sales And Service Associate Post-Grad Trainee Program Dictation Disclaimer: Some notes are completed with voice-recognition dictation software. As a result, there may be errors in the script that have gone undetected. Errors are generally corrected in real time. Please contact me via [employer] staff message if you note any errors requiring clarification. * Tabitha Birmingham RN - 06/15/2024 10:18 AM CDT Report called from Ivelisse HUNTLEY at [facility] ED. Patient fell on way to bathroom, around 2300 last night and lives alone. Does not recall the fall. Was able to finally call 911 this morning. On Right scapular fracture and 5 rib fractures on left side. Head/neck CT negative. NSR. Pain controlled after one dose of Dilaudid 0.5mg. Alert and oriented X4. Moves all extremities normally. [id number]. Blood noted in urine this morning. Also noted on urinalysis at [facility] ED. 22g in left hand. Abrasion to left side of forehead. documented in this encounter Miscellaneous Notes * Interval Note Provider - Geovani Grullon MD - 06/19/2024 3:21 PM CDT Palliative Care has been following this patient. They have clear goals and we are not actively managing any symptoms. We will plan on signing off at this time but please do not hesitate to contact usfor any changes in clinical condition or if new questions arise. Geoavni Grullon MD Palliative Medicine * Discharge non-MD/non-GERRY Summaries - Darien Helton - 06/19/2024 11:57 AM CDT Summary: DC to ML/SNF/TCU Images from the original note were not included. Care Coordination Discharge Note Expected DC Date: 06/20/2024 Expected DC Time: 4 pm Final Discharge Destination: Selected Continued Care - Admitted Since 06/15/2024 Destination Coordination complete. Service Provider Selected Services Address Phone Fax Patient Preferred [facility] [place] [address] [facility] [address] [phone] Summary: Patient has been accepted to continue rehabing at the aforementioned post acute facility Patient michele board with plan. Commercial Decorator also confirmed with son via phone call. He is on board. WC ride has been ordered. CITY ADMINISTRATOR ([facility] Sales And Service Associate) will schedule. Check [id number] for confirmation. Medical team is aware. They will work writing DC orders. CC faxed DC orders to SNF Medical team is aware any controlled substances must be printed and signed to be sent in physical form to the TCU. PLEASE MAKE SURE RX IS COMPLETE. MAKE SURE QUANTITY IS ADDED. Also, PSC/RADIATION ENGINEER/RN will fax it to TCU julienne (this is required so in case of pain during transport, pain control can be addressed) Bedside nurse: please confirm this is done. A [employer] thread has been started. CC will continue to follow until DC. Please use [employer] for any further questions. * Nursing Assessment - Sierra Ferrer, YUKO - 06/19/2024 8:00 AM CDT Nursing Assessment Head to Toe Head to Toe Assessment Shift Summary Pt A/Ox4, endorses pain at rib fracture sites during coughing and repositioning pain managed with scheduled and prn medications.Using urinal at bedside, Bed alarm on for safety, no attempts to get out of bed unassisted this shift. Able to make needs known.discharge this afternoon. Continue POC.Verbal report given to Megan @1546 [facility] TCU ride is set up for 1600 please call son Roman to let him know he has been discharged. Neurologic/Cognitive Within Defined Limits Frequent Neuro Assessments have been documented in the flowsheets HEENT Assessment Within Defined Limits except for: Comments: Wears glasses Cardiac Within Defined Limits Respiratory Assessment Within Defined Limits except for: Breath Sounds Normal: Breath sounds normal: No Breath Sounds Assessment: Diminished All Lobes Wheezes, expiratory Crackles, coarse Anterior RLL and RUL Cough: Present Type: Nonproductive and congested Neurovascular Assessment Within Defined Limits except for: Neurovascular LUE Sensation: Sensation decreased Neurovascular RUE Sensation: Sensation decreased Neurovascular LLE Sensation: Sensation decreased Neurovascular RLE Sensation: Sensation decreased Gastrointestinal Assessment Within Defined Limits except for: Additional GI Signs/Symptoms: constipation Comments: Pt states last BM was prior to admission Genitourinary Assessment Within Defined Limits except for: Voiding: Hesitancy Musculoskeletal Assessment Within Defined Limits except for: Musculoskeletal Assessment: General Mobility: Mildly impaired Comments: 1-2A to get out of bed, 1A with walker out of bed Integumentary Assessment Within Defined Limits except for: Skin Assessment Integrity - see [employer] LDA documentation Patient Lines/Drains/Airways Status Active LDAs Name Placement date Placement time Site Days Peripheral IV 06/16/24 20 gauge Left;Posterior Forearm 06/16/24 4393 -- 2 Psychosocial Within Defined Limits Comments: Son visited during shift * Nursing Assessment - Bryant Steiner, YUKO - 06/19/2024 4:30 AM CDT Nursing Assessment Head to Toe Head to Toe Assessment Shift Summary A/Ox4, able to make needs known. Occasionally complains of chest discomfort/phlegm being stuck in throat, relieved by sitting up and coughing. No acute events overnight, reports decreased sensation in fingers and toes which is from falling on the ice many years ago. Has pain in ribs. Using call light appropriately. VSS on RA. Bryant Steiner, RN, 06/19/2024 4:35 AM Neurologic/Cognitive Within Defined Limits Frequent Neuro Assessments have been documented in the flowsheets HEENT Within Defined Limits Comments: Glasses Cardiac Within Defined Limits Respiratory Assessment Within Defined Limits except for: Breath Sounds Normal: Breath sounds normal: No Breath Sounds Assessment: Diminished Wheezes, expiratory RLL, RUL and RML Crackles, coarse RLL, RUL and RML Cough: Present Frequency: Intermittent Type: Productive Sputum: Sputum is Present Amount: Small Color: White Consistency: Thick Neurovascular Assessment Within Defined Limits except for: Comments: Decreased sensation in fingers/toes, states this is not new Gastrointestinal Within Defined Limits Genitourinary Within Defined Limits Musculoskeletal Assessment Within Defined Limits except for: Musculoskeletal Assessment: General Mobility: Generalized weakness Integumentary Within Defined Limits Patient Lines/Drains/Airways Status Active LDAs Name Placement date Placement time Site Days Peripheral IV 06/16/24 20 gauge Left;Posterior Forearm 06/16/242242 -- 2 Psychosocial Within Defined Limits * Nursing Assessment - Evelyn Amos RN - 06/18/2024 6:29 PM CDT Nursing Assessment Head to Toe Head to Toe Assessment Shift Summary Endorses pain at rib fracture sites during coughing- given PRN oxy and scheduled meds with partial relief. Takes a few meds at a time in separate med cups. Using urinal at bedside, states last BM wasprior to hospitalization- denies abdominal discomfort. Bed alarm on for safety- no attempts to get out of bed unassisted this shift. Able to make needs known. Neurologic/Cognitive Within Defined Limits Frequent Neuro Assessments have been documented in the flowsheets HEENT Assessment Within Defined Limits except for: Comments: Wears glasses Cardiac Within Defined Limits Respiratory Assessment Within Defined Limits except for: Breath Sounds Normal: Breath sounds normal: No Breath Sounds Assessment: Diminished All Lobes Wheezes, expiratory Crackles, coarse Anterior RLL and RUL Cough: Present Type: Nonproductive and congested Neurovascular Assessment Within Defined Limits except for: Neurovascular LUE Sensation: Sensation decreased Neurovascular RUE Sensation: Sensation decreased Neurovascular LLE Sensation: Sensation decreased Neurovascular RLE Sensation: Sensation decreased Gastrointestinal Assessment Within Defined Limits except for: Additional GI Signs/Symptoms: constipation Comments: Pt states last BM was prior to admission Genitourinary Assessment Within Defined Limits except for: Voiding: Hesitancy Musculoskeletal Assessment Within Defined Limits except for: Musculoskeletal Assessment: General Mobility: Mildly impaired Comments: 1-2A to get out of bed, 1A with walker out of bed Integumentary Assessment Within Defined Limits except for: Skin Assessment Integrity - see Avatar LDA documentation Patient Lines/Drains/Airways Status Active LDAs Name Placement date Placement time Site Days Peripheral IV 06/16/24 20 gauge Left;Posterior Forearm 09/21/24 2243 -- 1 Psychosocial Within Defined Limits Comments: Son visited during shift * Nursing Assessment - Kizzy Go RN - 06/18/2024 10:06 AM CDT Nursing Assessment Head to Toe Head to Toe Assessment Shift Summary A&Ox4, able to make needs known. Sating >90% on RA. Increased pain with turning to L ribs. Pills whole. PT/OT to see. Uses urinal. Resting between cares. Neurologic/Cognitive Within Defined Limits HEENT Within Defined Limits Cardiac Within Defined Limits Respiratory Assessment Within Defined Limits except for: Breath Sounds Normal: Breath sounds normal: No Breath Sounds Assessment: Wheezes, expiratory Posterior LLL Neurovascular Assessment Within Defined Limits except for: Neurovascular LUE Sensation: Sensation decreased and chronic Neurovascular RUE Sensation: Sensation decreased and chronic Neurovascular LLE Sensation: Sensation decreased and chronic Neurovascular RLE Sensation: Sensation decreased and chronic Gastrointestinal Within Defined Limits Genitourinary Within Defined Limits Musculoskeletal Assessment Within Defined Limits except for: Musculoskeletal Assessment: General Mobility: Generalized weakness Integumentary Within Defined Limits Patient Lines/Drains/Airways Status Active LDAs Name Placement date Placement time Site Days Peripheral IV 06/16/24 20 gauge Left;Posterior Forearm 06/16/242242 -- 1 Psychosocial Within Defined Limits * Nursing Assessment - Laura Miller RN - 06/18/2024 4:46 AM CDT Nursing Assessment Head to Toe Head to Toe Assessment Shift Summary Shift Summary Neurologic/Cognitive Within Defined Limits Frequent Neuro Assessments have been documented in the flowsheets HEENT Within Defined Limits Cardiac Within Defined Limits Counseling Center Director - remote telemetry Respiratory Assessment Within Defined [...] Peripheral IV 06/16/24 20 gauge Left;Posterior Forearm 06/16/242242 -- 1 Psychosocial Within Defined Limits * Nursing Assessment - Clair Grissom RN - 06/17/2024 3:41 PM CDT Nursing Assessment Head to Toe Head to Toe Assessment Shift Summary Shift Summary Neurologic/Cognitive Within Defined Limits HEENT Within Defined Limits Cardiac Assessment Within Defined Limits except for: Counseling Center Director - remote telemetry Respiratory Assessment Within Defined Limits except for: Breath Sounds Normal: Breath sounds normal: No Breath Sounds Assessment: Diminished AMI and LLL Wheezes, expiratory Posterior LLL Cough: Present Frequency: Intermittent Type: Nonproductive Neurovascular Assessment Within Defined Limits except for: Neurovascular LUE Sensation: Sensation decreased and chronic Neurovascular RUE Sensation: Sensation decreased and chronic Neurovascular LLE Sensation: Chronic and sensation decreased [...] Peripheral IV 06/16/24 20 gauge Left;Posterior Forearm 06/16/242242 -- less than 1 Psychosocial Within Defined Limits * Nursing Assessment - Clair Grissom RN - 06/17/2024 9:03 AM CDT Nursing Assessment Head to Toe Head to Toe Assessment Shift Summary Shift Summary Neurologic/Cognitive Within Defined Limits HEENT Within Defined Limits Cardiac Assessment Within Defined Limits except for: Counseling Center Director - remote telemetry Respiratory Assessment Within Defined Limits except for: Breath Sounds Normal: Breath sounds normal: No Breath Sounds Assessment: Diminished AMI and LLL Cough: Present Frequency: Intermittent Type: Nonproductive Neurovascular Assessment Within Defined Limits except for: Neurovascular LUE Sensation: Sensation decreased and chronic Neurovascular RUE Sensation: Sensation decreased and chronic Neurovascular LLE Sensation: Chronic and sensation decreased [...] Peripheral IV 06/16/24 20 gauge Left;Posterior Forearm 06/16/242242 -- less than 1 Psychosocial Within Defined [...] Within Defined Limits Cardiac Within Defined Limits Counseling Center Director - remote telemetry Respiratory Assessment Within Defined [...] Peripheral IV 06/16/24 20 gauge Left;Posterior Forearm 06/16/242242 -- less than 1 Psychosocial Within Defined Limits * Nursing Assessment - Clair Grissom RN - 06/16/2024 5:54 PM CDT Nursing Assessment Head to Toe Head to Toe Assessment Shift Summary Shift Summary Neurologic/Cognitive Within Defined Limits HEENT Within Defined Limits Cardiac Assessment Within Defined Limits except for: Counseling Center Director - remote telemetry Respiratory Assessment Within Defined [...] IVF PO pain Q2 neuro checks * Trauma Tertiary Exam - Yomi Jay APRN, CNP - 06/16/2024 1:51 PM CDT TRAUMA TERTIARY EXAM - COUNTER SERVER First Exam Jennifer Shaikh : 1940 Sex: male Subjective: Denies H/A, dizziness/lightheadedness, change in vision, chest pain, difficulty breathing, N/V, abdominal pain, numbness and tingling in BUE/BLE. A complete 10-point ROS was done and all systems negative except for what is documented in the HPI. Admit Date & Time: 06/15/2024 11:06 AM No past medical history on file. Mental Status Adequate for Exam: Yes Examiner: Yomi Jay APRN, CNP, 06/16/2024 1:51 PM Primary Team: [facility] Date/Time Completed: 06/16/2024 13:51 Vital Signs: Patient Vitals for the past 8 hrs: BP Pulse Resp Temp SpO2 06/16/24 1037 (!) 158/75 63 18 36.6 ??C (97.8 ??F) 94 % 06/16/24 0744 139/81 65 18 36.4 ??C (97.6 ??F) 93 % Glascow Coma Scale: Motor 6=Obeys commands Verbal 5=Oriented Eye opening 4=Spontaneous TOTAL 15 Neurologic: Alert and oriented, moves all extremities. CN II - XII grossly intact. HEENT Head: Normocephalic. No abrasions, lacerations or hematomas noted. Eyes: PERRLA, conjunctiva/corneas normal. Ears: Canals without blood or CSF drainage, TMs clear, external ears without lacerations. Nose/sinus: Septum midline, no crepitus with motion. Nares normal, mucosa pink, no sinus drainage and no sinus tenderness. Throat/Oropharynx: Oral mucosa without lacerations, teeth in place, tongue without lacerations. Face: Stable mid-face and no pain with palpation. No abrasions, lacerations or hematomas. Neck: No midline pain with palpation or active ROM. Chest: External Exam - No air, crepitus or pain with palpation. No lacerations, abrasions or contusions. Left rib cage pain. Known rib fractures Pulmonary: Breath sounds clear, symmetrical. No wheezes, rales, consolidation. Cardiovascular Heart: Regular rate and rhythm, S1, S2, no murmurs/rubs/gallops. Peripheral vascular: Bilateral carotid, radial, DP and PT pulses are palpable. Gastrointestinal Abdominal: Non distended, no scars, no lacerations. No tenderness or masses, organomegaly or peritoneal signs. Rectal: Not examined. Genitourinary: No lesions present, no injuries Musculoskeletal: Back: Non-tender, spine without tenderness or step-offs Muscular strength intact. Extremities: Upper: Right upper extremity joints: Non-tender to palpation over clavicle, shoulder, arm, elbow, forearm, wrist. Normal ROM shoulder, elbow, wrist without pain. Grossly moving upper extremities without issues. Radial pulse palpable. strength 5/5 Left upper extremity: Non-tender to palpation over clavicle, shoulder, arm, elbow, forearm, wrist. Normal ROM shoulder, elbow, wrist without pain. Grossly moving upper extremities without issues. Radial pulse palpable. strength 5/5 Lower: Right lower extremity : Joints move freely and without pain. Non-tender to palpation over knee, leg, ankle/foot. DP/PT palpable, toes warm/well-perfused. No pain with ROM hip/knee/ankle. Strength 5/5. Left lower extremity: Joints move freely and without pain. Non-tender to palpation over knee, leg, ankle/foot. DP/PT palpable, toes warm/well-perfused. No pain with ROM hip/knee/ankle. Strength 5/5. Pelvic Stability: Stable and no pain with palpation. Skin: Warm and dry without ecchymoses or lesions. Lacerations: None; Ecchymosis: None; Abrasions: None. Imaging Results CT Head: No acute intracranial pathology. CT C-Spine: No acute fracture or dislocation of the cervical spine. CT T-Spine: No evidence for fracture/dislocation of the thoracic spine. Significant multilevel facet hypertrophy, most prominent at T10-11 with severe bilateral neural foraminal narrowing. Multiple left-sided rib fractures. No evidence for fracture/dislocation of the lumbar spine. Multilevel lumbar spondylosis with multilevel severe facet hypertrophy, multilevel moderate spinal canal narrowing and multilevel bilateral moderate/severe neural foraminal stenoses. CT L-Spine: No evidence for fracture/dislocation of the thoracic spine. Significant multilevel facet hypertrophy, most prominent at T10-11 with severe bilateral neural foraminal narrowing. Multiple left-sided rib fractures. No evidence for fracture/dislocation of the lumbar spine. Multilevel lumbar spondylosis with multilevel severe facet hypertrophy, multilevel moderate spinal canal narrowing and multilevel bilateral moderate/severe neural foraminal stenoses. CT CAP: Acute left fourth through ninth, possibly also 11th, rib fractures. The fourth through seventh ribsare fractured in more than one place and raise the possibility for flail chest physiology. Possible small hemothorax. Mild atelectasis, less likely contusion, of the left lower lobe. No acute sequela of trauma in the abdomen or pelvis. Mildly atrophic kidneys. Intermediate density left renal cyst in the interpolar region measuring 2.3 cm. Recommend follow-up with nonemergent outpatient renal ultrasound when patient condition permits. Bilateral common iliac artery ectasia. Chest XR: Not Done Pelvis XR: Not done FAST Exam: N/A Left Scapular XR: Posterior rib fractures. No visible scapular fracture Assessment : Jennifer Shaikh is a 83 y.o. male with no past medical history on file. Admitted on 06/15/2024 after afall. The patient does not remember what happened, but was getting up from his chair to go to the bathroom during the night when he fell, woke up in the morning on the floor. On waking up he had painin his left chest and shoulder. He presented to OSH for evaluation and was found to have multiple rib fractures, concern for left sided scapula fracture. On arrival at [facility] imaging done without any evidence of scapular fracture. Orthopedic surgery consulted but no intervention necessary.Tertiary exam negative for any acute findings. No additional imaging needed at this time from [facility] Team. Current known injuries: Left 4th - 9th Rib Fractures with multiple Fxs on rib 4-7 (possible flail chest). Possible small hemothorax on the LLL LLL atelectasis. New findings: No new findings Incidental Findings: Bilateral common iliac artery ectasia. Mildly atrophic kidneys. Intermediate density left renal cyst in the interpolar region measuring 2.3 cm. Lumbar spondylosis with multilevel severe facet hypertrophy Multilevel facet hypertrophy, most prominent at T10-11 with severe bilateral neural foraminal narrowing. Plan L HARMONY protocol Incentive spirometry Imaging needed: None indicated at this time-low threshold for chest x-ray Labs needed: CBC, BMP, while hospitalized Wound care plans(s): Not applicable Suture/Clay: None Antibiotics: Not indicated Drains Present: None Booth: Not present Lines: Peripheral DVT prophylaxis: Mechanical: SCDs and Chemical: Contraindicated Diet: Regular Activity: Up ad michael and Up with assist C/T/L-Spine status: Cleared Weight-bearing status: FWB Therapy: PT, OT, and OT for cognitive screen Consulting Teams(s) Plan and/or Follow-up Recommendations: Orthopaedics: Jennifer Shaikh is a 83 y.o. male status-post GLF on 06/14 with multiple left sided rib fractures and concern for left nondisplaced scapula fracture on OSH CT read. Upon review of his imaging, no obvious fracture apparent in the left scapula. Exam reassuring. Dedicated scapula films ordered by the ED.No role for further orthopedic intervention. Patient can be WBAT on LUE without restrictions. No need for orthopedic follow up. Orthopedics team to sign off. Follow-Up Tertiary Exam: Not required; patient responsive and able to participate in clinical exam. Discharge Plan: To be determined. Alcohol Screening (for all patients > 11 years of age) No results found for: ETOH IVETTE: Not screened Alcohol Use: No (screening complete) CAGE Screen: In the past year: Have you felt you should cut down on your drinking? no In the past year: Have people annoyed you by criticizing your drinking? no In the past year: Have you felt bad or guilty about your drinking? no In the past year: Have you had an eye pipe coverer helper first thing in the morning to steady your nerves? no Interventions Completed: Not indicated as the patient does not drink Next Step Patient has penetrating trauma (stab, GSW)?: No. Abbreviated Clinical Frailty Score (Screen those age 65 and older) Does the patient engage in moderate to strenuous sports or recreational activities?: No. Does the patient have a terminal illness?: No. Does the patient need help from another for 3 or more of the following; bathing, dressing, eating, walking, getting in/out of bed? : Yes - CSF = 7, screening complete Does patient have any of the following life limiting illnesses?: Patient has no life limiting illness Consulted palliative care. Consult SENIOR TRAINING AND DEVELOPMENT REP for: SENIOR TRAINING AND DEVELOPMENT REP consult not indicated at this time Mental Health Screening: Have you had any experience that was so frightening, horrible, or upsetting that, in the past month, you: Have had nightmares about it or thought about it when you did not want to? no Tried hard not to think about it or went out of your way to avoid situations that remind you of it?no Were constantly on guard, watchful, or easily startled? no [place] numb or detached from others, activities, or your surroundings? no Interventions Completed: Patient declines Trauma Psych Consult Yomi Jay APRN, [employer] 06/16/2024 13:51 [facility] Department of Surgery Pager: via [email or web address] Associated attestation - Zeina Arias MD - 06/18/2024 6:48 AM CDT FACULTY WITH GERRY: I saw and evaluated the patient 06/16/2024. I discussed with the team and agree with the findings and plan documented in the GERRY's note. Any revisions by me are documented. Zeina Arias MD, 06/18/2024 6:48 AM Attending Physician General/Trauma Surgery Surgical Critical Care * Nursing Assessment - Clair Grissom RN - 06/16/2024 8:31 AM CDT Nursing Assessment Head to Toe Head to Toe Assessment Shift Summary Shift Summary Neurologic/Cognitive Within Defined Limits HEENT Within Defined Limits Cardiac Assessment Within Defined Limits except for: Counseling Center Director - remote telemetry Respiratory Assessment Within Defined [...] Within Defined Limits Cardiac Within Defined Limits Counseling Center Director - remote telemetry Respiratory Within defined limits [...] review completed. * ED Faculty Note - Desi Joel MD - 06/15/2024 12:39 PM CDT Images from the original note were not included. ED Faculty Attestation and Note Jennifer Shaikh : 1940 Sex: male Patient Arrival Date and Time: 06/15/2024 11:06 AM FACULTY ATTESTATION I, Desi Joel MD, personally saw the patient, performed critical or marie portions of the service, and discussed the care with the Advanced Practice Provider. HPI / PERTINENT EXAM Jennifer Shaikh presented to the emergency department for evaluation of left sided rib and scapula pain after fall. BIBA trauma tx from [place], Fell at 1130pm last night, 5 rib fx and L scapula, hit head LOC+ ct at [place] c-spine cleared. From [facility] living side [facility]. On floor 6-7 hrs. 2mg morphine on transfer from [place]. Sats ok on RA VSS ex HTN [...] NEGATIVE Bili UA NEGATIVE Ketones TRACE(!) Specific Kamiah 1.018 Blood Ur LARGE(!) PH Urine 6.5 Protein Ur 30(!) Urobilinogen NORMAL Nitrite Ur NEGATIVE Leuk Est TRACE WBC Ur 0-5 RBC Ur >20(!) Urinalysis Performed at: [facility] [address] OUTSIDE READ CHEST/ABD/PELV 1. Acute [...] end of my shift. Plan is admission. Desi Joel MD Physician, Emergency Department 06/15/2024 12:39 documented in this encounter Plan of Treatment Upcoming Encounters Date Type Department Care Team (Late st Contact Info) Description 2024 11:30 AM CDT Office [facility] [address] [place] [address] [phone] Gerry, Gen Surg Trauma [address] [place] [id number] Scheduled Discharge Disposition: Discharged to home or self care Scheduled Referrals Name Type Priority Associated Diagnoses Orde r Schedule REFERRAL TO TRAUMATIC BRAIN INJURY Referral Routine Traumatic brain injury, with unknown loss of consciousness status, initial encounter ([facility]) Ordered: 06/16/2024 REFERRAL TO OCCUPATIONAL THERAPY Referral Routine Closed fracture of multiple ribs of left side, initial encounter Ordered: 06/19/2024 REFERRAL TO PHYSICAL THERAPY Referral Routine Closed fracture of multiple ribs of left side, initial encounter Ordered: 06/19/2024 documented as of this encounter Procedures Procedure Name Priority Date/Time Associated Diagnosis Comments PHOSPHORUS Routine 06/19/2024 6:19 AM CDT PANEL BASIC METABOLIC (BMP) Routine 06/19/2024 6:19 AM CDT MAGNESIUM Routine 06/19/2024 6:19 AM CDT TC LAB BLOOD DRAW BY VENIPUNCTURE Routine 06/19/2024 6:19 AM CDT XR CHEST 1 VIEW AP OR PA* Routine 06/18/2024 6:21 AM CDT PHOSPHORUS Routine 06/18/2024 5:14 AM CDT PANEL BASIC METABOLIC (BMP) Routine 06/18/2024 5:14 AM CDT MAGNESIUM Routine 06/18/2024 5:14 AM CDT TC LAB BLOOD DRAW BY VENIPUNCTURE Routine 06/18/2024 5:14 AM CDT PHOSPHORUS Routine 06/17/2024 7:24 AM CDT PANEL BASIC METABOLIC (BMP) Routine 06/17/2024 7:24 AM CDT MAGNESIUM Routine 06/17/2024 7:24 AM CDT TC LAB BLOOD DRAW BY VENIPUNCTURE Routine 06/17/2024 7:24 AM CDT FOLATE SERUM Routine 06/16/2024 9:08 PM CDT VITAMIN B12 Routine 06/16/2024 9:08 PM CDT PHOSPHORUS Routine 06/16/2024 6:52 AM CDT PANEL BASIC METABOLIC (BMP) Routine 06/16/2024 6:52 AM CDT MAGNESIUM Routine 06/16/2024 6:52 AM CDT TC LAB BLOOD DRAW BY VENIPUNCTURE Routine 06/16/2024 6:52 AM CDT LUNG AIRWAY CLEARANCE EXPANSION PROTOCOL Routine 06/16/2024 6:43 AM CDT PC TROPONIN QUANTITATIVE Timed 06/15/2024 [...] CDT documented in this encounter Results * PHOSPHORUS (06/19/2024 6:19 AM CDT) Phosphorus 2.8 2.5 - 4.5 mg/dL [facility] Blood 06/19/2024 6:19 AM CDT 06/19/2024 7:27 AM CDT Zeina Arias MD LABORATORY Performing Organization Address [facility] de Phone Number [facility] [address] [address] * MAGNESIUM (06/19/2024 6:19 AM CDT) Magnesium 2.0 1.6 - 2.4 mg/dL [facility] Blood 06/19/2024 6:19 AM CDT 06/19/2024 7:27 AM CDT Zeina Arias MD LABORATORY Performing Organization Address [facility] de Phone Number [facility] [address] [address] * (ABNORMAL) PANEL BASIC METABOLIC (BMP) (06/19/2024 6:19 AM CDT) Sodium 132(L) 135 - 148 mmol/L [facility] Potassium 4.6 3.5 - 5.3 mmol/L [facility] Chloride 101 92 - 108 mmol/L [facility] CO2 20(L) 22 - 30 mmol/L [facility] Glucose 94 70 - 100 mg/dL [facility] BUN 17 8 - 23 mg/dL [facility] Creatinine 0.92 0.70 - 1.25 mg/dL [facility] Calcium 9.0 8.8 - 10.2 mg/dL [facility] AnGap 11 8 - 16 mmol/L [facility] eGFR (2020 CKD-EPI) 82 >=60 ml/min/1.7 3m2 [facility] Comment: The estimated glomerular filtration rate (eGFR) was calculated using the CKD-EPI 2020 creatinine equation, which does not include race as a factor. This equation is validated in individuals 18 years of age and older, and eGFR is normalized to a body surface area of 1.73m^2. Blood 06/19/2024 6:19 AM CDT 06/19/2024 7:27 AM CDT Zeina Arias MD LABORATORY Performing Organization Address [facility] Co de Phone Number [facility] [address] [address] * (ABNORMAL) CBC WITH PLATELET (06/19/2024 6:19 AM CDT) WBC 9.14 4.00 - 10.00 k/cmm [facility] RBC 3.36(L) 4.60 - 6.00 m/cmm [facility] Hgb 12.5(L) 13.1 - 17.5 g/dL [facility] Hematocrit 37.5(L) 40.0 - 51.0 % [facility] MCV 111.6(H) 80.0 - 100.0 fL [facility] MCH 37.2(H) 25.0 - 32.0 pg [facility] MCHC 33.3 31.0 - 36.0 g/dL [facility] RDW 12.2 11.5 - 14.5 % [facility] Plt 151 150 - 400 k/cmm [facility] MPV 10.4 6.5 - 12.5 fL [facility] Blood 06/19/2024 6:19 AM CDT 06/19/2024 7:27 AM CDT Zeina Arias MD LABORATORY Performing Organization Address [facility] Co de Phone Number [facility] [address] [address] * XR CHEST 1 VIEW AP OR [...] Radiologist: Quentin Lopez Reading Resident: Coby Banerjee Narrative 06/18/2024 7:23 [...] Banerjee Zeina Arias MD RAD XRAY * PHOSPHORUS (06/18/2024 5:14 AM CDT) Phosphorus 3.3 2.5 - 4.5 mg/dL [facility] Blood 06/18/2024 5:14 AM CDT 06/18/2024 5:47 AM CDT Zeina Arias MD LABORATORY [facility] [address] [address] * MAGNESIUM (06/18/2024 5:14 AM CDT) Magnesium 2.0 1.6 - 2.4 mg/dL [facility] Blood 06/18/2024 5:14 AM CDT 06/18/2024 5:47 AM CDT Zeina Arias MD LABORATORY Performing Organization Address [facility] Co de Phone Number [facility] [address] [address] * (ABNORMAL) PANEL BASIC METABOLIC (BMP) (06/18/2024 5:14 AM CDT) Sodium 136 135 - 148 mmol/L [facility] Potassium 4.8 3.5 - 5.3 mmol/L [facility] Chloride 104 92 - 108 mmol/L [facility] CO2 24 22 - 30 mmol/L [facility] Glucose 106(H) 70 - 100 mg/dL [facility] BUN 19 8 - 23 mg/dL [facility] Creatinine 1.15 0.70 - 1.25 mg/dL [facility] Calcium 8.7(L) 8.8 - 10.2 mg/dL [facility] AnGap 8 8 - 16 mmol/L [facility] eGFR (2020 CKD-EPI) 63 >=60 ml/min/1.7 3m2 [facility] Comment: The estimated glomerular filtration rate (eGFR) was calculated using the CKD-EPI 2020 creatinine equation, which does not include race as a factor. This equation is validated in individuals 18 years of age and older, and eGFR is normalized to a body surface area of 1.73m^2. Blood 06/18/2024 5:14 AM CDT 06/18/2024 5:47 AM CDT Zeina Arias MD LABORATORY Performing Organization Address [facility] Co de Phone Number [facility] [address] [address] * (ABNORMAL) CBC WITH PLATELET (06/18/2024 5:14 AM CDT) WBC 8.80 4.00 - 10.00 k/cmm [facility] RBC 3.13(L) 4.60 - 6.00 m/cmm [facility] Hgb 11.4(L) 13.1 - 17.5 g/dL [facility] Hematocrit 34.8(L) 40.0 - 51.0 % [facility] MCV 111.2(H) 80.0 - 100.0 fL [facility] MCH 36.4(H) 25.0 - 32.0 pg [facility] MCHC 32.8 31.0 - 36.0 g/dL [facility] RDW 12.5 11.5 - 14.5 % [facility] Plt 172 150 - 400 k/cmm [facility] MPV 9.4 6.5 - 12.5 fL [facility] Blood 06/18/2024 5:14 AM CDT 06/18/2024 5:47 AM CDT Zeina Arias MD LABORATORY Performing Organization Address City/[facility]/ZIP Co de Phone Number [facility] [address] [address] * PHOSPHORUS (06/17/2024 7:24 AM CDT) Phosphorus 2.9 2.5 - 4.5 mg/dL [facility] Blood 06/17/2024 7:24 AM CDT 06/17/2024 7:34 AM CDT Zeina Arias MD LABORATORY Performing Organization Address City/[facility] Co de Phone Number [facility] [address] [address] * MAGNESIUM (06/17/2024 7:24 AM CDT) Magnesium 2.0 1.6 - 2.4 mg/dL [facility] Blood 06/17/2024 7:24 AM CDT 06/17/2024 7:34 AM CDT Zeina Arias MD LABORATORY Performing Organization Address City/[facility] Co de Phone Number [facility] [address] [address] * (ABNORMAL) PANEL BASIC METABOLIC (BMP) (06/17/2024 7:24 AM CDT) Sodium 136 135 - 148 mmol/L [facility] Potassium 4.4 3.5 - 5.3 mmol/L [facility] Chloride 106 92 - 108 mmol/L [facility] CO2 22 22 - 30 mmol/L [facility] AnGap 8 8 - 16 mmol/L [facility] Glucose 112(H) 70 - 100 mg/dL [facility] BUN 16 8 - 23 mg/dL [facility] Creatinine 1.08 0.70 - 1.25 mg/dL [facility] Calcium 8.9 8.8 - 10.2 mg/dL [facility] eGFR (2020 CKD-EPI) 68 >=60 ml/min/1.7 3m2 [facility] Comment: The estimated glomerular filtration rate (eGFR) was calculated using the CKD-EPI 2020 creatinine equation, which does not include race as a factor. This equation is validated in individuals 18 years of age and older, and eGFR is normalized to a body surface area of 1.73m^2. Blood 06/17/2024 7:24 AM CDT 06/17/2024 7:34 AM CDT Zeina Arias MD LABORATORY [facility] [address] [address] * (ABNORMAL) CBC WITH PLATELET (06/17/2024 7:24 AM CDT) WBC 11.01(H) 4.00 - 10.00 k/cmm [facility] RBC 3.33(L) 4.60 - 6.00 m/cmm [facility] Hgb 12.3(L) 13.1 - 17.5 g/dL [facility] Hematocrit 36.6(L) 40.0 - 51.0 % [facility] MCV 109.9(H) 80.0 - 100.0 fL [facility] MCH 36.9(H) 25.0 - 32.0 pg [facility] MCHC 33.6 31.0 - 36.0 g/dL [facility] RDW 12.3 11.5 - 14.5 % [facility] Plt 158 150 - 400 k/cmm [facility] MPV 9.3 6.5 - 12.5 fL [facility] Blood 06/17/2024 7:24 AM CDT 06/17/2024 7:34 AM CDT Zeina Arias MD LABORATORY [facility] [address] [address] * FOLATE SERUM (06/16/2024 9:08 PM CDT) Folate 4.1 >=4.0 ng/mL [facility] Blood 06/16/2024 9:08 PM CDT 06/16/2024 9:22 PM CDT Zeina Arias MD LABORATORY Performing Organization Address City/[facility]/ZIP Co de Phone Number [facility] [address] [address] * VITAMIN B12 (06/16/2024 9:08 PM CDT) B12 447 211 - 946 pg/mL [facility] Blood 06/16/2024 9:08 PM CDT 06/16/2024 9:22 PM CDT Zeina Arias MD LABORATORY Performing Organization Address City/[facility]/ZIP Co de Phone Number [facility] [address] [address] * PHOSPHORUS (06/16/2024 6:52 AM CDT) Phosphorus 2.9 2.5 - 4.5 mg/dL [facility] Blood 06/16/2024 6:52 AM CDT 06/16/2024 7:25 AM CDT Desi Joel MD LABORATORY [facility] [address] [address] * MAGNESIUM (06/16/2024 6:52 AM CDT) Magnesium 2.1 1.6 - 2.4 mg/dL [facility] Blood 06/16/2024 6:52 AM CDT 06/16/2024 7:25 AM CDT Desi Joel MD LABORATORY Performing Organization Address [facility] Co de Phone Number [facility] [address] [address] * (ABNORMAL) PANEL BASIC METABOLIC (BMP) (06/16/2024 6:52 AM CDT) Sodium 135 135 - 148 mmol/L [facility] Potassium 4.4 3.5 - 5.3 mmol/L [facility] Chloride 104 92 - 108 mmol/L [facility] CO2 23 22 - 30 mmol/L [facility] AnGap 8 8 - 16 mmol/L [facility] Glucose 106(H) 70 - 100 mg/dL [facility] BUN 16 8 - 23 mg/dL [facility] Creatinine 1.02 0.70 - 1.25 mg/dL [facility] Calcium 8.6(L) 8.8 - 10.2 mg/dL [facility] eGFR (2020 CKD-EPI) 72 >=60 ml/min/1.7 3m2 [facility] Comment: The estimated glomerular filtration rate (eGFR) was calculated using the CKD-EPI 2020 creatinine equation, which does not include race as a factor. This equation is validated in individuals 18 years of age and older, and eGFR is normalized to a body surface area of 1.73m^2. Blood 06/16/2024 6:52 AM CDT 06/16/2024 7:25 AM CDT Desi Joel MD LABORATORY Performing Organization Address City/[facility]/ZIP Co de Phone Number [facility] [address] [address] * (ABNORMAL) CBC WITH PLATELET (06/16/2024 6:52 AM CDT) WBC 7.85 4.00 - 10.00 k/cmm [facility] RBC 3.40(L) 4.60 - 6.00 m/cmm [facility] Hgb 12.2(L) 13.1 - 17.5 g/dL [facility] Hematocrit 36.6(L) 40.0 - 51.0 % [facility] MCV 107.6(H) 80.0 - 100.0 fL [facility] MCH 35.9(H) 25.0 - 32.0 pg [facility] MCHC 33.3 31.0 - 36.0 g/dL [facility] RDW 12.1 11.5 - 14.5 % [facility] Plt 172 150 - 400 k/cmm [facility] MPV 9.4 6.5 - 12.5 fL [facility] Blood 06/16/2024 6:52 AM CDT 06/16/2024 7:41 AM CDT Desi Joel MD LABORATORY Performing Organization Address City/[facility]/ZIP Co de Phone Number [facility] [address] [address] * TROP 4H (06/15/2024 3:50 PM CDT) 4H Trop 7 <=35 ng/L [facility] 4H Delta na Not Significant [facility] Comment:Unable to calculate delta. Blood 06/15/2024 3:50 PM CDT 06/15/2024 3:54 PM CDT Desi Joel MD LABORATORY Performing Organization Address [facility] Co de Phone Number [facility] [address] [address] * XR SCAPULA LEFT AP + LAT [...] narrowing but no apparent fracture. Procedure Note Sdidhartha Hernández MD - 06/15/2024 EXAMINATION: XR SCAPULA [...] ??No treatment, delayed treatment and alternative treatment [place] protocol: ??Procedure explained and questions answered to [...] (06/15/2024 1:12 PM CDT) Color ORANGE YELLOW [facility] Appearance CLOUDY(A) CLEAR [facility] Urine Glucose NEGATIVE NEGATIVE mg/dL [facility] Bili UA NEGATIVE NEGATIVE [facility] Ketones TRACE(A) NEGATIVE [facility] Specific Kamiah 1.018 1.003 - 1.030 [facility] Blood Ur LARGE(A) Neg-Trace [facility] PH Urine 6.5 5.0 - 7.0 [facility] Protein Ur 30(A) Neg-Trace [facility] Urobilinogen NORMAL NORMAL EU/dL [facility] Nitrite Ur NEGATIVE NEGATIVE [facility] Leuk Est TRACE Neg-Trace [facility] WBC Ur 0-5 0 - 5 perHPF [facility] RBC Ur >20(A) 0 - 3 perHPF [facility] Urinalysis Performed at: [facility] Urine 06/15/2024 1:12 PM CDT 06/15/2024 1:16 PM CDT Desi Joel MD LABORATORY Performing Organization Address [facility] Co de Phone Number [facility] [place] [address] * CK, TOTAL (06/15/2024 12:28 PM CDT) CK 258 39 - 308 IU/L [facility] Blood 06/15/2024 12:2 8 PM CDT 06/15/2024 12:44 PM CDT Desi Joel MD LABORATORY Performing Organization Address [facility] Co de Phone Number [facility] [place] [phone] * PROTHROMBIN (PT) & INR (06/15/2024 12:28 PM CDT) PT 11.2 9.0 - 12.5 sec [facility] INR 1.0 0.8 - 1.1 [facility] Comment: Warfarin Therapeutic Range: Standard Intensity: 2.0 - 3.0 High Intensity: 2.5 - 3.5 Blood 06/15/2024 12:2 8 PM CDT 06/15/2024 12:44 PM CDT Desi Joel MD LABORATORY [facility] [address] [place] [address] * HS TROPONIN (06/15/2024 12:28 PM CDT) Pathologist [facility] [place] HS Troponin I 6 <=35 ng/L [facility] Blood 06/15/2024 12:2 8 PM CDT 06/15/2024 12:31 PM CDT Narrative [facility] - 06/15/2024 12:57 PM CDT If ordering as an add-on lab, you must call the lab. Desi Joel MD LABORATORY Performing Organization Address [facility] Co de Phone Number [facility] [address] [address] * (ABNORMAL) CBC WITH PLTS/AUTO DIFF (06/15/2024 12:28 PM CDT) Pathologist [facility] WBC 10.53(H) 4.00 - 10.00 k/cmm [facility] RBC 3.59(L) 4.60 - 6.00 m/cmm [facility] Hgb 13.2 13.1 - 17.5 g/dL [facility] Hematocrit 38.5(L) 40.0 - 51.0 % [facility] MCV 107.2(H) 80.0 - 100.0 fL [facility] MCH 36.8(H) 25.0 - 32.0 pg [facility] MCHC 34.3 31.0 - 36.0 g/dL [facility] RDW 11.9 11.5 - 14.5 % [facility] Plt 185 150 - 400 k/cmm [facility] MPV 9.3 6.5 - 12.5 fL [facility] Automated Abs Neutrophil 8.59(H) 1.70 - 6.50 k/cmm [facility] Comment:Preliminary ANC, Fin al Result to Follow Abs Immature Granulocyte 0.02 0.00 - 0.09 k/cmm [facility] Comment:The Immature Granulo cyte Absolute count contains metamyelocytes and myelocytes. Abs Neutrophil 8.59(H) 1.70 - 6.50 k/cmm [facility] Abs Lymphocyte 0.71(L) 0.80 - 4.00 k/cmm [facility] Abs Monocyte 1.08(H) 0.20 - 1.00 k/cmm [facility] Abs Eosinophil 0.07 0.00 - 0.60 k/cmm [facility] Abs Basophil 0.06 0.00 - 0.20 k/cmm [facility] Blood 06/15/2024 12:2 8 PM CDT 06/15/2024 12:44 PM CDT Desi Joel MD LABORATORY Performing Organization Address [facility]/ZIP Co de Phone Number [facility] [address] [address] * (ABNORMAL) ED CHEMISTRY LABS(NA,K,CL,CO2,GLU,CREAT,CA-IONIZED,ANION GAP) (06/15/2024 12:28 PM CDT) Sodium 132(L) 135 - 148 mmol/L [facility] Chloride 103 92 - 108 mmol/L [facility] AnGap 9 8 - 16 mmol/L [facility] Glucose 96 70 - 100 mg/dL [facility] ICA, Actual 4.45 4.40 - 5.20 mg/dL [facility] ICA, pH Corrected 4.48 4.40 - 5.20 mg/dL [facility] Creatinine 1.03 0.70 - 1.25 mg/dL [facility] BICARB 21(L) 22 - 26 mEq/L [facility] eGFR (2020 CKD-EPI) 72 >=60 ml/min/1.7 3m2 [facility] Comment: The estimated glomerular filtration rate (eGFR) was calculated using the CKD-EPI 2020 creatinine equation, which does not include race as a factor. This equation is validated in individuals 18 years of age and older, and eGFR is normalized to a body surface area of 1.73m^2. Potassium 4.5 3.5 - 5.3 mmol/L [facility] Blood 06/15/2024 12:2 8 PM CDT 06/15/2024 12:37 PM CDT Desi Joel MD LABORATORY Performing Organization Address City/[facility]/ZIP Co de Phone Number [facility] [address] [address] * (ABNORMAL) CARBON MONOXIDE (CO) (06/15/2024 12:28 PM CDT) Carbon Monox 3(H) 0 - 2 % [facility] Comment:Normal range for smo kers: up to 13%. Blood 06/15/2024 12:2 8 PM CDT 06/15/2024 4:16 PM CDT Desi Joel MD LABORATORY Performing Organization Address [facility] Co de Phone Number [address] [address] * EXTRA TUBE - SST (06/15/2024 12:28 PM CDT) SST TUBE Stored [facility] Comment:SST tubes (Serum Sep arator) are stored in the lab for 3 days from the collection date. Blood 06/15/2024 12:2 8 PM CDT 06/15/2024 12:32 PM CDT Desi Joel MD LABORATORY Performing Organization Address [facility] Co de Phone Number [address] [address] * ED US GUIDED NERVE BLOCK (06/15/2024 [...] CDT) 06/15/2024 11:5 9 AM CDT Impressions [facility] EKG ORDERS - 06/15/2024 11:59 AM CDT SINUS RHYTHM WITH FIRST DEGREE AV BLOCK ABNORMAL ECG No Previous ECGs Available. P-R Interval 212 ms QRS Interval 95 ms QT Interval 377 ms QTC Interval 400 ms P Una 64 QRS Una -7 T Wave Una 25 Narrative Procedure Note Desi Joel MD - 06/15/2024 IMPRESSION SINUS RHYTHM WITH FIRST DEGREE AV BLOCK ABNORMAL ECG No Previous ECGs Available. P-R Interval 212 ms QRS Interval 95 ms QT Interval 377 ms QTC Interval 400 ms P Una 64 QRS Una -7 T Wave Una 25 Desi Joel MD EKG [facility] EKG ORDERS * CT OUTSIDE READ [...] 2:35 PM CDT Indication: ??Patient transferred from [facility] due to Trauma. Dr. DESI JOEL requested an interpretation by me. Comparison: CT of the chest from 02/08/2023. Technique: ??CT scan of the chest/abdomen/pelvis done with IV contrast. Axial, coronal, and sagittal reconstructions reviewed in soft tissue and bone windows, per the local institution's scanning protocols, which may differ from the [facility] trauma protocols. Findings: Chest: Mediastinum: Atrophic thyroid [...] DO - 06/15/2024 Indication: Patient transferred from [facility] due to Trauma.Dr. DESI JOEL requested an interpretation by me. Comparison: CT of the chest from 02/08/2023. Technique: CT scan of the chest/abdomen/pelvis done with IV contrast.Axial, coronal, and sagittal reconstructions reviewed in soft tissue andbone windows, per the local institution's scanning protocols, which maydiffer from the [facility] trauma protocols. Findings: Chest: Mediastinum: Atrophic thyroid [...] 12:08 PM CDT Indication: ??Patient transferred from [facility] due to Trauma. Dr. DESI JOEL requested an interpretation by me. Technique: ??CT scan of the cervical spine done on 06/15/2024 without IV contrast. Axial, coronal, and sagittal reconstructions reviewed in soft tissue and bone windows, per the local institution's scanning protocols, which may differ from the [facility] trauma protocols. Findings: ??No suspected acute fracture, [...] Lorenzana, - 06/15/2024 Indication: Patient transferred from [facility] due to Trauma.Dr. DESI JOEL requested an interpretation by me. Technique: CT scan of the cervical spine done on 06/15/2024 without IVcontrast. Axial, coronal, and sagittal reconstructions reviewed in softtissue and bone windows, per the local institution's scanning protocols,which may differ from the [facility] trauma protocols. Findings: No suspected acute fracture, [...] PM CDT Impression: ??No acute intracranial pathology. Lenny Traumatic Brain Injury Scale: Diffuse Injury 1 LENNY DIAGNOSTIC CATEGORIES OF ABNORMALITIES VISUALIZED ON CT [...] 12:05 PM CDT Indication: ??Patient transferred from [facility] due to Trauma. Dr. DESI JOEL requested an interpretation by me. Technique: ??CT scan of the head done on 06/15/2024 without IV contrast. Axial, coronal, and sagittal reconstructions are reviewed in soft tissue and bone windows, per the local institution's scanning protocols, which may differ from the [facility] trauma protocols. Findings: No acute intracranial hemorrhage, [...] DO - 06/15/2024 Indication: Patient transferred from [facility] due to Trauma.Dr. DESI JOEL requested an interpretation by wi. Technique: CT scan of the head done on 06/15/2024 without IV contrast.Axial, coronal, and sagittal reconstructions are reviewed in soft tissueand bone windows, per the local institution's scanning protocols, whichmay differ from the [facility] trauma protocols. Findings: No acute intracranial hemorrhage, [...] pseudophakia. IMPRESSION Impression: No acute intracranial pathology. [place]enny Traumatic Brain Injury Scale: Diffuse Injury 1 LENNY DIAGNOSTIC CATEGORIES OF ABNORMALITIES VISUALIZED ON CT [...] Lorenzana Desi Joel MD RAD CT NEURO documented in this encounter Visit Diagnoses Diagnosis Closed fracture of multiple ribs of left side, initial encounter- Primary Closed fracture of multiple ribs of left side, initial encounter Fall, initial encounter Hematuria, unspecified type Closed fracture of left scapula, unspecified part of scapula, initial encounter Traumatic brain injury, with unknown loss of consciousness status, initial encounter ([facility]) documented in this encounter Admitting Diagnoses Diagnosis Closed fracture of multiple ribs of left side, initial encounter documented in this encounter Administered Medications Inactive Administered Medications - up to 3 [...] Given 06/15/2024 2:22 PM CDT 975 mg acetaminophen (TYLENOL) tablet 975 mg 975 mg, Oral, TID, First dose (after last modification) on Tue06/16/24 at 1400, Until Discontinued Given 06/19/2024 2:21 PM CDT 975 mg Given 06/19/2024 8:44 AM CDT 975 mg Given 06/18/2024 7:38 PM CDT 975 mg acetylcysteine inhalation (MUCOMYST) 20% inhalation solution 800 mg, Nebulization, BID, First dose on Tue06/19/24 at 0800, Until Discontinued Given 06/19/2024 9:06 AM CDT 800 mg albuterol-ipratropium (DUONEB) 2.5-0.5 mg/3 mL solution 3 mL 3 mL, Nebulization, Q4H PRN, Starting on Tue06/16/24 at 1845, Until Tue06/19/24 at 0533, Shortness of Breath Given 06/17/2024 7:58 AM CDT 3 mL Given 06/16/2024 7:01 PM CDT 3 mL cyclobenzaprine (FLEXERIL) tablet 5 mg 5 mg, Oral, TID, First dose on Tue06/16/24 at 0800, Until Discontinued Given 06/19/2024 2:21 PM CDT 5 mg Given 06/19/2024 8:51 AM CDT 5 mg Given 06/18/2024 7:38 PM CDT 5 mg DC MED REC REVIEW BY PHARMACY Discharge Date: 06/19/2024, Discharge Location: Subacute Rehab, Anticipated Discharge Time: Now, Discharge Medication Orders: DC Med Orders Final, Does not apply, PROTOCOL, Starting on Tue06/19/24 at 1149, Until Tue06/19/24 at 2012 docusate sodium (COLACE) 100 mg/10 mL liquid 100 mg 100 mg, Feeding Tube, BID, First dose on Tue06/19/24 at 0800, Until Discontinued docusate sodium (COLACE) capsule 100 mg 100 mg, Oral, BID, First dose on Tue06/19/24 at 0800, Until Discontinued Given 06/19/2024 8:44 AM CDT 100 mg enoxaparin (LOVENOX) 30 mg/0.3 mL injection 30 mg 30 mg, Subcutaneous, Q12H, First dose on Tue06/19/24 at 1130, Until Discontinued Given 06/19/2024 2:21 PM CDT 30 mg Abdominal Tissue GABApentin (NEURONTIN) capsule 100 mg 100 mg, Oral, TID, First dose on 06/16/24 at 0800, Until Discontinued Given 06/19/2024 2:22 PM CDT 100 mg Given 06/19/2024 8:44 AM CDT 100 mg Given 06/18/2024 7:37 PM CDT 100 mg HYDROmorphone PF (DILAUDID) 1 mg/mL injection 0.2 mg 0.2 mg, IV Push, Q4H PRN, Starting on Tue06/16/24 at 1845, Until Tue06/18/24 at 0818, Severe Pain (Use First), Specifically for rib pain that interferes with breathing Given 06/18/2024 1:33 AM CDT 0.2 mg Given 06/17/2024 8:16 PM CDT 0.2 mg Given 06/17/2024 12:13 AM CDT 0.2 mg ibuprofen (MOTRIN;ADVIL) tablet 800 mg 800 mg, Oral, ONE TIME, 1 dose, On Tue06/15/24 at 1155 Given 06/15/2024 12:03 PM CDT 800 mg levothyroxine (SYNTHROID) tablet 100 mcg 100 mcg, Oral, DAILY BEFORE AM MEAL, First dose on 06/16/24 at 0730, Until Discontinued Given 06/19/2024 7:00 AM CDT 100 mcg Given 06/18/2024 6:27 AM CDT 100 mcg Given 06/17/2024 7:58 AM CDT 100 mcg lidocaine (LIDODERM) 5% patch 1 patch 1 patch, Transdermal, ONE TIME, 1 dose, On Tue06/15/24 at 1440 Patch applied 06/15/2024 3:42 PM CDT 1 patch Left Chest lidocaine (LIDODERM) 5% patch 1 patch 1 patch, Transdermal, Q24H, First dose on 06/16/24 at 0645, Until Discontinued Patch applied 06/16/2024 7:42 AM CDT 1 patch Other (comment) lidocaine (LIDODERM) 5% patch 2 patch 2 patch, Transdermal, Q24H, First dose (after last modification) on 06/16/24 at 1105, Until Discontinued Patch applied 06/19/2024 8:43 AM CDT 2 patches Other (comment) Patch applied 06/18/2024 8:48 AM CDT 2 patches Other (comment) Patch applied 06/17/2024 8:08 AM CDT 2 patches Other (comment) lisinopril (PRINIVIL;ZESTRIL) tablet 20 mg 20 mg, Oral, DAILY, First dose on 06/18/24 at 1530, Until Discontinued Given 06/19/2024 8:44 AM CDT 20 mg Given 06/18/2024 7:38 PM CDT 20 mg NaCl 0.9% infusion at 100 mL/hr, Intravenous, CONTINUOUS, Starting on Tue06/15/24 at 2310, Until 06/16/24 at 1829 New Bag 06/16/2024 9:48 AM CDT 100 mL/hr New Bag 06/15/2024 11:56 PM CDT 100 mL/hr oxyCODONE (ROXICODONE) tablet 5-10 mg 5-10 mg, Oral, Q4H PRN, Starting on Tue06/15/24 at 2307, Until Tue06/19/24 at 2012, Moderate Pain (Use First) Given 06/18/2024 7:47 PM CDT 10 mg Given 06/18/2024 1:33 AM CDT 10 mg Given 06/17/2024 8:16 PM CDT 10 mg polyethylene glycol 3350 (MIRALAX;GLYCOLAX) packet 17 g 17 g, Oral, DAILY, First dose on 06/16/24 at 0800, Until Discontinued Given 06/19/2024 8:44 AM CDT 17 g Given 06/18/2024 8:50 AM CDT 17 g Given 06/17/2024 7:58 AM CDT 17 g sennosides (SENOKOT) tablet 17.2 mg 17.2 mg, Oral, BID, First dose (after last modification) on Tue06/16/24 at 2000, Until Discontinued Given 06/19/2024 8:44 AM CDT 17.2 mg Given 06/18/2024 7:38 PM CDT 17.2 mg Given 06/18/2024 8:47 AM CDT 17.2 mg sennosides (SENOKOT) tablet 8.6 mg 8.6 mg, Oral, BID, First dose on Tue06/15/24 at 2310, Until Discontinued Given 06/16/2024 7:41 AM CDT 8.6 mg documented in this encounter Active and Recently Administered Medications Times are shown in CDT. Scheduled Medication Order 06/17/2024 06/18/2024 06/19/2024 acetaminophen (TYLENOL) tablet 975 mg 975 mg, Oral, TID, First dose (after last modification) on 06/16/24 at 1400, Until Discontinued 0758 (Given - Provider: Clair Grissom RN)1418 (Given - Provider: Clair Grissom RN)2004 (Given - Provider: Laura Miller RN) 0846 (Given - Provider: Kizzy Go RN)142 (Given - Provider: Kizzy Go, YUKO)1937 (Given - Provider: Evelyn Amos, YUKO) 0844 (Given - Provider: Sierra Ferrer, YUKO)142 (Given - Provider: Zoila Dias, YUKO) acetylcysteine inhalation (MUCOMYST) 20% inhalation solution 800 mg, Nebulization, BID, First dose on Tue06/19/24 at 0800, Until Discontinued 09 (Given - Provid er: Sp Gabriel, RT) cyclobenzaprine (FLEXERIL) tablet 5 mg 5 mg, Oral, TID, First dose on 06/16/24 at 0800, Until Discontinued 0758 (Given - Provider: Clair Grissom RN)1417 (Given - Provider: Clair Grissom RN)2004 (Given - Provider: Laura Miller RN) 0846 (Given - Provider: Kizzy Go RN)142 (Given - Provider: Kizzy Go RN)1937 (Given - Provider: Evelyn Amos RN) 0851 (Given - Provider: Sierra Ferrer, YUKO)1421 (Given - Provider: Zoila Dias, YUKO) DC MED REC REVIEW BY PHARMACY(Linked Group 1) Discharge Date: 06/19/2024, Discharge Location: Subacute Rehab, Anticipated Discharge Time: Now, Discharge Medication Orders: DC Med Orders Final, Does not apply, PROTOCOL, Starting on Tue06/19/24 at 1149, Until Tue06/19/24 at 2012 docusate sodium (COLACE) 100 mg/10 mL liquid 100 mg(Linked Group 2) 100 mg, Feeding Tube, BID, First dose on Tue06/19/24 at 0800, Until Discontinued 0844 (See Alternativ e - Provider: Sierra Ferrer RN) docusate sodium (COLACE) capsule 100 mg(Linked Group 2) 100 mg, Oral, BID, First dose on Tue06/19/24 at 0800, Until Discontinued 0844 (Given - Provid er: Sierra Ferrer RN) enoxaparin (LOVENOX) 30 mg/0.3 mL injection 30 mg 30 mg, Subcutaneous, Q12H, First dose on Tue06/19/24 at 1130, Until Discontinued 142 (Given - Provid er: Zoila Dias, YUKO) GABApentin (NEURONTIN) capsule 100 mg 100 mg, Oral, TID, First dose on Tue06/16/24 at 0800, Until Discontinued 075 (Given - Provider: Clair Grissom RN)1418 (Given - Provider: Clair Grissom RN)2004 (Given - Provider: Laura Miller RN) 0846 (Given - Provider: Kizzy Go RN)1423 (Given - Provider: Kizzy Go, YUKO)1937 (Given - Provider: Evelyn Amos RN) 0844 (Given - Provider: Sierra Ferrer RN)1422 (Given - Provider: Zoila Dias, YUKO) levothyroxine (SYNTHROID) tablet 100 mcg 100 mcg, Oral, DAILY BEFORE AM MEAL, First dose on Tue06/16/24 at 0730, Until Discontinued 075 (Given - Provider: Clair Grissom RN) 0627 (Given - Provider: Laura Miller RN) 0700 (Given - Provider: Sierra Ferrer RN - Comment: NOC nurse reported he gave medication having difficulty documenting due to computer malfunctioning and computer is malfunctioning and some keyboard buttons also malfunctioning) lidocaine (LIDODERM) 5% patch 2 patch 2 patch, Transdermal, Q24H, First dose (after last modification) on Tue06/16/24 at 1105, Until Discontinued 001 (Patch removed - Provider: Laura Miller RN)0808 (Patch applied - Provider: Clair Grissom RN - Comment: left back and left flank)2007 (Patch removed - Provider: Laura Miller RN) 0848 (Patch applied - Provider: Kizzy Go RN - Comment: L ribs)194 (Patch removed - Provider: Evelyn Amos RN) 0843 (Patch applied - Provider: Sierra Ferrer, YUKO - Comment: left ri fratures)171 (Due: Patch removed - Provider: [facility], [facility] - Comment: Time automatically adjusted from order being discontinued) lisinopril (PRINIVIL;ZESTRIL) tablet 20 mg 20 mg, Oral, DAILY, First dose on 06/18/24 at 1530, Until Discontinued 193 (Given - Provider: Evelyn Amos RN) 0844 (Given - Provider: Sierra Ferrer, YUKO) polyethylene glycol 3350 (MIRALAX;GLYCOLAX) packet 17 g 17 g, Oral, DAILY, First dose on 06/16/24 at 0800, Until Discontinued 0758 (Given - Provider: Clair Grissom RN) 0850 (Given - Provider: Kizzy Go RN) 0844 (Given - Provider: Sierra Ferrer, YUKO) sennosides (SENOKOT) tablet 17.2 mg 17.2 mg, Oral, BID, First dose (after last modification) on 06/16/24 at 2000, Until Discontinued 0758 (Given - Provider: Clair Grissom RN)2004 (Given - Provider: Laura Miller RN) 0847 (Given - Provider: Kizzy Go, YUKO)193 (Given - Provider: Evelyn Amos RN) 0844 (Given - Provider: Sierra Ferrer, YUKO) VTE Anti Xa Monitoring Does not apply, PROTOCOL, Starting on Tue06/15/24 at 2307, Until Tue06/19/24 at 2012 PRN Medication Order 06/17/2024 06/18/2024 06/19/2024 albuterol-ipratropium (DUONEB) 2.5-0.5 mg/3 mL solution 3 mL (CANCELED) 3 mL, Nebulization, Q4H PRN, Starting on 06/16/24 at 1845, Until Tue06/19/24 at 0533, Shortness of Breath 0758 (Given - Provider: Clair Grissom RN) HYDROmorphone PF (DILAUDID) 1 mg/mL injection 0.2 mg (CANCELED) 0.2 mg, IV Push, Q4H PRN, Starting on 06/16/24 at 1845, Until 06/18/24 at 0818, Severe Pain (Use First), Specifically for rib pain that interferes with breathing 0013 (Given - Provider: Laura Miller RN)2015 (Given - Provider: Laura Miller RN) 013 (Given - Provider: Laura Miller RN) ondansetron (ZOFRAN) tablet 4 mg 4 mg, Oral, Q6H PRN, Starting on Tue06/15/24 at 2307, Until Tue06/19/24 at 2011, Nausea/Vomiting (Use First), Use if patient able to tolerate oral tablet oxyCODONE (ROXICODONE) tablet 5-10 mg 5-10 mg, Oral, Q4H PRN, Starting on Tue06/15/24 at 2307, Until Tue06/19/24 at 2011, Moderate Pain (Use First) 0014 (Given - Provider: Laura Miller RN)0758 (Given - Provider: Clair Grissom RN)1418 (Given - Provider: Clair Grissom RN)2015 (Given - Provider: Laura Miller RN) 013 (Given - Provider: Laura Miller RN)194 (Given - Provider: Evelyn Amos RN) Linked Groups Order Group 1: DC MED REC REVIEW BY PHARMACYJump to med Discharge Date: 06/19/2024, Discharge Location: Subacute Rehab, Anticipated Discharge Time: Now, Discharge Medication Orders: DC Med Orders Final, Does not apply, PROTOCOL, Starting on Tue06/19/24 at 1149, Until Tue06/19/24 at 2011 And Discharge Med Rec Final Review by Pharmacy (COMPLETED) Routine, Order to be placed by provider after medications have been entered for discharge and are ready for review by Pharmacist. This order can be placed multiple times if changes or additions have been made to medications for discharge. Choose the Preliminary DC Med Rec review when placing orders prior to the day of discharge. Choose Final DC Med Rec when all medication changes have been entered. If DC Med Rec needed now, please page the Pharmacist covering the patient to inform them., Discharge Date: 06/19/2024, Discharge Location: Subacute Rehab, Anticipated Discharge Time: Now Group 2: docusate sodium (COLACE) capsule 100 mgJump to med 100 mg, Oral, BID, First dose on Tue06/19/24 at 0800, Until Discontinued Or docusate sodium (COLACE) 100 mg/10 mL liquid 100 mgJump to med 100 mg, Feeding Tube, BID, First dose on Tue06/19/24 at 0800, Until Discontinued documented in this encounter Care Teams Montessori Toddler Teacher Relationship Specialty Start Date End Date Alejandra Mclean MD [address] [place] [address] PCP - General Internal Medicine 06/15/24 documented as of this encounter
--- OUTSIDE RECORDS SUMMARY | 2024-07-22 11:28 | XMS_ITS | Encounter Summary ---
Author Organization [facility] Address [address] [place] [address] Phone Care Team Providers Care Baker Operator Automatic Name Role Phone Alejandra Mclean MD Primary [...] [facility] [address] [address] [place], Gen Surg Trauma [address] [place] [address] Scheduled Discharge Disposition: Discharged to home or self care documented as of this encounter Procedures Procedure Name Priority Date/Time Associated Diagnosis Comments TELEMETRY STRIPS 06/17/2024 4:38 PM CDT documented in this encounter Results * TELEMETRY STRIPS (06/17/2024 4:38 PM CDT) Narrative 06/17/2024 4:38 PM CDT Ordered by an unspecified provider. Provider Unknown RAD ECHO documented in this encounter Visit Diagnoses Not on filedocumented in this encounter Care Teams Baker Operator Automatic Relationship Specialty Start Date End Date Alejandra Mclean MD [address] [place] [id number] PCP - General Internal Medicine 06/15/24 documented as of this encounter
--- OUTSIDE RECORDS SUMMARY | 2024-07-22 11:28 | XMS_ITS | Encounter Summary ---
Author Organization [facility] Address [address] [place] [address] Phone Care Team Providers Care Sr. Operations Manager Name Role Phone Alejandra Mclean MD Primary [facility] [address] [address] [place], Gen Surg Trauma [address] [place] [address] Scheduled Discharge Disposition: Discharged to home or [...] on filedocumented in this encounter Care Teams Sr. Operations Manager Relationship Specialty Start Date End Date Alejandra Mclean MD [address] [place] [place] [id number] PCP - General Internal Medicine 06/15/24 documented as of this encounter
--- OUTSIDE RECORDS SUMMARY | 2024-07-22 11:28 | XMS_ITS | Encounter Summary ---
Author Organization [facility] Address [address] [place] [id number] Phone Care Team Providers Care Cardiac Monitor Technician Name Role Phone Alejandra Mclean MD Primary [...] [facility] [address] [address] Gerry, Gen Surg Trauma [address] [place] [address] Scheduled Discharge Disposition: Discharged to home or self care documented as of this encounter Procedures Procedure Name Priority Date/Time Associated Diagnosis Comments TELEMETRY STRIPS 06/18/2024 8:34 AM CDT documented in this encounter Results * TELEMETRY STRIPS (06/18/2024 8:34 AM CDT) Narrative 06/18/2024 8:34 AM CDT Ordered by an unspecified provider. Provider Unknown RAD ECHO documented in this encounter Visit Diagnoses Not on filedocumented in this encounter Care Teams Cardiac Monitor Technician Relationship Specialty Start Date End Date Alejandra Mclean MD [address] [place] [id number] PCP - General Internal Medicine 06/15/24 documented as of this encounter
--- OUTSIDE RECORDS SUMMARY | 2024-07-22 11:28 | XMS_ITS | Referral Summary ---
Author Organization [facility] Address [address] [place] [address] Phone Care Team Providers Care Plant Operator Helper Name Role Phone Alejandra Mclean MD Primary Care Provider Source Comments [employer] is fully rolled out on [employer]. Last update 02/28/09.[employer] Encounters Date Type Department Care Team Description 06/28/2024 Telephone [facility] [address] [address] Orlin Luo, PSYCHIATRIC Appointment 06/15/2024 11:06 AM CDT - 06/19/2024 5:12 PM CDT Hospital Encounter [facility] Surgery/Trauma/Brigido ro 2 [address] [facility] [address] [place] [address] Amanda Joel MD Payne, Rachel E, MD Richmond, Steven D, DO Closed fracture of multiple ribs of left side, initial encounter Discharge Disposition: Discharged/transd to SNF with Medicare certification 06/18/2024 Orders Only Unspecified Department [place] Unknown, [...] Department [place] Unknown, Provider 06/15/2024 Orders Only [facility] Film Room [facility] Radiology Department [facility] [address] [place] [address] [place] [address] Provider, Outside Referral of patient (Primary Dx) from Last 3 Months Allergies No known [...] Visit [facility] [address] [place] [address] Gerry, Gen Surg Trauma [address] [place] [address] Scheduled Discharge Disposition: Discharged to home or self care Procedures Procedure Name Priority Date/Time Associated Diagnosis [...] included. Phosphorus 2.8 2.5 - 4.5 mg/dL [facility] Blood 06/19/2024 6:19 AM CDT 06/19/2024 7:27 AM CDT Zeina Arias MD LABORATORY [facility] [address] [address] * (ABNORMAL) PANEL BASIC METABOLIC (BMP) (06/19/2024 6:19 AM CDT) Only the most recent of4 resultswithin the time period is included. Sodium 132(L) 135 - 148 mmol/L [facility] Potassium 4.6 3.5 - 5.3 mmol/L [facility] Chloride 101 92 - 108 mmol/L [facility] CO2 20(L) 22 - 30 mmol/L [facility] Glucose 94 70 - 100 mg/dL [facility] BUN 17 8 - 23 mg/dL [facility] Creatinine 0.92 0.70 - 1.25 mg/dL [facility] Calcium 9.0 8.8 - 10.2 mg/dL [facility] AnGap 11 8 - 16 mmol/L [facility] eGFR (2020 CKD-EPI) 82 >=60 ml/min/1.7 3m2 [facility] Comment: The estimated glomerular filtration rate [...] Address City/[facility]/ZIP Co de Phone Number [facility] [address] [address] * MAGNESIUM (06/19/2024 6:19 AM CDT) Only the most recent of4 resultswithin the time period is included. Magnesium 2.0 1.6 - 2.4 mg/dL [facility] Blood 06/19/2024 6:19 AM CDT 06/19/2024 7:27 AM CDT Zeina Arias MD LABORATORY Performing Organization Address [facility] Co de Phone Number [facility] [address] [address] * (ABNORMAL) CBC WITH PLATELET (06/19/2024 6:19 AM CDT) Only the most recent of4 resultswithin the time period is included. WBC 9.14 4.00 - 10.00 k/cmm [facility] RBC 3.36(L) 4.60 - 6.00 m/cmm [facility] Hgb 12.5(L) 13.1 - 17.5 g/dL [facility] Hematocrit 37.5(L) 40.0 - 51.0 % [facility] MCV 111.6(H) 80.0 - 100.0 fL [facility] MCH 37.2(H) 25.0 - 32.0 pg [facility] MCHC 33.3 31.0 - 36.0 g/dL [facility] RDW 12.2 11.5 - 14.5 % [facility] Plt 151 150 - 400 k/cmm [facility] MPV 10.4 6.5 - 12.5 fL [facility] Blood 06/19/2024 6:19 AM CDT 06/19/2024 7:27 AM CDT Zeina Arias MD LABORATORY [facility] [address] [address] * TELEMETRY STRIPS (06/18/2024 8:34 AM CDT) [...] 9:08 PM CDT) Folate 4.1 >=4.0 ng/mL [facility] Blood 06/16/2024 9:08 PM CDT 06/16/2024 9:22 PM CDT Zeina Arias MD LABORATORY Performing Organization Address [facility] Co de Phone Number [facility] [address] [address] * VITAMIN B12 (06/16/2024 9:08 PM CDT) B12 447 211 - 946 pg/mL [facility] Blood 06/16/2024 9:08 PM CDT 06/16/2024 9:22 PM CDT Zeina Arias MD LABORATORY Performing Organization Address City/[facility]/ZIP Co de Phone Number [facility] [address] [address] * TROP 4H (06/15/2024 3:50 PM CDT) 4H Trop 7 <=35 ng/L [facility] 4H Delta na Not Significant [facility] Comment:Unable to calculate delta. Blood 06/15/2024 3:50 PM CDT 06/15/2024 3:54 PM CDT Amanda Joel MD LABORATORY Performing Organization Address City/[facility] Co de Phone Number [facility] [address] [address] * XR SCAPULA LEFT AP + LAT [...] Dontae Gunn Reading Resident: Davie Chavarria Amanda Jeol MD RAD CT NEURO * Nerve Block [...] ??No treatment, delayed treatment and alternative treatment [place] protocol: ??Procedure explained and questions answered to [...] (ABNORMAL) URINALYSIS,TOTAL (06/15/2024 1:12 PM CDT) Pathologist [facility] Color ORANGE YELLOW [facility] Appearance CLOUDY(A) CLEAR [facility] Urine Glucose NEGATIVE NEGATIVE mg/dL [facility] Bili UA NEGATIVE NEGATIVE [facility] Ketones TRACE(A) NEGATIVE [facility] Specific [place] 1.018 1.003 - 1.030 [facility] Blood Ur LARGE(A) Neg-Trace [facility] PH Urine 6.5 5.0 - 7.0 [facility] Protein Ur 30(A) Neg-Trace [facility] Urobilinogen NORMAL NORMAL EU/dL [facility] Nitrite Ur NEGATIVE NEGATIVE [facility] Leuk Est TRACE Neg-Trace [facility] WBC Ur 0-5 0 - 5 perHPF [facility] RBC Ur >20(A) 0 - 3 perHPF [facility] Urinalysis Performed at: [facility] Urine 06/15/2024 1:12 PM CDT 06/15/2024 1:16 PM CDT Amanda Joel MD LABORATORY [facility] [address] [address] * HS TROPONIN (06/15/2024 12:28 PM CDT) Pathologist [facility] HS Troponin I 6 <=35 ng/L [facility] Blood 06/15/2024 12:2 8 PM CDT 06/15/2024 12:31 PM CDT Narrative [facility] - 06/15/2024 12:57 PM CDT If ordering as an add-on lab, you must call the lab. Amanda Joel MD LABORATORY Performing Organization Address [facility]/ZIP Co de Phone Number [facility] [address] [address] * (ABNORMAL) ED CHEMISTRY LABS(NA,K,CL,CO2,GLU,CREAT,CA-IONIZED,ANION GAP) (06/15/2024 12:28 PM CDT) Sodium 132(L) 135 - 148 mmol/L [facility] Chloride 103 92 - 108 mmol/L [facility] AnGap 9 8 - 16 mmol/L [facility] Glucose 96 70 - 100 mg/dL [facility] ICA, Actual 4.45 4.40 - 5.20 mg/dL [facility] ICA, pH Corrected 4.48 4.40 - 5.20 mg/dL [facility] Creatinine 1.03 0.70 - 1.25 mg/dL [facility] BICARB 21(L) 22 - 26 mEq/L [facility] eGFR (2020 CKD-EPI) 72 >=60 ml/min/1.7 3m2 [facility] Comment: The estimated glomerular filtration rate (eGFR) was calculated using the CKD-EPI 2020 creatinine equation, which does not include race as a factor. This equation is validated in individuals 18 years of age and older, and eGFR is normalized to a body surface area of 1.73m^2. Potassium 4.5 3.5 - 5.3 mmol/L [facility] Blood 06/15/2024 12:2 8 PM CDT 06/15/2024 12:37 PM CDT Amanda Joel MD LABORATORY Performing Organization Address City/[facility]/ZIP Co de Phone Number [facility] [address] [address] * (ABNORMAL) CBC WITH PLTS/AUTO DIFF (06/15/2024 12:28 PM CDT) WBC 10.53(H) 4.00 - 10.00 k/cmm [facility] RBC 3.59(L) 4.60 - 6.00 m/cmm [facility] Hgb 13.2 13.1 - 17.5 g/dL [facility] Hematocrit 38.5(L) 40.0 - 51.0 % [facility] MCV 107.2(H) 80.0 - 100.0 fL [facility] MCH 36.8(H) 25.0 - 32.0 pg [facility] MCHC 34.3 31.0 - 36.0 g/dL [facility] RDW 11.9 11.5 - 14.5 % [facility] Plt 185 150 - 400 k/cmm [facility] MPV 9.3 6.5 - 12.5 fL [facility] Automated Abs Neutrophil 8.59(H) 1.70 - 6.50 k/cmm [facility] Comment:Preliminary ANC, Fin al Result to Follow Abs Immature Granulocyte 0.02 0.00 - 0.09 k/cmm [facility] Comment:The Immature Granulo cyte Absolute count contains metamyelocytes and myelocytes. Abs Neutrophil 8.59(H) 1.70 - 6.50 k/cmm [facility] Abs Lymphocyte 0.71(L) 0.80 - 4.00 k/cmm [facility] Abs Monocyte 1.08(H) 0.20 - 1.00 k/cmm [facility] Abs Eosinophil 0.07 0.00 - 0.60 k/cmm [facility] Abs Basophil 0.06 0.00 - 0.20 k/cmm [facility] Blood 06/15/2024 12:2 8 PM CDT 06/15/2024 12:44 PM CDT Amanda Joel MD LABORATORY [facility] [address] [address] * PROTHROMBIN (PT) & INR (06/15/2024 12:28 PM CDT) PT 11.2 9.0 - 12.5 sec [facility] INR 1.0 0.8 - 1.1 [facility] Comment: Warfarin Therapeutic Range: Standard Intensity: 2.0 - 3.0 High Intensity: 2.5 - 3.5 Blood 06/15/2024 12:2 8 PM CDT 06/15/2024 12:44 PM CDT Amanda Joel MD LABORATORY Performing Organization Address City/[facility]/ZIP Co de Phone Number [facility] [address] [address] * CK, TOTAL (06/15/2024 12:28 PM CDT) CK 258 39 - 308 IU/L [facility] Blood 06/15/2024 12:2 8 PM CDT 06/15/2024 12:44 PM CDT Amanda Joel MD LABORATORY Performing Organization Address [facility] Co de Phone Number [facility] [address] [address] * EXTRA TUBE - SST (06/15/2024 12:28 PM CDT) SST TUBE Stored [facility] Comment:SST tubes (Serum Sep arator) are stored in the lab for 3 days from the collection date. Blood 06/15/2024 12:2 8 PM CDT 06/15/2024 12:32 PM CDT Amanda Joel MD LABORATORY Performing Organization Address [facility] Co de Phone Number [facility] [address] [address] * (ABNORMAL) CARBON MONOXIDE (CO) (06/15/2024 12:28 PM CDT) Carbon Monox 3(H) 0 - 2 % [facility] Comment:Normal range for smo kers: up to 13%. Blood 06/15/2024 12:2 8 PM CDT 06/15/2024 4:16 PM CDT Amanda Joel MD LABORATORY Performing Organization Address City/[facility]/ZIP Co de Phone Number [facility] [address] [address] * ED US GUIDED NERVE BLOCK (06/15/2024 [...] CDT) 06/15/2024 11:5 9 AM CDT Impressions [facility] CVIS EKG ORDERS - 06/15/2024 11:59 AM CDT SINUS RHYTHM WITH FIRST DEGREE AV BLOCK ABNORMAL ECG No Previous ECGs Available. P-R Interval 212 ms QRS Interval 95 ms QT Interval 377 ms QTC Interval 400 ms P Brinnon 64 QRS Brinnon -7 T Wave Brinnon 25 Narrative Procedure Note Amanda Joel MD - 06/15/2024 IMPRESSION SINUS RHYTHM WITH FIRST DEGREE AV BLOCK ABNORMAL ECG No Previous ECGs Available. P-R Interval 212 ms QRS Interval 95 ms QT Interval 377 ms QTC Interval 400 ms P Brinnon 64 QRS Brinnon -7 T Wave Brinnon 25 Amanda [facility] * CT OUTSIDE READ CHEST/ABD/PELV [...] by the resident/fellow. Reading Radiologist: Epi Lorenzana Reading Resident: Octavio Gilman 06/15/2024 2:35 PM CDT Indication: ??Patient transferred from [place] [facility] due to Trauma. Dr. AMANDA JOEL requested an interpretation by me. Comparison: CT of the chest from 02/08/2023. Technique: ??CT scan of the chest/abdomen/pelvis done with IV contrast. Axial, coronal, and sagittal reconstructions reviewed in soft tissue and bone windows, per the local institution's scanning protocols, which may differ from the [facility] trauma protocols. Findings: Chest: Mediastinum: Atrophic thyroid [...] DO - 06/15/2024 Indication: Patient transferred from [facility] due to Trauma.Dr. AMANDA JOEL requested an interpretation by me. Comparison: CT of the chest from 02/08/2023. Technique: CT scan of the chest/abdomen/pelvis done with IV contrast.Axial, coronal, and sagittal reconstructions reviewed in soft tissue andbone windows, per the local institution's scanning protocols, which maydiffer from the [facility] trauma protocols. Findings: Chest: Mediastinum: Atrophic thyroid [...] by the resident/fellow. Reading Radiologist: Epi Lorenzana Reading Resident: Octavio Gilman Amanda Joel MD RAD [...] 12:08 PM CDT Indication: ??Patient transferred from [facility] due to Trauma. Dr. AMANDA JOEL requested an interpretation by me. Technique: ??CT scan of the cervical spine done on 06/15/2024 without IV contrast. Axial, coronal, and sagittal reconstructions reviewed in soft tissue and bone windows, per the local institution's scanning protocols, which may differ from the [facility] trauma protocols. Findings: ??No suspected acute fracture, [...] DO - 06/15/2024 Indication: Patient transferred from [facility] due to Trauma.Dr. AMANDA JOEL requested an interpretation by me. Technique: CT scan of the cervical spine done on 06/15/2024 without IVcontrast. Axial, coronal, and sagittal reconstructions reviewed in softtissue and bone windows, per the local institution's scanning protocols,which may differ from the [facility] trauma protocols. Findings: No suspected acute fracture, [...] 12:05 PM CDT Indication: ??Patient transferred from [facility] due to Trauma. Dr. AMANDA JOEL requested an interpretation by me. Technique: ??CT scan of the head done on 06/15/2024 without IV contrast. Axial, coronal, and sagittal reconstructions are reviewed in soft tissue and bone windows, per the local institution's scanning protocols, which may differ from the [facility] trauma protocols. Findings: No acute intracranial hemorrhage, [...] of bilateral pseudophakia. Procedure Note Epi Lorenzana, - 06/15/2024 Indication: Patient transferred from [facility] due to Trauma.Dr. AMANDA JOEL requested an interpretation by me. Technique: CT scan of the head done on 06/15/2024 without IV contrast.Axial, coronal, and sagittal reconstructions are reviewed in soft tissueand bone windows, per the local institution's scanning protocols, whichmay differ from the [facility] trauma protocols. Findings: No acute intracranial hemorrhage, [...] Advance Directives For more information, please contact: [phone] * Full Code (Latest Code Status on [...] Status With Whom? Not discussed Care Teams Plant Operator Helper Relationship Specialty Start Date End Date Alejandra Mclean MD [address] [facility] [place] [address] PCP - General Internal Medicine 06/15/24
--- OUTSIDE RECORDS SUMMARY | 2024-07-22 11:28 | XMS_ITS | Encounter Summary ---
Author Organization [facility] Address [address] [place] [address] Phone Care Team Providers Care Radiology Equipment Servicer Name Role Phone Alejandra Mclean MD Primary Care Provider [phone] Encounter Details Date Type Department Care Team [...] [facility] [address] [address] Gerry, Gen Surg Trauma [address] [place] [address] Scheduled Discharge Disposition: Discharged to home or [...] on filedocumented in this encounter Care Teams Radiology Equipment Servicer Relationship Specialty Start Date End Date Alejandra Mclean MD [address] [place] [address] PCP - General Internal Medicine 06/15/24 documented as of this encounter
--- OUTSIDE RECORDS SUMMARY | 2024-07-22 11:28 | XMS_ITS | Encounter Summary ---
Author Organization [facility] Address [address] [place] [address] Phone Care Team Providers Care Molder Trimmer Name Role Phone Alejandra Mclean MD Primary [...] [facility] [address] [address] Gerry, Gen Surg Trauma [address] [place] [address] Scheduled Discharge Disposition: Discharged to home or [...] on filedocumented in this encounter Care Teams Molder Trimmer Relationship Specialty Start Date End Date Alejandra Mclean MD [address] [address] PCP - General Internal Medicine 06/15/24 documented as of this encounter
--- OUTSIDE RECORDS SUMMARY | 2024-07-22 11:28 | XMS_ITS | Encounter Summary ---
Author Organization [facility] Address [address] [place] [address] Phone Care Team Providers Care Pneumatic Jack Operator Name Role Phone Alejandra Mclean MD Primary [...] [facility] [address] [address] Gerry, Gen Surg Trauma [address] [place] [address] Scheduled Discharge Disposition: Discharged to home or [...] on filedocumented in this encounter Care Teams Pneumatic Jack Operator Relationship Specialty Start Date End Date Alejandra Mclean MD [address] [place] [address] PCP - General Internal Medicine 06/15/24 documented as of this encounter
--- OUTSIDE RECORDS SUMMARY | 2024-07-22 11:28 | XMS_ITS | Encounter Summary ---
Author Organization [facility] Address [address] [place] [address] Phone Care Team Providers Care Supervisor Polishing Name Role Phone Alejandra Mclean MD Primary [...] [facility]ty Center [facility] [address] [address] Gerry, Gen Surg Trauma [address] [place] [address] Scheduled Discharge Disposition: Discharged to home or self care documented as of this encounter Procedures Procedure Name Priority Date/Time Associated Diagnosis Comments TELEMETRY STRIPS 06/17/2024 8:25 AM CDT documented in this encounter Results * TELEMETRY STRIPS (06/17/2024 8:25 AM CDT) Narrative 06/17/2024 8:25 AM CDT Ordered by an unspecified provider. Provider Unknown RAD ECHO documented in this encounter Visit Diagnoses Not on filedocumented in this encounter Care Teams Supervisor Polishing Relationship Specialty Start Date End Date Alejandra Mclean MD [address] [place] [address] PCP - General Internal Medicine 06/15/24 documented as of this encounter
--- OUTSIDE RECORDS SUMMARY | 2024-07-22 11:28 | XMS_ITS | Encounter Summary ---
Author Organization [facility] Address [address] [place] [address] Phone Care Team Providers Care Motel Keeper Name Role Phone Alejandra Mclean MD Primary Care Provider Reason for Visit * Reason Onset Date Comments Appointment 06/28/2024 Encounter Details Date Type Department Care Team (Late st Contact Info) Description 06/28/2024 Telephone [facility] [address] [id number] Orlin Luo, [facility] [address] [place] [address] Appointment Social History Tobacco Use Types Packs/Day Years Used Date Smoking Tobacco: Never Assessed Sex and Gender Information Value Date Recorded Sex Assigned at Not on file Gender Identity Not on file Sexual Orientation Not on file documented as of this encounter Miscellaneous Notes * Telephone Encounter - Orlin Luo, PSC - 06/28/2024 1:51 PM CDT Images from the original note were not included. Left VM for Daja with my direct # for call back. Pt needs to be scheduled with Gen Surg Trauma GERRY. Orlin Luo, PSC, 06/28/2024 1:52 PM [facility] M[facility] Clerical Pool .Patient: Jennifer Shaikh : 1940 Called to schedule an appointment with provider: any available provider discharge states GERRY Reason for Visit: Hospital Discharge follow up on rib fractures Video Capable (MyChart Account, High Speed Internet, or Smart Phone/Device or CAM/GONZALO): No Patient Provider Preferences: Any available provider. Date/Time Preferred: Any day and time. Phone number for return call: Daja [phone] behavioral therapy coordinator at [facility] currently patient is currently in the TCU there Why are you unable to schedule? Hospital discharge instructions state to schedule with GERRY, no GERRY templates available. Please review and schedule follow up Thank you documented in this encounter Plan of Treatment Upcoming Encounters Date Type Department Care Team (Late st Contact Info) Description 2024 11:30 AM CDT Office Visit [facility] [address] [address] Gerry, Gen Surg Trauma [address] [place] [phone] Scheduled Discharge Disposition: Discharged to home or self care documented as of this encounter Visit Diagnoses Not on filedocumented in this encounter Care Teams Motel Keeper Relationship Specialty Start Date End Date Alejandra Mclean MD [address] [place] [address] PCP - General Internal Medicine 06/15/24 documented as of this encounter
--- OUTSIDE RECORDS SUMMARY | 2024-07-22 11:28 | XMS_ITS | Encounter Summary ---
Author Organization [facility] Address [address] [place] [address] Phone Care Team Providers Care Hand Shaper Name Role Phone Alejandra Mclean MD Primary Care Provider [phone] Encounter Details Date Type Department Care Team [...] [facility] [address] [address] Gerry, Gen Surg Trauma [address] [place] [address] Scheduled Discharge Disposition: Discharged to home or [...] on filedocumented in this encounter Care Teams Hand Shaper Relationship Specialty Start Date End Date Alejandra Mclean MD [address] [place] [address] PCP - General Internal Medicine 06/15/24 documented as of this encounter
[2024-07-22 11:46] LABS: HCO3 VBG 23 mmol/L (21-28); Lactate* 1.1 mmol/L (0.5-1.9); PCO2 VBG 44 mmHG (40-50); PO2 VBG < 30.1 mmHG (25-47); pH VBG 7.318 (7.32-7.43)
[2024-07-22 11:50] LABS: Basophils Absolute Auto 0.06 K/uL (0.00-0.30); Basophils Percent Auto 0.7 % (0.0-3.0); Eosinophils Absolute Auto 0.43 K/uL (0.00-0.50); Eosinophils Percent Auto 4.9 % (0.0-7.0); Hematocrit 35.8 % (37.0-53.0); Hemoglobin* 11.8 gm/dL (13.5-17.5); Immature Granulocytes Abs Auto 0.02 K/uL (0.00-0.30); Immature Granulocytes Pct Auto 0.2 %; Lymphocytes Percent Auto 10.5 % (20-44); Mean Corpuscular HGB Conc 33 gm/dL (32-36); Mean Corpuscular Hemoglobin 36 pg (26-34); Mean Corpuscular Volume 108 fL (80-100); Monocytes Percent Auto 6.8 % (0.0-11.0); Neutrophils Percent Auto 76.9 % (42.0-72.0); Platelet Count* 234 K/uL (140-440); RDW Coefficient of Variation % 12.2 % (11.5-15.5); Red Blood Count 3.32 m/uL (4.30-5.90); White Blood Count* 8.79 K/uL (4.50-11.00)
[2024-07-22 11:52] LABS: Slide Review Reflex No
[2024-07-22 12:04] LABS: Albumin* 4.2 g/dL (3.3-5.0); Chloride* 103 mmol/L (96-114)
[2024-07-22 12:05] LABS: Sodium* 132 mmol/L (135-149)
[2024-07-22 12:07] LABS: Est. Creatinine Clearance* 56.78; Estimated Glomerular Filt Rate 74 ml/min
[2024-07-22 12:08] LABS: Alanine Aminotransferase* 24 U/L (4-50); Alkaline Phosphatase* 153 U/L (40-150); Anion Gap 8 mEq/L (7-15); Aspartate Amino Transferase* 33 U/L (12-35); Bilirubin Total* 0.8 mg/dL (0.1-1.5); Blood Urea Nitrogen* 24 mg/dL (7-30); Calcium* 9.5 mg/dL (8.4-10.6); Carbon Dioxide* 21 mmol/L (20-32); Glucose* 107 mg/dL (60-115); Total Protein* 7.6 g/dL (6.0-8.3)
[2024-07-22 12:09] LABS: D Dimer Quantitative* 1.06 ug/ml (0.00-0.50)
--- NOTE | 2024-07-22 12:15 | CRLHL7_ITS ---
For Patients: As a result of the Century Cures Act, medical imaging exams and procedure reports are released immediately into your electronic medical record. You may view this report before your referring provider. If you have questions, please contact your health care provider. INDICATION: Elevated D-Dimer, syncope, recent rib fxs. TECHNIQUE: CT chest PE was acquired with 95 cc Isovue 370 IV contrast. COMPARISON: February 08, 2023. FINDINGS: Heart and vasculature: Contrast opacification of the pulmonary arterial tree is adequate. No sign of pulmonary embolism. Heart size is normal. Thoracic aorta and pulmonary artery are normal in caliber.Calcific atherosclerosis of the coronary arteries. Lungs and pleura: Mild bibasilar ground-glass opacities and reticular opacities likely related to atelectasis and/or scarring. No suspicious nodules or consolidations. No pleural effusions, pleural thickening, or pneumothorax. Lymph nodes/mediastinum: No mediastinal, hilar, or axillary adenopathy. Chest wall: No masses. Upper abdomen: No acute or significant findings. Probable cyst versus hemangioma at the right hepatic lobe. Bones: Multiple known left sided subacute rib fractures. IMPRESSION: 1. No pulmonary embolism identified. 2. No acute cardiopulmonary process identified. 3. Multiple subacute left-sided rib fractures. Please note that all CT scans at this facility use dose modulation, iterative reconstruction, and/or weight-based dosing when appropriate to reduce radiation dose to as low as reasonably achievable. Dictated by Destinee Hampton MD @ 07/22/2024 2:24:05 PM (Electronically Signed)
[2024-07-22 12:19] LABS: C Reactive Protein* < 0.5 mg/dL (0.5-1.0); NT Pro B Type NatriureticPept* 628 pg/mL
[2024-07-22 12:25] LABS: Procalcitonin* 0.25 ng/mL (<0.50)
[2024-07-22 12:27] LABS: Troponin I* < 0.01 ng/mL (0.01-0.04)
[2024-07-22 15:25] LABS: Troponin I* < 0.01 ng/mL (0.01-0.04)
== END 2024-07-22 16:28 | disposition home or self-care (01) ==
PROVIDERS: Emergency Provider Family Medicine; PCP Internal Medicine
DX: I95.1 Orthostatic hypotension (principal)
CPT/HCPCS: 36415; 70450; 71045; 71275; 80053; 82803; 83605; 83880; 84145; 84484; 85025; 85379; 86140; 93005; 94761; 99285; Q9967

== ENCOUNTER 2024-07-29 09:00 | Outpatient (CLI) | payer MEDICARE, BC, SELFPAY ==
--- OUTSIDE RECORDS SUMMARY | 2024-08-02 06:37 | XMS_ITS | Clinical Summary ---
Author Organization [facility] Address [address] [place] [phone] Phone Care Team Providers Care Silk Conditioner Name Role Phone Alejandra Mclean MD Primary Care Provider Source Comments Receept is fully rolled out on [facility]. Last update 02/28/09.[facility] Allergies No known active allergies Medications * Be aware that medications may not be up to date as of this document. Always verify current medications with patient. acetaminophen (TYLENOL) 325 mg oral tablet Take 3 tablets (975 mg) by mouth 3 times daily. 4 Active GABApentin (NEURONTIN) 100 mg oral capsule Take 1 capsule (100 mg) by mouth 3 times daily. 4 Active levothyroxine (SYNTHROID) 100 mcg oral tablet Administer in the morning on an empty stomach, at least 30 minutes before food. 4 Active lidocaine (LIDODERM) 5% externally patch Apply for 12 hours then remove for 12 hours 4 Active lisinopril (PRINIVIL;ZESTR IL) 20 mg oral TABS Take 1 tablet (20 mg) by mouth daily. 4 Active polyethylene glycol 3350 (MIRALAX;GLYCOL AX) 17 g oral packet Take 17 g by mouth daily.Take 1 capful to 17 gm gatito mixed with full glass of water every day as directed. 4 Active sennosides (SENOKOT) 17.2 mg oral TABS Take 1 tablet (17.2 mg) by mouth twice daily. 4 Active Active Problems Problem Noted Date Diagnosed Date Closed fracture of multiple ribs of left side, initial encounter 06/15/2024 Encounters Date Type Department Care Team Description 06/28/2024 [facility] [address] [address] Orlin Luo, PSC Appointment 06/18/2024 Orders Only Unspecified Department [place] [...] 06/19/2024 5:12 PM CDT Hospital Encounter [facility] Surgery/Trauma/Brigido ro [address] [place] [address] Amanda Joel MD Payne, Rachel E, MD Richmond, Steven D, DO Closed fracture of multiple ribs of left side, initial encounter Discharge Disposition: Discharged/transd to SNF with Medicare certification 06/15/2024 Orders Only [facility] Film Room [facility] Radiology Department [facility] [address] [place] [address] Provider, Outside Referral of patient (Primary Dx) from Last 3 Months Social History Tobacco Use Types Packs/Day Years Used Date Smoking Tobacco: Never Assessed Sex and Gender Information Value Date Recorded Sex Assigned at Not on file Legal Sex Male 9:26 AM CDT Gender Identity Not on file Sexual Orientation [...] Phosphorus 2.8 2.5 - 4.5 mg/dL [facility] Blood 06/19/2024 6:19 AM CDT 06/19/2024 7:27 AM CDT us Zeina Arias MD LABORATORY Final Result [facility] [address] [place] [id number] * (ABNORMAL) PANEL BASIC METABOLIC (BMP) (06/19/2024 6:19 AM CDT) Only the most recent of4 resultswithin the time period is included. Sodium 132(L) 135 - 148 mmol/L [facility] Potassium 4.6 3.5 - 5.3 mmol/L [facility] Chloride 101 92 - 108 mmol/L [facility] CO2 20(L) 22 - 30 mmol/L [facility] Glucose 94 70 - 100 mg/dL [facility] BUN 17 8 - 23 mg/dL [facility] Creatinine 0.92 0.70 - 1.25 mg/dL [facility] Calcium 9.0 8.8 - 10.2 mg/dL [facility] AnGap 11 8 - 16 mmol/L [facility] eGFR (2020 CKD-EPI) 82 >=60 ml/min/1.7 3m2 [facility] Comment: The estimated glomerular filtration rate (eGFR) was calculated using the CKD-EPI 2020 creatinine equation, which does not include race as a factor. This equation is validated in individuals 18 years of age and older, and eGFR is normalized to a body surface area of 1.73m^2. Blood 06/19/2024 6:19 AM CDT 06/19/2024 7:27 AM CDT Zeian Arias MD LABORATORY Final Result Performing Organization Address [facility] Co de Phone Number [facility] [address] [phone] * MAGNESIUM (06/19/2024 6:19 AM CDT) Only the most recent of4 resultswithin the time period is included. Magnesium 2.0 1.6 - 2.4 mg/dL [facility] Blood 06/19/2024 6:19 AM CDT 06/19/2024 7:27 AM CDT Zeina Arias MD LABORATORY Final Result Performing Organization Address [facility] Co de Phone Number [facility] [address] [address] * (ABNORMAL) CBC WITH PLATELET (06/19/2024 6:19 AM CDT) Only the most recent of4 resultswithin the time period is included. WBC 9.14 4.00 - 10.00 k/cmm [facility] RBC 3.36(L) 4.60 - 6.00 m/cmm [facility] Hgb 12.5(L) 13.1 - 17.5 g/dL [facility] Hematocrit 37.5(L) 40.0 - 51.0 % [facility] MCV 111.6(H) 80.0 - 100.0 fL [facility] MCH 37.2(H) 25.0 - 32.0 pg [facility] MCHC 33.3 31.0 - 36.0 g/dL [facility] RDW 12.2 11.5 - 14.5 % [facility] Plt 151 150 - 400 k/cmm [facility] MPV 10.4 6.5 - 12.5 fL [facility] Blood 06/19/2024 6:19 AM CDT 06/19/2024 7:27 AM CDT us Zeina Arias MD LABORATORY Final Result [facility] [address] [address] * TELEMETRY STRIPS (06/18/2024 8:34 AM CDT) Only the most recent of9 resultswithin the time period is included. Narrative 06/18/2024 8:34 AM CDT Ordered by an unspecified provider. us Provider Unknown RAD ECHO Final Result * XR CHEST 1 VIEW AP OR [...] Coby Banerjee Zeina Arias MD RAD XRAY Final Result * FOLATE SERUM (06/16/2024 9:08 PM CDT) Folate 4.1 >=4.0 ng/mL [facility] Blood 06/16/2024 9:08 PM CDT 06/16/2024 9:22 PM CDT Zeina Arias MD LABORATORY Final Result [facility] [address] [place] [address] * VITAMIN B12 (06/16/2024 9:08 PM CDT) B12 447 211 - 946 pg/mL [facility] Blood 06/16/2024 9:08 PM CDT 06/16/2024 9:22 PM CDT Zeina Arias MD LABORATORY Final Result Performing Organization Address City/[facility]/ZIP Co de Phone Number [facility] [address] [address] * TROP 4H (06/15/2024 3:50 PM CDT) 4H Trop 7 <=35 ng/L [facility] 4H Delta na Not Significant [facility] Comment:Unable to calculate delta. Blood 06/15/2024 3:50 PM CDT 06/15/2024 3:54 PM CDT Amanda Joel MD LABORATORY Final Result Performing Organization Address [facility] Co de Phone Number [facility] [address] [address] * XR SCAPULA LEFT AP + LAT [...] visible scapular fracture Reading Radiologist: Siddhartha Hernández us Amanda Joel MD RAD XRAY Final Result * CT SPINE LUMBAR NO IV CON [...] Radiologist: Dontae Gunn Reading Resident: Davie Chavarria us Amanda Joel MD RAD CT NEURO Final Result * CT SPINE THORACIC NO IV CON [...] as documented by the resident/fellow. Reading Radiologist: Dnotae Gunn Reading Resident: Davie Chavarria us Amanda Joel MD RAD CT NEURO Final Result * Nerve Block (06/15/2024 2:00 PM CDT) [...] ??No treatment, delayed treatment and alternative treatment [place] protocol: ??Procedure explained and questions answered to [...] no immediate complications Amanda Joel MD PROCEDURES Final Result * (ABNORMAL) URINALYSIS,TOTAL (06/15/2024 1:12 PM CDT) [facility] Signature Color ORANGE YELLOW [facility] Appearance CLOUDY(A) CLEAR [facility] Urine Glucose NEGATIVE NEGATIVE mg/dL [facility] Bili UA NEGATIVE NEGATIVE [facility] Ketones TRACE(A) NEGATIVE [facility] Specific [place] 1.018 1.003 - 1.030 [facility] Blood Ur LARGE(A) Neg-Trace [facility] PH Urine 6.5 5.0 - 7.0 [facility] Protein Ur 30(A) Neg-Trace [facility] Urobilinogen NORMAL NORMAL EU/dL [facility] Nitrite Ur NEGATIVE NEGATIVE [facility] Leuk Est TRACE Neg-Trace [facility] WBC Ur 0-5 0 - 5 perHPF [facility] RBC Ur >20(A) 0 - 3 perHPF [facility] Urinalysis Performed at: [facility] Urine 06/15/2024 1:12 PM CDT 06/15/2024 1:16 PM CDT Amanda Joel MD LABORATORY Edited Result - Final Performing Organization Address [facility]/ZIP Co de Phone Number [facility] [address] [address] * HS TROPONIN (06/15/2024 12:28 PM CDT) HS Troponin I 6 <=35 ng/L [facility] Blood 06/15/2024 12:2 8 PM CDT 06/15/2024 12:31 PM CDT Narrative [facility] - 06/15/2024 12:57 PM CDT If ordering as an add-on lab, you must call the lab. Amanda Joel MD LABORATORY Final Result Performing Organization Address [facility] Co de Phone Number [facility] [address] [address] * (ABNORMAL) ED CHEMISTRY LABS(NA,K,CL,CO2,GLU,CREAT,CA-IONIZED,ANION GAP) (06/15/2024 12:28 PM CDT) Sodium 132(L) 135 - 148 mmol/L [facility] Chloride 103 92 - 108 mmol/L [facility] AnGap 9 8 - 16 mmol/L [facility] Glucose 96 70 - 100 mg/dL [facility] ICA, Actual 4.45 4.40 - 5.20 mg/dL [facility] ICA, pH Corrected 4.48 4.40 - 5.20 mg/dL [facility] Creatinine 1.03 0.70 - 1.25 mg/dL [facility] BICARB 21(L) 22 - 26 mEq/L [facility] eGFR (2020 CKD-EPI) 72 >=60 ml/min/1.7 3m2 [facility] Comment: The estimated glomerular filtration rate (eGFR) was calculated using the CKD-EPI 2020 creatinine equation, which does not include race as a factor. This equation is validated in individuals 18 years of age and older, and eGFR is normalized to a body surface area of 1.73m^2. Potassium 4.5 3.5 - 5.3 mmol/L [facility] Blood 06/15/2024 12:2 8 PM CDT 06/15/2024 12:37 PM CDT us Amanda Joel MD LABORATORY Final Result [facility] [address] [address] * (ABNORMAL) CBC WITH PLTS/AUTO DIFF (06/15/2024 12:28 PM CDT) WBC 10.53(H) 4.00 - 10.00 k/cmm [facility] RBC 3.59(L) 4.60 - 6.00 m/cmm [facility] Hgb 13.2 13.1 - 17.5 g/dL [facility] Hematocrit 38.5(L) 40.0 - 51.0 % [facility] MCV 107.2(H) 80.0 - 100.0 fL [facility] MCH 36.8(H) 25.0 - 32.0 pg [facility] MCHC 34.3 31.0 - 36.0 g/dL [facility] RDW 11.9 11.5 - 14.5 % [facility] Plt 185 150 - 400 k/cmm [facility] MPV 9.3 6.5 - 12.5 fL [facility] Automated Abs Neutrophil 8.59(H) 1.70 - 6.50 k/cmm [facility] Comment:Preliminary ANC, Fin al Result to Follow Abs Immature Granulocyte 0.02 0.00 - 0.09 k/cmm [facility] Comment:The Immature Granulo cyte Absolute count contains metamyelocytes and myelocytes. Abs Neutrophil 8.59(H) 1.70 - 6.50 k/cmm [facility] Abs Lymphocyte 0.71(L) 0.80 - 4.00 k/cmm [facility] Abs Monocyte 1.08(H) 0.20 - 1.00 k/cmm [facility] Abs Eosinophil 0.07 0.00 - 0.60 k/cmm [facility] Abs Basophil 0.06 0.00 - 0.20 k/m [facility] Blood 06/15/2024 12:2 8 PM CDT 06/15/2024 12:44 PM CDT Amanda Joel MD LABORATORY Edited Result - Final [facility] [place] [address] * PROTHROMBIN (PT) & INR (06/15/2024 12:28 PM CDT) PT 11.2 9.0 - 12.5 sec [facility] INR 1.0 0.8 - 1.1 [facility] Comment: Warfarin Therapeutic Range: Standard Intensity: 2.0 - 3.0 High Intensity: 2.5 - 3.5 Blood 06/15/2024 12:2 8 PM CDT 06/15/2024 12:44 PM CDT Amanda Joel MD LABORATORY Final Result [facility] [place] [id number] * CK, TOTAL (06/15/2024 12:28 PM CDT) CK 258 39 - 308 IU/L [facility] Blood 06/15/2024 12:2 8 PM CDT 06/15/2024 12:44 PM CDT Amanda Joel MD LABORATORY Final Result [facility] [place] [id number] * EXTRA TUBE - SST (06/15/2024 12:28 PM CDT) SST TUBE Stored [facility] Comment:SST tubes (Serum Sep arator) are stored in the lab for 3 days from the collection date. Blood 06/15/2024 12:2 8 PM CDT 06/15/2024 12:32 PM CDT us Amanda Joel MD LABORATORY Final Result [facility] [address] [address] * (ABNORMAL) CARBON MONOXIDE (CO) (06/15/2024 12:28 PM CDT) Carbon Monox 3(H) 0 - 2 % [facility] Comment:Normal range for smo kers: up to 13%. Blood 06/15/2024 12:2 8 PM CDT 06/15/2024 4:16 PM CDT us Amanda Joel MD LABORATORY Final Result Performing Organization Address [facility] Co de Phone Number [facility] [address] [address] * ED US GUIDED NERVE BLOCK (06/15/2024 [...] procedure Amanda Joel MD, 06/15/2024 1:58 PM us Amanda Joel MD RAD ED ULT Final Result * ED EKG (12-LEAD) (06/15/2024 11:59 AM CDT) 06/15/2024 11:5 9 AM CDT Impressions [facility] CVIS EKG ORDERS - 06/15/2024 11:59 AM CDT SINUS RHYTHM WITH FIRST DEGREE AV BLOCK ABNORMAL ECG No Previous ECGs Available. P-R Interval 212 ms QRS Interval 95 ms QT Interval 377 ms QTC Interval 400 ms P [place] 64 QRS [place] -7 T Wave [place] 25 Narrative Procedure Note Amanda Joel MD - 06/15/2024 IMPRESSION SINUS RHYTHM WITH FIRST DEGREE AV BLOCK ABNORMAL ECG No Previous ECGs Available. P-R Interval 212 ms QRS Interval 95 ms QT Interval 377 ms QTC Interval 400 ms P [place] 64 QRS [place] -7 T Wave [place] 25 us Amanda Joel MD EKG Final Result [facility] CVIS EKG ORDERS * CT OUTSIDE READ [...] 2:35 PM CDT Indication: [facility] Tra[facility]. Dr. AMANDA JOEL requested an interpretation by me. Comparison: CT of the chest from 02/08/2023. Technique: ??CT scan of the chest/abdomen/pelvis done with IV contrast. Axial, coronal, and sagittal reconstructions reviewed in soft tissue and bone windows, per the local institution's scanning protocols, which may differ from the [facility] trauma protocols. Findings: Chest: Mediastinum: Atrophic thyroid [...] transferred from [facility] due to Trauma.Dr. AMANDA JOEL requested an interpretation by me. Comparison: CT of the chest from 02/08/2023. Technique: CT scan of the chest/abdomen/pelvis done with IV contrast.Axial, coronal, and sagittal reconstructions reviewed in soft tissue andbone windows, per the local institution's scanning protocols, which maydiffer from the [facility] trauma protocols. Findings: Chest: Mediastinum: Atrophic thyroid [...] Radiologist: Epi Lorenzana Reading Resident: Octavio Gilman us Amanda Joel MD RAD CT BODY Final Result * CT OUTSIDE READ SPINE CERVICAL/NECK (06/15/2024 [...] from [facility] due to Trauma. Dr. AMANDA JOEL requested an interpretation by me. Technique: ??CT scan of the cervical spine done on 06/15/2024 without IV contrast. Axial, coronal, and sagittal reconstructions reviewed in soft tissue and bone windows, per the local institution's scanning protocols, which may differ from the [facility] trauma protocols. Findings: ??No suspected acute fracture, [...] Lorenzana, - 06/15/2024 Indication: Patient transferred from [facility] due to Trauma.Dr. AMANDA JOEL requested an interpretation by me. Technique: CT scan of the cervical spine done on 06/15/2024 without IVcontrast. Axial, coronal, and sagittal reconstructions reviewed in softtissue and bone windows, per the local institution's scanning protocols,which may differ from the [facility] trauma protocols. Findings: No suspected acute fracture, [...] Lorenzana Amanda Joel MD RAD CT NEURO Final Result * CT OUTSIDE READ HEAD/FACIAL BONES (06/15/2024 [...] from [facility] due to Trauma. Dr. AMANDA JOEL requested an interpretation by me. Technique: ??CT scan of the head done on 06/15/2024 without IV contrast. Axial, coronal, and sagittal reconstructions are reviewed in soft tissue and bone windows, per the local institution's scanning protocols, which may differ from the [facility] trauma protocols. Findings: No acute intracranial hemorrhage, [...] transferred from [facility] due to Trauma.Dr. AMANDA JOEL requested an interpretation by me. Technique: CT scan of the head done on 06/15/2024 without IV contrast.Axial, coronal, and sagittal reconstructions are reviewed in soft tissueand bone windows, per the local institution's scanning protocols, whichmay differ from the [facility] trauma protocols. Findings: No acute intracranial hemorrhage, [...] Lorenzana Amanda Joel MD RAD CT NEURO Final Result from Last 3 [place] [address] [facility] [place] [address] [address] [phone] Advance Directives For more information, please contact: [phone] * Full Code (Latest Code Status on [...] Status With Whom? Not discussed Care Teams Silk Conditioner Relationship Specialty Start Date End Date Alejandra Mclean MD [address] [place] [id number] PCP - General Internal Medicine 06/15/24
--- OUTSIDE RECORDS SUMMARY | 2024-08-02 06:37 | XMS_ITS | Referral Summary ---
Author Organization [facility] Address [address] [place] [address] Phone Care Team Providers Care Stitchdown Thread Laster Name Role Phone Alejandra Mclean MD Primary Care Provider Source Comments [employer] is fully rolled out on [email or web address]. Last update 02/28/09.[employer] Encounters Date Type Department Care Team Description 06/28/2024 Telephone [facility] [address] [address] Orlin Luo, [facility] Appointment 06/15/2024 11:06 AM CDT - 06/19/2024 5:12 PM CDT Hospital Encounter [facility] Surgery/Trauma/Brigido ro [address] [facility] [address] [place] [address] Amanda Joel MD Payne, Rachel E, MD [...] Department [place] Unknown, Provider 06/15/2024 Orders Only [facility] Film Room [facility] Radiology Department [facility] [address] [place] [address] Provider, Outside Referral of patient (Primary Dx) [...] (100 mg) by mouth 3 times daily. Active levothyroxine (SYNTHROID) 100 mcg oral tablet [...] included. Phosphorus 2.8 2.5 - 4.5 mg/dL [facility] LAB Blood 06/19/2024 6:19 AM CDT 06/19/2024 7:27 AM CDT Zeina Arias MD LABORATORY Final Result Performing Organization Address [facility] de Phone Number [facility] LAB [address] [address] * (ABNORMAL) PANEL BASIC METABOLIC (BMP) (06/19/2024 6:19 AM CDT) Only the most recent of4 resultswithin the time period is included. Sodium 132(L) 135 - 148 mmol/L [facility] Potassium 4.6 3.5 - 5.3 mmol/L [facility] Chloride 101 92 - 108 mmol/L [facility] CO2 20(L) 22 - 30 mmol/L [facility] Glucose 94 70 - 100 mg/dL [facility] BUN 17 8 - 23 mg/dL [facility] Creatinine 0.92 0.70 - 1.25 mg/dL [facility] Calcium 9.0 8.8 - 10.2 mg/dL [facility] AnGap 11 8 - 16 mmol/L [facility] eGFR (2020 CKD-EPI) 82 >=60 ml/min/1.7 3m2 [facility] Comment: The estimated glomerular filtration rate [...] MD LABORATORY Final Result Performing Organization Address [facility] Co de Phone Number [facility] [address] [address] * MAGNESIUM (06/19/2024 6:19 AM CDT) Only the most recent of4 resultswithin the time period is included. Magnesium 2.0 1.6 - 2.4 mg/dL [facility] Blood 06/19/2024 6:19 AM CDT 06/19/2024 7:27 AM CDT Zeina Arias MD LABORATORY Final Result Performing Organization Address City/[facility] Co de Phone Number [facility] [address] [address] * (ABNORMAL) CBC WITH PLATELET (06/19/2024 6:19 AM CDT) Only the most recent of4 resultswithin the time period is included. WBC 9.14 4.00 - 10.00 k/cmm [facility] RBC 3.36(L) 4.60 - 6.00 m/cmm [facility] Hgb 12.5(L) 13.1 - 17.5 g/dL [facility] Hematocrit 37.5(L) 40.0 - 51.0 % [facility] MCV 111.6(H) 80.0 - 100.0 fL [facility] MCH 37.2(H) 25.0 - 32.0 pg [facility] MCHC 33.3 31.0 - 36.0 g/dL [facility] RDW 12.2 11.5 - 14.5 % [facility] Plt 151 150 - 400 k/cmm [facility] MPV 10.4 6.5 - 12.5 fL [facility] Blood 06/19/2024 6:19 AM CDT 06/19/2024 7:27 AM CDT Zeina Arias MD LABORATORY Final Result Performing Organization Address City/[facility] Co de Phone Number [facility] [address] [address] * TELEMETRY STRIPS (06/18/2024 8:34 AM CDT) [...] 9:08 PM CDT) Folate 4.1 >=4.0 ng/mL [facility] Blood 06/16/2024 9:08 PM CDT 06/16/2024 9:22 PM CDT Zeina Arias MD LABORATORY Final Result Performing Organization Address [facility] Co de Phone Number [facility] [address] [address] * VITAMIN B12 (06/16/2024 9:08 PM CDT) B12 447 211 - 946 pg/mL [facility] Blood 06/16/2024 9:08 PM CDT 06/16/2024 9:22 PM CDT Zeina Arias MD LABORATORY Final Result Performing Organization Address [facility] de Phone Number [facility] [address] [address] * TROP 4H (06/15/2024 3:50 PM CDT) 4H Trop 7 <=35 ng/L [facility] 4H Delta na Not Significant [facility] Comment:Unable to calculate delta. Blood 06/15/2024 3:50 PM CDT 06/15/2024 3:54 PM CDT Result [facility] Amanda Joel MD LABORATORY Final Result Performing Organization Address [facility] de Phone Number [facility] [address] [address] * XR SCAPULA LEFT AP + LAT [...] Reading Radiologist: Dontae Gunn Resident: Davie Chavarria us Amanda Joel MD [...] reviewed the image(s) and initial interpretation, and Pauline with the findings as documented by the [...] ??No treatment, delayed treatment and alternative treatment [facility]gins protocol: ??Procedure explained and questions answered to [...] ??Procedure completion: ??Tolerated well, no immediate complications us Amanda Joel MD PROCEDURES Final Result * (ABNORMAL) URINALYSIS,TOTAL (06/15/2024 1:12 PM CDT) Pathologist [facility] Color ORANGE YELLOW [facility] Appearance CLOUDY(A) CLEAR [facility] Urine Glucose NEGATIVE NEGATIVE mg/dL [facility] Bili UA NEGATIVE NEGATIVE [facility] Ketones TRACE(A) NEGATIVE [facility] Specific [place] 1.018 1.003 - 1.030 [facility] Blood Ur LARGE(A) Neg-Trace [facility] PH Urine 6.5 5.0 - 7.0 [facility] Protein Ur 30(A) Neg-Trace [facility] Urobilinogen NORMAL NORMAL EU/dL [facility] Nitrite Ur NEGATIVE NEGATIVE [facility] Leuk Est TRACE Neg-Trace [facility] WBC Ur 0-5 0 - 5 perHPF [facility] RBC Ur >20(A) 0 - 3 perHPF [facility] Urinalysis Performed at: [facility] LAB Urine 06/15/2024 1:12 PM CDT 06/15/2024 1:16 PM CDT Amanda Joel MD LABORATORY Edited Result - Final Performing Organization Address [facility]/ZIP Co de Phone Number [facility] [address] [address] * HS TROPONIN (06/15/2024 12:28 PM CDT) [facility] HS Troponin I 6 <=35 ng/L [facility] Blood 06/15/2024 12:2 8 PM CDT 06/15/2024 12:31 PM CDT Narrative [facility] LAB - 06/15/2024 12:57 PM CDT If ordering as an add-on lab, you must call the lab. Amanda Joel MD LABORATORY Final Result Performing Organization Address City/[facility]/ZIP Co de Phone Number [address] [address] * (ABNORMAL) ED CHEMISTRY LABS(NA,K,CL,CO2,GLU,CREAT,CA-IONIZED,ANION GAP) (06/15/2024 12:28 PM CDT) [facility] Sodium 132(L) 135 - 148 mmol/L [facility] Chloride 103 92 - 108 mmol/L [facility] AnGap 9 8 - 16 mmol/L [facility] Glucose 96 70 - 100 mg/dL [facility] ICA, Actual 4.45 4.40 - 5.20 mg/dL [facility] ICA, pH Corrected 4.48 4.40 - 5.20 mg/dL [facility] Creatinine 1.03 0.70 - 1.25 mg/dL [facility] BICARB 21(L) 22 - 26 mEq/L [facility] eGFR (2020 CKD-EPI) 72 >=60 ml/min/1.7 3m2 [facility] Comment: The estimated glomerular filtration rate (eGFR) was calculated using the CKD-EPI 2020 creatinine equation, which does not include race as a factor. This equation is validated in individuals 18 years of age and older, and eGFR is normalized to a body surface area of 1.73m^2. Potassium 4.5 3.5 - 5.3 mmol/L [facility] Blood 06/15/2024 12:2 8 PM CDT 06/15/2024 12:37 PM CDT us Amanda Joel MD LABORATORY Final Result [facility] [address] [place] [id number] * (ABNORMAL) CBC WITH PLTS/AUTO DIFF (06/15/2024 12:28 PM CDT) WBC 10.53(H) 4.00 - 10.00 k/cmm [facility] RBC 3.59(L) 4.60 - 6.00 m/cmm [facility] Hgb 13.2 13.1 - 17.5 g/dL [facility] Hematocrit 38.5(L) 40.0 - 51.0 % [facility] MCV 107.2(H) 80.0 - 100.0 fL [facility] MCH 36.8(H) 25.0 - 32.0 pg [facility] MCHC 34.3 31.0 - 36.0 g/dL [facility] RDW 11.9 11.5 - 14.5 % [facility] Plt 185 150 - 400 k/cmm [facility] MPV 9.3 6.5 - 12.5 fL [facility] Automated Abs Neutrophil 8.59(H) 1.70 - 6.50 k/cmm [facility] LAB Comment:Preliminary ANC, Fin al Result to Follow Abs Immature Granulocyte 0.02 0.00 - 0.09 k/cmm [facility] Comment:The Immature Granulo cyte Absolute count contains metamyelocytes and myelocytes. Abs Neutrophil 8.59(H) 1.70 - 6.50 k/cmm [facility] Abs Lymphocyte 0.71(L) 0.80 - 4.00 k/cmm [facility] Abs Monocyte 1.08(H) 0.20 - 1.00 k/cmm [facility] Abs Eosinophil 0.07 0.00 - 0.60 k/cmm [facility] Abs Basophil 0.06 0.00 - 0.20 k/cmm [facility] Blood 06/15/2024 12:2 8 PM CDT 06/15/2024 12:44 PM CDT Amanda Joel MD LABORATORY Edited Result - Final Performing Organization Address City/[facility] Co de Phone Number [facility] [address] [address] * PROTHROMBIN (PT) & INR (06/15/2024 12:28 PM CDT) PT 11.2 9.0 - 12.5 sec [facility] INR 1.0 0.8 - 1.1 [facility] Comment: Warfarin Therapeutic Range: Standard Intensity: 2.0 - 3.0 High Intensity: 2.5 - 3.5 Blood 06/15/2024 12:2 8 PM CDT 06/15/2024 12:44 PM CDT Amanda Joel MD LABORATORY Final Result Performing Organization Address City/[facility]/ZIP Co de Phone Number [facility] [address] [address] * CK, TOTAL (06/15/2024 12:28 PM CDT) CK 258 39 - 308 IU/L [facility] Blood 06/15/2024 12:2 8 PM CDT 06/15/2024 12:44 PM CDT us Amanda Joel MD LABORATORY Final Result Performing Organization Address [facility] Co de Phone Number [facility] [address] [address] * EXTRA TUBE - SST (06/15/2024 12:28 PM CDT) SST TUBE Stored [facility] Comment:SST tubes (Serum Sep arator) are stored in the lab for 3 days from the collection date. Blood 06/15/2024 12:2 8 PM CDT 06/15/2024 12:32 PM CDT us Amanda Joel MD LABORATORY Final Result Performing Organization Address [facility] de Phone Number [facility] [address] [address] * (ABNORMAL) CARBON MONOXIDE (CO) (06/15/2024 12:28 PM CDT) Carbon Monox 3(H) 0 - 2 % [facility] Comment:Normal range for smo kers: up to 13%. Blood 06/15/2024 12:2 8 PM CDT 06/15/2024 4:16 PM CDT us Amanda Joel MD LABORATORY Final Result Performing Organization Address [facility] Co de Phone Number [facility] [address] [address] * ED US GUIDED NERVE BLOCK (06/15/2024 [...] PM Amanda Joel MD RAD ED ULT Final Result * ED EKG (12-LEAD) (06/15/2024 11:59 AM CDT) 06/15/2024 11:5 9 AM CDT Impressions [facility] CVIS EKG ORDERS - 06/15/2024 11:59 AM CDT SINUS RHYTHM WITH FIRST DEGREE AV BLOCK ABNORMAL ECG No Previous ECGs Available. P-R Interval 212 ms QRS Interval 95 ms QT Interval 377 ms QTC Interval 400 ms P [facility] 64 QRS [facility] -7 T Wave [facility] 25 Narrative Procedure Note Amanda Joel MD - 06/15/2024 IMPRESSION SINUS RHYTHM WITH FIRST DEGREE AV BLOCK ABNORMAL ECG No Previous ECGs Available. P-R Interval 212 ms QRS Interval 95 ms QT Interval 377 ms QTC Interval 400 ms P [facility] 64 QRS [facility] -7 T Wave [facility] 25 Amanda Joel MD EKG Final Result [facility] CVIS EKG ORDERS * CT OUTSIDE READ [...] 2:35 PM CDT Indication: ??Patient transferred from [place] [facility] due to Trauma. Dr. AMANDA JOEL requested an interpretation by me. Comparison: CT of the chest from 02/08/2023. Technique: ??CT scan of the chest/abdomen/pelvis done with IV contrast. Axial, coronal, and sagittal reconstructions reviewed in soft tissue and bone windows, per the local institution's scanning protocols, which may differ from the [facility] trauma protocols. Findings: Chest: Mediastinum: Atrophic thyroid [...] DO - 06/15/2024 Indication: Patient transferred from [facility] due to Trauma.Dr. AMANDA JOEL requested an interpretation by me. Comparison: CT of the chest from 02/08/2023. Technique: CT scan of the chest/abdomen/pelvis done with IV contrast.Axial, coronal, and sagittal reconstructions reviewed in soft tissue andbone windows, per the local institution's scanning protocols, which maydiffer from the [facility] trauma protocols. Findings: Chest: Mediastinum: Atrophic thyroid [...] Radiologist: Epi Lorenzana Reading Resident: Octavio Gilman Authorynes Provider Result Type Result Stat us Amanda Joel MD RAD CT BODY [...] 12:08 PM CDT Indication: ??Patient transferred from [facility] due to Trauma. Dr. AMANDA JOEL requested an interpretation by me. Technique: ??CT scan of the cervical spine done on 06/15/2024 without IV contrast. Axial, coronal, and sagittal reconstructions reviewed in soft tissue and bone windows, per the local institution's scanning protocols, which may differ from the [facility] trauma protocols. Findings: ??No suspected acute fracture, [...] DO - 06/15/2024 Indication: Patient transferred from [facility] due to Trauma.Dr. AMANDA JOEL requested an interpretation by me. Technique: CT scan of the cervical spine done on 06/15/2024 without IVcontrast. Axial, coronal, and sagittal reconstructions reviewed in softtissue and bone windows, per the local institution's scanning protocols,which may differ from the [facility] trauma protocols. Findings: No suspected acute fracture, [...] 12:05 PM CDT Indication: ??Patient transferred from [facility] due to Trauma. Dr. AMANDA JOEL requested an interpretation by me. Technique: ??CT scan of the head done on 06/15/2024 without IV contrast. Axial, coronal, and sagittal reconstructions are reviewed in soft tissue and bone windows, per the local institution's scanning protocols, which may differ from the [facility] trauma protocols. Findings: No acute intracranial hemorrhage, [...] Lorenzana, - 06/15/2024 Indication: Patient transferred from [facility] due to Trauma.Dr. AMANDA JOEL requested an interpretation by me. Technique: CT scan of the head done on 06/15/2024 without IV contrast.Axial, coronal, and sagittal reconstructions are reviewed in soft tissueand bone windows, per the local institution's scanning protocols, whichmay differ from the [facility] trauma protocols. Findings: No acute intracranial hemorrhage, [...] Reading Radiologist: Epi Lorenzana Amanda Joel MD [facility] CT NEURO Final Result from Last 3 Months Insurance [facility] MEDICARE Advance Directives For more information, please contact: [phone] * Full Code (Latest Code Status on [...] Status With Whom? Not discussed Care Teams Stitchdown Thread Laster Relationship Specialty Start Date End Date Alejandra Mclean MD [address] [place] [address] PCP - General Internal Medicine 06/15/24
--- OUTSIDE RECORDS SUMMARY | 2024-08-02 06:37 | XMS_ITS | Encounter Summary ---
Author Organization [facility] Address [address] [place] [address] Phone Care Team Providers Care Collections Technician Name Role Phone Alejandra Mclean MD Primary Care Provider Reason for Visit * Reason Onset Date Comments Appointment 06/28/2024 Encounter Details Date Type Department Care Team (Late st Contact Info) Description 06/28/2024 Telephone [facility] Surgery Clinic [address] [place] [id number] Orlin Luo, [facility] [address] [place] [address] Appointment Social History Tobacco Use [...] Luo, PSC, 06/28/2024 1:52 PM Israel Moyer [facility] Clerical Pool .Patient: Jennifer Shaikh : 1940 Called to schedule an appointment with provider: any available provider discharge states JENNIFER Reason for Visit: Hospital Discharge follow up on rib fractures Video Capable (MyChart Account, High Speed Internet, or Smart Phone/Device or CAM/GONZALO): No Patient Provider Preferences: Any available provider. Date/Time Preferred: Any day and time. Phone number for return call: Daja [phone] product development coordinator at [facility] currently patient is currently in the TCU there Why are you unable to schedule? Hospital discharge instructions state to schedule with JENNIFER, no JENNIFER templates available. Please review and schedule follow up Thank you documented in this encounter Plan of Treatment Not on file documented as of this encounter Visit Diagnoses Not on filedocumented in this encounter Care Teams Collections Technician Relationship Specialty Start Date End Date Alejandra Mclean MD [address] [place] [address] PCP - General Internal Medicine 06/15/24 documented as of this encounter
--- OUTSIDE RECORDS SUMMARY | 2024-08-02 06:37 | XMS_ITS | Encounter Summary ---
Author Organization [facility] Address [address] [place] [address] Phone Care Team Providers Care Thrasher Feeder Name Role Phone Alejandra Mclean MD Primary Care Provider [phone] Reason for Referral * Consult/Test/Treat (Routine) - New Request Specialty Diagnoses / Procedures Referred By Contac t Referred To Contact Physical Therapy / PHYSICAL THERAPY Diagnoses Closed fracture of multiple ribs of left side, initial encounter Bri Carpenter APRN, CNP [address] [address] Phone: tel: fax: PATIENT CHOICE Referral ID Status Reason Start Date Expiration Date V isits Requested Visits Authorized [id number] New Request 06/19/2024 06/20/2025 1 1 * Consult/Test/Treat (Routine) - New Request Specialty Diagnoses / Procedures Referred By Contac t Referred To Contact Diagnoses Closed fracture of multiple ribs of left side, initial encounter Bri Carpenter APRN, CNP [address] [address] Phone: tel: fax: PATIENT CHOICE Referral ID Status Reason Start Date Expiration Date V isits Requested Visits Authorized [id number] New Request 06/19/2024 06/20/2025 1 1 * Consult/Test/Treat (Routine) - Closed Specialty Diagnoses / Procedures Referred By Contac t Referred To Contact Traumatic Brain Injury Diagnoses Traumatic brain injury, with unknown loss of consciousness status, initial encounter ([facility]) Zeina Arias MD [address] [place] [address] Phone: tel: [facility] [address] [address] Phone: tel: fax: Referral ID Status Reason Start Date Expiration Date Visits Re quested Visits Authorized [id number] Closed 06/16/2024 06/16/2025 1 1 Reason for Visit * Reason Comments Rib Injury * Auth/Cert (Routine) Specialty Diagnoses / Procedures Referred By Contac t Referred To Contact SURGERY Diagnoses Fall, initial encounter Closed fracture of multiple ribs of left side, initial encounter Closed fracture of left scapula, unspecified part of scapula, initial encounter Hematuria, unspecified type Desi Joel MD [address] [place] [address] Phone: tel: fax: [facility] Surgery/Trauma/Neuro [facility] [address] [facility] [address] [place] [address] Phone: tel: fax: Referral ID Status Reason Start Date Expiration Date Visits Re quested Visits Authorized [id number] 1 1 Encounter Details Date Type Department Care Team (Latest Contact Info) Description 06/15/2024 11:06 AM CDT - 06/19/2024 5:12 PM CDT Hospital Encounter [facility] Surgery/Trauma/Brigido ro 2 [address] [place] [address] [place], [place] [id number] Desi Joel MD [address] [place] [id number] Zeina Arias MD [address] [place] [address] [place] [address] Nito Lentz DO [address] [place] [address] [place] [address] Closed fracture of multiple ribs of left [...] None Final discharge destination: IP (acute) rehab ([facility]) R: The patient understood the AVS. P: [...] % Wt Change from Adm: 0 % Juncos Body Wt (IBW) Male (kg): 73 kg [...] ROM 2/2 pain, otherwise WNL Psych: WNL Major Gifts Director Needed: no PLANNED DISCHARGE ORDERS: Suture/Christiano: None [...] of plan of care? Yes Okay for Shelter Facility standing orders? Question Response Notes OK for Shelter Facility house standing orders? Yes CODE STATUS Full Code Question Response Notes Does the Patient have preferences regarding life sustaining measures (these options only apply whenthe patient has a pulse) No Discussed Code Status With Whom? Not discussed SCHEDULE APPOINTMENT Order Notes PLEASE CALL the Patient Access Center at [phone] to schedule the following appointment(s) Question Response Notes Specify time frame 1-2 Weeks Reason for Visit? follow up on rib fractures Provider Type? JENNIFER Clinic Location? [facility] Specialty: Surgery Discharge Diagnosis Question Response Notes [...] treatment plan. Tameka Bravo MD 06/19/2024 14:43 Cosigned by Zeina Arias MD at 06/28/2024 7:21 AM CDT Associated attestation - Zeina Arias MD - [...] this encounter Medications at Time of Discharge acetaminophen (TYLENOL) 325 mg oral tablet Take [...] then remove for 12 hours 06/20/2024 lisinopril (PRINIVIL;ZESTRI L) 20 mg oral TABS Take 1 tablet (20 mg) by mouth daily. 06/20/2024 polyethylene glycol 3350 (MIRALAX;GLYCOLA X) 17 g oral packet Take 17 g by mouth daily.Take 1 capful to 17 gm robert mixed with full glass of water every day as directed. 06/20/2024 sennosides (SENOKOT) 17.2 mg oral TABS Take 1 tablet (17.2 mg) by mouth twice daily. 06/19/2024 cyclobenzaprine (FLEXERIL) 5 mg oral TABS Take 1 tablet (5 mg) by mouth 3 times daily for 7 days. 06/19/2024 docusate sodium 100 MG oral capsuleIndicatio ns:Constipation Take 100 mg by mouth twice daily for 7 days. Indications: Constipation 06/19/2024 4 oxyCODONE (ROXICODONE) 5 mg oral tablet Take 1 tablet (5 mg) by mouth every 4 hours as needed for Pain. 20 tablet 06/19/2024 4 documented as of this encounter Progress Notes * Fabiola Turcios - 06/19/2024 11:10 AM CDT Preadmission Screening Submitter InformationPerson Being ReferredMedical InformationADLLenox Hill HospitalSubmitResults Results Thank you for submitting a [...] help, contact the Senior LinkAge Line at [phone] or click to contact us. Print this page You have successfully submitted the preadmission screening (PAS) to the Senior LinkAge Line on: Created On 06/19/2024 11:01 AM Your confirmation number is: [id number] Results Level of Care: Based on the information you provided, it appears this person meets level of care for purposes of MA payment. OBRA: It appears this person does not need an OBRA Level II assessment. Submitter Information Form Type PAS Submitter First and Last Name Fabiola Turcios Direct Email [email or web address] Agency [facility] Service Type [facility] [address] [place] [address] [place] [address] Is your Agency outside [place]? Person Being Admitted to Nursing Facility Legal first name Jennifer Last name Hawa Date of 1940 Age 83 Gender Male Marital Status W= Race A = B = Black or N = or [place] P = [place] or W = White U = Unable to Determine Ethnicity Not / Currently living with: 04 Living in Congregate Setting Planned living with 04 Living in Congregate Setting Housing Type Own bedroom with shared living space, including assisted living (04) Mailing Address [address] [place] [address] [facility] Medical Information Reason for nursing facility [...] not listed check the box Provider Name [facility] Service Type Nursing Facility [address] [address] [address] [facility] Zip Code [address] Anticipated Admit Date 06/19/2024 Anticipated length of [...] time () of patient departure: 05/30/2024@1600 Destination: [address] [address] Type of ride: wheelchair Transportation vendor of ride (choose one below):* [employer]) [phone] [facility] #[id number] If this ride needs to be rescheduled [...] Clinical Coordinators will be informed via a TelIssueNation page. PCS form was completed in Progress Notes and is ready to be signed and routed to vendor by requestor(for stretcher rides only). Fabiola Turcios, 06/19/2024 10:44 AM Patient name: Jennifer Shaikh Date of : 1940 Patient Admitting diagnosis: Patient Active Problem List Diagnosis Closed fracture of multiple ribs of left side, initial encounter Attending provider: Nito Lentz DO Insurance: MEDICARE Secondary insurance: BCBS AUGUSTINE BLUE (COST PLAN) Height: Height: 177.8 cm (5' 10) Weight: Weight: 100.4 kg (221 lb 5.5 oz) * Darien Helton - 06/19/2024 8:49 AM CDTSumdemetra: Post Acute Referrals Images from the original [...] Services Address Phone Fax Patient Preferred [facility] Selected Shelter [address] [facility] [address] [phone] [facility] Pending - Request Sent N/A [address] [facility] [address] [phone] -- Internal Comment last updated by Fabiola Turcios 06/19/2024 1022 Will jave bed on 06/20 . LVM for admissions..Fabiola uTrcios, 06/19/2024 8:08 AM [facility] Pending - Request Sent N/A [address] [facility] [phone] Internal Comment last updated by Fabiola Turcios 06/19/2024 0811 LVM for admissionss.Fabiola Turcios, 06/19/2024 8:11 AM [facility] Pending - Request Sent N/A [address] [address] -- Internal Comment last updated by Fabiola Turcios 06/19/2024 0814 LVM for admissions .Fabiola Turcios, 06/19/2024 8:13 AM [facility] Pending - Request Sent N/A [address] [facility] [address] [phone] -- Internal Comment last updated by Fabiola Turcios 06/19/2024 0815 LVM for admissions .Fabiola Turcios, 06/19/2024 8:15 AM [facility] Pending - Request Sent N/A [address] [address] [phone] -- Internal Comment last updated by Fabiola Turcios 06/19/2024 0807 LVM for admissions .Fabiola Turcios, 06/19/2024 8:07 AM [facility] Pending - Request Sent N/A [address] [facility] [address] [phone] -- [facility] Pending - Request Sent N/A 9[address] [facility] [address] -- Internal Comment last updated by Fabiola Turcios 06/19/2024 0818 LVM for admissions .Fabiola Turcios, 06/19/2024 8:18 AM [facility] Declined N/A [address] [facility] [address] -- Internal Comment last updated by Fabiola Turcios 06/19/2024 1015 Bed available We .Fabiola Turcios, 06/19/2024 10:15 AM [facility] Declined Bed not available N/A [address] [place] [address] [phone] Home Medical Care No active coordination exists for this encounter. * Bryant Steiner RN - 06/18/2024 11:06 PM CDT TRANSFER IN NOTE D: Patient transferred in to [facility] 1 from [facility] at 2345. Patient condition on arrival: Stable. A: Settled patient in to new room: oriented to room, VS done, and assessment done. Property sheet checked in by: RN. Transfer orders released.. R: Tolerated move well, denies pain P: Commence with cares per Care Plan and orders. Bryant Steiner RN, 06/18/2024 11:08 PM * Tosin Teixeira, MS - 06/18/2024 4:00 PM CDT Palliative [...] lives alone in an apartment in a nursing home community in [place], [place]. He walks with a walker, history [...] involved in helping with recommendations about his correction prognosis. Supportive Care: Patient seems capable of [...] 06/18/2024 4:00 PM Palliative Medicine Staff, on Telmediq Cosigned by Geovani Grullon MD at 06/18/2024 4:33 PM CDT Associated attestation - Geovani Grullon MD - [...] Palliative Medicine, on Telmediq * Darien Helton Rebekah - 06/18/2024 2:37 PM CDTSummary: Post Acute [...] would like referrals sent to places around [facility] where his children live. Choice(s) given to patient/family. Destinations updated. Preferred place(s) marked with a star. Patient/family aware we can't guarantee placement in their preferred place, this is up to facility, insurance coverage and bed availability. Spoke with nurse at [phone] from the [facility]. She confirmed patient doewsn't currently receive anyservices. He is completely independent. Furthermore, they are NOT a SNF and will not be able to provide RN/PT/OT services. Patient would have to go to SNF. Continued Care and Services - Admitted Since 06/15/2024 Destination Service Provider Request Status Selected Services Address Phone Fax Patient Preferred [facility] Pending - Request Sent N/A [address] [facility] [address] [phone] -- [facility] Pending - Request Sent N/A [address] [facility] [address] [phone] -- [facility] Pending - Request Sent N/A [address] [place] [address] [phone] [facility] Pending - Request Sent N/A [address] [facility] [address] [phone] [facility] Pending - Request Sent N/A [address] [facility] [phone] [facility] Pending - Request Sent N/A [address] [address] -- [facility] Pending - Request Sent N/A [address] [facility] [address] [phone] -- [facility] Pending - Request Sent N/A [address] [address] [phone] -- [facility] Pending - Request Sent N/A [address] [facility] [address] [phone] -- [facility] Pending - Request Sent N/A [address] [facility] [address] -- Home Medical Care No active coordination exists for this encounter. * Bri Carpenter APRN, PROMOTION OFFICER - 06/18/2024 2:29 PM CDT BLUE SURGERY [...] placement after discharge. Currently lives in a [place], they are unable to provide the cares [...] Lab Results Component Value Date/Time WBC 8.80 06/18/2024513 RBC 3.13 (L) 06/18/2024513 HGB 11.4 (L) 06/18/2024513 HCT 34.8 (L) 06/18/2024513 PLT 172 06/18/2024513 MCV 111.2 (H) 06/18/2024513 MCH 36.4 (H) 06/18/2024513 MCHC 32.8 06/18/2024 0514 RDW 12.5 06/18/2024 0514 MPV 9.4 06/18/2024 0514 NEUTNO 8.59 (H) [...] reviewed Patient seen with staff: Bri Dawson APRN, CNP, 06/18/2024 2:29 PM Discharge Milestones: Diet Tolerated?: Yes Mobility Level Appropriate for Discharge?: Yes - ML planned discharge Pain Controlled?: Yes - On oral discharge regimen Cosigned by Zeina Arias MD at 06/19/2024 9:01 AM CDT Associated attestation - Zeina Arias MD - [...] Assessment Expected DC Date: 06/20/2024 Social Information Major Gifts Director Used: None needed Decision Maker at Admission: Self Living Situation: Assisted living (see comment) (Lives in [facility] but receives no services, he is in [...] Yes Risks for Readmission: Other (see comment) online merchandising manager will continue to follow until DC SUMMARY Patient lives in [place] but receives no services Is patient OK with Post Acute placement? No, he would like to go back to [facility] Patient says his/her PCP is: Alejandra Mclean MD [facility] notification sent via Care Everywhere * Venecia [...] Component Value Date/Time WBC 11.01 (H) 06/17/2024 07 RBC 3.33 (L) 06/17/2024723 HGB 12.3 (L) 06/17/2024723 HCT 36.6 (L) 06/17/2024723 PLT 158 06/17/2024723 MCV 109.9 (H) 06/17/2024723 MCH 36.9 (H) 06/17/2024723 MCHC 33.6 06/17/2024723 RDW 12.3 06/17/2024723 MPV 9.3 06/17/2024 0724 NEUTNO 8.59 (H) 06/15/2024 1228 LYMPHAB 0.71 (L) 06/15/2024 1228 MONOABSNO 1.08 (H) 06/15/2024 1228 EOSNUMB 0.07 06/15/2024 1228 BASO 0.06 06/15/2024 1228 Lab Results Component Value Date/Time NA 136 06/17/2024 07 K 4.4 06/17/2024723 CHLORIDE 106 06/17/2024 0724 CO2 22 06/17/2024 0724 GLU 112 (H) 06/17/2024 0724 UN 16 06/17/2024 0724 CR 1.08 06/17/2024 0724 CA 8.9 06/17/2024 07 RADIOLOGY: No new imaging today. Kate Polanco [...] 36.7 ??C (98.1 ??F) (Oral) Resp 15 [id number]% A: Pt oriented to unit, room, and [...] 06/15/2024 11:06 History of Present Injury Event: KARYN from [place]. Patient had a fall last night, found [...] NPO until final reads on radiography Consult PODIATRIST ASSISTANT and keep strict NPO if PODIATRIST ASSISTANT consult not indicated at this time Aspiration [...] final reads on imaging Tertiary exam in Kate Polanco MD General Surgery Resident, PGY2 Cosigned by Zeina Arias MD at 06/15/2024 3:43 PM CDT documented in this encounter Procedure Notes * [...] No treatment, delayed treatment and alternative treatment [place] protocol: Procedure explained and questions answered to [...] complications Faye Tong PA-C, 06/15/2024 2:04 PM Cosigned by Desi Joel MD at 06/15/2024 2:25 PM CDT Associated attestation - Desi Joel MD - [...] contact pharmacist on service at [facility] [employer]) [phone]. If no response within needed timeframe, please contact central pharmacy via phone at [phone]. Planned discharge medications are: Medication List Medications [...] food. Start taking on: June 20, 2024 INSTALLATION & MAINTENANCE EXECUTIVE medication lidocaine 5% patch Commonly known as: [...] son was sitting on a chair nearby. Roof Shingler greeted the men, introduced herself, and offered music. Patient welcomed Roof Shingler. Roof Shingler sat on a chair facing Patient with her guitar on her lap. Patient began to cry. Roof Shingler sat quietly as Patient struggled to speak and Patient's son spoke softly to Patient. Patient's son then explained to Roof Shingler that the last time someone came with a guitar was the day Patient's andthey sang her favorite hymns. Roof Shingler asked Patient if he would like music today and Patient said yes. Roof Shingler played upbeat patient-preferred music. Patient and Patient's son sang along with Roof Shingler and harmonized. Patient continued to be tearful throughout the session. Patient's son, Patient and Roof Shingler chatted between songs. After a time, Roof Shingler ended the session and Patient's son thanked Roof Shingler for visiting after reminiscing about growing up in his parents' house and making music together as a family. Roof Shingler offered to stop by again if Patient is around when Roof Shingler returns to the hospital on Tuesday. Patient and his son thanked Roof Shingler. Goals Addressed: Opportunity for Emotional Expression, Opportunity for Creative Self-Expression, Emotional Support, and Caregiver Support Plan: Roof Shingler will continue to offer music therapy to [...] Difficulty in Walking R 26.2 PRECAUTIONS Falls Major Gifts Director Used: None needed ACTIVITY Up with Assist Physical Therapy Orders: Orders Placed This Encounter Procedures PT EVALUATION AND TREATMENT Standing Status: Standing Number of Occurrences: 1 Order Specific Question: Reasons for eval? Answer: As Per Dx Order Specific Question: OK for out of bed activity? (Update Activity Order) Answer: Yes HISTORY Pertinent History: See H&P Note Medical History No past medical [...] practice with log rolling for rib pain. INSTALLATION & MAINTENANCE EXECUTIVE Appropriate: Yes Participated in goal setting and treatment planning: Patient Agrees with goals and treatment plan: Patient - Yes. Saroj William, PT 06/18/2024 Pager: [facility] PT Department * Jackie Burden, OTR/L - [...] of OT, dc recs Interdisciplinary Communication: RN: ok for OT PT: pt status/handoff Barriers to Learning: none identified Rehab Potential: good ASSESSMENT: Pt admitted from [facility] for GLF when getting up from chair in the middle of the night. Typically he is mod I with 4ww for all ADLs. Can have increased asst (paid) at his V[facility], just needs to set it up. He [...] mgmt/ADL: 20 minutes Therapist: RUPERTO Zaman/Jennifer Pager: [facility] Occupational Therapy Department * Geovani Grullon MD [...] remember the fall itself) in his home ([facility] in [place], [place]). Evaluation was notable for multiple left [...] team Support Spiritual support- will ask our Gas Operation Manager to visit patient next week as his [...] MD, 06/16/2024 3:02 PM Palliative Medicine Available Telmediq Advance Care Planning Primary Care: Alejandra Mclean [...] remember the fall itself) in his home ([facility] in [place], [place]). Evaluation was notable for multiple left [...] shared that he has been living in [place], [place] since 2019. He lives in an [facility] but is very independent. He gets one meal per day provided in the cafeteria but otherwise does most of his own ADLs. He is still active in his christianity and enjoys meeting with friends (having coffee at the local bakery). He also enjoys his family and watching sports (football and the Twins). He also enjoys reading (mystery). He is not as active as he used to be but still enjoys going to his family's cabin near [place], [place]. I asked their understanding of his [...] their hobbies, activities and interests, spirituality or spiritism, personal experience with end of life, and personal hopes, worries. Thisbackground is essential in understanding what is most important and how that can change throughout the course of a serious illness. This summary is an attempt to highlight that background. Social History Social History Narrative Jennifer's in 2018. 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 They have three children and multipel grandchildren (and greatciraren). He is a Spiritual person and is Scientology. He also sang in a men's choir [...] López MD - 06/15/2024 2:02 PM CDT [facility] ORTHOPAEDIC SURGERY CONSULT - HISTORY AND PHYSICAL DATE OF CONSULT: 06/15/2024 14:02 REQUESTING PROVIDER: Desi Joel MD - [facility] Staff. CC: left shoulder pain/chest wall pain DATE OF INJURY: 06/14 HISTORY OF PRESENT ILLNESS: Jennifer Shaikh is a 83 y.o. RHD male who presents as a transfer from [facility] ([place]) for trauma evaluation. He is accompanied by his son. He reports that he does not remember what happened, but was getting up from his chair late last night to go to the bathroom when he fell, woke up on the floor. He had pain in his left chest and shoulder. He presented to [facility] for evaluation and was found to have multiple rib fractures, concern for left sided scapula fracture. Per patient, he does not have any pain in the shoulder at this time, pain localized to left ribcage. Denies any numbness/tingling. He lives alone in an apartment in a nursing home community. He walks with a walker at [...] Narrative Not on file Lives alone in nursing home community, denies tobacco use, daily cocktail at [...] Posterior rib fractures. No visible scapular fracture 174 CT OUTSIDE READ CHEST/ABD/PELV Impression: 1. Acute [...] in real time. Please contact me via [employer] staff message if you note any errors requiring clarification. * Pete Rodriguez RN - 06/15/2024 11:09 AM CDT BIBA trauma tx from [facility], Fell at 1130pm last night, 5 rib fx and L scapula, hit head LOC+ [facility] c-spine cleared. From [facility] living side of [place]. On floor 6-7 hrs. 2mg morphine on transfer from [place]. Sats ok on RA VSS ex HTN [...] BIBA to the ED as transfer from [facility] for evaluation of fall with multiple rib [...] history of similar symptoms. He was taken [facility] where they obtained head and cervical [...] note, patients legal guardian and power of wheat cleaner is his son who is at the bedside. Son states patient is mentating at his baseline. Additional information per rubber stamp dies inspector: KARYN trauma tx from [facility], Fell at 1130pm last night, 5rib fx and L scapula, hit head LOC+ ct at [facility] c-spine cleared. From [facility] side [place].On floor 6-7 hrs. 2mg morphine on transfer from [place]. Sats ok on RA VSS ex HTN [...] of my shift. Their care was signedout [id number] with the oncoming provider, Ronnie Giraldo MD [...] Faye Tong PA-C, 06/15/2024 11:07 AM Physician Sports Manager Post-Grad Trainee Program Dictation Disclaimer: Some notes are completed with voice-recognition dictation software. As a result, there may be errors in the script that have gone undetected. Errors are generally corrected in real time. Please contact me via [employer] staff message if you note any errors requiring clarification. * Tabitha Birmingham RN - 06/15/2024 10:18 AM CDT Report called from Ivelisse HUNTLEY at [place] ED. Patient fell on way to bathroom, around 2300 last night and lives alone. Does not recall the fall. Was able to finally call 911 this morning. On Right scapular fracture and 5 rib fractures on left side. Head/neck CT negative. NSR. Pain controlled after one dose of Dilaudid 0.5mg. Alert and oriented X4. Moves all extremities normally. [id number]. Blood noted in urine this morning. Also noted on urinalysis at [place] ED. 22g in left hand. Abrasion to [...] Selected Services Address Phone Fax Patient Preferred [facility] [address] [place] [id number] Summary: Patient has been accepted to continue rehabing at the aforementioned post acute facility Patient michele board with plan. Roof Shingler also confirmed with son via phone call. He is on board. WC ride has been ordered. HIGH [employer] SOC[employer] STUDIES TEACHER (Advertising Analyst Sports Manager) will schedule. Check [id number] for confirmation. Medical team is aware. They will work writing DC orders. CC faxed DC orders to SNF Medical team is aware any controlled substances must be printed and signed to be sent in physical form to the TCU. PLEASE MAKE SURE RX IS COMPLETE. MAKE SURE QUANTITY IS ADDED. Also, PSC/DINING SERVER/RN will fax it to TCU julienne (this is required so in case of pain during transport, pain control can be addressed) Bedside nurse: please confirm this is done. A [employer] thread has been started. CC will continue to follow until DC. Please use [employer] for any further questions. * Nursing Assessment - Sierra Ferrer RN - 06/19/2024 8:00 AM CDT Nursing Assessment [...] afternoon. Continue POC.Verbal report given to Megan @[phone] TCU ride is set up for 1600 [...] IV 06/16/24 20 gauge Left;Posterior Forearm 06/16/24 5803 -- 2 Psychosocial Within Defined Limits Comments: [...] IV 06/16/24 20 gauge Left;Posterior Forearm 06/16/24 2243 -- 2 Psychosocial Within Defined Limits * [...] IV 06/16/24 20 gauge Left;Posterior Forearm 06/16/24 2243 -- 1 Psychosocial Within Defined Limits [...] Within Defined Limits Cardiac Within Defined Limits Airborne Electronics Analyst - remote telemetry Respiratory Assessment Within Defined [...] Cardiac Assessment Within Defined Limits except for: Airborne Electronics Analyst - remote telemetry Respiratory Assessment Within Defined [...] Cardiac Assessment Within Defined Limits except for: Airborne Electronics Analyst - remote telemetry Respiratory Assessment Within Defined [...] Within Defined Limits Cardiac Within Defined Limits Airborne Electronics Analyst - remote telemetry Respiratory Assessment Within Defined [...] IV 06/16/24 20 gauge Left;Posterior Forearm 06/16/24 2243 -- less than 1 Psychosocial Within Defined Limits * Nursing Assessment - Clair Grissom RN - 06/16/2024 5:54 PM CDT Nursing Assessment Head to Toe Head to Toe Assessment Shift Summary Shift Summary Neurologic/Cognitive Within Defined Limits HEENT Within Defined Limits Cardiac Assessment Within Defined Limits except for: Airborne Electronics Analyst - remote telemetry Respiratory Assessment Within Defined [...] 1:51 PM CDT TRAUMA TERTIARY EXAM - DISPATCH SPECIALIST First Exam Jennifer Shaikh : 1940 Sex: [...] left sided scapula fracture. On arrival at [facility] imaging done without any evidence of scapular [...] severe bilateral neural foraminal narrowing. Plan L VILMA protocol Incentive spirometry Imaging needed: None indicated at this time-low threshold for chest x-ray Labs needed: CBC, BMP, while hospitalized Wound care plans(s): Not applicable Suture/Harmony: None Antibiotics: Not indicated Drains Present: None [...] past year: Have you had an eye property developer first thing in the morning to steady [...] life limiting illness Consulted palliative care. Consult PODIATRIST ASSISTANT for: PODIATRIST ASSISTANT consult not indicated at this time Mental [...] on guard, watchful, or easily startled? no [place] numb or detached from others, activities, or your surroundings? no Interventions Completed: Patient declines Trauma Psych Consult Yomi Jay APRN, CNP 06/16/2024 13:51 [facility] Department of Surgery Pager: via [employer] Checked[employer] Wireless [employer] Cosigned by Zeina Arias MD at 06/18/2024 6:48 AM CDT Associated attestation - Zeina Arias MD - [...] Cardiac Assessment Within Defined Limits except for: Airborne Electronics Analyst - remote telemetry Respiratory Assessment Within Defined [...] needs known. Using call light appropriately. Laura Miller, RN, 06/16/2024 5:06 AM Neurologic/Cognitive Within Defined Limits Frequent Neuro Assessments have been documented in the flowsheets HEENT Within Defined Limits Cardiac Within Defined Limits Airborne Electronics Analyst - remote telemetry Respiratory Within defined limits [...] and Time: 06/15/2024 11:06 AM FACULTY ATTESTATION IDesi MD, personally saw the patient, performed critical or marie portions of the service, and discussed the care with the Advanced Practice Provider. HPI / PERTINENT EXAM Jennifer Shaikh presented to the emergency department for evaluation of left sided rib and scapula pain after fall. BIBA trauma tx from [facility], Fell at 1130pm last night, 5 rib fx and L scapula, hit head LOC+ ct at [facility] c-spine cleared. From [place]. On floor 6-7 hrs. 2mg morphine on transfer from [place]. Sats ok on RA VSS ex HTN [...] NEGATIVE Bili UA NEGATIVE Ketones TRACE(!) Specific Meadow 1.018 Blood Ur LARGE(!) PH Urine 6.5 Protein Ur 30(!) Urobilinogen NORMAL Nitrite Ur NEGATIVE Leuk Est TRACE WBC Ur 0-5 RBC Ur >20(!) Urinalysis Performed at: [facility] [address] CT OUTSIDE READ CHEST/ABD/PELV 1. Acute [...] unknown loss of consciousness status, initial encounter ([facility]) Ordered: 06/16/2024 REFERRAL TO OCCUPATIONAL THERAPY [...] CDT) Phosphorus 2.8 2.5 - 4.5 mg/dL [facility] Blood 06/19/2024 6:19 AM CDT 06/19/2024 7:27 AM CDT us Zeina Arias MD LABORATORY Final Result [facility] [address] [address] * MAGNESIUM (06/19/2024 6:19 AM CDT) Magnesium 2.0 1.6 - 2.4 mg/dL [facility] Blood 06/19/2024 6:19 AM CDT 06/19/2024 7:27 AM CDT us Zeina Arias MD LABORATORY Final Result Performing Organization Address City/[facility] Co de Phone Number [facility] [address] [address] * (ABNORMAL) PANEL BASIC METABOLIC (BMP) (06/19/2024 6:19 AM CDT) Sodium 132(L) 135 - 148 mmol/L [facility] Potassium 4.6 3.5 - 5.3 mmol/L [facility] Chloride 101 92 - 108 mmol/L [facility] CO2 20(L) 22 - 30 mmol/L [facility] Glucose 94 70 - 100 mg/dL [facility] BUN 17 8 - 23 mg/dL [facility] Creatinine 0.92 0.70 - 1.25 mg/dL [facility] Calcium 9.0 8.8 - 10.2 mg/dL [facility] AnGap 11 8 - 16 mmol/L [facility] eGFR (2020 CKD-EPI) 82 >=60 ml/min/1.7 3m2 [facility] Comment: The estimated glomerular filtration rate [...] MD LABORATORY Final Result Performing Organization Address [facility] Co de Phone Number [facility] [address] [address] * (ABNORMAL) CBC WITH PLATELET (06/19/2024 6:19 AM CDT) WBC 9.14 4.00 - 10.00 k/cmm [facility] RBC 3.36(L) 4.60 - 6.00 m/cmm [facility] Hgb 12.5(L) 13.1 - 17.5 g/dL [facility] Hematocrit 37.5(L) 40.0 - 51.0 % [facility] MCV 111.6(H) 80.0 - 100.0 fL [facility] MCH 37.2(H) 25.0 - 32.0 pg [facility] MCHC 33.3 31.0 - 36.0 g/dL [facility] RDW 12.2 11.5 - 14.5 % [facility] Plt 151 150 - 400 k/cmm [facility] MPV 10.4 6.5 - 12.5 fL [facility] Blood 06/19/2024 6:19 AM CDT 06/19/2024 7:27 AM CDT us Zeina Arias MD LABORATORY Final Result [facility] [address] [place] [phone] * XR CHEST 1 VIEW AP OR [...] Arias MD RAD XRAY Final Result * PHOSPHORUS (06/18/2024 5:14 AM CDT) Pathologist [facility] Phosphorus 3.3 2.5 - 4.5 mg/dL [facility] Blood 06/18/2024 5:14 AM CDT 06/18/2024 5:47 AM CDT Zeina Arias MD LABORATORY Final Result Performing Organization Address [facility] Co de Phone Number [facility] [address] [address] * MAGNESIUM (06/18/2024 5:14 AM CDT) Pathologist [facility] Magnesium 2.0 1.6 - 2.4 mg/dL [facility] Blood 06/18/2024 5:14 AM CDT 06/18/2024 5:47 AM CDT Zeina Arias MD LABORATORY Final Result Performing Organization Address [facility] de Phone Number [facility] [address] [address] * (ABNORMAL) PANEL BASIC METABOLIC (BMP) (06/18/2024 5:14 AM CDT) Pathologist [facility] Sodium 136 135 - 148 mmol/L [facility] Potassium 4.8 3.5 - 5.3 mmol/L [facility] Chloride 104 92 - 108 mmol/L [facility] CO2 24 22 - 30 mmol/L [facility] Glucose 106(H) 70 - 100 mg/dL [facility] BUN 19 8 - 23 mg/dL [facility] Creatinine 1.15 0.70 - 1.25 mg/dL [facility] Calcium 8.7(L) 8.8 - 10.2 mg/dL [facility] AnGap 8 8 - 16 mmol/L [facility] eGFR (2020 CKD-EPI) 63 >=60 ml/min/1.7 3m2 [facility] Comment: The estimated glomerular filtration rate (eGFR) was calculated using the CKD-EPI 2020 creatinine equation, which does not include race as a factor. This equation is validated in individuals 18 years of age and older, and eGFR is normalized to a body surface area of 1.73m^2. Blood 06/18/2024 5:14 AM CDT 06/18/2024 5:47 AM CDT Zeina Arias MD LABORATORY Final Result Performing Organization Address City/[facility]/ZIP Co de Phone Number [facility] [address] [address] * (ABNORMAL) CBC WITH PLATELET (06/18/2024 5:14 AM CDT) WBC 8.80 4.00 - 10.00 k/cmm [facility] RBC 3.13(L) 4.60 - 6.00 m/cmm [facility] Hgb 11.4(L) 13.1 - 17.5 g/dL [facility] Hematocrit 34.8(L) 40.0 - 51.0 % [facility] MCV 111.2(H) 80.0 - 100.0 fL [facility] MCH 36.4(H) 25.0 - 32.0 pg [facility] MCHC 32.8 31.0 - 36.0 g/dL [facility] RDW 12.5 11.5 - 14.5 % [facility] Plt 172 150 - 400 k/cmm [facility] MPV 9.4 6.5 - 12.5 fL [facility] Blood 06/18/2024 5:14 AM CDT 06/18/2024 5:47 AM CDT us Zeina Arias MD LABORATORY Final Result Performing Organization Address City/[facility]/ZIP Co de Phone Number [facility] [address] [address] * PHOSPHORUS (06/17/2024 7:24 AM CDT) Phosphorus 2.9 2.5 - 4.5 mg/dL [facility] Blood 06/17/2024 7:24 AM CDT 06/17/2024 7:34 AM CDT Zeina Arias MD LABORATORY Final Result Performing Organization Address [facility] de Phone Number [facility] [address] [address] * MAGNESIUM (06/17/2024 7:24 AM CDT) Magnesium 2.0 1.6 - 2.4 mg/dL [facility] Blood 06/17/2024 7:24 AM CDT 06/17/2024 7:34 AM CDT Zeina Arias MD LABORATORY Final Result Performing Organization Address [facility] de Phone Number [facility] [address] [address] * (ABNORMAL) PANEL BASIC METABOLIC (BMP) (06/17/2024 7:24 AM CDT) Pathologist [facility] Sodium 136 135 - 148 mmol/L [facility] Potassium 4.4 3.5 - 5.3 mmol/L [facility] Chloride 106 92 - 108 mmol/L [facility] CO2 22 22 - 30 mmol/L [facility] AnGap 8 8 - 16 mmol/L [facility] Glucose 112(H) 70 - 100 mg/dL [facility] BUN 16 8 - 23 mg/dL [facility] Creatinine 1.08 0.70 - 1.25 mg/dL [facility] Calcium 8.9 8.8 - 10.2 mg/dL [facility] eGFR (2020 CKD-EPI) 68 >=60 ml/min/1.7 3m2 [facility] Comment: The estimated glomerular filtration rate (eGFR) was calculated using the CKD-EPI 2020 creatinine equation, which does not include race as a factor. This equation is validated in individuals 18 years of age and older, and eGFR is normalized to a body surface area of 1.73m^2. Blood 06/17/2024 7:24 AM CDT 06/17/2024 7:34 AM CDT Zeina Arias MD LABORATORY Final Result Performing Organization Address [facility] Co de Phone Number [facility] [address] [address] * (ABNORMAL) CBC WITH PLATELET (06/17/2024 7:24 AM CDT) WBC 11.01(H) 4.00 - 10.00 k/cmm [facility] RBC 3.33(L) 4.60 - 6.00 m/cmm [facility] Hgb 12.3(L) 13.1 - 17.5 g/dL [facility] Hematocrit 36.6(L) 40.0 - 51.0 % [facility] MCV 109.9(H) 80.0 - 100.0 fL [facility] MCH 36.9(H) 25.0 - 32.0 pg [facility] MCHC 33.6 31.0 - 36.0 g/dL [facility] RDW 12.3 11.5 - 14.5 % [facility] Plt 158 150 - 400 k/cmm [facility] MPV 9.3 6.5 - 12.5 fL [facility] Blood 06/17/2024 7:24 AM CDT 06/17/2024 7:34 AM CDT Zeina Arias MD LABORATORY Final Result Performing Organization Address [facility]/ZIP Co de Phone Number [facility] [address] [address] * FOLATE SERUM (06/16/2024 9:08 PM CDT) Folate 4.1 >=4.0 ng/mL [facility] Blood 06/16/2024 9:08 PM CDT 06/16/2024 9:22 PM CDT Zeina Arias MD LABORATORY Final Result [facility] [address] [address] * VITAMIN B12 (06/16/2024 9:08 PM CDT) B12 447 211 - 946 pg/mL [facility] Blood 06/16/2024 9:08 PM CDT 06/16/2024 9:22 PM CDT Zeina Arias MD LABORATORY Final Result [facility] [address] [address] * PHOSPHORUS (06/16/2024 6:52 AM CDT) [facility] Phosphorus 2.9 2.5 - 4.5 mg/dL [facility] Blood 06/16/2024 6:52 AM CDT 06/16/2024 7:25 AM CDT Desi Joel MD LABORATORY Final Result Performing Organization Address City/[facility]/ZIP Co de Phone Number [facility] [address] [address] * MAGNESIUM (06/16/2024 6:52 AM CDT) [facility] Magnesium 2.1 1.6 - 2.4 mg/dL [facility] Blood 06/16/2024 6:52 AM CDT 06/16/2024 7:25 AM CDT Desi Joel MD LABORATORY Final Result Performing Organization Address City/[facility]/ZIP Co de Phone Number [address] [address] * (ABNORMAL) PANEL BASIC METABOLIC (BMP) (06/16/2024 6:52 AM CDT) [facility] Sodium 135 135 - 148 mmol/L [facility] Potassium 4.4 3.5 - 5.3 mmol/L [facility] Chloride 104 92 - 108 mmol/L [facility] CO2 23 22 - 30 mmol/L [facility] AnGap 8 8 - 16 mmol/L [facility] Glucose 106(H) 70 - 100 mg/dL [facility] BUN 16 8 - 23 mg/dL [facility] Creatinine 1.02 0.70 - 1.25 mg/dL [facility] Calcium 8.6(L) 8.8 - 10.2 mg/dL [facility] eGFR (2020 CKD-EPI) 72 >=60 ml/min/1.7 3m2 [facility] Comment: The estimated glomerular filtration rate (eGFR) was calculated using the CKD-EPI 2020 creatinine equation, which does not include race as a factor. This equation is validated in individuals 18 years of age and older, and eGFR is normalized to a body surface area of 1.73m^2. Blood 06/16/2024 6:52 AM CDT 06/16/2024 7:25 AM CDT us Desi Joel MD LABORATORY Final Result [facility] [address] [address] * (ABNORMAL) CBC WITH PLATELET (06/16/2024 6:52 AM CDT) WBC 7.85 4.00 - 10.00 k/cmm [facility] RBC 3.40(L) 4.60 - 6.00 m/cmm [facility] Hgb 12.2(L) 13.1 - 17.5 g/dL [facility] Hematocrit 36.6(L) 40.0 - 51.0 % [facility] MCV 107.6(H) 80.0 - 100.0 fL [facility] MCH 35.9(H) 25.0 - 32.0 pg [facility] MCHC 33.3 31.0 - 36.0 g/dL [facility] RDW 12.1 11.5 - 14.5 % [facility] Plt 172 150 - 400 k/cmm [facility] MPV 9.4 6.5 - 12.5 fL [facility] Blood 06/16/2024 6:52 AM CDT 06/16/2024 7:41 AM CDT Desi Joel MD LABORATORY Final Result Performing Organization Address City/[facility]/ZIP Co de Phone Number [facility] [address] [address] * TROP 4H (06/15/2024 3:50 PM CDT) 4H Trop 7 <=35 ng/L [facility] 4H Delta na Not Significant [facility] Comment:Unable to calculate delta. Blood 06/15/2024 3:50 PM CDT 06/15/2024 3:54 PM CDT Desi Joel MD LABORATORY Final Result Performing Organization Address [facility] Co de Phone Number [facility] [address] [address] * XR SCAPULA LEFT AP + LAT [...] scapular fracture Reading Radiologist: Siddhartha Hernández us Desi Joel MD RAD XRAY Final Result * [...] Dontae Gunn Reading Resident: Davie Chavarria us Desi Joel MD RAD CT NEURO Final Result [...] Dontae Gunn Reading Resident: Davie Chavarria us Desi Joel MD RAD CT NEURO Final Result [...] ??No treatment, delayed treatment and alternative treatment [place] protocol: ??Procedure explained and questions answered to [...] completion: ??Tolerated well, no immediate complications us Desi Joel MD PROCEDURES Final Result * (ABNORMAL) URINALYSIS,TOTAL (06/15/2024 1:12 PM CDT) Color ORANGE YELLOW [facility] Appearance CLOUDY(A) CLEAR [facility] Urine Glucose NEGATIVE NEGATIVE mg/dL [facility] Bili UA NEGATIVE NEGATIVE [facility] Ketones TRACE(A) NEGATIVE [facility] Specific [place]ow 1.018 1.003 - 1.030 [facility] Blood Ur LARGE(A) Neg-Trace [facility] PH Urine 6.5 5.0 - 7.0 [facility] Protein Ur 30(A) Neg-Trace [facility] Urobilinogen NORMAL NORMAL EU/dL [facility] Nitrite Ur NEGATIVE NEGATIVE [facility] Leuk Est TRACE Neg-Trace [facility] WBC Ur 0-5 0 - 5 perHPF [facility] RBC Ur >20(A) 0 - 3 perHPF [facility] Urinalysis Performed at: [facility] Urine 06/15/2024 1:12 PM CDT 06/15/2024 1:16 PM CDT us Desi Joel MD LABORATORY Edited Result - Final Performing Organization Address [facility]/ZIP Co de Phone Number [facility] [place] [phone] * CK, TOTAL (06/15/2024 12:28 PM CDT) CK 258 39 - 308 IU/L [facility] Blood 06/15/2024 12:2 8 PM CDT 06/15/2024 12:44 PM CDT Desi Joel MD LABORATORY Final Result Performing Organization Address [facility] Co de Phone Number [facility] [place] [phone] * PROTHROMBIN (PT) & INR (06/15/2024 12:28 PM CDT) PT 11.2 9.0 - 12.5 sec [facility] INR 1.0 0.8 - 1.1 [facility] Comment: Warfarin Therapeutic Range: Standard Intensity: 2.0 - 3.0 High Intensity: 2.5 - 3.5 Blood 06/15/2024 12:2 8 PM CDT 06/15/2024 12:44 PM CDT us Desi Joel MD LABORATORY Final Result Performing Organization Address City/[facility]/ZIP Co de Phone Number [facility] [address] [phone] * HS TROPONIN (06/15/2024 12:28 PM CDT) HS Troponin I 6 <=35 ng/L THE [facility] Blood 06/15/2024 12:2 8 PM CDT 06/15/2024 12:31 PM CDT Narrative [facility] - 06/15/2024 12:57 PM CDT If ordering as an add-on lab, you must call the lab. us Desi Joel MD LABORATORY Final Result [facility] [address] [place] [address] * (ABNORMAL) CBC WITH PLTS/AUTO DIFF (06/15/2024 12:28 PM CDT) WBC 10.53(H) 4.00 - 10.00 k/cmm [facility] RBC 3.59(L) 4.60 - 6.00 m/cmm [facility] Hgb 13.2 13.1 - 17.5 g/dL [facility] Hematocrit 38.5(L) 40.0 - 51.0 % [facility] MCV 107.2(H) 80.0 - 100.0 fL [facility] MCH 36.8(H) 25.0 - 32.0 pg [facility] MCHC 34.3 31.0 - 36.0 g/dL [facility] RDW 11.9 11.5 - 14.5 % [facility] Plt 185 150 - 400 k/cmm [facility] MPV 9.3 6.5 - 12.5 fL [facility] Automated Abs Neutrophil 8.59(H) 1.70 - 6.50 k/cmm [facility] Comment:Preliminary ANC, Fin al Result to Follow Abs Immature Granulocyte 0.02 0.00 - 0.09 k/cmm [facility] Comment:The Immature Granulo cyte Absolute count contains metamyelocytes and myelocytes. Abs Neutrophil 8.59(H) 1.70 - 6.50 k/cmm [facility] Abs Lymphocyte 0.71(L) 0.80 - 4.00 k/cmm [facility] Abs Monocyte 1.08(H) 0.20 - 1.00 k/cmm [facility] Abs Eosinophil 0.07 0.00 - 0.60 k/cmm [facility] Abs Basophil 0.06 0.00 - 0.20 k/cmm [facility] Blood 06/15/2024 12:2 8 PM CDT 06/15/2024 12:44 PM CDT Desi Joel MD LABORATORY Edited Result - Final Performing Organization Address City/[facility]/ZIP Co de Phone Number [facility] [address] [address] * (ABNORMAL) ED CHEMISTRY LABS(NA,K,CL,CO2,GLU,CREAT,CA-IONIZED,ANION GAP) (06/15/2024 12:28 PM CDT) Sodium 132(L) 135 - 148 mmol/L [facility] Chloride 103 92 - 108 mmol/L [facility] AnGap 9 8 - 16 mmol/L [facility] Glucose 96 70 - 100 mg/dL [facility] ICA, Actual 4.45 4.40 - 5.20 mg/dL [facility] ICA, pH Corrected 4.48 4.40 - 5.20 mg/dL [facility] Creatinine 1.03 0.70 - 1.25 mg/dL [facility] BICARB 21(L) 22 - 26 mEq/L [facility] eGFR (2020 CKD-EPI) 72 >=60 ml/min/1.7 3m2 [facility] Comment: The estimated glomerular filtration rate (eGFR) was calculated using the CKD-EPI 2020 creatinine equation, which does not include race as a factor. This equation is validated in individuals 18 years of age and older, and eGFR is normalized to a body surface area of 1.73m^2. Potassium 4.5 3.5 - 5.3 mmol/L [facility] Blood 06/15/2024 12:2 8 PM CDT 06/15/2024 12:37 PM CDT us Desi Joel MD LABORATORY Final Result Performing Organization Address City/[facility]/ZIP Co de Phone Number [facility] [address] [address] * (ABNORMAL) CARBON MONOXIDE (CO) (06/15/2024 12:28 PM CDT) Carbon Monox 3(H) 0 - 2 % [facility] Comment:Normal range for smo kers: up to 13%. Blood 06/15/2024 12:2 8 PM CDT 06/15/2024 4:16 PM CDT us Desi Joel MD LABORATORY Final Result [facility] [address] [address] * EXTRA TUBE - SST (06/15/2024 12:28 PM CDT) SST TUBE Stored [facility] Comment:SST tubes (Serum Sep arator) are stored in the lab for 3 days from the collection date. Blood 06/15/2024 12:2 8 PM CDT 06/15/2024 12:32 PM CDT us Desi Joel MD LABORATORY Final Result Performing Organization Address [facility] Co de Phone Number [facility] [address] [address] * ED US GUIDED NERVE BLOCK (06/15/2024 [...] procedure Desi Joel MD, 06/15/2024 1:58 PM us Desi Joel MD RAD ED ULT Final Result * ED EKG (12-LEAD) (06/15/2024 11:59 AM CDT) 06/15/2024 11:5 9 AM CDT Impressions [facility] CVIS EKG ORDERS - 06/15/2024 11:59 AM CDT SINUS RHYTHM WITH FIRST DEGREE AV BLOCK ABNORMAL ECG No Previous ECGs Available. P-R Interval 212 ms QRS Interval 95 ms QT Interval 377 ms QTC Interval 400 ms P Gasquet 64 QRS Gasquet -7 T Wave Gasquet 25 Narrative Procedure Note Desi Joel MD - 06/15/2024 IMPRESSION SINUS RHYTHM WITH FIRST DEGREE AV BLOCK ABNORMAL ECG No Previous ECGs Available. P-R Interval 212 ms QRS Interval 95 ms QT Interval 377 ms QTC Interval 400 ms P Gasquet 64 QRS Gasquet -7 T Wave Gasquet 25 us Desi Joel MD EKG Final Result [facility] CVIS EKG ORDERS * CT OUTSIDE READ [...] 2:35 PM CDT Indication: ??Patient transferred from [place] [facility] due to Trauma. Dr. DESI JOEL requested an interpretation by me. Comparison: CT of the chest from 02/08/2023. Technique: ??CT scan of the chest/abdomen/pelvis done with IV contrast. Axial, coronal, and sagittal reconstructions reviewed in soft tissue and bone windows, per the local institution's scanning protocols, which may differ from the [facility] trauma protocols. Findings: Chest: Mediastinum: Atrophic thyroid [...] DO - 06/15/2024 Indication: Patient transferred from [facility] due to Trauma.Dr. DESI JOEL requested an interpretation by me. Comparison: CT of the chest from 02/08/2023. Technique: CT scan of the chest/abdomen/pelvis done with IV contrast.Axial, coronal, and sagittal reconstructions reviewed in soft tissue andbone windows, per the local institution's scanning protocols, which maydiffer from the [facility] trauma protocols. Findings: Chest: Mediastinum: Atrophic thyroid [...] Epi Lorenzana Reading Resident: Octavio Gilman us Desi Joel MD RAD CT BODY Final Result [...] 12:08 PM CDT Indication: ??Patient transferred from [facility] due to Trauma. Dr. DESI JOEL requested an interpretation by me. Technique: ??CT scan of the cervical spine done on 06/15/2024 without IV contrast. Axial, coronal, and sagittal reconstructions reviewed in soft tissue and bone windows, per the local institution's scanning protocols, which may differ from the [facility] trauma protocols. Findings: ??No suspected acute fracture, [...] Lorenzana, - 06/15/2024 Indication: Patient transferred from [facility] due to Trauma.Dr. DESI JOEL requested an interpretation by me. Technique: CT scan of the cervical spine done on 06/15/2024 without IVcontrast. Axial, coronal, and sagittal reconstructions reviewed in softtissue and bone windows, per the local institution's scanning protocols,which may differ from the [facility] trauma protocols. Findings: No suspected acute fracture, [...] Lorenzana Desi Joel MD RAD CT NEURO Final Result [...] 12:05 PM CDT Indication: ??Patient transferred from [facility] due to Trauma. Dr. DESI JOEL requested an interpretation by me. Technique: ??CT scan of the head done on 06/15/2024 without IV contrast. Axial, coronal, and sagittal reconstructions are reviewed in soft tissue and bone windows, per the local institution's scanning protocols, which may differ from the [facility] trauma protocols. Findings: No acute intracranial hemorrhage, [...] DO - 06/15/2024 Indication: Patient transferred from [facility] due to Trauma.Dr. DESI JOEL requested an interpretation by me. Technique: CT scan of the head done on 06/15/2024 without IV contrast.Axial, coronal, and sagittal reconstructions are reviewed in soft tissueand bone windows, per the local institution's scanning protocols, whichmay differ from the [facility] trauma protocols. Findings: No acute intracranial hemorrhage, [...] Lorenzana Desi Joel MD RAD CT NEURO Final Result documented in this encounter Visit Diagnoses Diagnosis Closed fracture of multiple ribs of left side, initial encounter- Primary Closed fracture of multiple ribs of left side, initial encounter Fall, initial encounter Hematuria, unspecified type Closed fracture of left scapula, unspecified part of scapula, initial encounter Traumatic brain injury, with unknown loss of consciousness status, initial encounter ([facility]) documented in this encounter Admitting Diagnoses [...] Given 06/18/2024 7:38 PM CDT 5 mg Goodie Goodie App MED REC REVIEW BY PHARMACY Discharge Date: [...] First dose on Tue06/19/24 at 0800, Until DiscontinuedIndications:Constip ation Given 06/19/2024 8:44 AM CDT 100 mg [...] on 06/16/24 at 2000, Until Discontinued Given 06/19/2024 8:44 [...] modification) on Tue06/16/24 at 1400, Until Discontinued 0758 (Given - Provider: Clair Grissom RN)1418 (Given - Provider: Clair Grissom RN)2004 (Given - Provider: Laura Miller RN) 0846 (Given - Provider: Kizzy Go RN)142 (Given - Provider: Kizzy Go RN)1937 (Given - Provider: Evelyn Amos RN) 0844 (Given - Provider: Sierra Ferrer, YUKO)1421 (Given - Provider: Zoila Dias, YUKO) acetylcysteine inhalation (MUCOMYST) 20% inhalation solution 800 mg, Nebulization, BID, First dose on Tue06/19/24 at 0800, Until Discontinued 0906 (Given - Provid er: Sp Gabriel RT) cyclobenzaprine (FLEXERIL) tablet 5 mg 5 mg, Oral, TID, First dose on Tue06/16/24 at 0800, Until Discontinued 0758 (Given - Provider: Clair Grissom RN)1417 (Given - Provider: Clair Grissom RN)2004 (Given - Provider: Laura Miller RN) 0846 (Given - Provider: Kizzy Go RN)142 (Given - Provider: Kizzy Go RN)193 (Given - Provider: Evelyn Amos RN) 0851 (Given - Provider: Sierra Ferrer RN)142 (Given - Provider: Zoila Dias, YUKO) DC [...] 843 (See Alternativ e - Provider: Sierra Carissa, RN) docusate sodium (COLACE) capsule 100 mg(Linked Group 2) 100 mg, Oral, BID, First dose on Tue06/19/24 at 0800, Until Discontinued 0844 (Given - Provid er: Sierra Ferrer RN) enoxaparin (LOVENOX) 30 mg/0.3 mL injection 30 mg 30 mg, Subcutaneous, Q12H, First dose on Tue06/19/24 at 1130, Until Discontinued 1421 (Given - Provid er: Zoila Dias RN) GABApentin (NEURONTIN) capsule 100 mg 100 mg, [...] Sierra Ferrer RN)1422 (Given - Provider: Zoila Dias RN) levothyroxine (SYNTHROID) tablet 100 mcg 100 [...] modification) on Tue06/16/24 at 1105, Until Discontinued 13 (Patch removed - Provider: Laura Miller RN)08 (Patch applied - Provider: Clair Grissom RN - Comment: left back and left flank)2007 (Patch removed - Provider: Laura Miller RN) 0848 (Patch applied - Provider: Kizzy Go RN - Comment: Jennifer ribmary grace)1943 (Patch removed - Provider: Evelyn Amos RN) 0843 (Patch applied - Provider: Sierra Ferrer RN - Comment: left ri fratures)171 (Due: Patch removed - Provider: BHARAT ECHEVERRIA, [facility] - Comment: Time automatically adjusted from order [...] Until Discontinued 0758 (Given - Provider: Clair Grissom, YUKO)2004 (Given - Provider: Laura Miller RN) 0847 [...] of Breath 0758 (Given - Provider: Clair Girssom RN) HYDROmorphone PF (DILAUDID) 1 mg/mL injection 0.2 mg (CANCELED) 0.2 mg, IV Push, Q4H PRN, Starting on 06/16/24 at 1845, Until 06/18/24 at 0818, Severe Pain (Use First), Specifically for rib pain that interferes with breathing 0013 (Given - Provider: Laura Miller RN)2015 (Given - Provider: Laura Miller RN) 0133 (Given - Provider: Laura Miller RN) ondansetron (ZOFRAN) tablet 4 mg 4 mg, Oral, Q6H PRN, Starting on Tue06/15/24 at 2307, Until Tue06/19/24 at 2012, Nausea/Vomiting (Use First), Use if patient able to tolerate oral tablet oxyCODONE (ROXICODONE) tablet 5-10 mg 5-10 mg, Oral, Q4H PRN, Starting on Tue06/15/24 at 2307, Until Tue06/19/24 at 2011, Moderate Pain (Use First) 0014 (Given - Provider: Laura Miller RN)0758 (Given - Provider: Clair Grissom RN)1418 (Given - Provider: Clair Grissom RN)2015 (Given - Provider: Laura Miller RN) 0133 (Given - Provider: Laura Miller RN)194 (Given [...] Discontinued documented in this encounter Care Teams Thrasher Feeder Relationship Specialty Start Date End Date Alejandra Mclean MD [address] [place] [address] PCP - General Internal Medicine 06/15/24 documented as of this encounter
--- OUTSIDE RECORDS SUMMARY | 2024-08-02 06:38 | XMS_ITS | Encounter Summary ---
Author Organization [facility] Address [address] [place] [address] Phone Care Team Providers Care Commercial Roofer Name Role Phone Alejandra Mclean MD Primary Care Provider [phone] Encounter Details Date Type Department Care Team [...] PM CDT Ordered by an unspecified provider. us Provider Unknown RAD ECHO Final Result documented in this encounter Visit Diagnoses Not on filedocumented in this encounter Care Teams Commercial Roofer Relationship Specialty Start Date End Date Alejandra Mclean MD [address] [place] [id number] PCP - General Internal Medicine 06/15/24 documented as of this encounter
--- OUTSIDE RECORDS SUMMARY | 2024-08-02 06:38 | XMS_ITS | Encounter Summary ---
Author Organization [facility] Address [address] [place] [address] Phone Care Team Providers Care Drier Operator Name Role Phone Alejandra Mclean MD [...] on filedocumented in this encounter Care Teams Drier Operator Relationship Specialty Start Date End Date Alejandra Mclean MD [address] [place] [address] PCP - General Internal Medicine 06/15/24 documented as of this encounter
--- OUTSIDE RECORDS SUMMARY | 2024-08-02 06:38 | XMS_ITS | Encounter Summary ---
Author Organization [facility] Address [address] [place] [address] Phone Care Team Providers Care Lock Tender Chief Operator Name Role Phone Alejandra Mclean MD Primary Care Provider [phone] Encounter Details Date Type Department Care Team [...] on filedocumented in this encounter Care Teams Lock Tender Chief Operator Relationship Specialty Start Date End Date Alejandra Mclean MD [address] [place] [address] PCP - General Internal Medicine 06/15/24 documented as of this encounter
--- OUTSIDE RECORDS SUMMARY | 2024-08-02 06:38 | XMS_ITS | Encounter Summary ---
Author Organization [facility] Address [address] [place] [address] Phone Care Team Providers Care Distribution Accounting Clerk Name Role Phone Alejandra Mclean MD Primary Care Provider [phone] Encounter Details Date Type Department Care Team [...] on filedocumented in this encounter Care Teams Distribution Accounting Clerk Relationship Specialty Start Date End Date Alejandra Mclean MD [address] [place] [address] PCP - General Internal Medicine 06/15/24 documented as of this encounter
--- OUTSIDE RECORDS SUMMARY | 2024-08-02 06:38 | XMS_ITS | Encounter Summary ---
Author Organization [facility] Address [address] [place] [address] Phone Care Team Providers Care Program Aide Name Role Phone Alejandra Mclean MD Primary [...] on filedocumented in this encounter Care Teams Program Aide Relationship Specialty Start Date End Date Alejandra Mclean MD [address] [place] [address] PCP - General Internal Medicine 06/15/24 documented as of this encounter
--- OUTSIDE RECORDS SUMMARY | 2024-08-02 06:38 | XMS_ITS | Encounter Summary ---
Author Organization [facility] Address [address] [place] [address] Phone Care Team Providers Care Stock Controller Name Role Phone Alejandra Mclean MD Primary [...] on filedocumented in this encounter Care Teams Stock Controller Relationship Specialty Start Date End Date Alejandra Mclean MD [address] [place] [address] PCP - General Internal Medicine 06/15/24 documented as of this encounter
--- OUTSIDE RECORDS SUMMARY | 2024-08-02 06:38 | XMS_ITS | Encounter Summary ---
Author Organization [facility] Address [address] [place] [address] Phone Care Team Providers Care Cargo Handler Name Role Phone Alejandra Mclean MD Primary [...] on filedocumented in this encounter Care Teams Cargo Handler Relationship Specialty Start Date End Date Alejandra Mclean MD [address] [place] [address] PCP - General Internal Medicine 06/15/24 documented as of this encounter
--- OUTSIDE RECORDS SUMMARY | 2024-08-02 06:38 | XMS_ITS | Encounter Summary ---
Author Organization [facility] Address [address] [facility] [place] [address] Phone Care Team Providers Care Account Service Associate Name Role Phone Alejandra Mclean MD Primary Care Provider [phone] Encounter Details Date Type Department Care Team (Late st Contact Info) Description 06/15/2024 Orders Only [facility] Film Room [facility] Radiology Department [facility] [address] [place] [address] Provider, [place] [address] Referral of patient (Primary Dx) Social History [...] FILMS (02/08/2023 11:21 AM CDT) Narrative User, [id number] - 06/15/2024 10:37 AM CDT Outside Film Only us Outside Provider RAD OUTSIDE FILMS Final Result documented in this encounter Visit Diagnoses Diagnosis Referral of patient- Primary Referral of patient without examination or treatment documented in this encounter Care Teams Account Service Associate Relationship Specialty Start Date End Date [facility] Mclean [facility] [address] [facility] [place] [address] PCP - General Internal Medicine 06/15/24 documented as of this encounter
--- OUTSIDE RECORDS SUMMARY | 2024-08-02 06:38 | XMS_ITS | Encounter Summary ---
Author Organization [facility] Address [address] [place] [address] Phone Care Team Providers Care Curing Room Supervisor Name Role Phone Alejandra Mclean MD Primary [...] on filedocumented in this encounter Care Teams Curing Room Supervisor Relationship Specialty Start Date End Date Alejandra Mclean MD [address] [place] [address] PCP - General Internal Medicine 06/15/24 documented as of this encounter
--- OUTSIDE RECORDS SUMMARY | 2024-08-02 06:38 | XMS_ITS | Encounter Summary ---
Author Organization [facility] Address [address] [place] [address] Phone Care Team Providers Care Tax Commissioner Name Role Phone Alejandra Mclean MD Primary [...] filedocumented in this encounter Care Teams Tax Commissioner Relationship Specialty Start Date End Date Alejandra Mclean MD [address] [place] [address] PCP - General Internal Medicine 06/15/24 documented as of this encounter
== END 2024-07-29 09:01 | disposition home or self-care (01) ==
LOC: AMB 08-02 06:36
PROVIDERS: PCP Internal Medicine; Visit Provider Emergency Medicine
DX: R55 Syncope and collapse (principal); I95.9 Hypotension, unspecified
CPT/HCPCS: A0425; A0429

== ENCOUNTER 2024-07-29 09:32 | Emergency (ER) | payer MEDICARE, BC, SELFPAY ==
[2024-07-29] VITALS (14 sets, daily range): BP systolic 94–128; BP diastolic 58–71; PULSE 52–60; RESP 14–16; TEMP 36.1; O2SAT 97–99; BMI 30.1
--- NOTE | 2024-07-29 09:49 | ED_ITS ---
HPI - General Adult General Date Seen: 07/29/24 Chief complaint: Syncope/Fainted Stated complaint: Syncopy Time Seen by Provider: 07/29/24 09:37 Source: patient, EMS, RN notes reviewed and old records reviewed Mode of arrival: EMS Limitations: no limitations History of Present Illness HPI narrative: Patient is an 84-year-old male here by EMS after a syncopal episode at [facility]. He was apparently seated, he remembers kind of putting his head down, thinks he was ?confused for a little bit, EMS report was that he was briefly syncopal. No postictal. Her seizure activity reported. We have seen here several times now for syncopal or near syncopal episodes while at [facility], any apparently has had a couple other episodes in the past few weeks. He says that nothing is ever really found when these episodes are checked out. He denies any symptoms now, has no headache, chest pain, back pain, abdominal pain, nausea, shortness of breath. Denies recent fevers, vomiting or diarrhea, black or bloody stools. He has been orthostatic previously when we have evaluated him. He does take his blood pressure medicines in the morning, took atenolol this morning as well as benazepril. He did have something to eat prior to going to [facility]. Related Data Home Medications ?Medication ?Instructions ?Recorded ?Confirmed aspirin 81 mg capsule 81 mg PO QDAY 04/15/22 07/22/24 cetirizine 10 mg tablet 10 mg PO QDAY PRN 04/15/22 07/22/24 mecobalamin (vitamin B12) 1,000 1,000 mcg PO QDAY PRN 02/14/23 07/22/24 mcg chewable tablet ibuprofen 200 mg tablet (Advil) 400 mg PO QAM PRN 12/19/23 07/22/24 gabapentin 100 mg capsule 100 mg PO QDAY 07/12/24 07/22/24 Previous Rx's ?Medication ?Instructions ?Recorded atenolol 50 mg tablet 50 mg PO QDAY #90 tabs 11/24/23 benazepril 40 mg tablet 60 mg (1.5 x 40 mg) PO QDAY #135 11/24/23 tabs levothyroxine 100 mcg tablet 100 mcg PO QDAY #90 tabs 11/24/23 isosorbide mononitrate 30 mg 30 mg PO QHS #90 tabs 02/13/24 tablet,extended release 24 hr Allergies Allergy/AdvReac Type Severity Reaction Status Date / Time simvastatin (From Zocor) Allergy Intermediate Weakness Verified 07/22/24 10:14 contact metal agent AdvReac Mild rash Verified 07/22/24 10:14 Review of Systems Status of ROS: Reports: 10 or more systems reviewed and unremarkable except as noted in History and below [facility] Medical History History of TIA (transient ischemic attack) ?Z86.73 - Personal history of transient ischemic attack (TIA), and cerebral infarction without residual deficits (ICD-10) Surgical History S/P cataract extraction and insertion of intraocular lens ?Z98.49 - Cataract extraction status, unspecified eye (ICD-10) ?Z96.1 - Presence of intraocular lens (ICD-10) History of tonsillectomy ?Z90.89 - Acquired absence of other organs (ICD-10) History of prostate biopsy ?Z98.890 - Other specified postprocedural states (ICD-10) History of appendectomy ?Z90.49 - Acquired absence of other specified parts of digestive tract (ICD- 10) Social History Narrative: health care directive on file- health care directive completed on 05/26/2020 reviewed and scanned on 05/27/2020 Smoking Status: Former smoker How often do you have a drink containing alcohol: 4 or more times a week AUDIT-C Alcohol total score: 4 Non-prescribed substance use: denies use Little interest or pleasure in doing things: not at all Feeling down, depressed, or hopeless: not at all Exam Narrative: Exam Narrative: Vital signs as noted above. In general, an alert, well-appearing patient. Head: Normocephalic, atraumatic. Eyes: Pupils are equal reactive. Extraocular movements are full. Conjunctivae are normal. ENT: Mucous membranes are moist. Neck: Supple without lymphadenopathy. Heart: Mildly bradycardic, regular. No significant murmur. Lungs: Clear bilaterally. No increased work of breathing, crackles or wheezes. Abdomen: Soft and nontender. No organomegaly. Extremities: Well perfused. No edema. No calf tenderness. Pulses intact. Neurologic: Patient is alert and oriented to person and place. Speech is fluent. Face is symmetric. Moves all extremities equally. Affect: Normal. Skin: Warm and dry. Well perfused. Const: Vital Signs, click to edit/add: Vital Signs - 24 hr 07/29/24 09:37 07/29/24 09:38 07/29/24 09:39 Temperature 97 F L Pulse Rate 54 L 55 L Pulse Rate [Pulse Oximeter] 56 L Pulse Rate [orthos tatic lying] Pulse Rate [orthos tatic sitting] Pulse Rate [orthos tatic standing] Respiratory Rate 16 Blood Pressure 128/71 Blood Pressure [Ri ght Upper Arm] 128/71 Blood Pressure [or thostatic lying Le ft Arm] Blood Pressure [or thostatic sitting] Blood Pressure [or thostatic standing ] Pulse Oximetry 97 97 98 Oxygen Delivery [facility] Room Air 07/29/24 09:45 07/29/24 09:46 07/29/24 09:47 Temperature Pulse Rate Pulse Rate [Pulse Oximeter] Pulse Rate [orthos tatic lying] 58 L Pulse Rate [orthos tatic sitting] 60 Pulse Rate [orthos tatic standing] 60 Respiratory Rate 16 Blood Pressure 103/63 103/58 L Blood Pressure [Ri ght Upper Arm] Blood Pressure [or thostatic lying Le ft Arm] 128/71 Blood Pressure [or thostatic sitting] 103/63 Blood Pressure [or thostatic standing ] 103/58 L Pulse Oximetry [facility] 07[facility] 09:52 07/29/24 10:00 07/29/24 10:15 Temperature Pulse Rate 56 L 57 L 56 L Pulse Rate [Pulse Oximeter] Pulse Rate [orthos tatic lying] Pulse Rate [orthos tatic sitting] Pulse Rate [orthos tatic standing] Respiratory Rate Blood Pressure Blood Pressure [Ri ght Upper Arm] Blood Pressure [or thostatic lying Le ft Arm] Blood Pressure [or thostatic sitting] Blood Pressure [or thostatic standing ] Pulse Oximetry 97 99 97 [facility] 07/29/24 10:30 07/29/24 10:38 07/29/24 10:39 Temperature Pulse Rate 54 L 52 L 52 L Pulse Rate [Pulse Oximeter] Pulse Rate [orthos tatic lying] Pulse Rate [orthos tatic sitting] Pulse Rate [orthos tatic standing] Respiratory Rate 14 Blood Pressure 94/60 Blood Pressure [Ri ght Upper Arm] Blood Pressure [or thostatic lying Le ft Arm] Blood Pressure [or thostatic sitting] Blood Pressure [or thostatic standing ] Pulse Oximetry 97 97 98 Oxygen Delivery Me thod 07/29/24 10:45 07/29/24 11:00 Temperature Pulse Rate 55 L 52 L Pulse Rate [Pulse Oximeter] Pulse Rate [orthos tatic lying] Pulse Rate [orthos tatic sitting] Pulse Rate [orthos tatic standing] Respiratory Rate Blood Pressure Blood Pressure [Ri ght Upper Arm] Blood Pressure [or thostatic lying Le ft Arm] Blood Pressure [or thostatic sitting] Blood Pressure [or thostatic standing ] Pulse Oximetry 98 98 Oxygen Delivery Me thod Course Course ED Course: Orthostatic vital signs done today continue to show a drop in his blood pressure of about 25 points when he stands up. He does not develop tachycardia. Heart rate is borderline bradycardic here, it looks like that historically has been stable for him. Multiple previous visits with heart rates in the 50s although sometimes he is in the 60s and 70s. He did have a Holter last year after we saw him for syncope, his average heart rate was 59, he did not have any significant findings. Lowest heart rate at that time was 43. I do not see any specific cardiology visits for syncope however. Will double check with him to see if he seen anybody. Will check labs today, an EKG was done and this showed a sinus bradycardia with a first-degree AV block, VT 232 milliseconds, ventricular rate of 54. No acute ST segment changes, unremarkable T-waves. Assuming we do not find anything acute today, I wonder if it might make sense to have cardiology review this, look at his medications and see if any changes would be recommended. He does take the atenolol 50 mg a day and is also on isosorbide in addition to the benazepril. Labs today, as previously are reassuring. He is hemoglobin is slightly low at 11, but I do not think likely to be contributing. This is down a couple of g over the past couple months, stool testing could be considered. He does not report any GI bleeding. Electrolytes are unremarkable. Lactate is 1.2, magnesium 2.4, LFTs normal, troponin less than 0.1, CRP less than 0.5. His daughter and [id number] are here with him now. We talked about all of the se things. He had a Holter monitor a couple of years ago, it might be reasonable to try a ZIO patch now and see if he is having any more significant bradycardia or other possible contributors. They feel that he did see a pickle maker at some point in the past couple of years but they are not certain. This would be something to consider as well. For now, I have suggested that we just hold the atenolol given the bradycardia and borderline blood pressures. He has an appointment with his primary doctor in about a week and he can be reassessed at that time. Return any time to the ER if he is having frequent fainting spells or new symptoms like chest pain, shortness of breath, fever etcetera. Vital Signs Vital signs: Initial Vital Signs Temperature 97 F L 07/29/24 09:37 Temperature Source Temporal Artery Scan 07/29/24 09:37 Pulse Rate 56 L 07/29/24 09:37 Respiratory Rate 16 07/29/24 09:37 Blood Pressure 128/71 07/29/24 09:37 Blood Pressure Mean 90 07/29/24 09:37 Blood Pressure Position Sitting 07/29/24 09:37 Pulse Oximetry 97 07/29/24 09:37 Oxygen Delivery Method Room Air 07/29/24 09:37 Vital Signs Temperature 97 F L 07/29/24 09:37 Pulse Rate 56 L 07/29/24 09:37 Respiratory Rate 16 07/29/24 09:37 Blood Pressure 128/71 07/29/24 09:37 Pulse Oximetry 97 07/29/24 09:37 Oxygen Delivery Method Room Air 07/29/24 09:37 Temperature 97 F L 07/29/24 09:37 Pulse Rate 52 L 07/29/24 11:00 Respiratory Rate 14 07/29/24 10:38 Blood Pressure 94/60 07/29/24 10:38 Pulse Oximetry 98 07/29/24 11:00 Oxygen Delivery Method Room Air 07/29/24 09:37 Medical Decision Making Lab Data Labs: Lab Results 07/29/24 Range/Units 09:50 WBC 7.35 (4.50-11.00) K/uL RBC 3.12 L (4.30-5.90) m/uL Hgb 11.0 L (13.5-17.5) gm/dL Hct 34.2 L (37.0-53.0) % MCV 110 H (80-100) fL MCH 35 H (26-34) pg MCHC 32 (32-36) gm/dL RDW Coeff of Dina 12.7 (11.5-15.5) % Plt Count 243 (140-440) K/uL Neut % (Auto) 71.9 (42.0-72.0) % Lymph % (Auto) 13.3 L (20-44) % [place] % (Auto) 8.7 (0.0-11.0) % Eos % (Auto) 5.3 (0.0-7.0) % Baso % (Auto) 0.7 (0.0-3.0) % Neut # (Auto) 5.28 (1.7-7.0) K/uL Lymph # (Auto) 1.00 (0.90-2.90) K/uL [place] # (Auto) 0.60 (0.00-0.90) K/UL Eos # (Auto) 0.39 (0.00-0.50) K/uL Baso # (Auto) 0.05 (0.00-0.30) K/uL Abs Immat Gran (auto) 0.01 (0.00-0.30) K/uL Imm/Tot Granulo (auto) 0.1 % Sodium 131 L (135-149) mmol/L Potassium 5.1 (3.6-5.1) mmol/L Chloride 101 (96-114) mmol/L Carbon Dioxide 23 (20-32) mmol/L Anion Gap 7 (7-15) mEq/L BUN 25 (7-30) mg/dL Creatinine 1.2 (0.5-1.5) mg/dL Estimated Creat Clear 46.47 Estimated GFR 59 ml/min Glucose 112 (60-115) mg/dL Lactate 1.2 (0.5-1.9) mmol/L Calcium 9.6 (8.4-10.6) mg/dL Magnesium 2.4 (1.5-2.6) mg/dL Total Bilirubin 0.5 (0.1-1.5) mg/dL Direct Bilirubin 0.2 (0.0-0.5) mg/dL AST 25 (12-35) U/L ALT 19 (4-50) U/L Alkaline Phosphatase 109 (40-150) U/L Troponin I < 0.01 L (0.01-0.04) ng/mL C-Reactive Protein < 0.5 L (0.5-1.0) mg/dL Total Protein 7.0 (6.0-8.3) g/dL Albumin 4.0 (3.3-5.0) g/dL Discharge Plan Discharge Clinical Impression: Syncope Qualifiers: Syncope type: unspecified Qualified Code(s): R55 - Syncope and collapse Patient Disposition: Home, Self-Care Condition: Stable Instructions: Syncope in Older Adults (ED) Additional Instructions: All of your lab tests today are normal. Because your heart rate is somewhat slow in your blood pressure is on the low end of normal, for now I would recommend that we hold the atenolol, have you discontinue taking that until you see your primary doctor in follow-up. Another consideration would be to have a ZIO Patch set up to monitor for any arrhythmias that might be contributing to passing out. You did have a Holter monitor a couple of years ago but the ZIO patch is a longer period of monitoring and may be more helpful. If you have more frequent fainting spells, develop new symptoms such as chest pain, shortness of breath, fevers, etcetera, return to the ER at any time. Prescriptions: No Action aspirin 81 mg capsule 81 mg PO QDAY cetirizine 10 mg tablet 10 mg PO QDAY PRN mecobalamin (vitamin B12) 1,000 mcg tablet,chewable 1,000 mcg PO QDAY PRN ibuprofen [Advil] 200 mg tablet 400 mg PO QAM PRN isosorbide mononitrate 30 mg tablet extended release 24 hr 30 mg PO QHS Qty: 90 3RF gabapentin 100 mg capsule 100 mg PO QDAY levothyroxine 100 mcg tablet 100 mcg PO QDAY Qty: 90 3RF benazepril 40 mg tablet 60 mg PO QDAY Qty: 135 3RF Rx Instructions: Pt is to take one and a half tablets by mouth daily atenolol 50 mg tablet 50 mg PO QDAY Qty: 90 3RF Follow Up/Referrals: Alejandra Mclean MD [Primary Care Provider] - Stand Alone Forms: [facility] Info Instructions
[2024-07-29 10:07] LABS: Lactate Sepsis w/Reflex* 1.2 mmol/L (0.5-1.9)
[2024-07-29 10:10] LABS: Basophils Absolute Auto 0.05 K/uL (0.00-0.30); Basophils Percent Auto 0.7 % (0.0-3.0); Eosinophils Absolute Auto 0.39 K/uL (0.00-0.50); Eosinophils Percent Auto 5.3 % (0.0-7.0); Hematocrit 34.2 % (37.0-53.0); Immature Granulocytes Abs Auto 0.01 K/uL (0.00-0.30); Immature Granulocytes Pct Auto 0.1 %; Lymphocytes Percent Auto 13.3 % (20-44); Mean Corpuscular HGB Conc 32 gm/dL (32-36); Mean Corpuscular Hemoglobin 35 pg (26-34); Mean Corpuscular Volume 110 fL (80-100); Monocytes Percent Auto 8.7 % (0.0-11.0); Neutrophils Absolute Auto 5.28 K/uL (1.7-7.0); Neutrophils Percent Auto 71.9 % (42.0-72.0); Platelet Count* 243 K/uL (140-440); RDW Coefficient of Variation % 12.7 % (11.5-15.5); Red Blood Count 3.12 m/uL (4.30-5.90); White Blood Count* 7.35 K/uL (4.50-11.00)
[2024-07-29 10:12] LABS: Slide Review Reflex No
--- OUTSIDE RECORDS SUMMARY | 2024-07-29 10:24 | XMS_ITS | Encounter Summary ---
Author Organization [facility] Address [address] [place] [address] Phone Care Team Providers Care Patient Liaison Name Role Phone Alejandra Mclean MD Primary Care Provider Reason for Referral * Consult/Test/Treat (Routine) - New Request Specialty Diagnoses / Procedures Referred By Contac t Referred To Contact Physical Therapy / PHYSICAL THERAPY Diagnoses Closed fracture of multiple ribs of left side, initial encounter Bri Carpenter APRN, CNP [address] [address] PATIENT CHOICE Referral ID Status Reason Start Date Expiration Date V isits Requested Visits Authorized [id number] New Request 06/19/2024 06/20/2025 1 1 * Consult/Test/Treat (Routine) - New Request Specialty Diagnoses / Procedures Referred By Contac t Referred To Contact Diagnoses Closed fracture of multiple ribs of left side, initial encounter Bri Carpenter APRN, CNP [address] [address] PATIENT CHOICE Referral ID Status Reason Start Date Expiration Date V isits Requested Visits Authorized [id number] New Request 06/19/2024 06/20/2025 1 1 * Consult/Test/Treat (Routine) - Closed Specialty Diagnoses / Procedures Referred By Contac t Referred To Contact Traumatic Brain Injury Diagnoses Traumatic brain injury, with unknown loss of consciousness status, initial encounter ([facility]) Zeina Arias MD [address] [place] [address] Csc Tbi [address] [address] Referral ID Status Reason Start Date Expiration Date Visits Re quested Visits Authorized [id number] Closed 06/16/2024 06/16/2025 1 1 Reason for Visit * Reason Comments Rib Injury * Auth/Cert (Routine) Specialty Diagnoses / Procedures Referred By Mohsen t Referred To Contact SURGERY Diagnoses Fall, initial encounter Closed fracture of multiple ribs of left side, initial encounter Closed fracture of left scapula, unspecified part of scapula, initial encounter Hematuria, unspecified type Desi Joel MD [address] [place] [address] [address] [place] [address] R4.500 [place] [address] Referral ID Status Reason Start Date Expiration Date Visits Re quested Visits Authorized [id number] 1 1 Encounter Details Date Type Department Care Team (Latest Contact Info) Description 06/15/2024 11:06 AM CDT - 06/19/2024 5:12 PM CDT Hospital Encounter [facility] Surgery/Trauma/Brigido ro 2 [facility] R4.300 [place], [place] [id number] Desi Joel MD [address] [place] [id number] Zeina Arias MD [address] [place] [address] [phone] Nito Lentz DO 701 [facility] [address] [place] [address] Closed fracture of multiple ribs [...] None Final discharge destination: IP (acute) rehab ([facility]) R: The patient understood the AVS. [...] % Wt Change from Adm: 0 % [place] Body Wt (IBW) Male (kg): 73 kg [...] ROM 2/2 pain, otherwise WNL Psych: WNL Manager Personnel Selection Needed: no PLANNED DISCHARGE ORDERS: Suture/Christiano: None [...] of plan of care? Yes Okay for Penitentiary Facility standing orders? Question Response Notes OK for Penitentiary Facility house standing orders? Yes CODE STATUS Full Code Question Response Notes Does the Patient have preferences regarding life sustaining measures (these options only apply whenthe patient has a pulse) No Discussed Code Status With Whom? Not discussed SCHEDULE APPOINTMENT Order Notes PLEASE CALL the Patient Access Center at [phone] to schedule the following appointment(s) Question Response Notes Specify time frame 1-2 Weeks Reason for Visit? follow up on rib fractures Provider Type? JENNIFER [place] [facility] [place]: [place] Discharge Diagnosis Question Response Notes [...] CDT Preadmission Screening Submitter InformationPerson Being ReferredMedical InformationADL'Bath VA Medical CenterSubmitResults Results Thank you for submitting a referral [...] help, contact the Senior LinkAge Line at [phone] or click to contact us. Print this page You have successfully submitted the preadmission screening (PAS) to the Senior LinkAge Line on: Created On 06/19/2024 11:01 AM Your confirmation number is: [id number] Results Level of Care: Based on the information you provided, it appears this person meets level of care for purposes of [place] payment. OBRA: It appears this person does not need an OBRA Level II assessment. Submitter Information Form Type PAS Submitter First and Last Name Fabiola Turcios Direct Email [email or web address] Agency [facility] Service Type [facility] [address] [place] [address] [place] [address] Is your Agency outside [place]? Person Being Admitted to Nursing Facility Legal first name Jennifer Last name Hawa Date of 1940 Age 83 Gender Male Marital Status W= Race A = B = Black or N = or [place]an [place] P = [place] or W = White U = Unable to Determine Ethnicity Not / Currently living with: 04 Living in Congregate Setting Planned living with 04 Living in Congregate Setting Housing Type Own bedroom with shared living space, including assisted living (04) Mailing Address [facility] [address] [place] [address] [facility] Medical Information Reason for nursing facility [...] not listed check the box Provider Name [facility] Type Nursing Facility [address] [address] [facility] Zip Code [address] Anticipated Admit Date 06/19/2024 Anticipated length of [...] time () of patient departure: 05/30/2024@1600 Destination: [address]Radhames Leiva Type of ride: wheelchair Transportation vendor of ride (choose one below):* [employer] ([employer]) [phone] [facility] #[id number] If this ride needs to be rescheduled [...] Clinical Coordinators will be informed via a [email or web address] page. PCS form was completed in Progress Notes and is ready to be signed and routed to vendor by requestor(for stretcher rides only). Fabiola Turcios, 06/19/2024 10:44 AM Patient name: Jennifer Shaikh Date of : 1940 Patient Admitting diagnosis: Patient Active Problem List Diagnosis Closed fracture of multiple ribs of left side, initial encounter Attending provider: Nito Lentz DO Insurance: MEDICARE Secondary insurance: Coco Controller INAJA BLUE (COST PLAN) Height: Height: 177.8 cm [...] Selected Services Address Phone Fax Patient Preferred [facility] Selected Penitentiary [address] [facility] [address] [facility] Pending - Request Sent N/A [address] [address] -- Internal Comment last updated by Fabiola Turcios 06/19/2024 1022 Will jave bed on 06/20 . LVM for admissions..Fabiola Turcios, 06/19/2024 8:08 AM [facility] Pending - Request Sent N/A [address] [facility] [phone] Internal Comment last updated by Fabiola Turcios 06/19/2024 0811 LVM for admissionss.Fabiola Turcios, 06/19/2024 8:11 AM [facility] Pending - Request Sent N/A [address] [facility] [address] -- Internal Comment last updated by Fabiola Turcios 06/19/2024 0814 LVM for admissions .Fabiola Turcios, 06/19/2024 8:[address] [facility] Pending - Request Sent N/A 8100 [facility] [address] -- Internal Comment last updated by Fabiola Turcios 06/19/2024 0815 LVM for admissions .Fabiola Turcios, 06/19/2024 8:15 AM [facility] Pending - Request Sent N/A [address] [address] [phone] -- Internal Comment last updated by Fabiola Turcios 06/19/2024 0807 LVM for admissions .Fabiola Turcios, 06/19/2024 8:07 AM [facility] Pending - Request Sent N/A [address] [facility] [address] [phone] -- [facility] Pending - Request Sent N/A 9889 [facility] [address] [phone] -- Internal Comment last updated by Fabiola Turcios 06/19/2024 0818 LVM for admissions .Turcios, Fabiola Brunson, 06/19/2024 8:18 AM [facility] Declined N/A 815 [facility] [address] -- Internal Comment last updated by Fabiola Turcios 06/19/2024 1015 Bed available We .Fabiola Turcios, 06/19/2024 10:15 AM [facility] Declined Bed not available N/A [address] [place] [address] [phone] Home Medical Care No active coordination exists for this encounter. * Bryant Steiner RN - 06/18/2024 11:06 PM CDT TRANSFER IN NOTE D: Patient transferred in to [facility] from [facility] at 2345. Patient condition on [...] lives alone in an apartment in a alf community in [place], [place]. He walks with a walker, history [...] but does not want to be on continuous churn buttermaker life support. His son is his [facility] and they have had many discussions about what would be acceptable and he believes the people providing his medical care should be involved in helping with recommendations about his continuous churn buttermaker prognosis. Supportive Care: Patient seems capable of [...] 06/18/2024 4:00 PM Palliative Medicine Staff, on [email or web address] Associated attestation - Geovani Grullon MD - [...] would like referrals sent to places around [place] where his children live. Choice(s) given to patient/family. Destinations updated. Preferred place(s) marked with a star. Patient/family aware we can't guarantee placement in their preferred place, this is up to facility, insurance coverage and bed availability. Spoke with nurse at [phone] from the [facility]. She confirmed patient doewsn't currently receive anyservices. He is completely independent. Furthermore, they are NOT a SNF and will not be able to provide RN/PT/OT services. Patient would have to go to SNF. Continued Care and Services - Admitted Since 06/15/2024 Destination Service Provider Request Status Selected Services Address Phone Fax Patient Preferred [facility] Pending - Request Sent N/A [address] [address] [phone] -- [facility] Pending - Request Sent N/A 815 [facility] [address] [phone] -- [facility] Pending - Request Sent N/A [address] [place] [phone] [facility] Pending - Request Sent N/A [address] [facility] [phone] [facility] Pending - Request Sent N/A [address] [facility] [phone] [facility] Pending - Request Sent N/A [address] [address] -- [place] [facility] Pending - Request Sent N/A 8100 [facility] [address] [phone] -- [facility] Pending - Request Sent N/A [address] [address] -- [facility] Pending - Request Sent N/A [address] [facility] [address] [phone] -- [facility] Pending - Request Sent N/A 9889 [facility] [address] [phone] -- Home Medical Care No active coordination [...] placement after discharge. Currently lives in a [facility], they are unable to provide the cares [...] Patient seen with staff: Bri Dawson S, DEVOPS CONSULTANT, RN PALLIATIVE CARE, 06/18/2024 2:29 PM Discharge Milestones: Diet Tolerated?: [...] Assessment Expected DC Date: 06/20/2024 Social Information Manager Personnel Selection Used: None needed Decision Maker at Admission: [...] Yes Risks for Readmission: Other (see comment) rehabilitation manager will continue to follow until DC SUMMARY Patient lives in [facility] but receives no services Is patient OK with Post Acute placement? No, he would like to go back to [facility] Patient says his/her PCP is: Alejandra Mclean MD [facility] notification sent via Care Everywhere * Venecia [...] male D: Jennifer Shaikh was admitted to [facility] from ED at 2310 [...] History of Present Injury Event: BIBA from [place]. Patient had a fall last night, found [...] NPO until final reads on radiography Consult PATTERN HAND and keep strict NPO if PATTERN HAND consult not indicated at this time Aspiration [...] No treatment, delayed treatment and alternative treatment Wh[place] protocol: Procedure explained and questions answered to [...] contact pharmacist on service at PharmD STN (Pcsso) [phone]. If no response within needed timeframe, please contact central pharmacy via phone at [phone]. Planned discharge medications are: Medication List Medications [...] food. Start taking on: June 20, 2024 SOLE MOLDING MACHINE OPERATOR medication lidocaine 5% patch Commonly known as: [...] son was sitting on a chair nearby. Fiscal Manager greeted the men, introduced herself, and offered music. Patient welcomed Fiscal Manager. Fiscal Manager sat on a chair facing Patient with her guitar on her lap. Patient began to cry. Fiscal Manager sat quietly as Patient struggled to speak and Patient's son spoke softly to Patient. Patient's son then explained to Fiscal Manager that the last time someone came with a guitar was the day Patient's andthey sang her favorite hymns. Fiscal Manager asked Patient if he would like music today and Patient said yes. Fiscal Manager played upbeat patient-preferred music. Patient and Patient's son sang along with Fiscal Manager and harmonized. Patient continued to be tearful throughout the session. Patient's son, Patient and Fiscal Manager chatted between songs. After a time, Fiscal Manager ended the session and Patient's son thanked Fiscal Manager for visiting after reminiscing about growing up in his parents' house and making music together as a family. Fiscal Manager offered to stop by again if Patient is around when Fiscal Manager returns to the hospital on Tuesday. Patient and his son thanked Fiscal Manager. Goals Addressed: Opportunity for Emotional Expression, Opportunity for Creative Self-Expression, Emotional Support, and Caregiver Support Plan: Fiscal Manager will continue to offer music therapy to [...] Difficulty in Walking R 26.2 PRECAUTIONS Falls Manager Personnel Selection Used: None needed ACTIVITY Up with Assist [...] practice with log rolling for rib pain. SOLE MOLDING MACHINE OPERATOR Appropriate: Yes Participated in goal setting and treatment planning: Patient Agrees with goals and treatment plan: Patient - Yes. Saroj William, PT 06/18/2024 Pager: [email or web address] PT Department * Jackie Burden, OTR/L - [...] Rehab Potential: good ASSESSMENT: Pt admitted from [facility] for GLF when getting up from chair in the middle of the night. Typically he is mod I with 4ww for all ADLs. Can have increased asst (paid) at his [facility], just needs to set it up. [...] mgmt/ADL: 20 minutes Therapist: RUPERTO Zaman/Jennifer Pager: [email or web address] Occupational Therapy Department * Geovani Grullon MD [...] remember the fall itself) in his home ([facility] in [place], [place]). Evaluation was notable for multiple left [...] team Support Spiritual support- will ask our Gold Nib Grinder to visit patient next week as his [...] MD, 06/16/2024 3:02 PM Palliative Medicine Available [employer] Advance Care Planning Primary Care: Alejandra Mclean [...] remember the fall itself) in his home ([facility] in [place], [place]). Evaluation was notable for multiple left [...] shared that he has been living in [place], [place] since 2019. He lives in an [facility] but is very independent. He gets one meal per day provided in the cafeteria but otherwise does most of his own ADLs. He is still active in his congregation and enjoys meeting with friends (having coffee at the local bakery). He also enjoys his family and watching sports (football and the Twins). He also enjoys reading (mystery). He is not as active as he used to be but still enjoys going to his family's cabin near [place], [place]. I asked their understanding of his [...] their hobbies, activities and interests, spirituality or hoahaoism, personal experience with end of life, and personal hopes, worries. Thisbackground is essential in understanding what is most important and how that can change throughout the course of a serious illness. This summary is an attempt to highlight that background. Social History Social History Narrative Jennifer's in 2018. 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 They have three children and multipel grandchildren (and greatgrandchildren). He is a Spiritual person and is Quaker. He also sang in a men's choir [...] López MD - 06/15/2024 2:02 PM CDT [facility] ORTHOPAEDIC SURGERY CONSULT - HISTORY AND PHYSICAL DATE OF CONSULT: 06/15/2024 14:02 REQUESTING PROVIDER: Desi Joel MD - [facility] Staff. CC: left shoulder pain/chest wall pain DATE OF INJURY: 06/14 HISTORY OF PRESENT ILLNESS: Jennifer Shaikh is a 83 y.o. RHD male who presents as a transfer from [facility] for trauma evaluation. He is accompanied by his son. He reports that he does not remember what happened, but was getting up from his chair late last night to go to the bathroom when he fell, woke up on the floor. He had pain in his left chest and shoulder. He presented to [facility] for evaluation and was found to have multiple rib fractures, concern for left sided scapula fracture. Per patient, he does not have any pain in the shoulder at this time, pain localized to left ribcage. Denies any numbness/tingling. He lives alone in an apartment in a alf community. He walks with a walker at [...] Narrative Not on file Lives alone in alf community, denies tobacco use, daily cocktail at [...] in real time. Please contact me via Domo staff message if you note any errors requiring clarification. * Pete Rodriguez RN - 06/15/2024 11:09 AM CDT BIBA trauma tx from [facility], Fell at 1130pm last night, 5 rib fx and L scapula, hit head LOC+ ctat [facility] c-spine cleared. From [facility] living side of [place]. On floor 6-7 hrs. 2mg morphine on transfer from [facility]. Sats ok on RA VSS ex HTN [...] history of similar symptoms. He was taken [facility] where they obtained head and cervical [...] note, patients legal guardian and power of needle straightener is his son who is at the bedside. Son states patient is mentating at his baseline. Additional information per manufacturers service representative: KARYN trauma tx from [facility], Fell at 1130pm last night, 5rib fx and L scapula, hit head LOC+ ct at [facility] c-spine cleared. From [facility] living side of [place].On floor 6-7 hrs. 2mg morphine on transfer from [facility]. Sats ok on RA VSS ex HTN [...] of my shift. Their care was signedout [id number] with the oncoming provider, Ronnie Giraldo MD [...] Faye Tong PA-C, 06/15/2024 11:07 AM Physician Picker Operator Post-Grad Trainee Program Dictation Disclaimer: Some notes are completed with voice-recognition dictation software. As a result, there may be errors in the script that have gone undetected. Errors are generally corrected in real time. Please contact me via Domo staff message if you note any errors requiring clarification. * Tabitha Birmingham RN - 06/15/2024 10:18 AM CDT Report called from Ivelisse HUNTLEY at [facility] ED. Patient fell on way to bathroom, around 2300 last night and lives alone. Does not recall the fall. Was able to finally call 911 this morning. On Right scapular fracture and 5 rib fractures on left side. Head/neck CT negative. NSR. Pain controlled after one dose of Dilaudid 0.5mg. Alert and oriented X4. Moves all extremities normally. [id number]. Blood noted in urine this morning. Also noted on urinalysis at [facility] ED. 22g in left hand. Abrasion to [...] Selected Services Address Phone Fax Patient Preferred [facility] [address] [facility] [address] [phone] Summary: Patient has been accepted to continue rehabing at the aforementioned post acute facility Patient michele board with plan. Fiscal Manager also confirmed with son via phone call. He is on board. WC ride has been ordered. TRIMMING MACHINE OPERATOR (Appraiser Personal Property Picker Operator) will schedule. Check [id number] for confirmation. Medical team is aware. They will work writing DC orders. CC faxed DC orders to SNF Medical team is aware any controlled substances must be printed and signed to be sent in physical form to the TCU. PLEASE MAKE SURE RX IS COMPLETE. MAKE SURE QUANTITY IS ADDED. Also, PSC/BRUSHER WARP/RN will fax it to TCU julienne (this is required so in case of pain during transport, pain control can be addressed) Bedside nurse: please confirm this is done. A [employer] Transportation thread has been started. CC will continue to follow until DC. Please use Pcsso for any further questions. * Nursing Assessment [...] afternoon. Continue POC.Verbal report given to Megan @15[facility] TCU ride is set [...] IV 06/16/24 20 gauge Left;Posterior Forearm 06/16/24 0803 -- 2 Psychosocial Within Defined Limits Comments: [...] Within Defined Limits Cardiac Within Defined Limits Manager Diabetes - remote telemetry Respiratory Assessment Within Defined [...] Cardiac Assessment Within Defined Limits except for: Manager Diabetes - remote telemetry Respiratory Assessment Within Defined [...] Cardiac Assessment Within Defined Limits except for: Manager Diabetes - remote telemetry Respiratory Assessment Within Defined [...] Within Defined Limits Cardiac Within Defined Limits Manager Diabetes - remote telemetry Respiratory Assessment Within Defined [...] Cardiac Assessment Within Defined Limits except for: Manager Diabetes - remote telemetry Respiratory Assessment Within Defined [...] 1:51 PM CDT TRAUMA TERTIARY EXAM - FITTING ROOM INSPECTOR First Exam Jennifer Shaikh : 1940 Sex: [...] left sided scapula fracture. On arrival at [facility] imaging done without [...] while hospitalized Wound care plans(s): Not applicable Suture/[place]: None Antibiotics: Not indicated Drains Present: None [...] past year: Have you had an eye workforce advisor first thing in the morning to steady [...] life limiting illness Consulted palliative care. Consult PATTERN HAND for: PATTERN HAND consult not indicated at this time Mental [...] on guard, watchful, or easily startled? no Marion numb or detached from others, activities, or your surroundings? no Interventions Completed: Patient declines Trauma Psych Consult Yomi Jay APRN, RN PALLIATIVE CARE 06/16/2024 13:51 [facility] Department of Surgery Pager: via telem[place]guanaBee in [place] Associated attestation - Zeina Arias MD - [...] Cardiac Assessment Within Defined Limits except for: Manager Diabetes - remote telemetry Respiratory Assessment Within Defined [...] Within Defined Limits Cardiac Within Defined Limits Manager Diabetes - remote telemetry Respiratory Within defined limits [...] pain after fall. BIBA trauma tx from [facility], Fell at 1130pm last night, 5 rib fx and L scapula, hit head LOC+ ct at [facility] c-spine cleared. From [facility] living side [facility]. On floor 6-7 hrs. 2mg morphine on transfer from [facility]. Sats ok on RA VSS ex HTN [...] NEGATIVE Bili UA NEGATIVE Ketones TRACE(!) Specific [place] 1.018 Blood Ur LARGE(!) PH Urine 6.5 Protein Ur 30(!) Urobilinogen NORMAL Nitrite Ur NEGATIVE Leuk Est TRACE WBC Ur 0-5 RBC Ur >20(!) Urinalysis Performed at: [facility] [place] [address] [...] unknown loss of consciousness status, initial encounter ([facility]) Ordered: 06/16/2024 REFERRAL TO OCCUPATIONAL THERAPY [...] CDT) Phosphorus 2.8 2.5 - 4.5 mg/dL [facility] Blood 06/19/2024 6:19 AM CDT 06/19/2024 7:27 AM CDT Zeina Arias MD LABORATORY Performing Organization Address City/[facility] Co de Phone Number [facility] [address] [address] * MAGNESIUM (06/19/2024 6:19 AM CDT) Magnesium 2.0 1.6 - 2.4 mg/dL [facility] Blood 06/19/2024 6:19 AM CDT 06/19/2024 7:27 AM CDT Zeina Arias MD LABORATORY Performing Organization Address [facility] Co de Phone Number [address] [address] * (ABNORMAL) PANEL BASIC METABOLIC (BMP) (06/19/2024 6:19 AM CDT) Sodium 132(L) 135 - 148 mmol/L [facility] Potassium 4.6 3.5 - 5.3 mmol/L [facility] Chloride 101 92 - 108 mmol/L [facility] CO2 20(L) 22 - 30 mmol/L [facility] Glucose 94 70 - 100 mg/dL [facility] BUN 17 8 - 23 mg/dL [facility] Creatinine 0.92 0.70 - 1.25 mg/dL [facility] Calcium 9.0 8.8 - 10.2 mg/dL [facility] AnGap 11 8 - 16 mmol/L [facility] eGFR (2020 CKD-EPI) 82 >=60 ml/min/1.7 3m2 [facility] [place] Comment: The [...] Zeina Arias MD LABORATORY Performing Organization Address City/[facility] Co de Phone Number [facility] [address] [address] * (ABNORMAL) CBC WITH PLATELET (06/19/2024 6:19 AM CDT) WBC 9.14 4.00 - 10.00 k/cmm [facility] RBC 3.36(L) 4.60 - 6.00 m/cmm [facility] [place] [place] [facility] Hgb 12.5(L) 13.1 - 17.5 g/dL [facility] [place] Hematocrit 37.5(L) 40.0 - 51.0 % [facility] MCV 111.6(H) 80.0 - 100.0 fL [facility] MCH 37.2(H) 25.0 - 32.0 pg [facility] MCHC 33.3 31.0 - 36.0 g/dL [facility] RDW 12.2 11.5 - 14.5 % [facility] [place] Plt 151 150 - 400 k/cmm [facility] MPV 10.4 6.5 - 12.5 fL [facility] Blood 06/19/2024 6:19 AM CDT 06/19/2024 7:27 AM CDT Zeina Arias MD LABORATORY [facility] [address] [address] * XR CHEST 1 VIEW AP OR [...] CDT) Phosphorus 3.3 2.5 - 4.5 mg/dL [facility] Blood 06/18/2024 5:14 AM CDT 06/18/2024 5:47 AM CDT Zeina Arias MD LABORATORY Performing Organization Address [facility] Co de Phone Number [facility] [address] [address] * MAGNESIUM (06/18/2024 5:14 AM CDT) Magnesium 2.0 1.6 - 2.4 mg/dL [facility] Blood 06/18/2024 5:14 AM CDT 06/18/2024 5:47 AM CDT Zeina Arias MD LABORATORY Performing Organization Address [facility] Co de Phone Number [facility] [address] [address] * (ABNORMAL) PANEL BASIC METABOLIC (BMP) (06/18/2024 5:14 AM CDT) Sodium 136 135 - 148 mmol/L [facility] [place] Potassium 4.8 3.5 - 5.3 mmol/L [facility] Chloride 104 92 - 108 mmol/L [facility] CO2 24 22 - 30 mmol/L [facility] Glucose 106(H) 70 - 100 mg/dL [facility] BUN 19 8 - 23 mg/dL [facility] Creatinine 1.15 0.70 - 1.25 mg/dL [facility] Calcium 8.7(L) 8.8 - 10.2 mg/dL [facility] AnGap 8 8 - 16 mmol/L [facility] eGFR (2020 CKD-EPI) 63 >=60 ml/min/1.7 3m2 [facility] [place] [facility] Comment: The [...] 5:47 AM CDT Zeina Arias MD LABORATORY [facility] [address] [address] * (ABNORMAL) CBC WITH PLATELET (06/18/2024 5:14 AM CDT) WBC 8.80 4.00 - 10.00 k/cmm [facility] RBC 3.13(L) 4.60 - 6.00 m/cmm [facility] Hgb 11.4(L) 13.1 - 17.5 g/dL [facility] Hematocrit 34.8(L) 40.0 - 51.0 % [facility] [place] [facility] MCV 111.2(H) 80.0 - 100.0 fL [facility] MCH 36.4(H) 25.0 - 32.0 pg [facility] MCHC 32.8 31.0 - 36.0 g/dL [facility] RDW 12.5 11.5 - 14.5 % [facility] Plt 172 150 - 400 k/cmm [facility] MPV 9.4 6.5 - 12.5 fL [facility] [place] Blood 06/18/2024 5:14 AM CDT 06/18/2024 5:47 AM CDT Zeina Arias MD LABORATORY Performing Organization Address [facility] Co de Phone Number [facility] [address] [address] * PHOSPHORUS (06/17/2024 7:24 AM CDT) Phosphorus 2.9 2.5 - 4.5 mg/dL [facility] Blood 06/17/2024 7:24 AM CDT 06/17/2024 7:34 AM CDT Zeina Arias MD LABORATORY Performing Organization Address [facility] de Phone Number [facility] [address] [address] * MAGNESIUM (06/17/2024 7:24 AM CDT) Magnesium 2.0 1.6 - 2.4 mg/dL [facility] [place] [facility] Blood 06/17/2024 7:24 AM CDT 06/17/2024 7:34 AM CDT Zeina Arias MD LABORATORY Performing Organization Address [facility] de Phone Number [facility] [address] [address] * (ABNORMAL) PANEL BASIC METABOLIC (BMP) (06/17/2024 7:24 AM CDT) Sodium 136 135 - 148 mmol/L [facility] Potassium 4.4 3.5 - 5.3 mmol/L [facility] [place] [place] [facility] Chloride 106 92 - 108 mmol/L [facility] CO2 22 22 - 30 mmol/L [facility] [place] [facility] AnGap 8 8 - 16 mmol/L [facility] Glucose 112(H) 70 - 100 mg/dL [facility] BUN 16 8 - 23 mg/dL [facility] [place] [facility] Creatinine 1.08 0.70 - 1.25 mg/dL [facility] [place] [facility] Calcium 8.9 8.8 - 10.2 mg/dL [facility] [place] [place] [facility] eGFR (2020 CKD-EPI) 68 >=60 ml/min/1.7 3m2 [facility] [place] [facility] Comment: The [...] 7:34 AM CDT Zeina Arias MD LABORATORY [facility] [facility] [address] [address] * (ABNORMAL) CBC WITH PLATELET (06/17/2024 7:24 AM CDT) WBC 11.01(H) 4.00 - 10.00 k/cmm [facility] [place] [facility] RBC 3.33(L) 4.60 - 6.00 m/cmm [facility] [place] [facility] Hgb 12.3(L) 13.1 - 17.5 g/dL [facility] [place] [facility] Hematocrit 36.6(L) 40.0 - 51.0 % [facility] [place] [facility] MCV 109.9(H) 80.0 - 100.0 fL [facility] [place] [facility] MCH 36.9(H) 25.0 - 32.0 pg [facility] [place] [facility] MCHC 33.6 31.0 - 36.0 g/dL [facility] [facility] RDW 12.3 11.5 - 14.5 % [facility] [facility] Plt 158 150 - 400 k/cmm [facility] [place] [facility] MPV 9.3 6.5 - 12.5 fL [facility] [place] [facility] Blood 06/17/2024 7:24 AM CDT 06/17/2024 7:34 AM CDT Zeina Arias MD LABORATORY [facility] [place] [facility] [address] [address] * FOLATE SERUM (06/16/2024 9:08 PM CDT) Folate 4.1 >=4.0 ng/mL [facility] [place] [facility] Blood 06/16/2024 9:08 PM CDT 06/16/2024 9:22 PM CDT Zeina Arias MD LABORATORY Performing Organization Address City/[facility] Co de Phone Number [facility] [address] [address] * VITAMIN B12 (06/16/2024 9:08 PM CDT) B12 [phone] - 946 pg/mL [facility] [place] [facility] Blood 06/16/2024 9:08 PM CDT 06/16/2024 9:22 PM CDT Zeina Arias MD LABORATORY Performing Organization Address City/[facility] Co de Phone Number [address] [address] * PHOSPHORUS (06/16/2024 6:52 AM CDT) Phosphorus 2.9 2.5 - 4.5 mg/dL [facility] [place] [facility] Blood 06/16/2024 6:52 AM CDT 06/16/2024 7:25 AM CDT Desi Joel MD LABORATORY Performing Organization Address City/[facility] Co de Phone Number [address] [address] * MAGNESIUM (06/16/2024 6:52 AM CDT) Magnesium 2.1 1.6 - 2.4 mg/dL [facility] Blood 06/16/2024 6:52 AM CDT 06/16/2024 7:25 AM CDT Desi Joel MD LABORATORY Performing Organization Address City/[facility]/ZIP Co de Phone Number [facility] [address] [address] * (ABNORMAL) PANEL BASIC METABOLIC (BMP) (06/16/2024 6:52 AM CDT) Sodium 135 135 - 148 mmol/L [facility] [place] [facility] Potassium 4.4 3.5 - 5.3 mmol/L [facility] Chloride 104 92 - 108 mmol/L [facility] CO2 23 22 - 30 mmol/L [facility] AnGap 8 8 - 16 mmol/L [facility] [place] [facility] Glucose 106(H) 70 - 100 mg/dL [facility] [place] [facility] BUN 16 8 - 23 mg/dL [facility] Creatinine 1.02 0.70 - 1.25 mg/dL [facility] [place] [facility] Calcium 8.6(L) 8.8 - 10.2 mg/dL [facility] eGFR (2020 CKD-EPI) 72 >=60 ml/min/1.7 3m2 [facility] [place] [facility] Comment: The [...] 7:25 AM CDT Desi Joel MD LABORATORY [facility] [address] [address] * (ABNORMAL) CBC WITH PLATELET (06/16/2024 6:52 AM CDT) WBC 7.85 4.00 - 10.00 k/cmm [facility] RBC 3.40(L) 4.60 - 6.00 m/cmm [facility] [place] [facility] Hgb 12.2(L) 13.1 - 17.5 g/dL [facility] [place] [facility] Hematocrit 36.6(L) 40.0 - 51.0 % [facility] [place] [facility] MCV 107.6(H) 80.0 - 100.0 fL [facility] MCH 35.9(H) 25.0 - 32.0 pg [facility] [facility] MCHC 33.3 31.0 - 36.0 g/dL [facility] [place] [facility] RDW 12.1 11.5 - 14.5 % [facility] Plt 172 150 - 400 k/cmm [facility] MPV 9.4 6.5 - 12.5 fL [facility] Blood 06/16/2024 6:52 AM CDT 06/16/2024 7:41 AM CDT Desi Joel MD LABORATORY Performing Organization Address [facility]/ZIP Co de Phone Number [facility] [address] [address] * TROP 4H (06/15/2024 3:50 PM CDT) 4H Trop 7 <=35 ng/L [facility] 4H Delta na Not Significant [facility] Comment:Unable to calculate delta. Blood 06/15/2024 3:50 PM CDT 06/15/2024 3:54 PM CDT Desi Joel MD LABORATORY Performing Organization Address [facility] Co de Phone Number [facility] [address] [address] * XR SCAPULA LEFT AP + LAT [...] documented by the resident/fellow. Reading Radiologist: Dontae uGnn Resident: Davie Chavarria 06/15/2024 11:06 PM CDT [...] ??No treatment, delayed treatment and alternative treatment [place] protocol: ??Procedure explained and questions answered to [...] (06/15/2024 1:12 PM CDT) Color ORANGE YELLOW [facility] Appearance CLOUDY(A) CLEAR [facility] Urine Glucose NEGATIVE NEGATIVE mg/dL [facility] Bili UA NEGATIVE NEGATIVE [facility] Ketones TRACE(A) NEGATIVE [facility] Specific [place] 1.018 1.003 - 1.030 [facility] Blood Ur LARGE(A) Neg-Trace [facility] PH Urine 6.5 5.0 - 7.0 [facility] Protein Ur 30(A) Neg-Trace [facility] Urobilinogen NORMAL NORMAL EU/dL [facility] Nitrite Ur NEGATIVE NEGATIVE [facility] Leuk Est TRACE Neg-Trace [facility] WBC Ur 0-5 0 - 5 perHPF [facility] RBC Ur >20(A) 0 - 3 perHPF [facility] Urinalysis Performed at: [facility] Urine 06/15/2024 1:12 PM CDT 06/15/2024 1:16 PM CDT Desi Joel MD LABORATORY Performing Organization Address City/[facility]/ZIP Co de Phone Number [facility] [address] [address] * CK, TOTAL (06/15/2024 12:28 PM CDT) Pathologist [facility] CK 258 39 - 308 IU/L [facility] Blood 06/15/2024 12:2 8 PM CDT 06/15/2024 12:44 PM CDT Desi Joel MD LABORATORY Performing Organization Address [facility] Co de Phone Number [facility] [address] [address] * PROTHROMBIN (PT) & INR (06/15/2024 12:28 PM CDT) Pathologist [facility] PT 11.2 9.0 - 12.5 sec [facility] INR 1.0 0.8 - 1.1 [facility] Comment: Warfarin Therapeutic Range: Standard Intensity: 2.0 - 3.0 High Intensity: 2.5 - 3.5 Blood 06/15/2024 12:2 8 PM CDT 06/15/2024 12:44 PM CDT Desi Joel MD LABORATORY Performing Organization Address City/[facility] Co de Phone Number [facility] [address] [address] * HS TROPONIN (06/15/2024 12:28 PM CDT) Pathologist [facility] HS Troponin I 6 <=35 ng/L [facility] Blood 06/15/2024 12:2 8 PM CDT 06/15/2024 12:31 PM CDT Narrative [facility] - 06/15/2024 12:57 PM CDT If ordering as an add-on lab, you must call the lab. Desi Joel MD LABORATORY [facility] [address] [place] [phone] * (ABNORMAL) CBC WITH PLTS/AUTO DIFF (06/15/2024 12:28 PM CDT) WBC 10.53(H) 4.00 - 10.00 k/cmm [facility] RBC 3.59(L) 4.60 - 6.00 m/cmm [facility] Hgb 13.2 13.1 - 17.5 g/dL [facility] Hematocrit 38.5(L) 40.0 - 51.0 % [facility] MCV 107.2(H) 80.0 - 100.0 fL [facility] MCH 36.8(H) 25.0 - 32.0 pg [facility] MCHC 34.3 31.0 - 36.0 g/dL [facility] RDW 11.9 11.5 - 14.5 % [facility] Plt 185 150 - 400 k/cmm [facility] MPV 9.3 6.5 - 12.5 fL [facility] Automated Abs Neutrophil 8.59(H) 1.70 - 6.50 k/cmm [facility] Comment:Preliminary ANC, Fin al Result to Follow Abs Immature Granulocyte 0.02 0.00 - 0.09 k/cmm [facility] Comment:The Immature Granulo cyte Absolute count contains metamyelocytes and myelocytes. Abs Neutrophil 8.59(H) 1.70 - 6.50 k/cmm [facility] Abs Lymphocyte 0.71(L) 0.80 - 4.00 k/cmm [facility] Abs Monocyte 1.08(H) 0.20 - 1.00 k/cmm [facility] Abs Eosinophil 0.07 0.00 - 0.60 k/cmm [facility] Abs Basophil 0.06 0.00 - 0.20 k/cmm [facility] Blood 06/15/2024 12:2 8 PM CDT 06/15/2024 12:44 PM CDT Desi Joel MD LABORATORY Performing Organization Address [facility] Co de Phone Number [facility] [address] [address] * (ABNORMAL) ED CHEMISTRY LABS(NA,K,CL,CO2,GLU,CREAT,CA-IONIZED,ANION GAP) (06/15/2024 12:28 PM CDT) Sodium 132(L) 135 - 148 mmol/L [facility] Chloride 103 92 - 108 mmol/L [facility] AnGap 9 8 - 16 mmol/L [facility] Glucose 96 70 - 100 mg/dL [facility] ICA, Actual 4.45 4.40 - 5.20 mg/dL [facility] ICA, pH Corrected 4.48 4.40 - 5.20 mg/dL [facility] Creatinine 1.03 0.70 - 1.25 mg/dL [facility] BICARB 21(L) 22 - 26 mEq/L [facility] eGFR (2020 CKD-EPI) 72 >=60 ml/min/1.7 3m2 [facility] Comment: The estimated glomerular filtration rate (eGFR) was calculated using the CKD-EPI 2020 creatinine equation, which does not include race as a factor. This equation is validated in individuals 18 years of age and older, and eGFR is normalized to a body surface area of 1.73m^2. Potassium 4.5 3.5 - 5.3 mmol/L [facility] Blood 06/15/2024 12:2 8 PM CDT 06/15/2024 12:37 PM CDT Desi Joel MD LABORATORY Performing Organization Address [facility]/ZIP Co de Phone Number [facility] [address] [id number] * (ABNORMAL) CARBON MONOXIDE (CO) (06/15/2024 12:28 PM CDT) Carbon Monox 3(H) 0 - 2 % [facility] Comment:Normal range for smo kers: up to 13%. Blood 06/15/2024 12:2 8 PM CDT 06/15/2024 4:16 PM CDT Desi Joel MD LABORATORY Performing Organization Address City/[facility]/ZIP Co de Phone Number [facility] [address] [address] * EXTRA TUBE - SST (06/15/2024 12:28 PM CDT) SST TUBE Stored [facility] Comment:SST tubes (Serum Sep arator) are stored in the lab for 3 days from the collection date. Blood 06/15/2024 12:2 8 PM CDT 06/15/2024 12:32 PM CDT Desi Joel MD LABORATORY Performing Organization Address [facility] Co de Phone Number [facility] [address] [address] * ED US GUIDED NERVE BLOCK (06/15/2024 [...] CDT) 06/15/2024 11:5 9 AM CDT Impressions [facility] [place] [facility] EKG ORDERS - 06/15/2024 11:59 AM CDT SINUS RHYTHM WITH FIRST DEGREE AV BLOCK ABNORMAL ECG No Previous ECGs Available. P-R Interval 212 ms QRS Interval 95 ms QT Interval 377 ms QTC Interval 400 ms P [place] 64 QRS [place] -7 T Wave [place] 25 Narrative Procedure Note Desi Joel MD - 06/15/2024 IMPRESSION SINUS RHYTHM WITH FIRST DEGREE AV BLOCK ABNORMAL ECG No Previous ECGs Available. P-R Interval 212 ms QRS Interval 95 ms QT Interval 377 ms QTC Interval 400 ms P Bohemia 64 QRS Bohemia -7 T Wave Bohemia 25 Desi Joel MD EKG [facility] CVIS EKG ORDERS [...] 2:35 PM CDT Indication: ??Patient transferred from [place] [facility] due to Trauma. Dr. DESI JOEL requested an interpretation by me. Comparison: CT of the chest from 02/08/2023. Technique: ??CT scan of the chest/abdomen/pelvis done with IV contrast. Axial, coronal, and sagittal reconstructions reviewed in soft tissue and bone windows, per the local institution's scanning protocols, which may differ from the [facility] trauma protocols. Findings: [...] DO - 06/15/2024 Indication: Patient transferred from [facility] due to Trauma.Dr. DESI JOEL requested an interpretation by me. Comparison: CT of the chest from 02/08/2023. Technique: CT scan of the chest/abdomen/pelvis done with IV contrast.Axial, coronal, and sagittal reconstructions reviewed in soft tissue andbone windows, per the local institution's scanning protocols, which maydiffer from the [facility] trauma protocols. Findings: [...] 12:08 PM CDT Indication: ??Patient transferred from [facility] due to Trauma. Dr. DESI JOEL requested an interpretation by me. Technique: ??CT scan of the cervical spine done on 06/15/2024 without IV contrast. Axial, coronal, and sagittal reconstructions reviewed in soft tissue and bone windows, per the local institution's scanning protocols, which may differ from the [facility] trauma protocols. Findings: [...] Lorenzana, - 06/15/2024 Indication: Patient transferred from [facility] due to Trauma.Dr. DESI JOEL requested an interpretation by me. Technique: CT scan of the cervical spine done on 06/15/2024 without IVcontrast. Axial, coronal, and sagittal reconstructions reviewed in softtissue and bone windows, per the local institution's scanning protocols,which may differ from the [facility] trauma protocols. Findings: [...] 12:05 PM CDT Indication: ??Patient transferred from [facility] due to Trauma. Dr. DEIS JOEL requested an interpretation by me. Technique: ??CT scan of the head done on 06/15/2024 without IV contrast. Axial, coronal, and sagittal reconstructions are reviewed in soft tissue and bone windows, per the local institution's scanning protocols, which may differ from the [facility] trauma protocols. Findings: [...] DO - 06/15/2024 Indication: Patient transferred from [facility] due to Trauma.Dr. DESI JOEL requested an interpretation by me. Technique: CT scan of the head done on 06/15/2024 without IV contrast.Axial, coronal, and sagittal reconstructions are reviewed in soft tissueand bone windows, per the local institution's scanning protocols, whichmay differ from the [facility] trauma protocols. Findings: [...] unknown loss of consciousness status, initial encounter ([facility]) documented in this encounter Admitting Diagnoses [...] Given 06/18/2024 7:38 PM CDT 5 mg AL MED REC REVIEW BY PHARMACY Discharge Date: [...] Discontinued documented in this encounter Care Teams Patient Liaison Relationship Specialty Start Date End Date Alejandra Mclean MD [address] [place] [address] PCP - General Internal Medicine 06/15/24 documented as of this encounter
--- OUTSIDE RECORDS SUMMARY | 2024-07-29 10:24 | XMS_ITS | Referral Summary ---
Author Organization [facility] Address [address] [place] [address] Phone Care Team Providers Care Professor Of Geology Name Role Phone Alejandra Mclean MD Primary Care Provider Source Comments [employer] is fully rolled out on [employer]. Last update 02/28/09.[employer] Encounters Date Type Department Care Team Description 06/28/2024 Telephone [facility] [address] [address] Orlin Luo, [facility] Appointment 06/15/2024 11:06 AM CDT - 06/19/2024 5:12 PM CDT Hospital Encounter [facility] Surgery/Trauma/Brigido ro 2 [address] [facility] [address] [place] [address] Amanda Joel MD Payne, Rachel E, MD [...] Department [place] Unknown, Provider 06/15/2024 Orders Only [facility] Film Room [facility] Radiology Department [facility] [address] [place] [address] Provider, Outside Referral of patient (Primary Dx) [...] remove for 12 hours 06/20/2024 Active lisinopril (PRINIVIL;ZESTRIL) 20 mg oral TABS Take 1 tablet (20 mg) by mouth daily. 06/20/2024 Active polyethylene glycol 3350 (MIRALAX;GLYCOLAX) 17 g oral packet Take 17 g by mouth daily.Take 1 capful to 17 gm gatito mixed with full glass of water every day as directed. 06/20/2024 Active sennosides (SENOKOT) 17.2 mg oral TABS Take 1 tablet (17.2 mg) by mouth twice daily. 06/19/2024 Active Active Problems Problem Noted Date Diagnosed Date [...] included. Phosphorus 2.8 2.5 - 4.5 mg/dL [facility] Blood 06/19/2024 6:19 AM CDT 06/19/2024 7:27 AM CDT Zeina Arias MD LABORATORY Performing Organization Address City/[facility] Co de Phone Number [facility] [address] [address] * (ABNORMAL) PANEL BASIC METABOLIC (BMP) (06/19/2024 6:19 AM CDT) Only the most recent of4 resultswithin the time period is included. Sodium 132(L) 135 - 148 mmol/L [facility] Potassium 4.6 3.5 - 5.3 mmol/L [facility] Chloride 101 92 - 108 mmol/L [facility] CO2 20(L) 22 - 30 mmol/L [facility] Glucose 94 70 - 100 mg/dL [facility] BUN 17 8 - 23 mg/dL [facility] Creatinine 0.92 0.70 - 1.25 mg/dL [facility] Calcium 9.0 8.8 - 10.2 mg/dL [facility] AnGap 11 8 - 16 mmol/L [facility] eGFR (2020 CKD-EPI) 82 >=60 ml/min/1.7 3m2 [facility] Comment: The estimated glomerular filtration rate (eGFR) was calculated using the CKD-EPI 2020 creatinine equation, which does not include race as a factor. This equation is validated in individuals 18 years of age and older, and eGFR is normalized to a body surface area of 1.73m^2. Blood 06/19/2024 6:19 AM CDT 06/19/2024 7:27 AM CDT Zeina Arias MD LABORATORY Performing Organization Address City/[facility]/ZIP Co de Phone Number [facility] [address] [address] * MAGNESIUM (06/19/2024 6:19 AM CDT) Only the most recent of4 resultswithin the time period is included. Magnesium 2.0 1.6 - 2.4 mg/dL [facility] Blood 06/19/2024 6:19 AM CDT 06/19/2024 7:27 AM CDT Zeina Arias MD LABORATORY [facility] [address] [address] * (ABNORMAL) CBC WITH PLATELET (06/19/2024 6:19 AM CDT) Only the most recent of4 resultswithin the time period is included. WBC 9.14 4.00 - 10.00 k/cmm [facility] RBC 3.36(L) 4.60 - 6.00 m/cmm [facility] Hgb 12.5(L) 13.1 - 17.5 g/dL [facility] Hematocrit 37.5(L) 40.0 - 51.0 % [facility] MCV 111.6(H) 80.0 - 100.0 fL [facility] MCH 37.2(H) 25.0 - 32.0 pg [facility] MCHC 33.3 31.0 - 36.0 g/dL [facility] RDW 12.2 11.5 - 14.5 % [facility] Plt 151 150 - 400 k/cmm [facility] MPV 10.4 6.5 - 12.5 fL [facility] Blood 06/19/2024 6:19 AM CDT 06/19/2024 7:27 AM CDT Zeina Arias MD LABORATORY Performing Organization Address City/[facility]/ZIP Co de Phone Number [facility] [address] [address] * TELEMETRY STRIPS (06/18/2024 8:34 AM CDT) [...] PM CDT) Folate 4.1 >=4.0 ng/mL [facility] Blood 06/16/2024 9:08 PM CDT 06/16/2024 9:22 PM CDT Zeina Arias MD LABORATORY Performing Organization Address [facility] Co de Phone Number [facility] [address] [address] * VITAMIN B12 (06/16/2024 9:08 PM CDT) B12 447 211 - 946 pg/mL [facility] Blood 06/16/2024 9:08 PM CDT 06/16/2024 9:22 PM CDT Zeina Arias MD LABORATORY Performing Organization Address [facility] Co de Phone Number [facility] [address] [address] * TROP 4H (06/15/2024 3:50 PM CDT) 4H Trop 7 <=35 ng/L [facility] 4H Delta na Not Significant [facility] Comment:Unable to calculate delta. Blood 06/15/2024 3:50 PM CDT 06/15/2024 3:54 PM CDT Amanda Joel MD LABORATORY Performing Organization Address [facility] de Phone Number [facility] [address] [address] * XR SCAPULA LEFT AP + LAT [...] ??No treatment, delayed treatment and alternative treatment [place] protocol: ??Procedure explained and questions answered to [...] 1:12 PM CDT) Color ORANGE YELLOW [facility] Appearance CLOUDY(A) CLEAR [facility] Urine Glucose NEGATIVE NEGATIVE mg/dL [facility] Bili UA NEGATIVE NEGATIVE [facility] Ketones TRACE(A) NEGATIVE [facility] Specific [place] 1.018 1.003 - 1.030 [facility] Blood Ur LARGE(A) Neg-Trace [facility] PH Urine 6.5 5.0 - 7.0 [facility] Protein Ur 30(A) Neg-Trace [facility] Urobilinogen NORMAL NORMAL EU/dL [facility] Nitrite Ur NEGATIVE NEGATIVE [facility] Leuk Est TRACE Neg-Trace [facility] WBC Ur 0-5 0 - 5 perHPF [facility] RBC Ur >20(A) 0 - 3 perHPF [facility] Urinalysis Performed at: [facility] Urine 06/15/2024 1:12 PM CDT 06/15/2024 1:16 PM CDT Amanda Joel MD LABORATORY Performing Organization Address City/[facility]/ZIP Co de Phone Number [facility] [address] [address] * HS TROPONIN (06/15/2024 12:28 PM CDT) HS Troponin I 6 <=35 ng/L [facility] Blood 06/15/2024 12:2 8 PM CDT 06/15/2024 12:31 PM CDT Narrative [facility] - 06/15/2024 12:57 PM CDT If ordering as an add-on lab, you must call the lab. Amanda Joel MD LABORATORY Performing Organization Address [facility]/ZIP Co de Phone Number [facility] [address] [address] * (ABNORMAL) ED CHEMISTRY LABS(NA,K,CL,CO2,GLU,CREAT,CA-IONIZED,ANION GAP) (06/15/2024 12:28 PM CDT) Sodium 132(L) 135 - 148 mmol/L [facility] Chloride 103 92 - 108 mmol/L [facility] AnGap 9 8 - 16 mmol/L [facility] Glucose 96 70 - 100 mg/dL [facility] ICA, Actual 4.45 4.40 - 5.20 mg/dL [facility] ICA, pH Corrected 4.48 4.40 - 5.20 mg/dL [facility] Creatinine 1.03 0.70 - 1.25 mg/dL [facility] BICARB 21(L) 22 - 26 mEq/L [facility] eGFR (2020 CKD-EPI) 72 >=60 ml/min/1.7 3m2 [facility] Comment: The estimated glomerular filtration rate (eGFR) was calculated using the CKD-EPI 2020 creatinine equation, which does not include race as a factor. This equation is validated in individuals 18 years of age and older, and eGFR is normalized to a body surface area of 1.73m^2. Potassium 4.5 3.5 - 5.3 mmol/L [facility] Blood 06/15/2024 12:2 8 PM CDT 06/15/2024 12:37 PM CDT Amanda Joel MD LABORATORY [facility] [address] [address] * (ABNORMAL) CBC WITH PLTS/AUTO DIFF (06/15/2024 12:28 PM CDT) WBC 10.53(H) 4.00 - 10.00 k/cmm [facility] RBC 3.59(L) 4.60 - 6.00 m/cmm [facility] Hgb 13.2 13.1 - 17.5 g/dL [facility] Hematocrit 38.5(L) 40.0 - 51.0 % [facility] MCV 107.2(H) 80.0 - 100.0 fL [facility] MCH 36.8(H) 25.0 - 32.0 pg [facility] MCHC 34.3 31.0 - 36.0 g/dL [facility] RDW 11.9 11.5 - 14.5 % [facility] Plt 185 150 - 400 k/cmm [facility] MPV 9.3 6.5 - 12.5 fL [facility] Automated Abs Neutrophil 8.59(H) 1.70 - 6.50 k/cmm [facility] Comment:Preliminary ANC, Fin al Result to Follow Abs Immature Granulocyte 0.02 0.00 - 0.09 k/cmm [facility] Comment:The Immature Granulo cyte Absolute count contains metamyelocytes and myelocytes. Abs Neutrophil 8.59(H) 1.70 - 6.50 k/cmm [facility] Abs Lymphocyte 0.71(L) 0.80 - 4.00 k/cmm [facility] Abs Monocyte 1.08(H) 0.20 - 1.00 k/cmm [facility] Abs Eosinophil 0.07 0.00 - 0.60 k/cmm [facility] Abs Basophil 0.06 0.00 - 0.20 k/cmm [facility] Blood 06/15/2024 12:2 8 PM CDT 06/15/2024 12:44 PM CDT Amanda Joel MD LABORATORY Performing Organization Address City/[facility]/ZIP Co de Phone Number [address] [address] * PROTHROMBIN (PT) & INR (06/15/2024 12:28 PM CDT) PT 11.2 9.0 - 12.5 sec [facility] INR 1.0 0.8 - 1.1 [facility] Comment: Warfarin Therapeutic Range: Standard Intensity: 2.0 - 3.0 High Intensity: 2.5 - 3.5 Blood 06/15/2024 12:2 8 PM CDT 06/15/2024 12:44 PM CDT Amanda Joel MD LABORATORY Performing Organization Address City/[facility]/ZIP Co de Phone Number [address] [address] * CK, TOTAL (06/15/2024 12:28 PM CDT) CK 258 39 - 308 IU/L [facility] Blood 06/15/2024 12:2 8 PM CDT 06/15/2024 12:44 PM CDT Amanda Joel MD LABORATORY Performing Organization Address City/[facility]/ZIP Co de Phone Number [facility] [address] [address] * EXTRA TUBE - SST (06/15/2024 12:28 PM CDT) SST TUBE Stored [facility] Comment:SST tubes (Serum Sep arator) are stored in the lab for 3 days from the collection date. Blood 06/15/2024 12:2 8 PM CDT 06/15/2024 12:32 PM CDT Amanda Joel MD LABORATORY Performing Organization Address City/[facility]/ZIP Co de Phone Number [facility] [address] [address] * (ABNORMAL) CARBON MONOXIDE (CO) (06/15/2024 12:28 PM CDT) Carbon Monox 3(H) 0 - 2 % [facility] Comment:Normal range for smo kers: up to 13%. Blood 06/15/2024 12:2 8 PM CDT 06/15/2024 4:16 PM CDT Amanda Joel MD LABORATORY Performing Organization Address [facility] Co de Phone Number [facility] [address] [address] * ED US GUIDED NERVE BLOCK (06/15/2024 [...] 06/15/2024 11:5 9 AM CDT Impressions [facility] CVIS EKG ORDERS - 06/15/2024 11:59 AM CDT SINUS RHYTHM WITH FIRST DEGREE AV BLOCK ABNORMAL ECG No Previous ECGs Available. P-R Interval 212 ms QRS Interval 95 ms QT Interval 377 ms QTC Interval 400 ms P [place] 64 QRS [place] -7 T Wave [place] 25 Narrative Procedure Note Amanda Joel MD - 06/15/2024 IMPRESSION SINUS RHYTHM WITH FIRST DEGREE AV BLOCK ABNORMAL ECG No Previous ECGs Available. P-R Interval 212 ms QRS Interval 95 ms QT Interval 377 ms QTC Interval 400 ms P [place] 64 QRS [place] -7 T Wave [place] 25 Amanda Joel MD EKG [facility] CVIS EKG ORDERS * CT OUTSIDE READ [...] 2:35 PM CDT Indication: ??[facility] transferred from [facility] due to Trauma. Dr. AMANDA JOEL requested an interpretation by me. Comparison: CT of the chest from 02/08/2023. Technique: ??CT scan of the chest/abdomen/pelvis done with IV contrast. Axial, coronal, and sagittal reconstructions reviewed in soft tissue and bone windows, per the local institution's scanning protocols, which may differ from the [facility] trauma protocols. Findings: Chest: Mediastinum: Atrophic thyroid [...] DO - 06/15/2024 Indication: Patient transferred from [facility] due to Trauma.Dr. AMANDA JOEL requested an interpretation by me. Comparison: CT of the chest from 02/08/2023. Technique: CT scan of the chest/abdomen/pelvis done with IV contrast.Axial, coronal, and sagittal reconstructions reviewed in soft tissue andbone windows, per the local institution's scanning protocols, which maydiffer from the [facility] trauma protocols. Findings: Chest: Mediastinum: Atrophic thyroid [...] the resident/fellow. Reading Radiologist: Epi Lorenzana Resident: Octaivo Gilman Amanda Joel MD RAD CT BODY [...] 12:08 PM CDT Indication: ??Patient transferred from [facility] due to Trauma. Dr. AMANDA JOEL requested an interpretation by me. Technique: ??CT scan of the cervical spine done on 06/15/2024 without IV contrast. Axial, coronal, and sagittal reconstructions reviewed in soft tissue and bone windows, per the local institution's scanning protocols, which may differ from the [facility] trauma protocols. Findings: ??No suspected acute fracture, [...] Lorenzana, - 06/15/2024 Indication: Patient transferred from [facility] due to Trauma.Dr. AMANDA JOEL requested an interpretation by me. Technique: CT scan of the cervical spine done on 06/15/2024 without IVcontrast. Axial, coronal, and sagittal reconstructions reviewed in softtissue and bone windows, per the local institution's scanning protocols,which may differ from the [facility] trauma protocols. Findings: No suspected acute fracture, [...] 12:05 PM CDT Indication: ??Patient transferred from [facility] due to Trauma. Dr. AMANDA JOEL requested an interpretation by me. Technique: ??CT scan of the head done on 06/15/2024 without IV contrast. Axial, coronal, and sagittal reconstructions are reviewed in soft tissue and bone windows, per the local institution's scanning protocols, which may differ from the [facility] trauma protocols. Findings: No acute intracranial hemorrhage, [...] DO - 06/15/2024 Indication: Patient transferred from [facility] due to Trauma.Dr. AMANDA JOEL requested an interpretation by ca. Technique: CT scan of the head done on 06/15/2024 without IV contrast.Axial, coronal, and sagittal reconstructions are reviewed in soft tissueand bone windows, per the local institution's scanning protocols, whichmay differ from the [facility] trauma protocols. Findings: No acute intracranial hemorrhage, [...] Advance Directives For more information, please contact: [phone] * Full Code (Latest Code Status on [...] Status With Whom? Not discussed Care Teams Professor Of Geology Relationship Specialty Start Date End Date Alejandra Mclean MD [address] [place] [address] PCP - General Internal Medicine 06/15/24
--- OUTSIDE RECORDS SUMMARY | 2024-07-29 10:24 | XMS_ITS | Encounter Summary ---
Author Organization [facility] Address [address] [place] [address] Phone Care Team Providers Care Auto Top Mechanic Name Role Phone Alejandra Mclean MD Primary Care Provider Encounter Details Date Type Department Care Team (Late st Contact Info) Description 06/15/2024 Orders Only [facility] Film Room [facility] Radiology Department [facility] [address] [place] [address] Provider, [place] [address] Referral of patient (Primary Dx) Social History [...] FILMS (02/08/2023 11:21 AM CDT) Narrative User, [id number] - 06/15/2024 10:37 AM CDT Outside Film Only Outside Provider RAD OUTSIDE FILMS documented in this encounter Visit Diagnoses Diagnosis Referral of patient- Primary Referral of patient without examination or treatment documented in this encounter Care Teams Auto Top Mechanic Relationship Specialty Start Date End Date Alejandra Mclean MD [address] [facility] [address] [place] [address] PCP - General Internal Medicine 06/15/24 documented as of this encounter
--- OUTSIDE RECORDS SUMMARY | 2024-07-29 10:24 | XMS_ITS | Encounter Summary ---
Author Organization [facility] Address [address] [place] [phone] Phone Care Team Providers Care Tape Keller Operator Name Role Phone Alejandra Mclean MD [...] on filedocumented in this encounter Care Teams Tape Keller Operator Relationship Specialty Start Date End Date Alejandra Mclean MD [address] [place] [address] PCP - General Internal Medicine 06/15/24 documented as of this encounter
--- OUTSIDE RECORDS SUMMARY | 2024-07-29 10:24 | XMS_ITS | Encounter Summary ---
Author Organization [facility] Address [address] [place] [address] Phone Care Team Providers Care Library Manager Name Role Phone Alejandra Mclean MD [...] on filedocumented in this encounter Care Teams Library Manager Relationship Specialty Start Date End Date Alejandra Mclean MD [address] [place] [address] PCP - General Internal Medicine 06/15/24 documented as of this encounter
--- OUTSIDE RECORDS SUMMARY | 2024-07-29 10:24 | XMS_ITS | Encounter Summary ---
Author Organization [facility] Address [address] [place] [address] Phone Care Team Providers Care Adhesive Bonding Machine Operator Name Role Phone Alejandra Mclean MD Primary Care Provider Reason for Visit * Reason Onset Date Comments Appointment 06/28/2024 Encounter Details Date Type Department Care Team (Late st Contact Info) Description 06/28/2024 Telephone Clinic & Specialty Center Surgery Clinic [address] [id number] Orlin Luo, [facility] [address] [place] [address] Appointment Social History Tobacco Use [...] Luo, PSC, 06/28/2024 1:52 PM [facility] Clerical Pool .Patient: Jennifer Shaikh : 1940 Called to schedule an appointment with provider: any available provider discharge states JENNIFER Reason for Visit: Hospital Discharge follow up on rib fractures Video Capable (MyChart Account, High Speed Internet, or Smart Phone/Device or CAM/GONZALO): No Patient Provider Preferences: Any available provider. Date/Time Preferred: Any day and time. Phone number for return call: Daja [phone] early childhood education coordinator at [facility] currently patient is currently in the TCU there Why are you unable to schedule? Hospital discharge instructions state to schedule with JENNIFER, no JENNIFER templates available. Please review and schedule follow up Thank you documented in this encounter Plan of Treatment Not on file documented as of this encounter Visit Diagnoses Not on filedocumented in this encounter Care Teams Adhesive Bonding Machine Operator Relationship Specialty Start Date End Date Alejandra Mclean MD [address] [place] [address] PCP - General Internal Medicine 06/15/24 documented as of this encounter
--- OUTSIDE RECORDS SUMMARY | 2024-07-29 10:24 | XMS_ITS | Encounter Summary ---
Author Organization [facility] Address [address] [place] [address] Phone Care Team Providers Care Shopping Centre Manager Name Role Phone Alejandra Mclean MD Primary Care Provider [phone] Encounter Details Date Type Department Care Team [...] on filedocumented in this encounter Care Teams Shopping Centre Manager Relationship Specialty Start Date End Date Alejandra Mclean MD [address] [address] PCP - General Internal Medicine 06/15/24 documented as of this encounter
--- OUTSIDE RECORDS SUMMARY | 2024-07-29 10:24 | XMS_ITS | Encounter Summary ---
Author Organization [facility] Address [address] [place] [address] Phone Care Team Providers Care Tele Rn Name Role Phone Alejandra Mclean MD Primary Care Provider [phone] Encounter Details Date Type Department Care Team [...] on filedocumented in this encounter Care Teams Tele Rn Relationship Specialty Start Date End Date Alejandra Mclean MD [address] [address] PCP - General Internal Medicine 06/15/24 documented as of this encounter
--- OUTSIDE RECORDS SUMMARY | 2024-07-29 10:24 | XMS_ITS | Encounter Summary ---
Author Organization [facility] Address [address] [place] [address] Phone Care Team Providers Care Industrial Service Technician Name Role Phone Alejandra Mclean MD [...] on filedocumented in this encounter Care Teams Industrial Service Technician Relationship Specialty Start Date End Date Alejandra Mclean MD [address] [address] PCP - General Internal Medicine 06/15/24 documented as of this encounter
--- OUTSIDE RECORDS SUMMARY | 2024-07-29 10:24 | XMS_ITS | Clinical Summary ---
Author Organization [facility] [place] [address] Phone Care Team Providers Care Drum Builder Name Role Phone Alejandra Mclean MD Primary Care Provider Source Comments [employer] is fully rolled out on [facility] [employer] [employer]. Last update 02/28/09.[facility] Allergies No known active allergies Medications * [...] [facility] [address] [address] Orlin Luo, [facility] Appointment 06/18/2024 Orders Only Unspecified Department [...] - 06/19/2024 5:12 PM CDT Hospital Encounter [facility] [place]/Trauma/Brigido ro [address] [place] [address] Amanda Joel MD Payne, Rachel E, MD Richmond, Steven D, DO Closed fracture of multiple ribs of left side, initial encounter Discharge Disposition: Discharged/transd to SNF with Medicare certification 06/15/2024 Orders Only [facility] Film Room [facility] Radiology Department [facility] [address] [place] [address] Provider, Outside Referral of patient (Primary Dx) [...] included. Phosphorus 2.8 2.5 - 4.5 mg/dL [facility] Blood 06/19/2024 6:19 AM CDT 06/19/2024 7:27 AM CDT Zeina Arias MD LABORATORY [facility] [address] [address] * (ABNORMAL) PANEL BASIC METABOLIC (BMP) (06/19/2024 6:19 AM CDT) Only the most recent of4 resultswithin the time period is included. Sodium 132(L) 135 - 148 mmol/L [facility] Potassium 4.6 3.5 - 5.3 mmol/L [facility] Chloride 101 92 - 108 mmol/L [facility] CO2 20(L) 22 - 30 mmol/L [facility] Glucose 94 70 - 100 mg/dL [facility] BUN 17 8 - 23 mg/dL [facility] Creatinine 0.92 0.70 - 1.25 mg/dL [facility] Calcium 9.0 8.8 - 10.2 mg/dL [facility] AnGap 11 8 - 16 mmol/L [facility] eGFR (2020 CKD-EPI) 82 >=60 ml/min/1.7 3m2 [facility] Comment: The estimated glomerular filtration rate (eGFR) was calculated using the CKD-EPI 2020 creatinine equation, which does not include race as a factor. This equation is validated in individuals 18 years of age and older, and eGFR is normalized to a body surface area of 1.73m^2. Blood 06/19/2024 6:19 AM CDT 06/19/2024 7:27 AM CDT Zeina Arias MD LABORATORY [address] [address] * MAGNESIUM (06/19/2024 6:19 AM CDT) Only the most recent of4 resultswithin the time period is included. Pathologist [facility] Magnesium 2.0 1.6 - 2.4 mg/dL [facility] Blood 06/19/2024 6:19 AM CDT 06/19/2024 7:27 AM CDT Zeina Arias MD LABORATORY Performing Organization Address City/[facility]/ZIP Co de Phone Number [facility] [address] [address] * (ABNORMAL) CBC WITH PLATELET (06/19/2024 6:19 AM CDT) Only the most recent of4 resultswithin the time period is included. WBC 9.14 4.00 - 10.00 k/cmm [facility] RBC 3.36(L) 4.60 - 6.00 m/cmm [facility] Hgb 12.5(L) 13.1 - 17.5 g/dL [facility] Hematocrit 37.5(L) 40.0 - 51.0 % [facility] MCV 111.6(H) 80.0 - 100.0 fL [facility] MCH 37.2(H) 25.0 - 32.0 pg [facility] MCHC 33.3 31.0 - 36.0 g/dL [facility] RDW 12.2 11.5 - 14.5 % [facility] Plt 151 150 - 400 k/cmm [facility] MPV 10.4 6.5 - 12.5 fL [facility] Blood 06/19/2024 6:19 AM CDT 06/19/2024 7:27 AM CDT Zeina Arias MD LABORATORY [facility] [address] [address] * TELEMETRY STRIPS (06/18/2024 8:34 AM CDT) [...] 9:08 PM CDT) Folate 4.1 >=4.0 ng/mL [facility] Blood 06/16/2024 9:08 PM CDT 06/16/2024 9:22 PM CDT Zeina Arias MD LABORATORY Performing Organization Address [facility] Co de Phone Number [facility] [address] [address] * VITAMIN B12 (06/16/2024 9:08 PM CDT) [phone] - 946 pg/mL [facility] Blood 06/16/2024 9:08 PM CDT 06/16/2024 9:22 PM CDT Zeina Arias MD LABORATORY Performing Organization Address [facility]/ZIP Co de Phone Number [facility] [address] [address] * TROP 4H (06/15/2024 3:50 PM CDT) 4H Trop 7 <=35 ng/L [facility] 4H Delta na Not Significant [facility] Comment:Unable to calculate delta. Blood 06/15/2024 3:50 PM CDT 06/15/2024 3:54 PM CDT Amanda Joel MD LABORATORY [facility] [address] [address] * XR SCAPULA LEFT AP + LAT [...] ??No treatment, delayed treatment and alternative treatment Gravette protocol: ??Procedure explained and questions answered to [...] (06/15/2024 1:12 PM CDT) Color ORANGE YELLOW [facility] Appearance CLOUDY(A) CLEAR [facility] Urine Glucose NEGATIVE NEGATIVE mg/dL [facility] Bili UA NEGATIVE NEGATIVE [facility] Ketones TRACE(A) NEGATIVE [facility] Specific [place] 1.018 1.003 - 1.030 [facility] Blood Ur LARGE(A) Neg-Trace [facility] PH Urine 6.5 5.0 - 7.0 [facility] Protein Ur 30(A) Neg-Trace [facility] Urobilinogen NORMAL NORMAL EU/dL [facility] Nitrite Ur NEGATIVE NEGATIVE [facility] Leuk Est TRACE Neg-Trace [facility] WBC Ur 0-5 0 - 5 perHPF [facility] RBC Ur >20(A) 0 - 3 perHPF [facility] Urinalysis Performed at: [facility] Urine 06/15/2024 1:12 PM CDT 06/15/2024 1:16 PM CDT Amanda Joel MD LABORATORY [facility] [address] [address] * HS TROPONIN (06/15/2024 12:28 PM CDT) Pathologist [facility] HS Troponin I 6 <=35 ng/L [facility] Blood 06/15/2024 12:2 8 PM CDT 06/15/2024 12:31 PM CDT Narrative [facility] - 06/15/2024 12:57 PM CDT If ordering as an add-on lab, you must call the lab. Amanda Joel MD LABORATORY [facility] [address] [address] * (ABNORMAL) ED CHEMISTRY LABS(NA,K,CL,CO2,GLU,CREAT,CA-IONIZED,ANION GAP) (06/15/2024 12:28 PM CDT) Pathologist [facility] Sodium 132(L) 135 - 148 mmol/L [facility] Chloride 103 92 - 108 mmol/L [facility] AnGap 9 8 - 16 mmol/L [facility] Glucose 96 70 - 100 mg/dL [facility] ICA, Actual 4.45 4.40 - 5.20 mg/dL [facility] ICA, pH Corrected 4.48 4.40 - 5.20 mg/dL [facility] Creatinine 1.03 0.70 - 1.25 mg/dL [facility] BICARB 21(L) 22 - 26 mEq/L [facility] eGFR (2020 CKD-EPI) 72 >=60 ml/min/1.7 3m2 [facility] Comment: The estimated glomerular filtration rate (eGFR) was calculated using the CKD-EPI 2020 creatinine equation, which does not include race as a factor. This equation is validated in individuals 18 years of age and older, and eGFR is normalized to a body surface area of 1.73m^2. Potassium 4.5 3.5 - 5.3 mmol/L [facility] Blood 06/15/2024 12:2 8 PM CDT 06/15/2024 12:37 PM CDT Amanda Joel MD LABORATORY Performing Organization Address [facility]/ZIP Co de Phone Number [facility] [address] [address] * (ABNORMAL) CBC WITH PLTS/AUTO DIFF (06/15/2024 12:28 PM CDT) WBC 10.53(H) 4.00 - 10.00 k/cmm [facility] RBC 3.59(L) 4.60 - 6.00 m/cmm [facility] Hgb 13.2 13.1 - 17.5 g/dL [facility] Hematocrit 38.5(L) 40.0 - 51.0 % [facility] MCV 107.2(H) 80.0 - 100.0 fL [facility] MCH 36.8(H) 25.0 - 32.0 pg [facility] MCHC 34.3 31.0 - 36.0 g/dL [facility] RDW 11.9 11.5 - 14.5 % [facility] Plt 185 150 - 400 k/cmm [facility] MPV 9.3 6.5 - 12.5 fL [facility] Automated Abs Neutrophil 8.59(H) 1.70 - 6.50 k/cmm [facility] Comment:Preliminary ANC, Fin al Result to Follow Abs Immature Granulocyte 0.02 0.00 - 0.09 k/cmm [facility] Comment:The Immature Granulo cyte Absolute count contains metamyelocytes and myelocytes. Abs Neutrophil 8.59(H) 1.70 - 6.50 k/cmm [facility] Abs Lymphocyte 0.71(L) 0.80 - 4.00 k/cmm [facility] Abs Monocyte 1.08(H) 0.20 - 1.00 k/cmm [facility] Abs Eosinophil 0.07 0.00 - 0.60 k/cmm [facility] Abs Basophil 0.06 0.00 - 0.20 k/cmm [facility] Blood 06/15/2024 12:2 8 PM CDT 06/15/2024 12:44 PM CDT Amanda Joel MD LABORATORY Performing Organization Address [facility]/ZIP Co de Phone Number [facility] [address] [address] * PROTHROMBIN (PT) & INR (06/15/2024 12:28 PM CDT) Pathologist [facility] PT 11.2 9.0 - 12.5 sec [facility] INR 1.0 0.8 - 1.1 [facility] Comment: Warfarin Therapeutic Range: Standard Intensity: 2.0 - 3.0 High Intensity: 2.5 - 3.5 Blood 06/15/2024 12:2 8 PM CDT 06/15/2024 12:44 PM CDT Amanda Joel MD LABORATORY [address] [address] * CK, TOTAL (06/15/2024 12:28 PM CDT) Pathologist [facility] CK 258 39 - 308 IU/L [facility] Blood 06/15/2024 12:2 8 PM CDT 06/15/2024 12:44 PM CDT Amanda Joel MD LABORATORY Performing Organization Address City/[facility]/ZIP Co de Phone Number [facility] [address] [address] * EXTRA TUBE - SST (06/15/2024 12:28 PM CDT) Pathologist [facility] SST TUBE Stored [facility] Comment:SST tubes (Serum Sep arator) are stored in the lab for 3 days from the collection date. Blood 06/15/2024 12:2 8 PM CDT 06/15/2024 12:32 PM CDT Amanda Joel MD LABORATORY Performing Organization Address City/[facility]/ZIP Co de Phone Number [facility] [address] [address] * (ABNORMAL) CARBON MONOXIDE (CO) (06/15/2024 12:28 PM CDT) Pathologist [facility] Carbon Monox 3(H) 0 - 2 % [facility] Comment:Normal range for smo kers: up to 13%. Blood 06/15/2024 12:2 8 PM CDT 06/15/2024 4:16 PM CDT Amanda Joel MD LABORATORY [facility] [address] [place] [address] * ED US GUIDED NERVE BLOCK (06/15/2024 [...] CDT) 06/15/2024 11:5 9 AM CDT Impressions [facility] CVIS EKG ORDERS - 06/15/2024 11:59 AM CDT SINUS RHYTHM WITH FIRST DEGREE AV BLOCK ABNORMAL ECG No Previous ECGs Available. P-R Interval 212 ms QRS Interval 95 ms QT Interval 377 ms QTC Interval 400 ms P [place] 64 QRS [place] -7 T Wave [place] 25 Narrative Procedure Note Amanda Joel MD - 06/15/2024 IMPRESSION SINUS RHYTHM WITH FIRST DEGREE AV BLOCK ABNORMAL ECG No Previous ECGs Available. P-R Interval 212 ms QRS Interval 95 ms QT Interval 377 ms QTC Interval 400 ms P [place] 64 QRS [place] -7 T Wave [place] 25 Amanda Joel MD EKG [facility] CVIS EKG ORDERS * CT OUTSIDE READ [...] 2:35 PM CDT Indication: ??Patient transferred from [place] [facility] due to Trauma. Dr. AMANDA JOEL requested an interpretation by me. Comparison: CT of the chest from 02/08/2023. Technique: ??CT scan of the chest/abdomen/pelvis done with IV contrast. Axial, coronal, and sagittal reconstructions reviewed in soft tissue and bone windows, per the local institution's scanning protocols, which may differ from the [facility] trauma protocols. Findings: Chest: Mediastinum: Atrophic thyroid [...] Mild bilateral gynecomastia. Procedure Note Epi Lorenzana, - 06/15/2024 Indication: Patient transferred from [facility] due to Trauma.Dr. AMANDA JOEL requested an interpretation by me. Comparison: CT of the chest from 02/08/2023. Technique: CT scan of the chest/abdomen/pelvis done with IV contrast.Axial, coronal, and sagittal reconstructions reviewed in soft tissue andbone windows, per the local institution's scanning protocols, which maydiffer from the [facility] trauma protocols. Findings: Chest: Mediastinum: Atrophic thyroid [...] 12:08 PM CDT Indication: ??Patient transferred from [facility] due to Trauma. Dr. AMANDA JOEL requested an interpretation by me. Technique: ??CT scan of the cervical spine done on 06/15/2024 without IV contrast. Axial, coronal, and sagittal reconstructions reviewed in soft tissue and bone windows, per the local institution's scanning protocols, which may differ from the [facility] trauma protocols. Findings: ??No suspected acute fracture, [...] DO - 06/15/2024 Indication: Patient transferred from [facility] due to Trauma.Dr. AMANDA JOEL requested an interpretation by me. Technique: CT scan of the cervical spine done on 06/15/2024 without IVcontrast. Axial, coronal, and sagittal reconstructions reviewed in softtissue and bone windows, per the local institution's scanning protocols,which may differ from the [facility] trauma protocols. Findings: No suspected acute fracture, [...] 12:05 PM CDT Indication: ??Patient transferred from [facility] due to Trauma. Dr. AMANDA JOEL requested an interpretation by me. Technique: ??CT scan of the head done on 06/15/2024 without IV contrast. Axial, coronal, and sagittal reconstructions are reviewed in soft tissue and bone windows, per the local institution's scanning protocols, which may differ from the [facility] trauma protocols. Findings: No acute intracranial hemorrhage, [...] DO - 06/15/2024 Indication: Patient transferred from [facility] due to Trauma.Dr. AMANDA JOEL requested an interpretation by me. Technique: CT scan of the head done on 06/15/2024 without IV contrast.Axial, coronal, and sagittal reconstructions are reviewed in soft tissueand bone windows, per the local institution's scanning protocols, whichmay differ from the [facility] trauma protocols. Findings: No acute intracranial hemorrhage, [...] Advance Directives For more information, please contact: [phone] * Full Code (Latest Code Status on [...] Status With Whom? Not discussed Care Teams Drum Builder Relationship Specialty Start Date End Date Alejandra Mclean MD [address] [place] [address] PCP - General Internal Medicine 06/15/24
--- OUTSIDE RECORDS SUMMARY | 2024-07-29 10:24 | XMS_ITS | Encounter Summary ---
Author Organization [facility] Address [address] [place] [address] Phone Care Team Providers Care Real Estate Agency Principal Name Role Phone Alejandra Mclean MD Primary [...] on filedocumented in this encounter Care Teams Real Estate Agency Principal Relationship Specialty Start Date End Date Alejandra Mclean MD [address] [address] PCP - General Internal Medicine 06/15/24 documented as of this encounter
--- OUTSIDE RECORDS SUMMARY | 2024-07-29 10:24 | XMS_ITS | Encounter Summary ---
Author Organization [facility] Address [address] [place] [address] Phone Care Team Providers Care Floor Cashier Name Role Phone Alejandra Mclean MD Primary Care Provider [phone] Encounter Details Date Type Department Care Team [...] on filedocumented in this encounter Care Teams Floor Cashier Relationship Specialty Start Date End Date Alejandra Mclean MD [address] [address] PCP - General Internal Medicine 06/15/24 documented as of this encounter
--- OUTSIDE RECORDS SUMMARY | 2024-07-29 10:24 | XMS_ITS | Encounter Summary ---
Author Organization [facility] Address [address] [place] [address] Phone Care Team Providers Care Molding Machine Operator Helper Name Role Phone Alejandra Mclaen MD Primary Care Provider Encounter Details Date [...] on filedocumented in this encounter Care Teams Molding Machine Operator Helper Relationship Specialty Start Date End Date Alejandra Mclean MD [address] [address] PCP - General Internal Medicine 06/15/24 documented as of this encounter
--- OUTSIDE RECORDS SUMMARY | 2024-07-29 10:24 | XMS_ITS | Encounter Summary ---
Author Organization [facility] Address [address] [place] [address] Phone Care Team Providers Care Transmission Systems Operator Name Role Phone Alejandra Mclean MD [...] on filedocumented in this encounter Care Teams Transmission Systems Operator Relationship Specialty Start Date End Date Alejandra Mclean MD [address] [address] PCP - General Internal Medicine 06/15/24 documented as of this encounter
[2024-07-29 10:44] LABS: Chloride* 101 mmol/L (96-114); Potassium* 5.1 mmol/L (3.6-5.1); Sodium* 131 mmol/L (135-149)
[2024-07-29 10:47] LABS: Anion Gap 7 mEq/L (7-15); Carbon Dioxide* 23 mmol/L (20-32); Creatinine* 1.2 mg/dL (0.5-1.5); Est. Creatinine Clearance* 46.47; Estimated Glomerular Filt Rate 59 ml/min
[2024-07-29 10:48] LABS: Alkaline Phosphatase* 109 U/L (40-150); Aspartate Amino Transferase* 25 U/L (12-35); Bilirubin Direct* 0.2 mg/dL (0.0-0.5); Bilirubin Total* 0.5 mg/dL (0.1-1.5); Blood Urea Nitrogen* 25 mg/dL (7-30); Calcium* 9.6 mg/dL (8.4-10.6); Glucose* 112 mg/dL (60-115); Magnesium* 2.4 mg/dL (1.5-2.6)
[2024-07-29 10:49] LABS: Alanine Aminotransferase* 19 U/L (4-50)
[2024-07-29 10:50] LABS: C Reactive Protein* < 0.5 mg/dL (0.5-1.0)
[2024-07-29 11:00] LABS: Troponin I* < 0.01 ng/mL (0.01-0.04)
== END 2024-07-29 11:23 | disposition home or self-care (01) ==
PROVIDERS: Emergency Provider Emergency Medicine; PCP Internal Medicine
DX: R55 Syncope and collapse (principal)
CPT/HCPCS: 36415; 80048; 80076; 83605; 83735; 84484; 85025; 86140; 93005; 94761; 99284

== ENCOUNTER 2024-12-13 11:26 | Outpatient (CLI) | payer MEDICARE, BC, SELFPAY | END 2024-12-13 11:27 | disposition home or self-care (01) | PROVIDERS: PCP Internal Medicine; Visit Provider Internal Medicine | DX: E53.8 Deficiency of other specified B group vitamins (principal); E03.9 Hypothyroidism, unspecified; I10 Essential (primary) hypertension | CPT/HCPCS: 80048; 82607; 84443 ==

== ENCOUNTER 2025-07-17 14:15 | Emergency (ER) | payer MEDICARE, BC, SELFPAY ==
[2025-07-17 14:25] VITALS: BP 186/89; PULSE 78; RESP 20; TEMP 36.9; O2SAT 97; BMI 29.2
--- NOTE | 2025-07-17 14:30 | ED.GENADULT ---
HPI - General Adult General Time Seen by Provider: 14:30 Date Seen: 07/17/25 Chief complaint: Nausea/Vomiting Stated complaint: loss of appetite, Nauseous Time Seen by Provider: 07/17/25 14:19 Source: patient, family, RN notes reviewed and other (Phone call from Jose Wick from urgent care received on this patient) Mode of arrival: ambulatory Limitations: no limitations History of Present Illness HPI narrative: This 84-year-old male was referred from urgent care for nausea starting 24 hours after his COVID and flu vaccination which he received on Tuesday. He complained of chronic left hip pain on arrival here to the ER. Urgent care did call, states patient was still taking fluids but not eating. He had had a bowel movement and urination just prior to being seen in urgent care and thus they could not collect urine. They reported acute confusion of 4 days as well from urgent care. Patient's main complaint to me when talking to him is his left hip is sore. He states someone told him that there was something wrong with it, he has done therapy. His son Desmond whom is with him did call the [facility] where he is in assisted living and he has not attended any therapy. His son wonders if the nausea and confusion might be side effects of the COVID in flu shot that he received 4 days ago. They have noted no fevers. Patient states he has maybe coughing some. He does tell me now that he has had some diarrhea. Denies any abdominal pain or nausea now. No vomiting. No known urinary symptoms. Patient does have some baseline dementia. Desmond wonders if he is suffering from some brain fog as a side effect of the COVID vaccine. There was no known trauma or falls. His son notes he has not had labs since November, was wondering if perhaps these could be done, did review with him that we certainly will do a workup which will include labs. Related Data Home Medications ?Medication ?Instructions ?Recorded ?Confirmed aspirin 81 mg capsule 81 mg PO QDAY 04/15/22 07/17/25 mecobalamin (vitamin B12) 1,000 1,000 mcg PO QDAY PRN 02/14/23 07/17/25 mcg chewable tablet multivitamin 1 tab PO QAM 12/13/24 07/17/25 Previous Rx's ?Medication ?Instructions ?Recorded donepezil 5 mg tablet (Aricept) 5 mg PO QHS #90 tabs 12/13/24 levothyroxine 100 mcg tablet 100 mcg PO QDAY #90 tabs 12/13/24 isosorbide mononitrate 30 mg 30 mg PO QHS #90 tabs 04/01/25 tablet,extended release 24 hr benazepril 40 mg tablet 40 mg PO QDAY #90 tabs 04/19/25 Allergies Allergy/AdvReac Type Severity Reaction Status Date / Time simvastatin (From Zocor) Allergy Intermediate Weakness Verified 07/17/25 14:23 contact metal agent AdvReac Mild rash Verified 07/17/25 14:23 Review of Systems Status of ROS: Reports: 6 or more systems reviewed and unremarkable except as noted in History and below (But question the validity of patient's ability to give meaningful ROS ) PFSH PFS Medical History History of TIA (transient ischemic attack) ?Z86.73 - Personal history of transient ischemic attack (TIA), and cerebral infarction without residual deficits (ICD-10) Surgical History S/P cataract extraction and insertion of intraocular lens ?Z98.49 - Cataract extraction status, unspecified eye (ICD-10) ?Z96.1 - Presence of intraocular lens (ICD-10) History of tonsillectomy ?Z90.89 - Acquired absence of other organs (ICD-10) History of prostate biopsy ?Z98.890 - Other specified postprocedural states (ICD-10) History of appendectomy ?Z90.49 - Acquired absence of other specified parts of digestive tract (ICD-10) Social History Narrative: health care directive on file- health care directive completed on 05/26/2020 reviewed and scanned on 05/27/2020 What is your current living situation?: I presently have a place to live Problems where you live: no known problems In the past 12 months, utilities in danger of being shut off: no In past 12 months, lack of transportation kept you from medical appts, meetings, work, or getting things needed for daily living: no In the past 12 mos, have been you worried that your food would run out before you had money to buy more?: never true In the past 12 mos, the food you bought just didn't last and you didn't have money to buy more?: never true Smoking Status: Former smoker How often do you have a drink containing alcohol: 4 or more times a week AUDIT-C Alcohol total score: 4 Non-prescribed substance use: denies use How often does anyone, including family, friends and others, physically hurt you: never How often does anyone, including family, friends and others, insult or talk down to you: never How often does anyone, including family, friends and others, threaten you with harm: never How often does anyone, including family, friends and others, scream or curse at you: never Exam Const: Vital Signs, click to edit/add: Vital Signs - 24 hr 07/17/25 14:25 Temperature 98.4 F Pulse Rate [Pulse Oximeter] 78 Respiratory Rate 20 Blood Pressure [Ri ght Upper Arm] 186/89 H Pulse Oximetry 97 Oxygen Delivery Me thod Room Air This 84-year-old male is seen in exam room to, he is alert and interactive, no apparent distress, lying in the exam bed. Sclera clear, conjugate gaze, symmetrical facial function, speech is normal. Neck is supple, no masses or adenopathy. Lungs are clear, good air entry, no wheezing or crackles, no tachypnea, no accessory muscle use. CV regular rate rhythm, no significant murmur, normal S1-S2. Abdomen is soft, nontender, nondistended, no organomegaly, rebound or guarding, no masses. No significant lower extremity edema noted. Patient was ambulatory into the ED. Documenting provider has reviewed patient's vital signs: yes Course Course ED Course: This patient is now complaining of left hip pain, definitely seems to have some acute confusion on top of his dementia. He also had been complaining of some nausea, possible diarrhea. All this certainly could be a side effect of likely the COVID vaccine. Will do a workup on this patient, will look at hip imaging on him given his pain. It is possible that he could just have some arthralgia from the vaccine as well particularly if there is any underlying arthritis or abnormality of the joint. Will rule out any fracture. Will look at a portable chest x-ray, will do a head CT on him given the acute confusion. Will have full complement of labs. He currently is afebrile and hemodynamically stable. Reevaluation(s) Time of Reevaluation #1: 16:34 Reevaluation #1: Have reviewed with patient and his son that we really have no identifiable etiology for his symptoms. I do not think he needs further imaging or evaluation at this time. Patient is eager to return home, his son feels like that is appropriate and does not have concerns at this time. We discussed expectations for improvement likely within the next couple days and to have low threshold to return for re-evaluation. Does not seem to have significant dehydration based on his labs today and thus encouraged him to keep drinking fluids. Eat foods that sound palatable, whatever they may be. Hopefully he will be improving over the next day or so and will get back to his baseline. If not, needs to be re-evaluated. Vital Signs Vital signs: Initial Vital Signs Temperature 98.4 F 07/17/25 14:25 Temperature Source Temporal Artery Scan 07/17/25 14:25 Pulse Rate 78 07/17/25 14:25 Respiratory Rate 20 07/17/25 14:25 Blood Pressure 186/89 H 07/17/25 14:25 Blood Pressure Mean 121 H 07/17/25 14:25 Pulse Oximetry 97 07/17/25 14:25 Oxygen Delivery Method Room Air 07/17/25 14:25 Vital Signs Temperature 98.4 F 07/17/25 14:25 Pulse Rate 78 07/17/25 14:25 Respiratory Rate 20 07/17/25 14:25 Blood Pressure 186/89 H 07/17/25 14:25 Pulse Oximetry 97 07/17/25 14:25 Oxygen Delivery Method Room Air 07/17/25 14:25 Temperature 98.4 F 07/17/25 14:25 Pulse Rate 78 07/17/25 14:25 Respiratory Rate 20 07/17/25 14:25 Blood Pressure 186/89 H 07/17/25 14:25 Pulse Oximetry 97 07/17/25 14:25 Oxygen Delivery Method Room Air 07/17/25 14:25 Medical Decision Making Lab Data Labs: Lab Results 07/17/25 07/17/25 Range/Units 14:57 15:26 WBC 11.77 H (4.50-11.00) K/uL RBC 3.72 L (4.30-5.90) m/uL Hgb 13.1 L (13.5-17.5) gm/dL Hct 38.8 (37.0-53.0) % MCV 104 H (80-100) fL MCH 35 H (26-34) pg MCHC 34 (32-36) gm/dL RDW Coeff of Dina 12.2 (11.5-15.5) % Plt Count 253 (140-440) K/uL Neut % (Auto) 86.4 H (42.0-72.0) % Lymph % (Auto) 5.0 L (20-44) % [place] % (Auto) 7.1 (0.0-11.0) % Eos % (Auto) 0.3 (0.0-7.0) % Baso % (Auto) 0.3 (0.0-3.0) % Neut # (Auto) 10.20 H (1.7-7.0) K/uL Lymph # (Auto) 0.60 L (0.90-2.90) K/uL [place] # (Auto) 0.80 (0.00-0.90) K/UL Eos # (Auto) 0.00 (0.00-0.50) K/uL Baso # (Auto) 0.00 (0.00-0.30) K/uL Abs Immat Gran (auto) 0.10 (0.00-0.30) K/uL Imm/Tot Granulo (auto) 0.9 % Sodium 133 L (135-149) mmol/L Potassium 4.5 (3.6-5.1) mmol/L Chloride 100 (96-114) mmol/L Carbon Dioxide 24 (20-32) mmol/L Anion Gap 9 (7-15) mEq/L BUN 18 (7-30) mg/dL Creatinine 1.0 (0.5-1.5) mg/dL Estimated Creat Clear 54.01 Estimated GFR 74 ml/min Glucose 117 H (60-115) mg/dL Lactate 1.4 (0.5-1.9) mmol/L Calcium 9.4 (8.4-10.6) mg/dL Total Bilirubin 1.2 (0.1-1.5) mg/dL AST 33 (12-35) U/L ALT 15 (4-50) U/L Alkaline Phosphatase 94 (40-150) U/L Troponin I < 0.01 (0.01-0.04) ng/mL C-Reactive Protein < 0.5 L (0.5-1.0) mg/dL Total Protein 7.3 (6.0-8.3) g/dL Albumin 4.0 (3.3-5.0) g/dL Urine Color Yellow (Yellow) Urine Appearance Clear (Clear) Urine pH 6.0 (5.0-8.5) Ur Specific [place] 1.025 (1.000-1.030) Urine Protein 2+ A (Negative) Urine Glucose (UA) Negative (Negative) Urine Ketones 1+ A (Negative) Urine Blood Negative (Negative) Urine Nitrite Negative (Negative) Urine Bilirubin Negative (Negative) Urine Urobilinogen 4.0 A (0.2-1.0) Ur Leukocyte Esterase Negative (Negative) Urine RBC 0-2 (0-2) Urine WBC 2-5 (0-5) Ur Squamous Epith Cells None (None-Few) Urine Bacteria Few A (None) Fine Granular Casts Few A (None) Imaging Data CT scan - head: Attestation: I have reviewed the pertinent imaging results. Radiologist's impression: Patient: FAIZAN TEE Facility:?[facility] Patient ID:?[id number] Site Patient ID:?[id number]. Site :?[id number] Study:?CT-Head W/O-07/17/2025 3:12:20 PM Ordering Physician:Mansoor Luu Final Report: INDICATION: Acute confusion COMPARISON: 07/22/2024 CT head TECHNIQUE: CT of the head without contrast. FINDINGS: Brain, ventricles, and extra-axial spaces: No acute intracranial hemorrhage. 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 Suspected punctate old lacunar infarcts in the right thalamus and left basal ganglia are similar. Moderate hypoattenuating changes in the white matter which are nonspecific, but commonly attributable to chronic microangiopathic change. Mild to moderate parenchymal volume loss with commensurate size of the ventricles and sulci. There are intracranial vascular calcifications. Bones: No acute osseous findings. Old healed fracture of the right mandibular condyle which is new since the prior exam on 07/22/2024. There is abnormal asymmetric anterior translation of the previously fractured right mandibular condyle with respect to the mandibular fossa. Visualized paranasal sinuses are clear. Visualized mastoid air cells are clear. Additional findings: Status post bilateral lens replacement. IMPRESSION: 1. No acute intracranial noncontrast CT findings. 2. 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 3. Moderate brain parenchymal involutional changes. 4. There is an old healed fracture of the right mandibular condyle which is new since the prior exam on 07/22/2024. There is abnormal asymmetric anterior translation of the previously fractured right mandibular condyle with respect to the mandibular fossa. Please note that all CT scans at this facility use dose modulation, iterative reconstruction, and/or weight-based dosing when appropriate to reduce radiation dose to as low as reasonably achievable. Dictated by Yomi Montoya MD @ 07/17/2025 3:24:25 PM (Electronic Signature) Chest x-ray: Attestation: I have reviewed the pertinent imaging results. My impression: I do not see any evidence of any infiltrate or fluid overload on my preliminary review, wait radiology over read. Radiologist's impression: Patient: FAIZAN TEE Facility:?[facility] Patient ID:?[id number] Site Patient ID:?[id number]. Site :?[id number] Study:?XRay-Chest 1 VIEW-07/17/2025 3:33:54 PM Ordering Physician:Mansoor Luu Final Report: INDICATION: : Acute confusion COMPARISON: CTA chest on July 22, 2024 and priors TECHNIQUE: One view(s) of the chest FINDINGS: The cardiomediastinal silhouette and pulmonary vasculature are unremarkable. There is no focal airspace consolidation, pleural effusion, or pneumothorax. No displaced fractures. IMPRESSION: No acute cardiopulmonary process. Dictated by Jesus Padilla MD @ 07/17/2025 3:40:09 PM (Electronic Signature) XR left hip: Attestation: I have reviewed the pertinent imaging results. My impression: I do think there is some arthritis in this left hip but I do not appreciate any acute fracture. Await Radiology over-read. Radiologist's impression: Patient: FAIZAN TEE Facility:?[facility] Patient ID:?[id number] Site Patient ID:?[id number]. Site :?[id number] Study:?XRay-Hip Left 2 VIEW-07/17/2025 3:34:20 PM Ordering Physician:Mansoor Luu Final Report: Indication: c/o pain, no known trauma Technique: Frontal view of the pelvis and frontal and lateral views of the left hip Comparison: None Findings/Impression: No acute fracture or malalignment. There are some degenerative changes of the imaged lower lumbar spine. 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 No suspicious osseous lesions. The soft tissues are without acute abnormality. Pelvic phleboliths. Dictated by Jesus Padilla MD @ 07/17/2025 3:43:04 PM (Electronic Signature) ECG Data Attestation: I personally reviewed and interpreted this ECG as follows: (Sinus bradycardia, 59 beats per minute. There is sinus arrhythmia with first-degree AV block. No ischemia noted. QT corrected 382 milliseconds.) Prior ECG tracings: available for review Discharge Plan Discharge Clinical Impression: Acute confusion, Nausea Patient Disposition: Home, Self-Care Condition: Stable Instructions: Acute Nausea and Vomiting (ED) Additional Instructions: It is very important to continue drinking adequate fluids. Take frequent small sips as this will help keep you hydrated. Try to eat small bites of foods that sound good to. I would anticipate if your symptoms are stemming from the vaccination that you will start improving the next couple of days. Monitor your situation, if you are developing worsening nausea, have abdominal pain developed, have fever develops, start vomiting then you need to be re-evaluated in the ER. If you have any further concerns or feel that we need to recheck you, please return. Activity Level: Activity as Tolerated Prescriptions: No Action aspirin 81 mg capsule 81 mg PO QDAY mecobalamin (vitamin B12) 1,000 mcg tablet,chewable 1,000 mcg PO QDAY PRN multivitamin Tablet 1 tab PO QAM donepezil [Aricept] 5 mg tablet 5 mg PO QHS Qty: 90 3RF levothyroxine 100 mcg tablet 100 mcg PO QDAY Qty: 90 3RF isosorbide mononitrate 30 mg tablet extended release 24 hr 30 mg PO QHS Qty: 90 1RF benazepril 40 mg tablet 40 mg PO QDAY Qty: 90 1RF Follow Up/Referrals: Alejandra Mclean MD [Primary Care Provider, Internal Medicine] Stand Alone Forms: [email or web address] Info Instructions
--- NOTE | 2025-07-17 14:36 | CRLHL7_ITS ---
For Patients: As a result of the Cures Act, medical imaging exams and procedure reports are released immediately into your electronic medical record. You may view this report before your referring provider. If you have questions, please contact your health care provider. Indication: c/o pain, no known trauma Technique: Frontal view of the pelvis and frontal and lateral views of the left hip Comparison: None Findings/Impression: No acute fracture or malalignment. There are some degenerative changes of the imaged lower lumbar spine. 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 No suspicious osseous lesions. The soft tissues are without acute abnormality. Pelvic phleboliths. Dictated by Jesus Padilla MD @ 07/17/2025 3:43:04 PM (Electronically Signed)
--- NOTE | 2025-07-17 14:37 | CRLHL7_ITS ---
For Patients: As a result of the Century Cures Act, medical imaging exams and procedure reports are released immediately into your electronic medical record. You may view this report before your referring provider. If you have questions, please contact your health care provider. INDICATION: Acute confusion COMPARISON: 07/22/2024 CT head TECHNIQUE: CT of the head without contrast. FINDINGS: Brain, ventricles, and extra-axial spaces: No acute intracranial hemorrhage. 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 Suspected punctate old lacunar infarcts in the right thalamus and left basal ganglia are similar. Moderate hypoattenuating changes in the white matter which are nonspecific, but commonly attributable to chronic microangiopathic change. Mild to moderate parenchymal volume loss with commensurate size of the ventricles and sulci. There are intracranial vascular calcifications. Bones: No acute osseous findings. Old healed fracture of the right mandibular condyle which is new since the prior exam on 07/22/2024. There is abnormal asymmetric anterior translation of the previously fractured right mandibular condyle with respect to the mandibular fossa. Visualized paranasal sinuses are clear. Visualized mastoid air cells are clear. Additional findings: Status post bilateral lens replacement. IMPRESSION: 1. No acute intracranial noncontrast CT findings. 2. 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 3. Moderate brain parenchymal involutional changes. 4. There is an old healed fracture of the right mandibular condyle which is new since the prior exam on 07/22/2024. There is abnormal asymmetric anterior translation of the previously fractured right mandibular condyle with respect to the mandibular fossa. Please note that all CT scans at this facility use dose modulation, iterative reconstruction, and/or weight-based dosing when appropriate to reduce radiation dose to as low as reasonably achievable. Dictated by Yomi Montoya MD @ 07/17/2025 3:24:25 PM (Electronically Signed)
--- NOTE | 2025-07-17 14:37 | CRLHL7_ITS ---
For Patients: As a result of the Cures Act, medical imaging exams and procedure reports are released immediately into your electronic medical record. You may view this report before your referring provider. If you have questions, please contact your health care provider. INDICATION: : Acute confusion COMPARISON: CTA chest on July 22, 2024 and priors TECHNIQUE: One view(s) of the chest FINDINGS: The cardiomediastinal silhouette and pulmonary vasculature are unremarkable. There is no focal airspace consolidation, pleural effusion, or pneumothorax. No displaced fractures. IMPRESSION: No acute cardiopulmonary process. Dictated by Jesus Padilla MD @ 07/17/2025 3:40:09 PM (Electronically Signed)
[2025-07-17 15:04] LABS: Lactate* 1.4 mmol/L (0.5-1.9)
[2025-07-17 15:14] LABS: Hematocrit* 38.8 % (37.0-53.0); Hemoglobin* 13.1 gm/dL (13.5-17.5); Immature Granulocytes Pct Auto 0.9 %; Mean Corpuscular HGB Conc 34 gm/dL (32-36); Mean Corpuscular Hemoglobin 35 pg (26-34); Mean Corpuscular Volume 104 fL (80-100); RDW Coefficient of Variation % 12.2 % (11.5-15.5); Red Blood Count* 3.72 m/uL (4.30-5.90); White Blood Count* 11.77 K/uL (4.50-11.00)
[2025-07-17 15:29] LABS: Immature Granulocytes Abs Auto 0.10 K/uL (0.00-0.30); Lymphocytes Absolute Auto 0.60 K/uL (0.90-2.90); Slide Review Reflex No
[2025-07-17 15:38] LABS: Albumin* 4.0 g/dL (3.3-5.0); Chloride* 100 mmol/L (96-114); Potassium* 4.5 mmol/L (3.6-5.1); Sodium* 133 mmol/L (135-149)
[2025-07-17 15:41] LABS: Alanine Aminotransferase* 15 U/L (4-50); Alkaline Phosphatase* 94 U/L (40-150); Anion Gap 9 mEq/L (7-15); Aspartate Amino Transferase* 33 U/L (12-35); Bilirubin Total* 1.2 mg/dL (0.1-1.5); Blood Urea Nitrogen* 18 mg/dL (7-30); Carbon Dioxide* 24 mmol/L (20-32); Creatinine* 1.0 mg/dL (0.5-1.5); Est. Creatinine Clearance* 54.01; Estimated Glomerular Filt Rate 74 ml/min; Total Protein* 7.3 g/dL (6.0-8.3)
[2025-07-17 15:42] LABS: Calcium* 9.4 mg/dL (8.4-10.6); Glucose* 117 mg/dL (60-115)
[2025-07-17 15:53] LABS: Appearance Urine Clear (Clear)
[2025-07-17 16:50] VITALS: BP 170/91; PULSE 67; RESP 18; TEMP 37.2; O2SAT 96
[2025-07-17 16:54] LABS: TSH With Reflex to FT4* 0.820 uIU/mL (0.270-4.200)
== END 2025-07-17 16:52 | disposition home or self-care (01) ==
PROVIDERS: Emergency Provider Family Medicine; PCP Internal Medicine
DX: R11.0 Nausea (principal); M25.552 Pain in left hip; R41.0 Disorientation, unspecified
CPT/HCPCS: 36415; 70450; 71045; 73502; 80053; 81001; 83605; 84443; 84484; 85025; 86140; 87086; 93005; 99284; 99285

== ENCOUNTER 2025-07-19 21:11 | Outpatient (CLI) | payer MEDICARE, BC, SELFPAY | END 2025-07-19 21:12 | disposition home or self-care (01) | LOC: AMB 07-23 01:25 | PROVIDERS: PCP Internal Medicine; Visit Provider Emergency Medicine | DX: R55 Syncope and collapse (principal); M54.9 Dorsalgia, unspecified; R10.9 Unspecified abdominal pain | CPT/HCPCS: A0425; A0427 ==

== ENCOUNTER 2025-07-19 21:38 | Observation (INO) | payer MEDICARE, BC, SELFPAY ==
[2025-07-19] VITALS (11 sets, daily range): BP systolic 75–113; BP diastolic 48–99; PULSE 87–127; RESP 15–34; TEMP 36.6; O2SAT 91–95
--- NOTE | 2025-07-19 21:47 | CRLHL7_ITS ---
For Patients: As a result of the Century Cures Act, medical imaging exams and procedure reports are released immediately into your electronic medical record. You may view this report before your referring provider. If you have questions, please contact your health care provider. Indication: Acute abdominal pain, hypotension, dementia Technique: CT through the abdomen and pelvis following 98 mL Isovue 370 IV contrast Comparison: CT chest abdomen pelvis performed 06/15/2024 Findings: Lower chest: Bibasilar atelectasis and/or scarring. Marked wall thickening of the distal esophagus. Hepatobiliary: No significant parenchymal abnormality is appreciated. Simple appearing cysts noted. Spleen: Unremarkable. Pancreas: No acute abnormality appreciated. Adrenal glands: No acute abnormality appreciated. Kidneys: No significant parenchymal abnormality appreciated. No visualized calculi. No hydronephrosis. Bowel: No obstruction. Extensive diverticulosis. There is marked bowel wall thickening involving essentially the entire visualized bowel from the esophagus to the descending colon. There is an ill-defined appearance to the wall at the gastroduodenal junction, otherwise site of perforation is not entirely clear. Vascular: Atherosclerosis. Significant narrowing at the origin of the SMA but apparent nonocclusive and with distal opacification present. This appears to have been present on prior examination. Lymph nodes: No gross lymphadenopathy. Peritoneum: Small to moderate volume of free air in the abdomen. Moderate to large volume ascites. : No acute abnormality appreciated. Soft tissues: No acute abnormality appreciated. Bones: No acute fracture. No lytic or blastic lesion. Degenerative changes of the spine and pelvis. Impression: High suspicion for bowel perforation given the presence of free air in the abdomen along with moderate to large volume ascites and diffuse irregular appearance to the bowel from the partially visualized esophagus extending to the descending colon. Difficult to identify the exact site of perforation but there does appear to be irregularity and possible discontinuity of the bowel wall at the gastro duodenal junction which may suggest but is not definitive for site of perforation. Surgical evaluation recommended. Additional nonacute findings as above. Findings were communicated by telephone to Dr. Silvia Estevez at [id number] on 07/19/2025. Please note that all CT scans at this facility use dose modulation, iterative reconstruction, and/or weight-based dosing when appropriate to reduce radiation dose to as low as reasonably achievable. Dictated by Trung Ascencio MD @ 07/19/2025 10:53:44 PM (Electronically Signed)
[2025-07-19 21:58] LABS: Lactate Sepsis w/Reflex* 12.9 mmol/L (0.5-1.9)
[2025-07-19 22:20] LABS: Hematocrit* 50.7 % (37.0-53.0); Hemoglobin* 16.7 gm/dL (13.5-17.5); Immature Granulocytes Abs Auto 0.02 K/uL (0.00-0.30); Immature Granulocytes Pct Auto 0.2 %; Mean Corpuscular HGB Conc 33 gm/dL (32-36); Mean Corpuscular Hemoglobin 35 pg (26-34); Mean Corpuscular Volume 107 fL (80-100); RDW Coefficient of Variation % 12.3 % (11.5-15.5); Red Blood Count* 4.75 m/uL (4.30-5.90); White Blood Count* 8.68 K/uL (4.50-11.00)
[2025-07-19 22:22] LABS: Lymphocytes Absolute Auto 0.40 K/uL (0.90-2.90); Slide Review Reflex Yes
[2025-07-19 22:34] LABS: Albumin* 3.9 g/dL (3.3-5.0); Chloride* 101 mmol/L (96-114); Sodium* 135 mmol/L (135-149)
[2025-07-19 22:35] LABS: Potassium* 3.3 mmol/L (3.6-5.1)
[2025-07-19 22:37] LABS: Blood Urea Nitrogen* 26 mg/dL (7-30); Creatinine* 1.7 mg/dL (0.5-1.5); Estimated Glomerular Filt Rate 39 ml/min
[2025-07-19 22:38] LABS: Alanine Aminotransferase* 37 U/L (4-50); Alkaline Phosphatase* 89 U/L (40-150); Bilirubin Direct* 0.9 mg/dL (0.0-0.5); Bilirubin Total* 1.5 mg/dL (0.1-1.5); Calcium* 9.7 mg/dL (8.4-10.6); Carbon Dioxide* 11 mmol/L (20-32); Glucose* 145 mg/dL (60-115); Total Protein* 7.1 g/dL (6.0-8.3)
[2025-07-19 22:39] LABS: Troponin, Point-of-Care* 0.43 ng/ml (0.01-0.04)
[2025-07-19 22:40] LABS: Slide Review Acceptable Review (Acceptable)
[2025-07-19 22:52] LABS: Anion Gap 23 mEq/L (7-15)
[2025-07-19 22:55] LABS: HCO3 VBG 16 mmol/L (21-28); PCO2 VBG 41 mmHG (40-50); PO2 VBG 32.4 mmHG (25-47)
[2025-07-19 23:02] LABS: Lactate Sepsis 2 Hour 8.9 mmol/L (0.5-1.9); pH VBG 7.205 (7.32-7.43)
[2025-07-19] MEDS: LACTATED RINGERS 500 ML 500 ML 125 ML IV (23:04)
[2025-07-19 23:10] LABS: Aspartate Amino Transferase* 50 U/L (12-35)
--- NOTE | 2025-07-19 23:50 | ED.GENADULT ---
HPI - General Adult General Date Seen: 07/19/25 Chief complaint: Abdominal Pain Stated complaint: abdominal pain Time Seen by Provider: 07/19/25 21:46 History of Present Illness HPI narrative: Patient is an 84-year-old brought in by EMS after developing abdominal pain at home. According to paramedics, he has been having problems with constipation, family provided additional history later that he had been on off the toilet multiple times tonight, had been complaining of abdominal pain. No vomiting. Was seen here couple of days ago for increased confusion and workup at that time was unremarkable. Paramedics note that on their arrival he had a blood pressure of 60. They did start an IV gave 500 mL bolus EN route. Other medical history notable for coronary artery disease, hypertension, dementia, cerebrovascular disease. I do not see a prior history of atrial fibrillation. Patient provides minimal history, does complain of severe lower abdominal pain when he pushes on it. Related Data Home Medications ?Medication ?Instructions ?Recorded ?Confirmed aspirin 81 mg capsule 81 mg PO QDAY 04/15/22 07/17/25 mecobalamin (vitamin B12) 1,000 1,000 mcg PO QDAY PRN 02/14/23 07/17/25 mcg chewable tablet multivitamin 1 tab PO QAM 12/13/24 07/17/25 Previous Rx's ?Medication ?Instructions ?Recorded donepezil 5 mg tablet (Aricept) 5 mg PO QHS #90 tabs 12/13/24 levothyroxine 100 mcg tablet 100 mcg PO QDAY #90 tabs 12/13/24 isosorbide mononitrate 30 mg 30 mg PO QHS #90 tabs 04/01/25 tablet,extended release 24 hr benazepril 40 mg tablet 40 mg PO QDAY #90 tabs 04/19/25 Allergies Allergy/AdvReac Type Severity Reaction Status Date / Time simvastatin (From Zocor) Allergy Intermediate Weakness Verified 07/17/25 14:23 contact metal agent AdvReac Mild rash Verified 07/17/25 14:23 Review of Systems Status of ROS: Reports: unobtainable due to medical condition [facility] Medical History History of TIA (transient ischemic attack) ?Z86.73 - Personal history of transient ischemic attack (TIA), and cerebral infarction without residual deficits (ICD-10) Surgical History S/P cataract extraction and insertion of intraocular lens ?Z98.49 - Cataract extraction status, unspecified eye (ICD-10) ?Z96.1 - Presence of intraocular lens (ICD-10) History of tonsillectomy ?Z90.89 - Acquired absence of other organs (ICD-10) History of prostate biopsy ?Z98.890 - Other specified postprocedural states (ICD-10) History of appendectomy ?Z90.49 - Acquired absence of other specified parts of digestive tract (ICD-10) Social History Narrative: health care directive on file- health care directive completed on 05/26/2020 reviewed and scanned on 05/27/2020 What is your current living situation?: I presently have a place to live Problems where you live: no known problems In the past 12 months, utilities in danger of being shut off: no In past 12 months, lack of transportation kept you from medical appts, meetings, work, or getting things needed for daily living: no In the past 12 mos, have been you worried that your food would run out before you had money to buy more?: never true In the past 12 mos, the food you bought just didn't last and you didn't have money to buy more?: never true Smoking Status: Former smoker How often do you have a drink containing alcohol: 4 or more times a week AUDIT-C Alcohol total score: 4 Non-prescribed substance use: denies use How often does anyone, including family, friends and others, physically hurt you: never How often does anyone, including family, friends and others, insult or talk down to you: never How often does anyone, including family, friends and others, threaten you with harm: never How often does anyone, including family, friends and others, scream or curse at you: never Exam Narrative: Exam Narrative: Vital signs reviewed In general, an alert elderly male. He looks somewhat uncomfortable. Head: Normocephalic, atraumatic. Eyes: Sclera clear. Pupils equal and reactive. ENT: Mucous membranes dry. Neck: Supple without adenopathy. Heart: Tachycardic, irregular. Lungs: Clear. No increased work of breathing, crackles or wheezes. Abdomen: Abdomen is flat, tender to palpation with guarding and rigidity Extremities: Well perfused, pulses intact. No significant edema. Neurologic: Patient is alert, does answer questions although he is somewhat confused. Moves all extremities. Skin: Warm, dry well perfused. Affect: Normal. Const: Vital Signs, click to edit/add: Vital Signs - 24 hr 07/19/25 21:52 07/19/25 22:42 07/19/25 22:45 Temperature 97.9 F Pulse Rate 99 Pulse Rate [Pulse Oximeter] 127 H Respiratory Rate 18 22 19 Blood Pressure 105/61 Blood Pressure [Ri ght Upper Arm] 75/48 L Pulse Oximetry 95 94 Oxygen Delivery Me thod Room Air 07/19/25 22:51 07/19/25 23:01 07/19/25 23:14 Temperature Pulse Rate 112 H 100 111 H Pulse Rate [Pulse Oximeter] Respiratory Rate 15 26 H 22 Blood Pressure 105/70 101/70 100/67 Blood Pressure [Ri ght Upper Arm] Pulse Oximetry 94 91 93 Oxygen Delivery Me thod 07/19/25 23:22 07/19/25 23:23 07/19/25 23:30 Temperature Pulse Rate 101 H 98 Pulse Rate [Pulse Oximeter] Respiratory Rate 20 19 19 Blood Pressure 87/72 L Blood Pressure [Ri ght Upper Arm] Pulse Oximetry 92 92 Oxygen Delivery Me thod 07/19/25 23:41 07/19/25 23:45 Temperature Pulse Rate 98 87 Pulse Rate [Pulse Oximeter] Respiratory Rate 34 H 23 Blood Pressure 113/99 H Blood Pressure [Ri ght Upper Arm] Pulse Oximetry 91 93 Oxygen Delivery Me thod Course Course ED Course: On arrival, patient was placed on the monitor, a 2nd IV was placed, he was given an additional L fluid bolus. I reviewed his records from a couple days ago as well as a CT scan from a year ago. He did not have evidence of an aortic aneurysm at that time, did briefly look at his aorta with the ultrasound but it was difficult to see good images. Certainly did not see any suggestion of aneurysm. An EKG was done which shows atrial fibrillation, rapid ventricular rate of 136 beats per minute. There is very amount of baseline waver, may be some ST depression in 2 and F, V3 through 6. I ordered labs as well as the CT scan of the abdomen pelvis. He had 50 mcg of fentanyl IV. Labs notable initially for lactate of 12.9. I reviewed his CT scan, there was significant amount of fluid in the abdomen, discussed with General surgery and reviewed the CT scan with Dr. Green, also discussed with the radiologist. Formal read is of perforation from unknown location, radiologist feels is likely gastro jejunal, but not really able to tell. Blood pressure did respond to fluids, systolic blood pressure came up for time to 120-130 although it has drifted back down. Other labs are notable for a normal white blood cell count, normal hemoglobin, troponin of 0.43. Venous gas shows a pH of 7.2, bicarb of 16. Normal pCO2. Metabolic panel notable for a carbon dioxide of 11, creatinine of 1.7 up from 1 a couple days ago. A repeat lactate was 8.9. Patient arrives as a full code status. His daughter and son-in-law arrived shortly thereafter. Initially there desire was to proceed with transfer and surgery. I ordered blood cultures and had ordered Zosyn. I did page the general surgeon at [facility], in the meantime, had further discussion with patient's daughter about the complexity of surgery, high risk of complications, unlikely return to equal quality of life. I spoke with the general surgeon as well who agreed that the likelihood of returning to his current living state was low. Reviewed all this with the patient as well, his daughter felt that ultimately he was able to make the final decision. After discussing the required surgery, potential complications, patient does not feel he would want to pursue that. He says he is ready to meet his maker and has lived a good life. Daughter and his 2 sons who she talked to on the phone are all comfortable with that as well. Discussed with hospitalist. Will admit to the floor, others family coming from 3 hours away in 6 hours away, so discussed with his daughter that we will do our best to keep him comfortable and able to say goodbye to family, though we were not able to guarantee that will be possible. She understands that. Critical care time 60 minutes Vital Signs Vital signs: Initial Vital Signs Temperature 97.9 F 07/19/25 21:52 Temperature Source Temporal Artery Scan 07/19/25 21:52 Pulse Rate 127 H 07/19/25 21:52 Respiratory Rate 18 10/24/25 21:52 Blood Pressure 75/48 L 07/19/25 21:52 Blood Pressure Mean 57 L 07/19/25 21:52 Blood Pressure Position Sitting 07/19/25 21:52 Pulse Oximetry 95 07/19/25 21:52 Oxygen Delivery Method Room Air 07/19/25 21:52 Vital Signs Temperature 97.9 F 07/19/25 21:52 Pulse Rate 127 H 07/19/25 21:52 Respiratory Rate 18 07/19/25 21:52 Blood Pressure 75/48 L 07/19/25 21:52 Pulse Oximetry 95 07/19/25 21:52 Oxygen Delivery Method Room Air 07/19/25 21:52 Temperature 97.9 F 07/19/25 21:52 Pulse Rate 87 07/19/25 23:45 Respiratory Rate 23 07/19/25 23:45 Blood Pressure 113/99 H 07/19/25 23:41 Pulse Oximetry 93 07/19/25 23:45 Oxygen Delivery Method Room Air 07/19/25 21:52 Medications Administered Medications: Generic Name Dose Route Start Last Admin Trade Name Leeq PRN Reason Stop Dose Admin Fentanyl 50 mcg 07/19/25 21:47 07/19/25 22:28 Fentanyl 100 Mcg/2 Ml Inj IVP 07/19/25 21:48 50 mcg ONCE ONE Administration Sodium Chloride 1,000 mls @ 1,000 mls/hr 07/19/25 22:00 07/19/25 23:00 0.9 % Sodium Chloride 1000 Ml IV 07/19/25 22:59 Infused .Q1H AMILCAR Infusion Piperacillin Sod/Tazobactam 100 mls @ 100 mls/hr 07/19/25 22:31 07/19/25 23:49 Sod 3.375 gm/ Sodium Chloride IVPB 07/19/25 22:32 Not Given ONCE ONE Lactated Ringer's 500 mls @ 125 mls/hr 07/19/25 22:49 07/19/25 23:04 Lactated Ringers 500 Ml IV 125 mls/hr .Q4H AMILCAR Administration Medical Decision Making Lab Data Labs: Lab Results 07/19/25 07/19/25 07/19/25 Range/Units 21:45 21:50 22:42 WBC 8.68 (4.50-11.00) K/uL RBC 4.75 (4.30-5.90) m/uL Hgb 16.7 (13.5-17.5) gm/dL Hct 50.7 (37.0-53.0) % MCV 107 H (80-100) fL MCH 35 H (26-34) pg MCHC 33 (32-36) gm/dL RDW Coeff of Dina 12.3 (11.5-15.5) % Plt Count 237 (140-440) K/uL Neut % (Auto) 90.2 H (42.0-72.0) % Lymph % (Auto) 4.1 L (20-44) % Nicholas % (Auto) 5.2 (0.0-11.0) % Eos % (Auto) 0.2 (0.0-7.0) % Baso % (Auto) 0.1 (0.0-3.0) % Neut # (Auto) 7.80 H (1.7-7.0) K/uL Lymph # (Auto) 0.40 L (0.90-2.90) K/uL Nicholas # (Auto) 0.50 (0.00-0.90) K/UL Eos # (Auto) 0.02 (0.00-0.50) K/uL Baso # (Auto) 0.01 (0.00-0.30) K/uL Abs Immat Gran (auto) 0.02 (0.00-0.30) K/uL Imm/Tot Granulo (auto) 0.2 % Diff Slide Review Acceptable Review (Acceptable) VBG pH 7.205 L* (7.32-7.43) VBG pCO2 41 (40-50) mmHG VBG pO2 32.4 (25-47) mmHG VBG HCO3 16 L (21-28) mmol/L Sodium 135 (135-149) mmol/L Potassium 3.3 L (3.6-5.1) mmol/L Chloride 101 (96-114) mmol/L Carbon Dioxide 11 L (20-32) mmol/L Anion Gap 23 H (7-15) mEq/L BUN 26 (7-30) mg/dL Creatinine 1.7 H (0.5-1.5) mg/dL Estimated GFR 39 ml/min Glucose 145 H (60-115) mg/dL Lactate 12.9 H* 8.9 H* (0.5-1.9) mmol/L Calcium 9.7 (8.4-10.6) mg/dL Total Bilirubin 1.5 (0.1-1.5) mg/dL Direct Bilirubin 0.9 H (0.0-0.5) mg/dL AST 50 H (12-35) U/L ALT 37 (4-50) U/L Alkaline Phosphatase 89 (40-150) U/L C-Reactive Protein 1.9 H (0.5-1.0) mg/dL Total Protein 7.1 (6.0-8.3) g/dL Albumin 3.9 (3.3-5.0) g/dL POC Troponin I 0.43 H (0.01-0.04) ng/ml Discharge Plan Discharge Clinical Impression: Bowel perforation, Need for comfort care Patient Disposition: Admitted As Observation Condition: Critical Procedures ABG Interpretation ABG Results: 07/19/25 22:42 VBG pH 7.205 L* VBG pCO2 41 VBG pO2 32.4 VBG HCO3 16 L
--- NOTE | 2025-07-20 00:36 | P.IMHP_ITS ---
Assessment and Plan Assessment and plan (1) Bowel perforation: Problem comment: -as noted on CT. Patient and family have opted for comfort cares Status: Acute (2) Need for comfort care: Problem comment: -pain and nausea management as needed, diet to liking -continue IVF for now, awaiting family to arrive from [facility] Status: Acute (3) Dementia: Problem comment: -noted Status: Acute Total Time Spent Total Time Spent: Today I spent 75 minutes seeing the patient, reviewing Expanse and EPIC notes/diagnostics, discussing the care plan with our care time that includes social work, PT/OT, pharmacy, RT, half-way and documenting my impressions and plan in the medical record. Hospitalist- H&P: HPI History of Present Illness Date Seen: 07/20/25 Chief complaint: abdominal pain Narrative: Jennifer Shaikh is a 84 year old male past medical history significant for BPH, CAD, COUGHLIN, hypertension, hypothyroidism, dementia is admitted to the medical floor from the ED for comfort cares, awaiting family to arrive from [facility]. Much of history is obtained from his daughter and son-in-law at bedside. Patient was in the ER 48 hours ago with complaint of left hip pain as well as nausea, decreased appetite, and increased confusion. He had just had his flu and COVID vaccines. No known falls though family reports he he does have frequent falls and may have not reported at. No other known trauma. Is brought to the ER tonight with abdominal pain. His daughter says he had been on the toilet several times tonight. Has had problems with constipation in the past. No vomiting. No recent fevers. CT scan of the abdomen tonight shows bowel perforation with free air as well as ascites. PH is 7.205, lactate is 8.9. Patient has been hypotensive. ED provider discussed with family as well as General surgery risks including high risk for . The need for an ostomy was also discussed which patient would not wish to have. He tells me tonight that he is ready to meet his ?maker. Patient in family to pursue comfort cares, awaiting other family to arrive from [facility]. DNR/DNI. Comfort cares only. Review of Systems Narrative: REVIEW OF SYSTEMS: Complete review of systems performed and negative unless otherwise stated in HPI or below. Medical Decision Making Medical Decision Making Code Status: DNR/DNI Has patient completed a Health Care Directive: Yes PFSH PFSH Medical History History of TIA (transient ischemic attack) ?Z86.73 - Personal history of transient ischemic attack (TIA), and cerebral infarction without residual deficits (ICD-10) Surgical History S/P cataract extraction and insertion of intraocular lens ?Z98.49 - Cataract extraction status, unspecified eye (ICD-10) ?Z96.1 - Presence of intraocular lens (ICD-10) History of tonsillectomy ?Z90.89 - Acquired absence of other organs (ICD-10) History of prostate biopsy ?Z98.890 - Other specified postprocedural states (ICD-10) History of appendectomy ?Z90.49 - Acquired absence of other specified parts of digestive tract (ICD- 10) Social History Narrative: health care directive on file- health care directive completed on 05/26/2020 reviewed and scanned on 05/27/2020 What is your current living situation?: I presently have a place to live Problems where you live: no known problems In the past 12 months, utilities in danger of being shut off: no In past 12 months, lack of transportation kept you from medical appts, meetings, work, or getting things needed for daily living: no In the past 12 mos, have been you worried that your food would run out before you had money to buy more?: never true In the past 12 mos, the food you bought just didn't last and you didn't have money to buy more?: never true Smoking Status: Former smoker How often do you have a drink containing alcohol: 4 or more times a week AUDIT-C Alcohol total score: 4 Non-prescribed substance use: denies use How often does anyone, including family, friends and others, physically hurt you : never How often does anyone, including family, friends and others, insult or talk down to you: never How often does anyone, including family, friends and others, threaten you with harm: never How often does anyone, including family, friends and others, scream or curse at you: never Meds Home Medications and Allergies Home Medications ?Medication ?Instructions ?Recorded ?Confirmed ?Type aspirin 81 mg capsule 81 mg PO QDAY 04/15/2207/17 History mecobalamin (vitamin B12) 1,000 1,000 mcg PO QDAY PRN 02/14/23 07/17/25 History mcg chewable tablet donepezil 5 mg tablet (Aricept) 5 mg PO QHS #90 tabs 0 12/13/24 07/17/25 Rx levothyroxine 100 mcg tablet 100 mcg PO QDAY #90 tabs 12/13/24 07/17/25 Rx multivitamin 1 tab PO QAM 12/13/24 History isosorbide mononitrate 30 mg 30 mg PO QHS #90 tabs 04/1907/17/25 Rx tablet,extended release 24 hr benazepril 40 mg tablet 40 mg PO QDAY #90 tabs 04/1907/17/25 Rx Allergies Allergy/AdvReac Type Severity Reaction Status Date / Time simvastatin (From Zocor) Allergy Intermediate Weakness Verified 07/17/25 14:23 contact metal agent AdvReac Mild rash Verified 07/17/25 14:23 Exam Narrative: Exam Narrative: PHYSICAL EXAM General: Pleasant, calm, NAD Cardiovascular: RRR Pulmonary: No dyspnea Neurological: Alert, answering questions appropriately currently Extremities: No gross joint deformity or swelling Skin: Crews, Warm, dry. Const: Vital Signs, click to edit/add: Vital Signs - 24 hr 07/19/25 21:52 07/19/25 22:42 07/19/25 22:45 Temperature 97.9 F Pulse Rate 99 Pulse Rate [Pulse Oximeter] 127 H Respiratory Rate 18 22 19 Blood Pressure 105/61 Blood Pressure [Ri ght Upper Arm] 75/48 L Pulse Oximetry 95 94 Oxygen Delivery Me thod Room Air 07/19/25 22:51 07/19/25 23:01 07/19/25 23:14 Temperature Pulse Rate 112 H 100 111 H Pulse Rate [Pulse Oximeter] Respiratory Rate 15 26 H 22 Blood Pressure 105/70 101/70 100/67 Blood Pressure [Ri ght Upper Arm] Pulse Oximetry 94 91 93 Oxygen Delivery Me thod 07/19/25 23:22 07/19/25 23:23 07/19/25 23:30 Temperature Pulse Rate 101 H 98 Pulse Rate [Pulse Oximeter] Respiratory Rate 20 19 19 Blood Pressure 87/72 L Blood Pressure [Ri ght Upper Arm] Pulse Oximetry 92 92 Oxygen Delivery [facility] 07/19/25 23:41 07/19/25 23:45 Temperature Pulse Rate 98 87 Pulse Rate [Pulse Oximeter] Respiratory Rate 34 H 23 Blood Pressure 113/99 H Blood Pressure [Ri ght Upper Arm] Pulse Oximetry 91 93 Oxygen Delivery [facility] Hospitalist - H&P: Result Labs Labs: Short CBC 07/19/25 Range/Units 21:45 WBC 8.68 (4.50-11.00) K/uL Hgb 16.7 (13.5-17.5) gm/dL Hct 50.7 (37.0-53.0) % Plt Count 237 (140-440) K/uL BMP 07/19/25 21:45 Sodium 135 Potassium 3.3 L Chloride 101 Carbon Dioxide 11 L BUN 26 Creatinine 1.7 H Glucose 145 H Calcium 9.7 Liver Function 07/19/25 Range/Units 21:45 Total Bilirubin 1.5 (0.1-1.5) mg/dL Direct Bilirubin 0.9 H (0.0-0.5) mg/dL AST 50 H (12-35) U/L ALT 37 (4-50) U/L Alkaline Phosphatase 89 (40-150) U/L Albumin 3.9 (3.3-5.0) g/dL Imaging CT scan - abdomen: Attestation: I have reviewed the pertinent imaging results. Radiologist's impression: Lower chest: Bibasilar atelectasis and/or scarring. Marked wall thickening of the distal esophagus. Hepatobiliary: No significant parenchymal abnormality is appreciated. Simple appearing cysts noted. Spleen: Unremarkable. Pancreas: No acute abnormality appreciated. Adrenal glands: No acute abnormality appreciated. Kidneys: No significant parenchymal abnormality appreciated. No visualized calculi. No hydronephrosis. Bowel: No obstruction. Extensive diverticulosis. There is marked bowel wall thickening involving essentially the entire visualized bowel from the esophagus to the descending colon. There is an ill-defined appearance to the wall at the gastroduodenal junction, otherwise site of perforation is not entirely clear. Vascular: Atherosclerosis. Significant narrowing at the origin of the SMA but apparent nonocclusive and with distal opacification present. This appears to have been present on prior examination. Lymph nodes: No gross lymphadenopathy. Peritoneum: Small to moderate volume of free air in the abdomen. Moderate to large volume ascites. : No acute abnormality appreciated. Soft tissues: No acute abnormality appreciated. Bones: No acute fracture. No lytic or blastic lesion. Degenerative changes of the spine and pelvis. Impression: High suspicion for bowel perforation given the presence of free air in the abdomen along with moderate to large volume ascites and diffuse irregular appearance to the bowel from the partially visualized esophagus extending to the descending colon. Difficult to identify the exact site of perforation but there does appear to be irregularity and possible discontinuity of the bowel wall at the gastro duodenal junction which may suggest but is not definitive for site of perforation. Surgical evaluation recommended. Additional nonacute findings as above.
[2025-07-20 00:44] VITALS: BP 109/63; PULSE 104; RESP 22; TEMP 36; O2SAT 93
[2025-07-20] MEDS: MORPHINE 10 MG/0.5 ML ORAL SOLN PO ×7 (01:06→11:45)
--- NOTE | 2025-07-20 06:27 | PC.NURSE ---
Per Hospitalist note after pt was admitted last night, IVF continued until all of pt's family arrived [place]. All of pt's family members from out of state arrived this morning and agreed that they would like IVF discontinued. [employer] called Neil and left message with telehealth service. has since given order to stop IV fluids which has been completed per order.
--- NOTE | 2025-07-20 07:24 | PC.NURSE ---
End of shift [id number]: Repositioning as tolerated. Providing ice chips for comfort. Pt and family requesting PRN Morphine for pain. Fluids discontinued per family request and order put in by Neil. Pt in bed resting with call light in reach. Report given to YUKO Alexis.
[2025-07-20 07:48] VITALS: BP 75/41; PULSE 108; O2SAT 85
--- NOTE | 2025-07-20 09:27 | PM.IMPN1 ---
Assessment and Plan Assessment and plan (1) Need for comfort care: Problem comment: -pain and nausea management as needed, diet to liking -continue IVF for now, awaiting family to arrive from [place] and [place] - 07/20 family has all arrived, IVF stopped. Imminent. Comfortable. Continue comfort cares. Status: Acute (2) Bowel perforation: Problem comment: -as noted on CT. Patient and family have opted for comfort cares Status: Acute (3) Dementia: Problem comment: -noted Status: Chronic Subjective Time Seen by Provider: 09:10 Date Seen: 07/20/25 Interval history: His three children and two of their spouses are at bedside. They had a few questions about medications, diagnosis, symptoms and how long he has left. They all expressed peace with his decision to be comfort cares. They noted that he has been unresponsive since about 5 a.m., and his breathing changed about an hour ago. IV fluids were already stopped this morning per family's request. Exam Narrative: Exam Narrative: General: Unresponsive, Kussmal breathing. Oropharynx: Mucous membranes dry. Cardiovascular: Mildly tachycardic, regular. Respiratory: Periods of tachypnea with sonorous breathing along with periods of apnea. Clear to auscultation anteriorly. No wheezes or crackles. Const: Vital Signs, click to edit/add: Vital Signs - 24 hr 07/19/25 21:52 07/19/25 22:42 07/19/25 22:45 Temperature 97.9 F Pulse Rate 99 Pulse Rate [Pulse Oximeter] 127 H Respiratory Rate 18 22 19 Blood Pressure 105/61 Blood Pressure [Ri ght Arm] Blood Pressure [Ri ght Upper Arm] 75/48 L Pulse Oximetry 95 94 Oxygen Delivery Me thod Room Air 07/19/25 22:51 07/19/25 23:01 07/19/25 23:14 Temperature Pulse Rate 112 H 100 111 H Pulse Rate [Pulse Oximeter] Respiratory Rate 15 26 H 22 Blood Pressure 105/70 101/70 100/67 Blood Pressure [Ri ght Arm] Blood Pressure [Ri ght Upper Arm] Pulse Oximetry 94 91 93 Oxygen Delivery Me thod 07/19/25 23:22 07/19/25 23:23 07/19/25 23:30 Temperature Pulse Rate 101 H 98 Pulse Rate [Pulse Oximeter] Respiratory Rate 20 19 19 Blood Pressure 87/72 L Blood Pressure [Ri ght Arm] Blood Pressure [Ri ght Upper Arm] Pulse Oximetry 92 92 Oxygen Delivery Me thod 07/19/25 23:41 07/19/25 23:45 07/20/25 00:44 Temperature 96.8 F L Pulse Rate 98 87 Pulse Rate [Pulse Oximeter] 104 H Respiratory Rate 34 H 23 22 Blood Pressure 113/99 H Blood Pressure [Ri ght Arm] 109/63 Blood Pressure [Ri ght Upper Arm] Pulse Oximetry 91 93 93 Oxygen Delivery Me thod Room Air 07/20/25 07:48 07/20/25 07:48 Temperature Pulse Rate Pulse Rate [Pulse Oximeter] 108 H 108 H Respiratory Rate Blood Pressure Blood Pressure [Ri ght Arm] 75/41 L Blood Pressure [Ri ght Upper Arm] Pulse Oximetry 85 L Oxygen Delivery Me thod Room Air Labs Labs: Laboratory Results - last 24 hr 07/19/25 07/19/25 07/19/25 21:45 21:50 22:33 WBC 8.68 RBC 4.75 Hgb 16.7 Hct 50.7 MCV 107 H MCH 35 H MCHC 33 RDW Coeff of Dina 12.3 Plt Count 237 Neut % (Auto) 90.2 H Lymph % (Auto) 4.1 L [place] % (Auto) 5.2 Eos % (Auto) 0.2 Baso % (Auto) 0.1 Neut # (Auto) 7.80 H Lymph # (Auto) 0.40 L [place] # (Auto) 0.50 Eos # (Auto) 0.02 Baso # (Auto) 0.01 Abs Immat Gran (auto) 0.02 Imm/Tot Granulo (auto) 0.2 Diff Slide Review Acceptable Review VBG pH VBG pCO2 VBG pO2 VBG HCO3 Sodium 135 Potassium 3.3 L Chloride 101 Carbon Dioxide 11 L Anion Gap 23 H BUN 26 Creatinine 1.7 H Estimated GFR 39 Glucose 145 H Lactate 12.9 H* Calcium 9.7 Total Bilirubin 1.5 Direct Bilirubin 0.9 H AST 50 H ALT 37 Alkaline Phosphatase 89 C-Reactive Protein 1.9 H Total Protein 7.1 Albumin 3.9 POC Troponin I 0.43 H Blood Type A Positive Antibody Screen NEGATIVE 07/19/25 22:42 WBC RBC Hgb Hct MCV MCH MCHC RDW Coeff of Dina Plt Count Neut % (Auto) Lymph % (Auto) [place] % (Auto) Eos % (Auto) Baso % (Auto) Neut # (Auto) Lymph # (Auto) [place] # (Auto) Eos # (Auto) Baso # (Auto) Abs Immat Gran (auto) Imm/Tot Granulo (auto) Diff Slide Review VBG pH 7.205 L* VBG pCO2 41 VBG pO2 32.4 VBG HCO3 16 L Sodium Potassium Chloride Carbon Dioxide Anion Gap BUN Creatinine Estimated GFR Glucose Lactate 8.9 H* Calcium Total Bilirubin Direct Bilirubin AST ALT Alkaline Phosphatase C-Reactive Protein Total Protein Albumin POC Troponin I Blood Type Antibody Screen
--- NOTE | 2025-07-20 15:44 | PM.DSD ---
Discharge Sum: Prov Provider Date Seen: 07/20/25 Primary care physician: Alejandra Mclean MD Attending physician on admission: Kylie Desai Consults: 07/20/25 00:41 Consult to Human Services Program Specialist [CONS] Routine Comment: Reason for Consult:: Social Service Consult Pronouncing clinician: Kylie Desai Discharge Sum: Diag PCOD Cause of : Perforated abdominal viscus Contributing Factors (1) Bowel perforation: Contributing factors: CT shows bowel perforation with evidence of free air in the abdomen along with moderate to large volume ascites and diffuse irregular appearance to the bowel from the partially visualized esophagus extending to the descending colon. There is marked bowel wall thickening involving essentially the entire visualized bowel from the esophagus to the descending colon. There is an ill-defined appearance to the wall at the gastroduodenal junction, otherwise site of perforation is not entirely clear. Acidotic, pH 7.205, lactate 8.9. Hypotensive. (2) Dementia: Contributing factors: Increased confusion Discharge Sum: Summary Date and Time Date of admission: 07/19/25 23:51 Date of : 07/20/25 Time of : 15:40 Summary Details: Admitted to hospital with evidence of bowel perforation, site of perforation not entirely clear per CT read. Was brought to ED with abdominal pain, however any symptoms or events leading up to this, unclear given patient's dementia. Patient noted to be significantly hypotensive, acidotic. Discussion with patient and family regarding options including surgical intervention were completed in the ED. Decision was made for comfort cares. Additional Data Confirmation of as documented by pronouncing clinician: no pulse, no respirations and no heart sounds Family: at bedside Attending/PCP notified?: No Attending physician: Kylie Desai, [facility], [facility] Was code activated?: No Autopsy requested?: No employee operations examiner notified?: Yes Organ bank notified?: Yes Advance directives: Yes Hospice patient?: No Total time spent: Today I spent 45 minutes seeing the patient, reviewing Expanse and EPIC notes/diagnostics, discussing the care plan with our care time that includes social work, PT/OT, pharmacy, RT, fdc and documenting my impressions and plan in the medical record.
--- NOTE | 2025-07-20 16:20 | PC.NURSE ---
Patient : Patient at 1540, verified. [facility] contacted, not a candidate for donation. [facility] contacted. Patient's family declined to RN washing up Patient. Patient's son signed belongings sheet. Fentynal patch on left shoulder removed and wasted in waste jug, charge cosigned in omni.
--- NOTE | 2025-07-20 18:30 | PC.NURSE ---
Juma left with at 1651.
== END 2025-07-20 16:51 | disposition expired ==
LOC: ED 23:37 → MEDSURG 23:52
PROVIDERS: Admitting Provider Family Medicine; Emergency Provider Emergency Medicine; PCP Internal Medicine; Visit Provider Family Medicine
DX: K63.1 Perforation of intestine (nontraumatic) (principal); F03.90 Unspecified dementia, unspecified severity, without behavioral disturbance, psychotic disturbance, mood disturbance, and anxiety; Z51.5 Encounter for palliative care
CPT/HCPCS: 36415; 74177; 80048; 80076; 81001; 82803; 83605; 84484; 85025; 86140; 86850; 86900; 86901; 87040; 93005; 96374; 99285; A9270; G0378; J3010; J7030; J7120; Q9967